=== PATIENT | male | born 1970 ===

== ENCOUNTER 2019-12-23 17:02 | Outpatient (REF) | payer MEDICARE, MEDICAID, SELFPAY | END 2019-12-23 17:03 | disposition home or self-care (01) | LOC: HO.LAB 17:02 | PROVIDERS: Visit Provider Internal Medicine | DX: Z20.828 Contact with and (suspected) exposure to other viral communicable diseases (principal) | CPT/HCPCS: 87635 ==

== ENCOUNTER 2019-12-24 10:04 | Outpatient (REF) | payer MEDICARE, MEDICAID, SELFPAY ==
[2019-12-24 12:13] LABS: Alanine Aminotransferase 45 U/L (0-40); Albumin Level 4.6 g/dL (3.5-5.0); Alkaline Phosphatase 80 U/L (39-117); Aspartate Amino Transferase 28 U/L (5-37); Bilirubin Direct 0.2 mg/dL (0.0-0.5); Bilirubin Total 0.9 mg/dL (0.0-1.0); Cholesterol 214 mg/dL; HDL Cholesterol 41 mg/dL; LDL Cholesterol Calculated 145 mg/dl; Total Protein 7.8 g/dL (6.5-8.0); Triglycerides 140 mg/dL
== END 2019-12-24 10:05 | disposition home or self-care (01) ==
LOC: HO.LAB 10:04
DX: E78.5 Hyperlipidemia, unspecified (principal)
CPT/HCPCS: 80061; 80076

== ENCOUNTER 2020-12-03 10:16 | Outpatient (REF) | payer MEDICARE, MEDICAID, SELFPAY ==
--- NOTE | 2020-12-03 13:34 | MHC.AU.HAS ---
Hearing Aid Evaluation Date of Visit: 12/03/20 Historical Information: Description of Hearing: Right ear- Normal sloping to mild to moderately severe HF SNHL. Left ear- Normal sloping to a mild to profound SNHL. Current personal amplification information, if applicable: 2009 Phonak Versata CIC - Lost Summary: Binaural amplification is recommended to help facilitate improved communication give the type and degree of the patient's hearing loss. Hearing aid style, technologies, and options were discussed. He is interested in binaural SVETA style hearing aids with regular batteries and domes. Hearing Aid Prescription: Based on the individual?s shared listening needs, communication environments, dexterity, desire for connectivity, and personal preferences, the following prescription for amplification has been made: Right ear: Surface Plate Finisher: Phonak Model: BetterYoueo P70-13T Battery Size: 13 Color: P8 - Black Pickling Solution Maker: Size 1 M Type of Dome: Open Left ear: Left ear prescription to be same as Right Hearing Aid above: Surface Plate Finisher: Phonak Model: Audeo P70-13T Battery Size: 13 Color: P8 - Black Type of Dome: Power Plan of Care: Medical Clearance to be requested from PCP/ENT. Hearing Instrument Fitting to be scheduled when materials arrive. Hearing aids will be ordered once medical clearance is received. Primary Diagnosis: H90.3 Bilateral Sensorineural Hearing Loss Signature: Provider: Thomas Garcia, RUTHIE-A
--- NOTE | 2020-12-03 13:35 | MHC.AU.AHA ---
Adult Audiological Evaluation Date of Visit: 12/03/20 Reason for Appointment: Audiological re-evaluation due to concern for decreased hearing. Patient has a known asymmetrical hearing hearing loss, with significantly worse hearing in the left ear. Previous MRI findings indicated a right sided acoustic neuroma, which seems inconsistent given his left sided hearing loss. Patient reports that recently he's been having more difficulty hearing and is struggling more day to day. He is currently in school as [employer] and find it difficult to hear and follow along in his classes. He no longer has his hearing aid and hasn't used a hearing aid in a number of years. Previous Hearing Test Results: Dr. Smith's office, 01/14/2009 - Normal hearing in the right ear sloping to a mild high-frequency hearing loss. Medical History: Medical History: Acoustic neuroma Hearing Instrument History- Left Ear: Technology Intern: Phonak - [email or web address] Model: WAKU WAKU ? SR/ART CIC Serial Number: [id number] Battery Size: 10 Warranty: 11/12/2011 Loss and Damage Warranty: 11/11/2010 Dispensed By: [facility] Date of Fittin11/02/2009 Otoscopy: Right Ear: Unremarkable Left Ear: Unremarkable Tympanometry: Tympanometry performed due to: To assess integrity of the middle ear system Right Ear: Normal Middle Ear System (Type A) Left Ear: Reduced Middle Ear Compliance (Type As) Hearing Evaluation: Transducer(s) Used: Circumaural Headphones, Bone Conduction Method: Conventional Audiometry Stimuli Used: Pure Tones Right Ear: Description of Hearing: Normal hearing from 250-2000 Hz, sloping to a mild sensorineural hearing loss from 4161-0709 Hz, and a moderately-severe hearing loss form 7674-5681 Hz. Left Ear: Description of Hearing: Normal hearing from 250-500 Hz, sloping to a mild sensorineural hearing loss at 1000 Hz, moderate sensorineural hearing loss at 1500 Hz, moderately-severe sensorineural hearing loss at 2000 Hz, and a profound hearing loss from 7733-1492 Hz. Hearing in the left ear is 30-70 dBHL worse than the right ear from 1219-8972 Hz. Speech Recognition Threshold (SRT): Method Used: Monitored Live Voice Stimuli Used: Spondee Words Right Ear: 20 dBHL Left Ear: 25 dBHL Word Discrimination: Method: Recorded Lists Word Lists Used: NU-6 Right Ear: 80% at 70 dBHL Left Ear: 64% at 85 dBHL Comparison: Compared to the most recent evaluation: Decreased hearing in the right ear. Stable hearing in the left ear. Recommendations: Audiological re-evaluation in one year. Trial with amplification is recommended. Medical clearance from a physician is required before fitting.Hearing Aid Fitting will be scheduled when all materials arrive. Hearing aid(s) will be ordered after approval is received. Referral to Ear, Nose, and Throat is recommended to monitor acoustic neuroma. Diagnosis: Primary Diagnosis: H90.3 Bilateral Sensorineural Hearing Loss Services Performed: Comprehensive Audiological Evaluation (CPT 74091) Tympanometry (CPT 29627) Signature: Provider: Thomas Garcia, CCC-A
--- NOTE | 2020-12-03 13:39 | MHC.AU.MED ---
Medical Clearance for Hearing Instrumentation Date: 12/08/20 Patient Name: Matthew Lund Date of : 1970 Primary Care Provider: Referring Provider: Stephanie Tena NP We have seen your patient on 12/03/20 and have determined that they are a candidate for amplification (See accompanying report). Specifically, they would benefit from: Hearing aid use in both ears There is a statute that addresses Medical Evaluation Requirements prior to fitting a patient with a hearing aid. According to [place] statute 265 CMR:6.03(1), (a) General. Except as provided in 265 CMR 6.03(1)(b), a hearing screen coordinator shall not sell a hearing aid unless the prospective user has presented to the hearing screen coordinator a written statement signed by a licensed physician that states that the patient's hearing loss has been medically evaluated and the patient may be considered a candidate for a hearing aid. The medical evaluation must have taken place within the preceding six months. Please note: Due to the [place] Statute referenced above, we cannot accept a signature other than that of a licensed physician. MULTIPLE CUT OFF SAW OPERATOR and PA signatures cannot be accepted. I am in agreement with the above recommendation. There is no medical contraindication for hearing instrumentation. Physician Signature Date Physician Name (Printed)
== END 2020-12-03 10:17 | disposition home or self-care (01) ==
LOC: HO.SH 10:16
PROVIDERS: Visit Provider Nurse Practitioner Family
DX: Z46.1 Encounter for fitting and adjustment of hearing aid (principal); H90.3 Sensorineural hearing loss, bilateral
CPT/HCPCS: 92557; 92567; 92591

== ENCOUNTER 2020-12-27 08:17 | Outpatient (REF) | payer MEDICARE, MEDICAID, SELFPAY | END 2020-12-27 08:18 | disposition home or self-care (01) | LOC: HO.HAP 08:17 | PROVIDERS: Visit Provider Internal Medicine | DX: Z46.1 Encounter for fitting and adjustment of hearing aid (principal); H90.3 Sensorineural hearing loss, bilateral | CPT/HCPCS: V5011; V5020; V5160; V5261; V5266 ==

== ENCOUNTER 2021-01-10 13:57 | Outpatient (REF) | payer MEDICARE, MEDICAID, SELFPAY | END 2021-01-10 13:58 | disposition home or self-care (01) | LOC: HO.HAP 13:57 | DX: Z13.89 Encounter for screening for other disorder (principal) ==

== ENCOUNTER 2021-03-24 15:05 | Outpatient (REF) | payer MEDICARE, MEDICAID, SELFPAY | END 2021-03-24 15:06 | disposition home or self-care (01) | LOC: HO.HAP 15:05 | PROVIDERS: PCP Internal Medicine; Visit Provider Internal Medicine | DX: Z13.89 Encounter for screening for other disorder (principal) ==

== ENCOUNTER 2021-03-29 12:55 | Outpatient (REF) | payer MEDICARE, MEDICAID, SELFPAY | END 2021-03-29 12:56 | disposition home or self-care (01) | LOC: HO.HAP 12:55 | PROVIDERS: Visit Provider Internal Medicine | DX: Z46.1 Encounter for fitting and adjustment of hearing aid (principal); H90.3 Sensorineural hearing loss, bilateral | CPT/HCPCS: V5266 ==

== ENCOUNTER 2021-08-24 12:44 | Outpatient (REF) | payer OTHER, SELFPAY ==
[2021-08-24 13:25] LABS: IDNOW Serial# 08D9AD1C
[2021-08-24 13:26] LABS: COVID-19 Test Negative (Negative)
== END 2021-08-24 12:45 | disposition home or self-care (01) ==
LOC: HO.LAB 12:44
PROVIDERS: Visit Provider Internal Medicine
DX: Z20.822 Contact with and (suspected) exposure to COVID-19 (principal)
CPT/HCPCS: 87635; C9803

== ENCOUNTER 2021-12-22 14:38 | Outpatient (REF) | payer OTHER, SELFPAY ==
[2021-12-22 15:41] LABS: Hematocrit 43.4 % (42.0-52.0); Hemoglobin 14.6 g/dl (14.0-18.0); Mean Corpuscular HGB Conc 33.6 g/dl (31.0-36.0); Mean Corpuscular Hemoglobin 29.9 pg (27.0-33.0); Mean Corpuscular Volume 88.9 fL (80.0-98.0); Mean Platelet Volume 9.9 fL (9.4-12.4); Platelet Count 280 X10*3/uL (160-400); Red Blood Count 4.88 X10*6/uL (4.60-5.80); Red Cell Distribution Width 12.4 % (11.0-16.0); White Blood Count 7.4 X10*3/uL (4.8-10.8)
[2021-12-22 15:47] LABS: Estimated Average Glucose 131 mg/dL; Hemoglobin A1c % 6.2 %
[2021-12-22 16:10] LABS: Alanine Aminotransferase 42 U/L (0-40); Albumin Level 4.3 g/dL (3.5-5.0); Alkaline Phosphatase 76 U/L (39-117); Anion Gap 14 (12-20); Aspartate Amino Transferase 25 U/L (5-37); Bilirubin Total 0.7 mg/dL (0.0-1.0); Blood Urea Nitrogen 13 mg/dL (9-16); Calcium 9.3 mg/dL (8.4-10.2); Carbon Dioxide 29 mmol/L (22-29); Chloride 99 mmol/L (96-108); Cholesterol 234 mg/dL; Estimated Glomerular Filt Rate > 60; Glucose Fasting 105 mg/dL (60-99); HDL Cholesterol 34 mg/dL; LDL Cholesterol Calculated 152 mg/dl; Potassium 4.2 mmol/L (3.3-5.1); Sodium 138 mmol/L (135-145); Total Protein 7.2 g/dL (6.5-8.0); Triglycerides 244 mg/dL
[2021-12-22 16:11] LABS: Creatinine Urine 91.35 mg/dL; Microalbumin Urine < 5.0 mg/L
[2021-12-22 16:31] LABS: TSH reflex Free T4 1.24 uIU/mL (0.32-4.0)
== END 2021-12-22 14:39 | disposition home or self-care (01) ==
LOC: HO.LAB 14:38
PROVIDERS: PCP Physician Assistant; Visit Provider Physician Assistant
DX: E11.65 Type 2 diabetes mellitus with hyperglycemia (principal)
CPT/HCPCS: 36415; 80053; 80061; 82043; 83036; 84443; 85027

== ENCOUNTER 2022-01-18 11:51 | Outpatient (REF) | payer OTHER, SELFPAY ==
--- NOTE | 2022-01-18 13:52 | MHC.AU.HFU ---
Hearing Instrument Follow-Up- Binaural Date of Visit: 01/18/22 Right Ear: Mira Davison P70-13T SN: [id number] Color: Velvet Black Repair Warranty: 03/15/2024 Loss and Damage Warranty: 03/15/2024 Service Plan: 12/27/2021 Battery Size: 13 Shoe Stamper: Size 0 M Type of Mold: Small open dome Type of Wax Guard: Cerushield Dispensed By: [facility] Date of Fittin12/27/2020 Left Ear: Mira Davison P70-13T SN: [id number] Color: Velvet Black Repair Warranty: 03/15/2024 Loss and Damage Warranty: 03/15/2024 Service Plan: 12/27/2021 Battery Size: 13 Shoe Stamper: Size 0 M Type of Mold: Small open dome Type of Wax Guard: Cerushield Dispensed By: [facility] Date of Fittin12/27/2020 Follow-Up Summary: Matthew dropped off his hearing aids reporting that they were not working. Battery doors and compartments covered in rust. Cleaned out battery compartments and battery doors. Cleaned hearing aids, vacuumed microphones, and replaced domes, wax guards, and retention tails. A listening check demonstrated that the hearing aids are in good working order. Data logging only about 2.5 hours/day. Recommendations: Daily and consistent use of binaural amplification. If hearing aids will not be worn for an extended period of time, remove the battery completely from the hearing aid. Diagnosis Code(s): Primary Diagnosis: H90.3 Bilateral Sensorineural Hearing Loss Signature: Provider: Jolanta Vicente, [facility]
== END 2022-01-18 11:52 | disposition home or self-care (01) ==
LOC: HO.HAP 11:51
PROVIDERS: Visit Provider Physician Assistant
DX: Z46.1 Encounter for fitting and adjustment of hearing aid (principal); H90.3 Sensorineural hearing loss, bilateral
CPT/HCPCS: 92593

== ENCOUNTER 2022-01-19 11:32 | Outpatient (REF) | payer OTHER, MEDICAID, SELFPAY | END 2022-01-19 11:33 | disposition home or self-care (01) | LOC: HO.HAP 11:32 | PROVIDERS: Visit Provider Physician Assistant | DX: Z46.1 Encounter for fitting and adjustment of hearing aid (principal); H90.3 Sensorineural hearing loss, bilateral | CPT/HCPCS: V5266 ==

== ENCOUNTER 2022-02-04 18:30 | Emergency (ER) | payer OTHER, MEDICAID, SELFPAY ==
--- NOTE | 2022-02-04 19:41 | ED_ITS ---
HPI - Back Pain/Injury General Chief Complaint: Back Pain/Injury <Kasandra Haynes CNP - Last Filed: 02/04/22 20:59> Stated Complaint: lower back pain <Kasandra Haynes CNP - Last Filed: 02/04/22 20:59> Time Seen by Provider: 02/04/22 21:35 <Kasandra Haynes CNP - Last Filed: 02/04/22 20:59> Source: patient and family (Brother, Varun) <Prabhu Olmedo MD - Last Filed: 02/04/22 22:24> Mode of arrival: ambulatory <Prabhu Olmedo MD - Last Filed: 02/04/22 22:24> Limitations: no limitations <Prabhu Olmedo MD - Last Filed: 02/04/22 22:24> History of Present Illness HPI Narrative: 51-year-old male who presents emergency department for evaluation of severe lower back pain and left hip pain. Patient has a history of peripheral spondyloarthritis (SpA-inflammatory arthritis) being treated with Humira and methotrexate who presents emergency department for evaluation of lower back pain and left hip pain x2 days. Patient states that yesterday he had some slight pain in his lower back. He states that overnight the pain became severe to the point where he is unable to move her sleep. Patient points to his lower back and left hip area when asked to localize the pain. States the pain is a constant, sharp/shooting/pressure pain. He states that he gets episodes of spasm which are severe and are greater than 10/10. The patient states that he did not take any other medications for his pain. He states that the pain is w orse with movement and with sitting any has to personal lines agent order to get relief his pain. He denies any numbness or weakness of his lower extremities. He is able to walk using his walker. He denied loss of bowel or bladder control. He denied fever, chills, rhinorrhea, sore throat, cough, chest pain, shortness of breath or dyspnea on exertion. He has had no loss of bowel or bladder control. <Prabhu Olmedo MD - Last Filed: 02/04/22 22:24> MD elicited complaint: back pain <Prabhu Olmedo MD - Last Filed: 02/04/22 22:24> Pertinent past history: prior back pain (SpA) <Prabhu Olmedo MD - Last Filed: 02/04/22 22:24> Onset (ago): day(s) (2) <Prabhu Olmedo MD - Last Filed: 02/04/22 22:24> Timing: constant <Prabhu Olmedo MD - Last Filed: 02/04/22 22:24> Severity: severe <Prabhu Olmedo MD - Last Filed: 02/04/22 22:24> Pain scale (0-10): 10 <Prabhu Olmedo MD - Last Filed: 02/04/22 22:24> Similar Symptoms Previously: Yes <Prabhu Olmedo MD - Last Filed: 02/04/22 22:24> Quality: sharp and other (Shooting, pressure pain) <Prabhu Olmedo MD - Last Filed: 02/04/22 22:24> Location: lumbar spine <Prabhu Olmedo MD - Last Filed: 02/04/22 22:24> Radiation: other (Left hip) <Prabhu Olmedo MD - Last Filed: 02/04/22 22:24> Exacerbating factors: movement, supine positioning and walking <Prabhu Olmedo MD - Last Filed: 02/04/22 22:24> Relieving factors: none <Prabhu Olmedo MD - Last Filed: 02/04/22 22:24> Context: other (Came on at rest, no injury) <Prabhu Olmedo MD - Last Filed: 02/04/22 22:24> Associated symptoms: denies other symptoms <Prabhu Olmedo MD - Last Filed: 02/04/22 22:24> Work related injury: No <Prabhu Olmedo MD - Last Filed: 02/04/22 22:24> Related Data Home Medications: Home Medications Medication Instructions Recorded Confirmed adalimumab 40 mg/0.8 mL 40 mg subcut Q2W 12/12/21 12/12/21 subcutaneous syringe kit (Humira) cholecalciferol (vitamin D3) 50 50 mcg PO DAILY 12/12/21 12/12/21 mcg (2,000 unit) capsule folic acid 1 mg tablet 1 mg PO DAILY 12/12/21 12/12/21 hydrochlorothiazide 25 mg tablet 25 mg PO DAILY 12/12/21 12/12/21 methotrexate (PF) 17.5 mg/0.35 mL 17.5 mg subcut QWEEK 12/12/21 12/12/21 subcutaneous auto-injector (Rasuvo (PF)) Previous Rx's Medication Instructions Recorded magnesium oxide 400 mg PO DAILY 30 days #30 tabs 12/12/21 cyclobenzaprine 10 mg tablet 10 mg PO TID PRN pain, muscle 02/04/22 spasm #15 tabs dexamethasone 6 mg tablet 6 mg PO DAILY 5 days #5 tabs 02/04/22 morphine 15 mg immediate release 15 mg PO Q4-6H PRN pain #14 tabs 02/04/22 tablet <Kasandra Haynes CNP - Last Filed: 02/04/22 20:59> Allergies/Adverse Reactions: Allergies Allergy/AdvReac Type Severity Reaction Status Date / Time No Known Allergies Allergy Verified 12/12/21 14:03 [No Known Allergies*] <Kasandra Haynes CNP - Last Filed: 02/04/22 20:59> Review of Systems Review of Systems: Yes all other systems are reviewed and are negative <Prabhu Olmedo MD - Last Filed: 02/04/22 22:24> [facility] Past Medical History [facility] Narrative: Past medical history: Prediabetes, peripheral spondyloarthritis(SpA). Past surgical history: left hip replaced. Social history: He denies tobacco, alcohol and drug use. <Prabhu Olmedo MD - Last Filed: 02/04/22 22:24> Social History Social History: Social History Housing: Condominium Patient Tobacco Use Status: Never used Tobacco Advance Directives: No Advance Directives Information Provided: Yes service: No Current occupational status: unemployed Cognitive needs: No Hearing needs: Yes (right ear ) Vision needs: Yes (glasses) <Kasandra Haynes CNP - Last Filed: 02/04/22 20:59> Physical Exam Vital Signs: Vital Signs: Last Vital Signs Temp 97.8 F 02/04/22 19:42 Pulse 115 H 02/04/22 19:42 Resp 20 02/04/22 19:42 BP 124/88 02/04/22 19:42 Pulse Ox 96 02/04/22 19:42 O2 Del Method 02/04/22 19:42 BMI result Body Mass Index 34.0 <Kasandra Haynes CNP - Last Filed: 02/04/22 20:59> Vital Signs: Last Vital Signs Temp 97.8 F 02/04/22 19:42 Pulse 115 H 02/04/22 19:42 Resp 20 02/04/22 19:42 BP 124/88 02/04/22 19:42 Pulse Ox 96 02/04/22 19:42 O2 Del Method 02/04/22 19:42 BMI result Body Mass Index 34.0 <Prabhu Olmedo MD - Last Filed: 02/04/22 22:24> Const: Other: Awake, alert, male patient, pleasant, cooperative, patient is standing and cannot sit secondary to his pain, he is able to walk using a walker without any difficulty, answers all questions appropriately <Prabhu Olmedo MD - Last Filed: 02/04/22 22:24> HEENT: Head: Yes normal to inspection, Yes normocephalic and Yes atraumatic <Prabhu Olmedo MD - Last Filed: 02/04/22 22:24> Ears: external ears normal <Prabhu Olmedo MD - Last Filed: 02/04/22 22:24> General nose exam: Normal external nose present <Prabhu Olmedo MD - Last Filed: 02/04/22 22:24> Face and sinus: Yes normal facial exam <Prabhu Olmedo MD - Last Filed: 02/04/22 22:24> Mouth: Normal oral and palatal mucosa present <Prabhu Olmedo MD - Last Filed: 02/04/22 22:24> Throat: Yes posterior oropharynx normal <Prabhu Olmedo MD - Last Filed: 02/04/22 22:24> Eyes: General: appearance normal, both eyes and all related structures <Prabhu Olmedo MD - Last Filed: 02/04/22 22:24> Pupils: Equal, round and reactive pupils present <Prabhu Olmedo MD - Last Filed: 02/04/22 22:24> Neck: Neck: Yes normal visual inspection, Yes no lymphadenopathy, Yes trachea midline and Yes supple <Prabhu Olmedo MD - Last Filed: 02/04/22 22:24> Chest: Chest palpation & inspection: normal inspection of the chest and normal palpation of entire chest wall <Prabhu Olmedo MD - Last Filed: 02/04/22 22:24> Resp: Effort & Inspection: normal respiratory effort and able to speak in complete sentences <Prabhu Olmedo MD - Last Filed: 02/04/22 22:24> Auscultation: clear to auscultation bilaterally <Prabhu Olmedo MD - Last Filed: 02/04/22 22:24> Cardio: Rate: regular rate <Prabhu Olmedo MD - Last Filed: 02/04/22 22:24> Rhythm: regular rhythm <Prabhu Olmedo MD - Last Filed: 02/04/22 22:24> Heart sounds: S1 normal heart sound present, S2 normal heart sound present and no murmurs <Prabhu Olmedo MD - Last Filed: 02/04/22 22:24> GI: Inspection: Yes normal to inspection <Prabhu Olmedo MD - Last Filed: 02/04/22 22:24> Palpation (GI): Soft to palpation, nontender and no guarding <Prabhu Olmedo MD - Last Filed: 02/04/22 22:24> Auscultation: normal bowel sounds <Prabhu Olmedo MD - Last Filed: 02/04/22 22:24> Back/Spine/Pelvis: Other: Tenderness palpation of the lumbar spine as well as the lumbar sacral paraspinal muscles, spasm of the paraspinal muscles noted, <MD Diana Bailey Last Filed: 02/04/22 22:24> Skin: General skin exam: no rashes or lesions noted <Prabhu Olmedo MD - Last Filed: 02/04/22 22:24> Neuro: Cranial nerves: Yes CN's II-XII intact bilaterally and Yes Equal, round and reactive pupils present <Prabhu Olmedo MD - Last Filed: 02/04/22 22:24> Cognition (Neuro): normal cognition <Prabhu Olmedo MD - Last Filed: 02/04/22 22:24> Motor exam (neuro): 5/5 motor strength present throughout <Prabhu Olmedo MD - Last Filed: 02/04/22 22:24> Extrem: General: Yes normal to inspection <Prabhu Olmedo MD - Last Filed: 02/04/22 22:24> Psych: Appearance: grossly normal <Prabhu Olmedo MD - Last Filed: 22:24> Speech and movement: Normal speech and movement present <Prabhu Olmedo MD - Last Filed: 02/04/22 22:24> Affect: normal affect <Prabhu Olmedo MD - Last Filed: 02/04/22 22:24> Attitude: cooperative <Prabhu Olmedo MD - Last Filed: 02/04/22 22:24> Thought process: Normal thought process present <Prabhu Olmedo MD - Last Filed: 02/04/22 22:24> Thought content: Normal thought content present <Prabhu Olmedo MD - Last Filed: 02/04/22 22:24> Course Course Course Narrative: RME: Patient is a 51 year old male who presents to the ED for evaluation of diffuse lower back pain. Onset was yesterday, progressively worsening throughout the day. Reports an injury 2002 that started the chronic pain. 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 history of left hip replacement. Denies fevers, chills, burning with micturition, urinary frequency, urgency, hesitancy, bladder or bowel dysfunction, numbness or tingling of the perineum or bilateral legs. Denies any recent surgical procedures, any known immune compromising conditions, personal history of cancer, or IV drug usage. PE: diffuse paraspinal muscle tenderness upon palpation, ambulatory with steady gait and use of walker, no focal neurologic deficits, no red flag symptoms to suggest cauda equina. <Kasandra Haynes CNP - Last Filed: 02/04/22 20:59> RME: Patient is a 51 year old male who presents to the ED for evaluation of diffuse lower back pain. Onset was yesterday, progressively worsening throughout the day. Reports an injury 2002 that started the chronic pain. 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 history of left hip replacement. Denies fevers, chills, burning with micturition, urinary frequency, urgency, hesitancy, bladder or bowel dysfunction, numbness or tingling of the perineum or bilateral legs. Denies any recent surgical procedures, any known immune compromising conditions, personal history of cancer, or IV drug usage. PE: diffuse paraspinal muscle tenderness upon palpation, ambulatory with steady gait and use of walker, no focal neurologic deficits, no red flag symptoms to suggest cauda equina. 2215: Course:RME reviewed. Patient's exam did reveal tenderness palpation of his lumbar sacral spine as well as the paraspinal muscles in this region with spasm of the muscles. The patient is able to stand and walk using a walker but was unable to sit secondary to increased pain. At this time I do not think that he needs x-rays of his back or his left hip. Patient most likely has a flare-up of his SpA. He states that he has had steroid injections before but cannot take prednisone. Patient was treated with dexamethasone 4 mg orally. I prescribed dexamethasone 4 mg daily for 5 days. Patient was also given morphine 15 mg orally and cyclobenzaprine 10 mg orally. Patient was prescribed morphine and cyclobenzaprine as well. He was given printed and verbal instructions and discharged home. <Prabhu Olmedo MD - Last Filed: 02/04/22 22:24> Discharge Plan Discharge Clinical Impression: Seronegative spondyloarthropathy, Lower back pain, Acute pain of left hip <Kasandra Haynes CNP - Last Filed: 02/04/22 20:59> Patient Disposition: Home, Self-Care <Kasandra Haynes CNP - Last Filed: 02/04/22 20:59> Instructions: Acute Low Back Pain (ED) <Kasandra Haynes CNP - Last Filed: 02/04/22 20:59> Additional Instructions: Back Pain Discharge Instructions: Take dexamethasone 6 mg mg pills, 1 pills once a day for 5 days. Dexamethasone is an anti-inflammatory steroid. While you are taking dexamethasone, do not take any NSAIDs (Motrin, Advil, ibuprofen, Aleve, naproxen). Take Tylenol (acetaminophen) 2 pills every 4-6 hours as needed for pain. For pain not relieved by dexamethasone or Tylenol take morphine 15 mg pills, 1 pill every 4 hours as needed for pain. This medication will make you sleepy, do not drive or work while taking this medication. Morphine is a narcotic medication and can be addicting. If you are concerned about addiction you can ask the pharmacist for less pills or do not get this prescription filled. Take Flexeril (cyclobenzaprine) 10 mg pills, 1 pill every 8 hours as needed for pain or muscle spasm. This is a prescription medication. This medication will make you sleepy, therefore do not drive or work while taking this medication. Apply ice for 15 minutes to the area that hurts. Do this 4-6 times a day to help reduce the pain in your back. Continue with normal activities as tolerated since staying in bed and not moving around will make your pain worse. Please return to the Emergency Department or see your doctor immediately if your symptoms get worse or if you develop any new symptoms that are concerning you. Follow up with your doctor in 2 day. Please read the other printed discharge instructions on back pain. <Kasandra Haynes, JOAN - Last Filed: 02/04/22 20:59> Prescriptions: New cyclobenzaprine 10 mg tablet 10 mg PO TID PRN (Reason: pain, muscle spasm) Qty: 15 0RF dexamethasone 6 mg tablet 6 mg PO DAILY 5 Days Qty: 5 0RF morphine 15 mg tablet 15 mg PO Q4-6H PRN (Reason: pain) Qty: 14 0RF Rx Instructions: Patient may request partial fill; Partial Fill upon patient request. No Action Humira 40 mg/0.8 mL syringe kit 40 mg subcut Q2W hydrochlorothiazide 25 mg tablet 25 mg PO DAILY folic acid 1 mg tablet 1 mg PO DAILY cholecalciferol (vitamin D3) 50 mcg (2,000 unit) capsule 50 mcg PO DAILY Rasuvo (PF) 17.5 mg/0.35 mL auto-injector 17.5 mg subcut QWEEK magnesium oxide 400 mg magnesium tablet 400 mg PO DAILY 30 Days Qty: 30 3RF <Kasandra Haynes, SUBSURFACE AUGMENTEE OPERATOR - Last Filed: 02/04/22 20:59>
[2022-02-04 19:42] VITALS: BP 124/88; PULSE 115; RESP 20; TEMP 36.6; O2SAT 96; BMI 34.0
[2022-02-04] MEDS: Cyclobenzaprine HCl 10 MG TABLET PO (22:23)
[2022-02-04] MEDS: dexAMETHasone 4 MG TABLET PO (22:23)
[2022-02-04] MEDS: Morphine Sulfate Immed Release 15 MG TABLET PO (22:23)
== END 2022-02-04 23:33 | disposition home or self-care (01) ==
PROVIDERS: Emergency Provider Emergency Medicine Emergency Medical Services
DX: M47.816 Spondylosis without myelopathy or radiculopathy, lumbar region (principal); M54.50 Low back pain, unspecified; M25.552 Pain in left hip; Z79.899 Other long term (current) drug therapy
CPT/HCPCS: 99283; J8540

== ENCOUNTER 2022-02-14 14:10 | Outpatient (REF) | payer OTHER, SELFPAY ==
[2022-02-14 15:43] LABS: Hematocrit 47.2 % (42.0-52.0); Hemoglobin 15.6 g/dl (14.0-18.0); Mean Corpuscular HGB Conc 33.1 g/dl (31.0-36.0); Mean Corpuscular Volume 90.8 fL (80.0-98.0); Mean Platelet Volume 9.9 fL (9.4-12.4); Platelet Count 251 X10*3/uL (160-400); Red Cell Distribution Width 12.8 % (11.0-16.0); White Blood Count 6.5 X10*3/uL (4.8-10.8)
[2022-02-14 16:10] LABS: Alanine Aminotransferase 66 U/L (0-40); Albumin Level 4.4 g/dL (3.5-5.0); Alkaline Phosphatase 79 U/L (39-117); Anion Gap 12 (12-20); Aspartate Amino Transferase 30 U/L (5-37); Bilirubin Total 0.9 mg/dL (0.0-1.0); Blood Urea Nitrogen 15 mg/dL (9-16); Calcium 9.4 mg/dL (8.4-10.2); Carbon Dioxide 30 mmol/L (22-29); Chloride 102 mmol/L (96-108); Estimated Glomerular Filt Rate > 60; Glucose Fasting 124 mg/dL (60-99); Potassium 4.7 mmol/L (3.3-5.1); Sodium 139 mmol/L (135-145); TSH reflex Free T4 1.21 uIU/mL (0.32-4.0); Total Protein 7.5 g/dL (6.5-8.0)
[2022-02-14 16:30] LABS: Creatinine Urine 139.67 mg/dL; Microalbumin Urine < 5.0 mg/L
== END 2022-02-14 14:11 | disposition home or self-care (01) ==
LOC: HO.LAB 14:10
PROVIDERS: PCP Physician Assistant; Visit Provider Physician Assistant
DX: E11.65 Type 2 diabetes mellitus with hyperglycemia (principal)
CPT/HCPCS: 36415; 80053; 82043; 84443; 85027

== ENCOUNTER → 2022-03-08 13:10 | Outpatient (BNVA) | payer OTHER, MEDICAID, SELFPAY | PROVIDERS: PCP Internal Medicine; Visit Provider Nurse Practitioner Family | DX: Z01.818 Encounter for other preprocedural examination (principal); R06.83 Snoring; K59.01 Slow transit constipation; E11.9 Type 2 diabetes mellitus without complications | CPT/HCPCS: 99202 ==

== ENCOUNTER → 2022-05-31 14:50 | Outpatient (BNVA) | payer OTHER, MEDICAID, SELFPAY | PROVIDERS: PCP Internal Medicine; Visit Provider Nurse Practitioner Family | DX: K59.01 Slow transit constipation (principal) | CPT/HCPCS: 99212 ==

== ENCOUNTER 2022-06-12 15:35 | Outpatient (AMB) | payer OTHER, MEDICAID, SELFPAY ==
--- NOTE | 2022-06-12 15:44 | MHC.PC.OV ---
Vital Signs 06/12/22 15:45 Height 5 ft 9 in Weight 230 lb BMI 34.0 BP 118/76 Blood Pressure Location Lt brachial Position Sitting Pulse 88 Pulse Source Pulse Oximeter Temp Source Skin Pulse Oximetry (%) 97 Oxygen Delivery Method Room Air Intake Visit Reasons: DMII Intake Note: Patient is here for aa follow up on his DM. Patient is requesting a sleep study. Professor In Family Studies Required: No Accompanied by: Self / Same As Patient Allergies No Known Allergies [No Known Allergies*] Allergy (Verified 03/27/23 15:53) Medication List - Last Reconciled 05/20/23 by Aniket Vega MD adalimumab (Humira) inject one - 40 mg/0.8 mL syringe every 2 weeks subcut ascorbic acid (vitamin C) 500 mg PO DAILY ashwagandha root extract 1,000 mg PO DAILY atorvastatin 10 mg PO BEDTIME 90 days azelastine 0.05% 1 drp ophthalmic (eye) BID PRN cholecalciferol (vitamin D3) 50 mcg PO DAILY 90 days folic acid 1 mg PO DAILY gabapentin 100 mg PO BID 30 days hydrochlorothiazide 25 mg PO DAILY PRN 30 days magnesium oxide 400 mg PO DAILY metformin 500 mg PO DAILY 90 days methotrexate (PF) (Rasuvo (PF)) 17.5 mg subcut QWEEK multivitamin (Daily Multi-Vitamin tablet) 1 tab PO DAILY polyethylene glycol 3350 (Miralax) 17 grams PO DAILY Tobacco use date assessed: 06/12/22 HPI DMII HPI Details Patient comes in today for his follow up visit States that he feels okay but would like to request for a referral to get a sleep study done States that he was informed recently by his family and some friends that they have noticed that he would at times seem to stop breathing for a few seconds when he is sleeping, and this would then be followed by some fits of coughing and they reports that he sometimes seem to be choking when he does this He denies any headaches or dizziness Denies any chest pains, no SOB No nausea/vomiting, no abdominal pain No change in bowel habits noted States that he is also still noticing some foaming and an odor to his urine when he uses the bathroom lately; he denies any dysuria or urinary frequency but is concerned about some potential UTI and would like to get something to treat this and help clear up his urine He was not able to get his follow up labs done yet - states that he will try to get them done [facility] Medical History (Updated 03/27/23 @ 16:12 by Aniket Vega MD) Vitamin D deficiency Hx of flexible sigmoidoscopy Pure hypercholesterolemia Obesity (BMI 30-39.9) Learning disability DMII (diabetes mellitus, type 2) Seronegative spondyloarthropathy Surgical History (Updated 03/27/23 @ 16:45 by Aniket Vega MD) History of hip replacement Social History Housing: Condominium Patient Tobacco Use Status: Never used Tobacco e-Cigarette/Vaping Use: Never Used service: No Current occupational status: unemployed Cognitive needs: No Hearing needs: Yes (right ear ) Vision needs: Yes (glasses) Questionnaire Thrive Questionnaire Date Thrive assessed: 05/12/22 ADRIANO-7 AMB Questionnaire ADRIANO-7 Date ADRIANO - 7 assessed: 03/14/22 Source: Developed by Drs. Kavin Eason, Kaylin Lam, Josep Singer and colleagues, with an educational randi from [employer]. Review of Systems Const Denies chills, Denies fatigue, Denies fever(s), Denies headache(s) and Reports stops breathing during sleep ENT Denies dysphagia, Denies dizziness, Denies otalgia, Denies headache(s), Denies odynophagia, Denies sinus pain and Denies sore throat Card Denies chest pain, Denies palpitations and Denies dyspnea Resp Denies cough and Denies dyspnea GI Denies abdominal pain, Denies constipation, Denies dysphagia, Denies heartburn, Denies diarrhea, Denies nausea, Denies odynophagia and Denies vomiting Details: still notices some foamy urine at times whenever he uses the bathroom; also relates (+) strong odor to his urine at times Denies dysuria, Denies nocturia and Denies urinary frequency Musc Denies back pain and Denies arthralgias Skin/Breast Denies rash Neuro Denies dizziness and Denies headache(s) Endo Denies fatigue and Denies palpitations Physical exam (Primary Care) Vital Signs: Last Vital Signs Pulse 88 06/12/22 15:45 BP 118/76 06/12/22 15:45 Pulse Ox 97 06/12/22 15:45 Oxygen Delivery Method Room Air 06/12/22 15:45 BMI result Body Mass Index 34.0 Tobacco/Smoking Status: Tobacco use Status Tobacco use date assessed 06/12/22 06/12/22 15:47 Patient Tobacco Use Status Never used Tobacco 06/12/22 15:47 e-Cigarette/Vaping Use Never Used 06/12/22 15:47 Thrive Assessment: Date of Thrive Assessment Date Thrive assessed 05/12/22 06/12/22 15:47 Const General: no acute distress and alert HENMT Ears: TM's normal bilaterally and EAC's normal Throat: Yes posterior oropharynx normal and Yes tonsils normal Neck Neck: Yes no lymphadenopathy and Yes supple Thyroid: Thyroid normal Resp Auscultation: clear to auscultation bilaterally, no rales and no wheezes Cardio Rate: regular rate Rhythm: regular rhythm Heart sounds: no murmurs GI Palpation (GI): Soft to palpation and nontender Auscultation: normal bowel sounds General: Yes no CVA tenderness Back/Spine/Pelvis Back: no CVA tenderness Skin Rashes: no rashes Extrem General: Yes no clubbing, cyanosis or edema Results AMB Hemoglobin A1c AMB Hemoglobin A1c 6.0 % Last Edit by Nasrin Jimenez on 06/12/22 16:06 Results Reviewed Results Reviewed: Laboratory Last Values Hgb A1c (Clinic) 6.0 % (4.0-6.0) 06/12/22 16:05 Assessment and Plan Assessment & Plan (1) Witnessed episode of apnea: Code(s): R06.81 - Apnea, not elsewhere classified Plan: Will refer him to Sleep Medicine for further evaluation and consideration for a sleep study if appropriate (2) Seronegative spondyloarthropathy: Code(s): M47.819 - Spondylosis without myelopathy or radiculopathy, site unspecified Plan: Continue Humira injections 40 mg SQ every 2 weeks Follow up with rheumatology as scheduled (3) DMII (diabetes mellitus, type 2): Code(s): E11.9 - Type 2 diabetes mellitus without complications Qualifiers: Diabetes mellitus terminal supervisor insulin use: without terminal supervisor use Diabetes mellitus complication status: with hyperglycemia Qualified Code(s): E11.65 - Type 2 diabetes mellitus with hyperglycemia Plan: In-office HgbA1c today is at 6.0% (was at 6.6% a few months ago) - goal is <7.0% Reinforced diabetic diet Continue Metformin 500 mg QD Will have patient get his follow up labs done [facility]; he would also like to have a serum testosterone level as well as a PSA level added to his current lab orders (4) Pure hypercholesterolemia: Code(s): E78.00 - Pure hypercholesterolemia, unspecified Plan: Reinforced low cholesterol diet Have cautioned patient that his cholesterol levels were elevated when they were last checked in December 2021, with his total cholesterol at 234 mg/dl and LDL cholesterol at 152 mg/dl - should try to get his follow up labs done [facility] Will recheck his labs and fasting lipids again in 3 months for follow up (5) Edema of both lower extremities: Code(s): R60.0 - Localized edema Plan: Most likely stasis/dependent edema Patient has been on HCTZ 25 mg QD for his edema for years (started on years ago by his previous PCP Dr. Solares) (6) Foamy urine: Code(s): R82.998 - Other abnormal findings in urine Plan: Urinalysis done in the office previously came out normal with no evidence of a UTI although his urine did appear concentrated - have explained to patient that this may actually be the reason his urine appears foamy Have again reminded him to continue to increase his daily oral fluid intake Per request, will agree to start him again in Cephalexin but only at 500 mg BID for a week ( empirically ) (7) Obesity (BMI 30-39.9): Code(s): E66.9 - Obesity, unspecified Plan: Reinforced diet/exercise as tolerated/lose weight Plan Follow up in 3 months Orders: Orders Testosterone, Free/Total 06/14/22 R79.89 - Other specified abnormal findings of blood chemistry Prostate Specific Antigen 06/14/22 N40.0 - Benign prostatic hyperplasia without lower urinary tract symptoms Comprehensive [place]. Panel Fast 3 Months E78.00 - Pure hypercholesterolemia, unspecified Hemoglobin A1c 3 Months E11.9 - Type 2 diabetes mellitus without complications Lipid Panel 3 Months E78.00 - Pure hypercholesterolemia, unspecified Referrals Sleep Medicine Referral R06.81 - Apnea, not elsewhere classified Medications: Changed From cephalexin 500 mg PO Q8H 7 days 21 caps 0RF To cephalexin 500 mg PO Q8H 14 caps 0RF Coding Level of Care Code Est Pt Level 4 (94405) Diagnoses Witnessed episode of apnea R06.81 Seronegative spondyloarthropathy M47.819 Type 2 diabetes mellitus with hyperglycemia, without long-term current use of insulin E11.65 Diabetes mellitus terminal supervisor insulin use: without chcf use Diabetes mellitus complication status: with hyperglycemia Pure hypercholesterolemia E78.00 Edema of both lower extremities R60.0 Foamy urine R82.998 Obesity (BMI 30-39.9) E66.9
[2022-06-12 15:45] VITALS: BP 118/76; PULSE 88; O2SAT 97; BMI 34.0
== END 2022-06-12 16:47 | disposition home or self-care (01) ==
LOC: HO.HMGH 15:35
PROVIDERS: PCP Internal Medicine; Visit Provider Internal Medicine
DX: E11.65 Type 2 diabetes mellitus with hyperglycemia (principal); R06.81 Apnea, not elsewhere classified; M47.819 Spondylosis without myelopathy or radiculopathy, site unspecified; E78.00 Pure hypercholesterolemia, unspecified; R60.0 Localized edema; R82.998 Other abnormal findings in urine; E66.9 Obesity, unspecified
CPT/HCPCS: 99499

== ENCOUNTER 2022-06-14 09:07 | Outpatient (REF) | payer OTHER, MEDICAID, SELFPAY ==
[2022-06-14 10:26] LABS: Hematocrit 44.6 % (42.0-52.0); Hemoglobin 15.1 g/dl (14.0-18.0); Mean Corpuscular HGB Conc 33.9 g/dl (31.0-36.0); Mean Corpuscular Hemoglobin 29.8 pg (27.0-33.0); Mean Platelet Volume 10.4 fL (9.4-12.4); Platelet Count 252 X10*3/uL (160-400); Red Blood Count 5.07 X10*6/uL (4.60-5.80); Red Cell Distribution Width 12.6 % (11.0-16.0); White Blood Count 7.8 X10*3/uL (4.8-10.8)
[2022-06-14 10:40] LABS: Estimated Average Glucose 128 mg/dL; Hemoglobin A1c % 6.1 %
[2022-06-14 10:59] LABS: Appearance Urine Clear; Color Urine Yellow; Glucose Urine UA Negative (Negative); Leukocyte Esterase Urine Negative (Negative); Nitrite Urine Negative (Negative); Urine Blood Negative (Negative); Urine Ketones Negative (Negative); Urine Protein Negative (Neg-Trace)
[2022-06-14 11:05] LABS: Alanine Aminotransferase 37 U/L (0-40); Albumin Level 4.3 g/dL (3.5-5.0); Alkaline Phosphatase 74 U/L (39-117); Anion Gap 14 (12-20); Aspartate Amino Transferase 22 U/L (5-37); Bilirubin Total 0.6 mg/dL (0.0-1.0); Blood Urea Nitrogen 14 mg/dL (9-16); Calcium 9.6 mg/dL (8.4-10.2); Carbon Dioxide 26 mmol/L (22-29); Chloride 103 mmol/L (96-108); Cholesterol 240 mg/dL; Estimated Glomerular Filt Rate > 60; Glucose Fasting 122 mg/dL (60-99); HDL Cholesterol 39 mg/dL; LDL Cholesterol Calculated 172 mg/dl; Potassium 4.7 mmol/L (3.3-5.1); Sodium 138 mmol/L (135-145); Total Protein 7.2 g/dL (6.5-8.0); Triglycerides 149 mg/dL
[2022-06-14 11:21] LABS: Prostate Specific Antigen 0.89 ng/mL (<0.05-4.0); TSH reflex Free T4 2.18 uIU/mL (0.32-4.0)
[2022-06-14 11:32] LABS: Creatinine Urine 189.73 mg/dL; Microalbum/Creatinine Ratio Ur 3.6 ug/mg cr
[2022-06-20 16:09] LABS: Testosterone, Free 45.9 pg/mL (35.0-155.0); Testosterone, Total 248 ng/dL (250-1100)
== END 2022-06-14 09:08 | disposition home or self-care (01) ==
LOC: HO.LAB 09:07
PROVIDERS: PCP Internal Medicine; Visit Provider Internal Medicine
DX: N40.0 Benign prostatic hyperplasia without lower urinary tract symptoms (principal); E11.65 Type 2 diabetes mellitus with hyperglycemia; R30.0 Dysuria; R79.89 Other specified abnormal findings of blood chemistry; Z12.5 Encounter for screening for malignant neoplasm of prostate
CPT/HCPCS: 36415; 80053; 80061; 81003; 82043; 83036; 84153; 84402; 84403; 84443; 85027

== ENCOUNTER → 2022-08-29 14:14 | Outpatient (BNVA) | payer OTHER, MEDICAID, SELFPAY | PROVIDERS: PCP Physician Assistant; Visit Provider Nurse Practitioner Family | DX: R40.0 Somnolence (principal); R06.83 Snoring; E66.9 Obesity, unspecified; Z68.34 Body mass index [BMI] 34.0-34.9, adult | CPT/HCPCS: 99202 ==

== ENCOUNTER → 2022-09-11 10:49 | Outpatient (BNVA) | payer OTHER, MEDICAID, SELFPAY | PROVIDERS: PCP Physician Assistant; Visit Provider Nurse Practitioner Family | DX: Z12.11 Encounter for screening for malignant neoplasm of colon (principal) | CPT/HCPCS: 99212 ==

== ENCOUNTER 2022-09-13 15:04 | Outpatient (AMB) | payer OTHER, MEDICAID, SELFPAY ==
--- NOTE | 2022-09-13 15:05 | MHC.PC.OV ---
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 Required: No Accompanied by: Self / Same As Patient Allergies No Known Allergies [No Known Allergies*] Allergy (Verified 03/27/23 15:53) Medication List - Last Reconciled 09/13/22 by Aniket Vega MD adalimumab (Humira) 40 mg subcut Q2W adalimumab (Humira) inject one - 40 mg/0.8 mL syringe every 2 weeks subcut bisacodyl (Dulcolax (bisacodyl)) 10 mg (2 x 5 mg) PO ONCE 1 day cholecalciferol (vitamin D3) 50 mcg PO DAILY folic acid 1 mg PO DAILY hydrochlorothiazide 25 mg PO DAILY magnesium oxide 400 mg PO DAILY metformin 500 mg PO DAILY 90 days methotrexate (PF) (Rasuvo (PF)) 17.5 mg subcut QWEEK polyethylene glycol 3350 (Miralax) 238 grams PO ONCE polyethylene glycol 3350 (Miralax) 17 grams PO DAILY Tobacco use date assessed: 09/13/22 Dental Screening Dental Screen Date: 09/13/22 Did you have a dental visit in the last 12 months?: No Did you have a dental problem in the last 6 months where you did not have access to dental care?: No Was dental information given to patient?: Patient has dentist HPI 3M follow up HPI Details Patient comes in today for his follow up visit States that he feels okay and has noticed that his joint pains seems to have improved a lot on Humira over the past few months He denies any headaches or dizziness Denies any chest pains, no SOB No nausea/vomiting, no abdominal pain No change in bowel habits noted Was seen by sleep medicine recently and had a home sleep study ordered for further evaluation - states that this is still currently awaiting insurance approval Is scheduled for his screening colonoscopy next month on 10/17/[address] Weeks He has not had any follow up labs done recently but recalled getting them done a couple of days after his last visit about 3 months ago [facility] Medical History (Updated 03/27/23 @ 16:12 by Aniket Vega MD) Vitamin D deficiency Hx of flexible sigmoidoscopy Pure hypercholesterolemia Obesity (BMI 30-39.9) Learning disability DMII (diabetes mellitus, type 2) Seronegative spondyloarthropathy Surgical History (Updated 03/27/23 @ 16:45 by Aniket Vega MD) History of hip replacement Social History Housing: Condominium Patient Tobacco Use Status: Never used Tobacco e-Cigarette/Vaping Use: Never Used service: No Current occupational status: unemployed Cognitive needs: No Hearing needs: Yes (right ear ) Vision needs: Yes (glasses) Questionnaire PHQ-9 Over the last 2 weeks, how often have you been bothered by any of the following problems? 1. Little interest or pleasure in doing things: not at all 2. Feeling down, depressed, or hopeless: not at all 3. Trouble falling or staying asleep, or sleeping too much: not at all 4. Feeling tired or having little energy: not at all 5. Poor appetite or overeating: not at all 6. Feeling bad about yourself - or that you are a failure or have let yourself or your family down: not at all 7. Trouble concentrating on things, such as reading the newspaper or watching television: not at all 8. Moving or speaking so slowly that other people could have noticed. Or the opposite - being so fidgety or restless that you have been moving around a lot more than usual: not at all 9. Thoughts that you would be better off or of hurting yourself in some way: not at all Total score: 0 Depression Screening Interpretation: Negative [id number] - PHQ-9 Billing: Yes Source: Developed by Drs. Kavin Eason, Kaylin Lam, Josep Singer and colleagues, with an educational randi from [employer]. Thrive Questionnaire Date Thrive assessed: 09/13/22 I am a: Patient What is your living situation today?: I have a steady place to live Within the past 12 months, did the food you bought not last and you didn't have the money to get more?: Never true Within the past 12 months, did you worry whether your food would run out before you got money to buy more?: Never true Do you have trouble paying for medicines?: No Do you have trouble getting transportation to medical appointments?: No Do you have trouble paying your heating and electricity bill?: No Do you have trouble taking care of your child, family member or friend?: No Do you have trouble with day-to-day activities such as bathing, preparing meals, shopping, managing finances, etc.?: No Are you currently unemployed and looking for a job?: No Are you interested in more education?: No Currently or been in a relationship where the following occur: no concerns reported AUDIT C Alcohol Use Questionnaire (AUDIT-C) 1. How often do you have a drink containing alcohol?: Never 3. How often do you have six or more drinks on one occasion?: Never Total Score: 0 Score Reviewed/Action Taken: Yes ADRIANO-7 AMB Questionnaire ADRIANO-7 Date ADRIANO - 7 assessed: 09/13/22 Feeling nervous, anxious, or on edge: 0 = Not at all Not being able to stop or control worryin = Not at all Worrying too much about different things: 0 = Not at all Trouble relaxin = Not at all Being so restless that it is hard to sit still: 0 = Not at all Becoming easily annoyed or irritable: 0 = Not at all Feeling afraid as if something awful might happen: 0 = Not at all Total ADRIANO-7 score (0-4 normal; 5-9 mild; 10-14 moderate; 15-21 severe): 0 Source: Developed by Drs. Kavin Eason, Kaylin Lam, Josep Singer and colleagues, with an educational randi from [employer]. Review of Systems Const Denies chills, Reports fatigue, Denies fever(s) and Denies headache(s) ENT Denies dysphagia, Denies dizziness, Denies otalgia, Denies headache(s), Denies neck pain, Denies odynophagia and Denies sore throat Card Denies chest pain, Denies palpitations and Denies dyspnea Resp Denies cough and Denies dyspnea GI Denies abdominal pain, Denies constipation, Denies dysphagia, Denies diarrhea, Denies nausea, Denies odynophagia and Denies vomiting Denies dysuria, Reports nocturia and Denies urinary frequency Musc Reports back pain, Reports arthralgias (involving multiple joints, including his left hip), Denies neck pain and Reports numbness (on and off, over the bottom of both feet) Skin/Breast Denies rash Neuro Denies dizziness, Denies headache(s) and Reports numbness (on and off, over the bottom of both feet) Endo Reports fatigue and Denies palpitations Physical exam (Primary Care) Vital Signs: Last Vital Signs Pulse 80 09/13/22 15:06 BP 122/80 09/13/22 15:06 Pulse Ox 96 09/13/22 15:06 Oxygen Delivery Method Room Air 09/13/22 15:06 BMI result Body Mass Index 33.2 Tobacco/Smoking Status: Tobacco use Status Tobacco use date assessed 09/13/22 09/13/22 15:15 Patient Tobacco Use Status Never used Tobacco 09/13/22 15:15 e-Cigarette/Vaping Use Never Used 09/13/22 15:15 PHQ-9: PHQ-9 Score PHQ-9: Total score 0 09/13/22 15:58 Depression Screening Interpretation: Negative Thrive Assessment: Date of Thrive Assessment Date Thrive assessed 09/13/22 09/13/22 15:15 Currently or been in a relationship where the following occur: no concerns reported Const General: no acute distress and alert HENMT Ears: TM's normal bilaterally and EAC's normal Throat: Yes posterior oropharynx normal and Yes tonsils normal Neck Neck: Yes no lymphadenopathy and Yes supple Resp Auscultation: clear to auscultation bilaterally, no rales and no wheezes Cardio Rate: regular rate Rhythm: regular rhythm Heart sounds: no murmurs GI Palpation (GI): Soft to palpation and nontender Auscultation: normal bowel sounds Back/Spine/Pelvis Thoracic/Lumbar Spine: lumbar spinal tenderness Skin Rashes: no rashes Extrem General: Yes no clubbing, cyanosis or edema Right lower extremity: knee Details: tenderness; no swelling Left lower extremity: hip/thigh Details: tenderness Location: of the hip (chronic) and knee Details: tenderness; no swelling Results AMB Hemoglobin A1c AMB Hemoglobin A1c 6.3 % Last Edit by Fabian Mcadams on 09/13/22 15:36 Results Reviewed Results Reviewed: Laboratory Last Values Hgb A1c (Clinic) 6.3 % (4.0-6.0) H 09/13/22 15:29 Laboratory Tests 06/14/22 09:20 Hemoglobin A1c % 6.1 Triglycerides 149 Cholesterol 240 LDL Cholesterol, Calc 172 HDL Cholesterol 39 Assessment and Plan Assessment & Plan (1) Seronegative spondyloarthropathy: Code(s): M47.819 - Spondylosis without myelopathy or radiculopathy, site unspecified Plan: Continue Humira injections 40 mg SQ every 2 weeks Follow up with rheumatology as scheduled (2) DMII (diabetes mellitus, type 2): Code(s): E11.9 - Type 2 diabetes mellitus without complications Qualifiers: Diabetes mellitus complication status: with hyperglycemia Diabetes mellitus rn long term care insulin use: without rn long term care use Qualified Code(s): E11.65 - Type 2 diabetes mellitus with hyperglycemia Plan: In-office HgbA1c is at 6.3% (was at 6.6% a few months ago) - goal is <7.0% Reinforced diabetic diet Continue Metformin 500 mg QD Will have patient recheck his labs and fasting lipids in 3 months for follow up (3) Pure hypercholesterolemia: Code(s): E78.00 - Pure hypercholesterolemia, unspecified Plan: Patient is advised that his cholesterol levels done in June 2022 were significantly elevated, with his total cholesterol at 240 mg/dl and LDL cholesterol at 172 mg/dl Would recommend that he start taking Rx for his cholesterol based on his current numbers and patient agreed to do so Will start him on Atorvastatin 10 mg QD Reinforced low cholesterol diet Will recheck his labs and fasting lipids in 3 months for follow up (4) Witnessed episode of apnea: Code(s): R06.81 - Apnea, not elsewhere classified Plan: Patient advised that we are not the ones authorizing or denying his sleep study and it is his insurance that does that Explained that what may have happened is that his insurance will not approve the in-lab sleep study and will generally want patient to get an in-home sleep study first Follow up with sleep medicine as scheduled (5) Obesity (BMI 30-39.9): Code(s): E66.9 - Obesity, unspecified Plan: Reinforced diet/exercise as tolerated/lose weight Plan Follow up in 3 months Orders: Orders AMB Hemoglobin A1c 09/13/22 E11.9 - Type 2 diabetes mellitus without complications Lipid Panel 3 Months E78.00 - Pure hypercholesterolemia, unspecified Hemoglobin A1c 3 Months E11.9 - Type 2 diabetes mellitus without complications Comprehensive [place]. Panel Fast 3 Months E78.00 - Pure hypercholesterolemia, unspecified Medications: New atorvastatin 10 mg PO BEDTIME 90 tabs 1RF 90 days E78.00 - Pure hypercholesterolemia, unspecified Coding Level of Care Code Est Pt Level 4 (17537) Diagnoses Seronegative spondyloarthropathy M47.819 Type 2 diabetes mellitus with hyperglycemia, without long-term current use of insulin E11.65 Diabetes mellitus complication status: with hyperglycemia Diabetes mellitus skilled nursing insulin use: without rn long term care use Pure hypercholesterolemia E78.00 Witnessed episode of apnea R06.81 Obesity (BMI 30-39.9) E66.9
[2022-09-13 15:06] VITALS: BP 122/80; PULSE 80; O2SAT 96; BMI 33.2
== END 2022-09-13 16:09 | disposition home or self-care (01) ==
PROVIDERS: PCP Physician Assistant; Visit Provider Internal Medicine
DX: E11.65 Type 2 diabetes mellitus with hyperglycemia (principal); E66.9 Obesity, unspecified; Z68.33 Body mass index [BMI] 33.0-33.9, adult; M47.819 Spondylosis without myelopathy or radiculopathy, site unspecified; E78.00 Pure hypercholesterolemia, unspecified; R06.81 Apnea, not elsewhere classified
CPT/HCPCS: 99214

== ENCOUNTER 2022-10-17 08:22 | Day surgery (SDC) | payer OTHER, MEDICAID, SELFPAY ==
[2022-10-12 15:18] VITALS: BMI 33.2
--- NOTE | 2022-10-16 10:20 | P.CONAN_ITS ---
Documented by User: Connie Ochoa NP 10/16/22 10:20 HPI - Anesthesia Eval Consult details Narrative: 51yo M for?Colonoscopy PMF Active Problems Active Problems: All Active Problems (Updated 10/12/22 @ 15:17 by Kendal Mcgraw RN) Obese (Acute) Colon cancer screening (Acute) Witnessed episode of apnea (Acute) Blepharitis of eyelid of left eye (Acute) Low back pain (Acute) Foamy urine (Acute) Snoring (Acute) Daytime sleepiness (Acute) Pure hypercholesterolemia (Acute) Obesity (BMI 30-39.9) (Acute) Seronegative spondyloarthropathy (Acute) Learning disability (Acute) DMII (diabetes mellitus, type 2) (Acute) Past Medical History Medical History DMII (diabetes mellitus, type 2) Hx of flexible sigmoidoscopy Learning disability Obesity (BMI 30-39.9) Pure hypercholesterolemia Seronegative spondyloarthropathy Surgical History Surgical History History of hip replacement Social History Social History Housing: Condominium Patient Tobacco Use Status: Never used Tobacco e-Cigarette/Vaping Use: Never Used Advance Directives: No Advance Directives Information Provided: Yes service: No Current occupational status: unemployed Cognitive needs: No Hearing needs: Yes (right ear ) Vision needs: Yes (glasses) Meds Allergies Allergy/AdvReac Type Severity Reaction Status Date / Time No Known Allergies Allergy Verified 09/13/22 15:57 [No Known Allergies*] Home Medications Medication Instructions Recorded Confirmed Last Taken Type cholecalciferol (vitamin D3) 50 50 mcg PO DAILY 12/12/21 10/12/22 Unknown History mcg (2,000 unit) capsule folic acid 1 mg tablet 1 mg PO DAILY 12/12/21 10/12/22 Unknown History hydrochlorothiazide 25 mg tablet 25 mg PO DAILY 12/12/21 10/12/22 Unknown History methotrexate (PF) 17.5 mg/0.35 mL 17.5 mg subcut QWEEK 12/12/21 10/12/22 Unknown History subcutaneous auto-injector (Rasuvo (PF)) magnesium oxide 400 mg (241.3 mg 400 mg PO DAILY 03/08/22 10/12/22 Unknown History magnesium) tablet adalimumab 40 mg/0.8 mL See Rx Instructions subcut .COMPLEX 05/12/22 10/12/22 Unknown History subcutaneous syringe kit (Humira) Exam Exam Date and Time: October 16, 2022 1020 Height,Weight and Vital Signs: Height 5 ft 9 in Weight 102.058 kg Pertinent Lab Results Pertinent Lab Results: Laboratory Tests 06/14/22 06/14/22 09:20 09:20 WBC 7.8 Hgb 15.1 Hct 44.6 Plt Count 252 Sodium 138 Potassium 4.7 Chloride 103 Carbon Dioxide 26 BUN 14 Creatinine 1.06 Assessment and Plan Assessment Anesthesia Assessment: Chart Reviewed Documented by User: Jackeline Duncan MD 10/17/22 10:48 [facility] Past Medical History Medical History DMII (diabetes mellitus, type 2) Hx of flexible sigmoidoscopy Learning disability Obesity (BMI 30-39.9) Pure hypercholesterolemia Seronegative spondyloarthropathy Surgical History Surgical History History of hip replacement History of Problems with Anesthesia: No Social History Social History Housing: Condominium Patient Tobacco Use Status: Never used Tobacco e-Cigarette/Vaping Use: Never Used Advance Directives: No Advance Directives Information Provided: Yes service: No Current occupational status: unemployed Cognitive needs: No Hearing needs: Yes (right ear ) Vision needs: Yes (glasses) Meds Allergies Allergy/AdvReac Type Severity Reaction Status Date / Time No Known Allergies Allergy Verified 09/13/22 15:57 [No Known Allergies*] Home Medications Medication Instructions Recorded Confirmed Last Taken Type cholecalciferol (vitamin D3) 50 50 mcg PO DAILY 12/12/21 10/12/22 Unknown History mcg (2,000 unit) capsule folic acid 1 mg tablet 1 mg PO DAILY 12/12/21 10/12/22 Unknown History hydrochlorothiazide 25 mg tablet 25 mg PO DAILY 12/12/21 10/12/22 Unknown History methotrexate (PF) 17.5 mg/0.35 mL 17.5 mg subcut QWEEK 12/12/21 10/12/22 Unknown History subcutaneous auto-injector (Rasuvo (PF)) magnesium oxide 400 mg (241.3 mg 400 mg PO DAILY 03/08/22 10/12/22 Unknown History magnesium) tablet adalimumab 40 mg/0.8 mL See Rx Instructions subcut .COMPLEX 05/12/22 10/12/22 Unknown History subcutaneous syringe kit (Humira) Exam Airway Mallampati Class: III TM Dist: >3cm Neck ROM: Full Loose/Missing/Broken Teeth: No Heart: RRR Lungs: CTA Assessment and Plan Assessment Anesthesia Assessment: Anesthesia Plan Discussed Final Anesthetic Review History of Problems with Anesthesia: No NPO: Yes ASA Class: II Final Preanesthetic Review: Meds/Allgs Chart Reviewed, Consent Obtained/Reviewed and Anes Risks/Benef Reviewed Patient Risk: Low Procedure Risk: Low Anesthetic Plan Anesthetic Plan: MAC: Disposition: Standard PACU
[2022-10-17 10:06] VITALS: BP 124/80; PULSE 74; RESP 16; TEMP 36.6; O2SAT 97
[2022-10-17 10:12] LABS: Glucose, Whole Blood 132 mg/dL (60-115)
--- NOTE | 2022-10-17 10:35 | MHC.SHP ---
Pre-Procedural Eval Section A Date of Service: 10/17/22 The patient is an INPATIENT: No Changes since office visit: Yes Patient answered all questions; No Cold of Flu in the past 2 weeks, No New Medical Problems and No Changes in Medication The History & Physical has been completed within 30 days and I have reviewed it.: Yes Section B Chief Complaint: Encounter for screening for malignant neoplasm of Allergies: Allergies Allergy/AdvReac Type Severity Reaction Status Date / Time No Known Allergies Allergy Verified 09/13/22 15:57 [No Known Allergies*] Plan I have reviewed the history and physical and performed a pertinent physical examination on my patient. No changes have occurred unless specified. Time Spent With Patient Time: Total time managing care of this patient today ____ minutes.
--- NOTE | 2022-10-17 11:04 | W.PM.OPN ---
Operative Note Operative Note Date of Service: 10/17/22 Narrative: COLONOSCOPY TILL CECUM WITH SNARE POLYPECTOMY Pre-op diagnosis: Colon cancer screening Post-op diagnosis:? Colon polyp, diverticulosis, hemorrhoids Endoscopist:? Rad Weeks MD Anesthesia:?MAC Consent: Indications for the procedure and potential complications of bleeding, perforation, reaction to medications and missed diagnosis were discussed with the patient and informed consent was obtained. Instrument: Olympus PCF H 190 L variable stiffness pediatric colonoscope Monitoring: Vital signs and clinical assessment, intermittent blood pressure monitoring, continuous EKG monitoring, Pulse oximetry and Carbon Dioxide monitoring were done throughout the procedure. Please see anesthesia flowsheet. Colon withdrawl time was 16 minutes. Procedure: The patient was placed in the left lateral decubitis position and pre-procedure medications were administered. After a digital rectal examination of the ano-rectum, the video colonoscope was inserted into the rectum and advanced through the colon to the cecum. The colonoscope was slowly withdrawn in a retrograde panoramic fashion and the colon mucosa was carefully examined including a retroflexed view of the rectum. Findings and interventions are described below. Procedure Difficulty: Without difficulty Findings: Terminal Ileum: Not evaluated Cecum: Normal Ascending Colon: A 15 to 18 mm pedunculated polyp in the mid AC at 80 cms - removed with a hot snare. Transverse Colon: Normal Descending Colon: Normal Sigmoid Colon: Moderate diverticulosis Rectum: Normal Ano-rectum: Moderate internal hemorrhoids Colon preparation: Good after copious irrigation and fair at the hepatic flexure with undigested vegetable matter which could not be suctioned Impression and Post Procedure Diagnosis: Colonoscopy Findings: One medium sized polyp removed Moderate diverticulosis seen in the sigmoid colon Moderate hemorrhoids on retroflexed exam. Plan: I will send a letter with pathology results Repeat Colonoscopy interval based on path results - in 3 years if polyp is adenomatous and 5 years if polyps is hyperplastic (due to fair prep). Needs bisacodyl 2 tablets daily starting 5 days before colonoscopy appt and adult colonoscopy for future colonoscopies. Above findings were reviewed with the patient and colon polyps and diverticulosis handouts were given in the discharge area
[2022-10-17 11:57] VITALS: BP 119/77; PULSE 83; RESP 16; TEMP 36.9; O2SAT 99
[2022-10-17 12:12] VITALS: BP 116/81; PULSE 78; RESP 16; TEMP 36.9; O2SAT 96
== END 2022-10-17 13:00 | disposition home or self-care (01) ==
PROVIDERS: PCP Internal Medicine; Visit Provider Internal Medicine Gastroenterology
PROC: 0DJD8ZZ Inspection of Lower Intestinal Tract, Via Natural or Artificial Opening Endoscopic (ICD-10-PCS; CPT 45378; principal; 2022-10-17 11:00)
DX: Z12.11 Encounter for screening for malignant neoplasm of colon (principal); D12.2 Benign neoplasm of ascending colon; K57.30 Diverticulosis of large intestine without perforation or abscess without bleeding; K64.8 Other hemorrhoids; K59.01 Slow transit constipation; E11.9 Type 2 diabetes mellitus without complications; E66.9 Obesity, unspecified; Z68.33 Body mass index [BMI] 33.0-33.9, adult
CPT/HCPCS: 45385; 82947; 88305

== ENCOUNTER → 2022-10-17 08:22 | Outpatient (BNV) | payer OTHER, MEDICAID, SELFPAY | PROVIDERS: PCP Internal Medicine; Visit Provider Internal Medicine Gastroenterology | DX: Z12.11 Encounter for screening for malignant neoplasm of colon (principal); K57.30 Diverticulosis of large intestine without perforation or abscess without bleeding; K64.8 Other hemorrhoids; D12.2 Benign neoplasm of ascending colon | CPT/HCPCS: 45385 ==

== ENCOUNTER 2022-10-20 13:45 | Outpatient (REF) | payer OTHER, MEDICAID, SELFPAY | END 2022-10-20 13:46 | disposition home or self-care (01) | LOC: HO.HAP 13:45 | PROVIDERS: Visit Provider Internal Medicine | DX: Z46.1 Encounter for fitting and adjustment of hearing aid (principal); H90.3 Sensorineural hearing loss, bilateral | CPT/HCPCS: 92593 ==

== ENCOUNTER 2022-10-25 15:44 | Outpatient (REF) | payer OTHER, MEDICAID, SELFPAY | END 2022-10-25 15:45 | disposition home or self-care (01) | LOC: HO.HAP 15:44 | PROVIDERS: Visit Provider Internal Medicine | DX: H90.3 Sensorineural hearing loss, bilateral (principal) | CPT/HCPCS: V5266 ==

== ENCOUNTER → 2022-11-02 14:06 | Outpatient (REF) | payer OTHER, MEDICAID, SELFPAY | LOC: HO.SL 14:06 | PROVIDERS: PCP Internal Medicine; Visit Provider Nurse Practitioner Family | DX: E66.9 Obesity, unspecified (principal); E11.9 Type 2 diabetes mellitus without complications; R06.83 Snoring; G47.33 Obstructive sleep apnea (adult) (pediatric) | CPT/HCPCS: 95806 ==

== ENCOUNTER → 2022-11-02 14:26 | Outpatient (BNV) | payer OTHER, MEDICAID, SELFPAY | PROVIDERS: PCP Internal Medicine; Visit Provider Psychiatry & Neurology Neurology | DX: G47.33 Obstructive sleep apnea (adult) (pediatric) (principal) | CPT/HCPCS: 95806 ==

== ENCOUNTER 2022-11-21 14:08 | Outpatient (AMB) | payer OTHER, MEDICAID, SELFPAY ==
--- NOTE | 2022-11-21 14:35 | MHC.OFFVIS ---
Intake Vital Signs 11/21/22 14:37 Height 5 ft 9 in Weight 230 lb BMI 34.0 BP 120/96 H Blood Pressure Location Rt brachial Position Sitting Pulse 93 Pulse Source Pulse Oximeter Pulse Oximetry (%) 98 Oxygen Delivery Method Room Air Intake Visit Reasons: 2 mnts f/u for sleep - Confirmed Intake Note: Patient presents for follow up. Patient states I did the sleep study im here for the results. Allergies No Known Allergies [No Known Allergies*] Allergy (Verified 11/21/22 14:39) HPI HPI Comments History of Present Illness Details 52 y/o male patient presents for follow up of sleep study. The home sleep study result was significant for severe degree of sleep apnea. The AHI was 32/hr, supine AHI was 53/hr and oxygen cherie was 73%. The total duration of O2 sat <88% was 41min. Sleep titration study ordered to find optimal CPAP pressure to treat his severe degree of sleep apnea. Pt is afraid to sleep due to gasping. He sleeps alone. He wakes up frequently, having non refreshing sleep and experiences excessive daytime sleepiness, keep dozing off. [facility] Medical History DMII (diabetes mellitus, type 2) Hx of flexible sigmoidoscopy Learning disability Obesity (BMI 30-39.9) Pure hypercholesterolemia Seronegative spondyloarthropathy Surgical History History of hip replacement Social History Housing: Condominium Patient Tobacco Use Status: Never used Tobacco e-Cigarette/Vaping Use: Never Used service: No Current occupational status: unemployed Cognitive needs: No Hearing needs: Yes (right ear ) Vision needs: Yes (glasses) Review of Systems Const All systems reviewed & are unremarkable except as noted in HPI and below Physical Exam Vital Signs: Last Vital Signs Pulse 93 11/21/22 14:37 BP 120/96 H 11/21/22 14:37 Pulse Ox 98 11/21/22 14:37 Oxygen Delivery Method Room Air 11/21/22 14:37 BMI result Body Mass Index 34.0 Const General: healthy appearing, no acute distress and well developed Nutritional Appearance: obese Orientation/consciousness: patient oriented x3 HEENT Head: Yes normal to inspection, Yes normocephalic and Yes atraumatic Face and sinus: Yes normal facial exam Mouth: Normal oral and palatal mucosa present Throat: Yes posterior oropharynx normal, Yes tonsils normal and Yes uvula midline Eyes General: appearance normal, both eyes and all related structures Neck Neck: Yes normal visual inspection, Yes full ROM and Yes trachea midline Thyroid: Thyroid normal Resp Effort & Inspection: normal respiratory effort, able to speak in complete sentences, no tracheal deviation and symmetric chest movement Auscultation: clear to auscultation bilaterally Cardio Rate: regular rate Heart sounds: S1 normal heart sound present and S2 normal heart sound present GI Inspection: Yes normal to inspection, No distended and Yes obesity Palpation (GI): Soft to palpation, not firm, nontender and No hepatosplenomegaly present Auscultation: normal bowel sounds General: Yes no CVA tenderness Back/Spine/Pelvis Back: no CVA tenderness Skin General skin exam: elasticity normal, turgor normal and dry skin Neuro General: patient oriented x3 Psych Appearance: grossly normal Mental Status: mental status grossly normal Speech and movement: Normal speech and movement present Affect: normal affect Assessment & Plan Assessment & Plan (1) ELIJAH (obstructive sleep apnea): Comment: Severe degree of sleep apnea. The AHI was 32/hr, supine AHI was 53/hr and oxygen cherie was 73%. Code(s): G47.33 - Obstructive sleep apnea (adult) (pediatric) (2) Daytime sleepiness: Code(s): R40.0 - Somnolence Plan Advised patient to undergo CPAP titration study to find optimal pressure to treat his severe degree of sleep apnea. Advised patient to try sleep on his side. Wt reduction advised. Coding Level of Care Code Est Pt Level 3 (91154) Diagnoses ELIJAH (obstructive sleep apnea) G47.33 Daytime sleepiness R40.0
[2022-11-21 14:37] VITALS: BP 120/96; PULSE 93; O2SAT 98; BMI 34.0
== END 2022-11-21 14:58 | disposition home or self-care (01) ==
LOC: HO.HSMC 14:08
PROVIDERS: PCP Internal Medicine; Visit Provider Nurse Practitioner Family
DX: G47.33 Obstructive sleep apnea (adult) (pediatric) (principal); R40.0 Somnolence
CPT/HCPCS: 99213

== ENCOUNTER → 2022-11-21 14:08 | Outpatient (BNVA) | payer OTHER, MEDICAID, SELFPAY | PROVIDERS: PCP Internal Medicine; Visit Provider Nurse Practitioner Family | DX: G47.33 Obstructive sleep apnea (adult) (pediatric) (principal); R40.0 Somnolence | CPT/HCPCS: 99212 ==

== ENCOUNTER 2022-12-04 13:07 | Outpatient (AMB) | payer OTHER, MEDICAID, SELFPAY ==
[2022-12-04 13:10] VITALS: BP 130/82; PULSE 86; O2SAT 98; BMI 33.0
--- NOTE | 2022-12-04 13:10 | MHC.PC.OV ---
Vital Signs 12/04/22 13:10 Height 5 ft 9 in Weight 223 lb 8 oz BMI 33.0 BP 130/82 Blood Pressure Location Lt brachial Position Sitting Pulse 86 Pulse Source Pulse Oximeter Pulse Oximetry (%) 98 Oxygen Delivery Method Room Air Intake Visit Reasons: experiencing unbearable aching pain in eyes Design Consultant Required: No Accompanied by: Self / Same As Patient Allergies No Known Allergies [No Known Allergies*] Allergy (Verified 12/06/22 15:27) Medication List - Last Reconciled 12/06/22 by Aniket Vega MD adalimumab (Humira) inject one - 40 mg/0.8 mL syringe every 2 weeks subcut atorvastatin 10 mg PO BEDTIME 90 days azelastine 0.05% 1 drp ophthalmic (eye) BID PRN cholecalciferol (vitamin D3) 50 mcg PO DAILY folic acid 1 mg PO DAILY hydrochlorothiazide 25 mg PO DAILY magnesium oxide 400 mg PO DAILY metformin 500 mg PO DAILY 90 days methotrexate (PF) (Rasuvo (PF)) 17.5 mg subcut QWEEK polyethylene glycol 3350 (Miralax) 17 grams PO DAILY Tobacco use date assessed: 12/04/22 Dental Screening Dental Screen Date: 12/04/22 Did you have a dental visit in the last 12 months?: Yes Did you have a dental problem in the last 6 months where you did not have access to dental care?: No Was dental information given to patient?: Patient has dentist HPI experiencing unbearable aching pain in eyes HPI Details Patient comes in today complaining of recurrent/frequent burning sensation of both eyes lately Notes that he would not be able to complete his (home)work often lately as his eyes will start aching and burning and his vision will also start to get blurry after looking at his computer screen for several hours Was reportedly told by a nurse that he talked to recently that as he is a diabetic, his eye symptoms may be due to diabetic retinopathy and he should see an eye doctor to get his eyes checked out ALBINO Has also been advised to try using a lens filter when he is using his computer and this may help cut back on his eye strain Patient admits that he has not had his eyes checked out in a while now He denies any headaches or dizziness No other acute complaints or symptoms are noted [facility] Medical History Hx of flexible sigmoidoscopy Pure hypercholesterolemia Obesity (BMI 30-39.9) Learning disability DMII (diabetes mellitus, type 2) Seronegative spondyloarthropathy Surgical History History of hip replacement Social History Housing: Condominium Patient Tobacco Use Status: Never used Tobacco e-Cigarette/Vaping Use: Never Used service: No Current occupational status: unemployed Cognitive needs: No Hearing needs: Yes (right ear ) Vision needs: Yes (glasses) Questionnaire PHQ-9 Over the last 2 weeks, how often have you been bothered by any of the following problems? 1. Little interest or pleasure in doing things: not at all 2. Feeling down, depressed, or hopeless: not at all 3. Trouble falling or staying asleep, or sleeping too much: not at all 4. Feeling tired or having little energy: not at all 5. Poor appetite or overeating: not at all 6. Feeling bad about yourself - or that you are a failure or have let yourself or your family down: not at all 7. Trouble concentrating on things, such as reading the newspaper or watching television: not at all 8. Moving or speaking so slowly that other people could have noticed. Or the opposite - being so fidgety or restless that you have been moving around a lot more than usual: not at all 9. Thoughts that you would be better off or of hurting yourself in some way: not at all Total score: 0 Depression Screening Interpretation: Negative 38797 - PHQ-9 Billing: Yes Source: Developed by Drs. Kavin Eason, Kaylin Lam, Josep Singer and colleagues, with an educational randi from [employer]. Thrive Questionnaire Date Thrive assessed: 12/04/22 I am a: Patient What is your living situation today?: I have a steady place to live Within the past 12 months, did the food you bought not last and you didn't have the money to get more?: Never true Within the past 12 months, did you worry whether your food would run out before you got money to buy more?: Never true Do you have trouble paying for medicines?: No Do you have trouble getting transportation to medical appointments?: No Do you have trouble paying your heating and electricity bill?: No Do you have trouble taking care of your child, family member or friend?: No Do you have trouble with day-to-day activities such as bathing, preparing meals, shopping, managing finances, etc.?: No Are you currently unemployed and looking for a job?: No Are you interested in more education?: No Please select the resources that you would like help with: None Currently or been in a relationship where the following occur: no concerns reported AUDIT C Alcohol Use Questionnaire (AUDIT-C) 1. How often do you have a drink containing alcohol?: Never 3. How often do you have six or more drinks on one occasion?: Never Total Score: 0 Score Reviewed/Action Taken: Yes ADRIANO-7 AMB Questionnaire ADRIANO-7 Date ADRIANO - 7 assessed: 12/04/22 Feeling nervous, anxious, or on edge: 0 = Not at all Not being able to stop or control worryin = Not at all Worrying too much about different things: 0 = Not at all Trouble relaxin = Not at all Being so restless that it is hard to sit still: 0 = Not at all Becoming easily annoyed or irritable: 0 = Not at all Feeling afraid as if something awful might happen: 0 = Not at all Total ADRIANO-7 score (0-4 normal; 5-9 mild; 10-14 moderate; 15-21 severe): 0 Source: Developed by Drs. Kaivn Eason, Kaylin Lam, Josep Singer and colleagues, with an educational randi from [employer]. Review of Systems Const Reports fatigue, Denies fever(s) and Denies headache(s) Eyes Reports blurry vision (at times), Reports irritation (more of a burning sensation), Reports eye pain (on and off), Denies seeing flashes and Denies spots in vision ENT Denies dysphagia, Denies dizziness, Denies otalgia, Denies headache(s), Denies odynophagia and Denies sore throat Card Denies chest pain, Denies palpitations and Denies dyspnea Resp Denies cough and Denies dyspnea GI Denies abdominal pain, Denies constipation, Denies dysphagia, Denies diarrhea, Denies nausea, Denies odynophagia and Denies vomiting Details: has noticed foamy urine lately whenever he uses the bathroom Denies dysuria, Denies nocturia and Denies urinary frequency Neuro Denies dizziness and Denies headache(s) Endo Reports fatigue and Denies palpitations Physical exam (Primary Care) Vital Signs: Last Vital Signs Pulse 86 12/04/22 13:10 BP 130/82 12/04/22 13:10 Pulse Ox 98 12/04/22 13:10 Oxygen Delivery Method Room Air 12/04/22 13:10 BMI result Body Mass Index 33.0 Tobacco/Smoking Status: Tobacco use Status Tobacco use date assessed 12/04/22 12/04/22 13:12 Patient Tobacco Use Status Never used Tobacco 12/04/22 13:12 e-Cigarette/Vaping Use Never Used 12/04/22 13:12 PHQ-9: PHQ-9 Score PHQ-9: Total score 0 12/04/22 14:00 Depression Screening Interpretation: Negative Thrive Assessment: Date of Thrive Assessment Date Thrive assessed 12/04/22 12/04/22 13:12 Currently or been in a relationship where the following occur: no concerns reported Const General: no acute distress and alert HENMT Throat: Yes posterior oropharynx normal and Yes tonsils normal Eyes Eyelids: Yes eyelids normal Conjunctivae: conjunctivae normal Sclerae: sclerae normal Corneas: corneas normal Pupils: Equal, round and reactive pupils present EOM: EOMs intact bilaterally Neck Neck: Yes no lymphadenopathy and Yes supple Resp Auscultation: clear to auscultation bilaterally, no rales and no wheezes Cardio Rate: regular rate Rhythm: regular rhythm Heart sounds: no murmurs GI Palpation (GI): Soft to palpation and nontender Auscultation: normal bowel sounds Neuro Cranial nerves: Yes Equal, round and reactive pupils present Extrem General: Yes no clubbing, cyanosis or edema Assessment and Plan Assessment & Plan (1) Burning sensation of eye: Code(s): H57.89 - Other specified disorders of eye and adnexa (2) Blurring of vision: Code(s): H53.8 - Other visual disturbances (3) DMII (diabetes mellitus, type 2): Code(s): E11.9 - Type 2 diabetes mellitus without complications Qualifiers: Diabetes mellitus senior care insulin use: without supervisor intermediates use Diabetes mellitus complication status: with hyperglycemia Qualified Code(s): E11.65 - Type 2 diabetes mellitus with hyperglycemia (4) Seronegative spondyloarthropathy: Code(s): M47.819 - Spondylosis without myelopathy or radiculopathy, site unspecified Plan Discussed with patient that his recent eye symptoms are more suggestive of eye strain (likely from prolonged use of electronic screens on his computer/tablets/phones) or could be due to irritation from local allergens or both but as he is a diabetic and the fact that he has not had his eye exam done in a while, he still should see an ophthalomology ALBINO for further evaluation - referral done He is also on Humira and Methotrexate for his spondyloarthropathy and Methotrexate has known associations with eye symptoms, including ocular pain, blurred vision and non-arteritic ischemic optic neuropathy so it is even more important and urgent that he be seen by ophthalmology ALBINO for further evaluation His HgbA1c was at 6.3% when last checked in September 2022, so his diabetes has been well-controlled lately He is instructed to continue on his Metformin 500 mg QD and on his diabetic diet Will start him for now on Azelastine 0.05% eye drops 1 drop to each eye BID to help with his eye symptoms until he is seen by ophthalmology Follow up as scheduled next month Orders: Referrals Ophthalmology Referral E11.9 - Type 2 diabetes mellitus without complications, H53.8 - Other visual disturbances, H57.89 - Other specified disorders of eye and adnexa, M47.819 - Spondylosis without myelopathy or radiculopathy, site unspecified Medications: New azelastine 0.05% 1 drp ophthalmic (eye) BID PRN 6 mL 0RF eye irritation Coding Level of Care Code Est Pt Level 3 (07974) Diagnoses Burning sensation of eye H57.89 Blurring of vision H53.8 Type 2 diabetes mellitus with hyperglycemia, without long-term current use of insulin E11.65 Diabetes mellitus supervisor intermediates insulin use: without senior care use Diabetes mellitus complication status: with hyperglycemia Seronegative spondyloarthropathy M47.819
== END 2022-12-04 14:01 | disposition home or self-care (01) ==
LOC: HO.HMGH 13:07
PROVIDERS: PCP Internal Medicine; Visit Provider Internal Medicine
DX: H57.89 Other specified disorders of eye and adnexa (principal); H53.8 Other visual disturbances; E11.65 Type 2 diabetes mellitus with hyperglycemia; M47.819 Spondylosis without myelopathy or radiculopathy, site unspecified
CPT/HCPCS: 99213

== ENCOUNTER 2022-12-18 11:40 | Outpatient (REF) | payer OTHER, SELFPAY ==
[2022-12-18 13:21] LABS: Alanine Aminotransferase 53 U/L (0-40); Albumin Level 4.3 g/dL (3.5-5.0); Alkaline Phosphatase 78 U/L (39-117); Anion Gap 14 (12-20); Aspartate Amino Transferase 24 U/L (5-37); Bilirubin Total 0.5 mg/dL (0.0-1.0); Blood Urea Nitrogen 12 mg/dL (9-16); Calcium 9.5 mg/dL (8.4-10.2); Carbon Dioxide 25 mmol/L (22-29); Chloride 105 mmol/L (96-108); Cholesterol 151 mg/dL (<200); Estimated Glomerular Filt Rate > 60; Glucose Fasting 118 mg/dL (60-99); HDL Cholesterol 40 mg/dL (>40); LDL Cholesterol Calculated 97 mg/dL (<100); Potassium 4.4 mmol/L (3.3-5.1); Sodium 140 mmol/L (135-145); Total Protein 7.5 g/dL (6.5-8.0); Triglycerides 70 mg/dL (<150)
== END 2022-12-18 11:41 | disposition home or self-care (01) ==
LOC: HO.LAB 11:40
PROVIDERS: PCP Internal Medicine; Visit Provider Internal Medicine
DX: E78.00 Pure hypercholesterolemia, unspecified (principal); E11.9 Type 2 diabetes mellitus without complications
CPT/HCPCS: 36415; 80053; 80061; 83036

== ENCOUNTER 2022-12-20 15:26 | Outpatient (AMB) | payer OTHER, MEDICAID, SELFPAY ==
[2022-12-20 15:36] VITALS: BP 124/88; PULSE 82; O2SAT 98; BMI 32.8
--- NOTE | 2022-12-20 15:36 | MHC.PC.OV ---
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 Accompanied by: Self / Same As Patient Allergies No Known Allergies [No Known Allergies*] Allergy (Verified 12/20/22 19:21) Medication List - Last Reconciled 12/20/22 by Aniket Vega MD adalimumab (Humira) inject one - 40 mg/0.8 mL syringe every 2 weeks subcut atorvastatin 10 mg PO BEDTIME 90 days azelastine 0.05% 1 drp ophthalmic (eye) BID PRN cholecalciferol (vitamin D3) 50 mcg PO DAILY folic acid 1 mg PO DAILY hydrochlorothiazide 25 mg PO DAILY magnesium oxide 400 mg PO DAILY metformin 500 mg PO DAILY 90 days polyethylene glycol 3350 (Miralax) 17 grams PO DAILY Tobacco use date assessed: 12/20/22 Dental Screening Dental Screen Date: 12/20/22 Did you have a dental visit in the last 12 months?: Yes Did you have a dental problem in the last 6 months where you did not have access to dental care?: No Was dental information given to patient?: Patient has dentist HPI 3 months f/u HPI Details Patient comes in today for his follow up visit States that he feels okay Still has recurrent blurring of his vision and is scheduled to be seen by ophthalmology for further evaluation in another week or so He denies any headaches or dizziness Denies any chest pains, no SOB No nausea/vomiting, no abdominal pain No change in bowel habits noted Needs his HCTZ Rx refilled - has been on this since Dr. Solares started him on this years ago for his swelling Had his follow up labs done a couple of days ago - to discuss his results [facility] Medical History Vitamin D deficiency Hx of flexible sigmoidoscopy Pure hypercholesterolemia Obesity (BMI 30-39.9) Learning disability DMII (diabetes mellitus, type 2) Seronegative spondyloarthropathy Surgical History History of hip replacement Social History Housing: Condominium Patient Tobacco Use Status: Never used Tobacco e-Cigarette/Vaping Use: Never Used service: No Current occupational status: unemployed Cognitive needs: No Hearing needs: Yes (right ear ) Vision needs: Yes (glasses) Questionnaire PHQ-9 Over the last 2 weeks, how often have you been bothered by any of the following problems? 1. Little interest or pleasure in doing things: not at all 2. Feeling down, depressed, or hopeless: not at all 3. Trouble falling or staying asleep, or sleeping too much: not at all 4. Feeling tired or having little energy: not at all 5. Poor appetite or overeating: not at all 6. Feeling bad about yourself - or that you are a failure or have let yourself or your family down: not at all 7. Trouble concentrating on things, such as reading the newspaper or watching television: not at all 8. Moving or speaking so slowly that other people could have noticed. Or the opposite - being so fidgety or restless that you have been moving around a lot more than usual: not at all 9. Thoughts that you would be better off or of hurting yourself in some way: not at all Total score: 0 Depression Screening Interpretation: Negative Depression Screening Done: Yes 85353 - PHQ-9 Billing: Yes Source: Developed by Drs. Kavin Eason, Kaylin Lam, Josep Singer and colleagues, with an educational randi from [employer]. Thrive Questionnaire Date Thrive assessed: 12/20/22 I am a: Patient What is your living situation today?: I have a steady place to live Within the past 12 months, did the food you bought not last and you didn't have the money to get more?: Never true Within the past 12 months, did you worry whether your food would run out before you got money to buy more?: Never true Do you have trouble paying for medicines?: No Do you have trouble getting transportation to medical appointments?: No Do you have trouble paying your heating and electricity bill?: No Do you have trouble taking care of your child, family member or friend?: No Do you have trouble with day-to-day activities such as bathing, preparing meals, shopping, managing finances, etc.?: No Are you currently unemployed and looking for a job?: No Are you interested in more education?: No Please select the resources that you would like help with: None Currently or been in a relationship where the following occur: no concerns reported AUDIT C Alcohol Use Questionnaire (AUDIT-C) 1. How often do you have a drink containing alcohol?: Never 3. How often do you have six or more drinks on one occasion?: Never Total Score: 0 Score Reviewed/Action Taken: Yes ADRIANO-7 AMB Questionnaire ADRIANO-7 Date ADRIANO - 7 assessed: 12/20/22 Feeling nervous, anxious, or on edge: 0 = Not at all Not being able to stop or control worryin = Not at all Worrying too much about different things: 0 = Not at all Trouble relaxin = Not at all Being so restless that it is hard to sit still: 0 = Not at all Becoming easily annoyed or irritable: 0 = Not at all Feeling afraid as if something awful might happen: 0 = Not at all Total ADRIANO-7 score (0-4 normal; 5-9 mild; 10-14 moderate; 15-21 severe): 0 Source: Developed by Drs. Kavin Eason, Kaylin Lam, Josep Singer and colleagues, with an educational randi from [employer]. Review of Systems Const Denies chills, Denies fatigue, Denies fever(s) and Denies headache(s) Eyes Reports blurry vision (at times), Reports irritation (more of a burning sensation) and Reports eye pain (on and off) ENT Denies dysphagia, Denies dizziness, Denies otalgia, Denies headache(s), Denies neck pain, Denies odynophagia and Denies sore throat Card Denies chest pain, Denies palpitations and Denies dyspnea Resp Denies cough and Denies dyspnea GI Denies abdominal pain, Denies constipation, Denies dysphagia, Denies diarrhea, Denies nausea, Denies odynophagia and Denies vomiting Denies dysuria, Denies nocturia and Denies urinary frequency Musc Denies neck pain Skin/Breast Denies rash Neuro Denies dizziness and Denies headache(s) Endo Denies fatigue and Denies palpitations Physical exam (Primary Care) Vital Signs: Last Vital Signs Pulse 82 12/20/22 15:36 BP 124/88 12/20/22 15:36 Pulse Ox 98 12/20/22 15:36 Oxygen Delivery Method Room Air 12/20/22 15:36 BMI result Body Mass Index 32.8 Tobacco/Smoking Status: Tobacco use Status Tobacco use date assessed 12/20/22 12/20/22 15:37 Patient Tobacco Use Status Never used Tobacco 12/20/22 15:37 e-Cigarette/Vaping Use Never Used 12/20/22 15:37 PHQ-9: PHQ-9 Score PHQ-9: Total score 0 12/20/22 16:43 Depression Screening Interpretation: Negative Thrive Assessment: Date of Thrive Assessment Date Thrive assessed 12/20/22 12/20/22 15:37 Currently or been in a relationship where the following occur: no concerns reported Const General: no acute distress and alert HENMT Ears: TM's normal bilaterally and EAC's normal Throat: Yes posterior oropharynx normal and Yes tonsils normal Neck Neck: Yes no lymphadenopathy and Yes supple Resp Auscultation: clear to auscultation bilaterally, no rales and no wheezes Cardio Rate: regular rate Rhythm: regular rhythm Heart sounds: no murmurs GI Palpation (GI): Soft to palpation and nontender Auscultation: normal bowel sounds Extrem General: Yes no clubbing, cyanosis or edema Results Reviewed Results Reviewed: Laboratory Tests 12/18/22 11:59 Sodium 140 Potassium 4.4 Creatinine 0.89 Estimated GFR > 60 Fasting Glucose 118 H Hemoglobin A1c % 6.0 Calcium 9.5 AST 24 ALT 53 H Triglycerides 70 Cholesterol 151 LDL Cholesterol, Calc 97 HDL Cholesterol 40 L Assessment and Plan Assessment & Plan (1) DMII (diabetes mellitus, type 2): Code(s): E11.9 - Type 2 diabetes mellitus without complications Qualifiers: Diabetes mellitus senior care insulin use: without senior care use Diabetes mellitus complication status: with hyperglycemia Qualified Code(s): E11.65 - Type 2 diabetes mellitus with hyperglycemia Plan: HgbA1c was at 6.0% on his labs done a couple of days ago (in-office HgbA1c was at 6.6% a few months ago) - goal is <7.0% Reinforced diabetic diet Continue Metformin 500 mg QD (2) Pure hypercholesterolemia: Code(s): E78.00 - Pure hypercholesterolemia, unspecified Plan: Results of his labs done a couple of days ago reviewed and discussed with patient Reinforced low cholesterol diet Continue Atorvastatin 10 mg QD Will recheck his labs and fasting lipids in 4 months for follow up (3) Seronegative spondyloarthropathy: Code(s): M47.819 - Spondylosis without myelopathy or radiculopathy, site unspecified Plan: Continue Humira injections 40 mg SQ every 2 weeks Follow up with rheumatology as scheduled (4) ELIJAH (obstructive sleep apnea): Comment: Severe degree of sleep apnea. The AHI was 32/hr, supine AHI was 53/hr and oxygen cherie was 73%. Code(s): G47.33 - Obstructive sleep apnea (adult) (pediatric) Plan: He is currently still awaiting insurance approval for an in-lab sleep study with CPAP titration Follow up with Sleep Medicine as scheduled (5) Vitamin D deficiency: Code(s): E55.9 - Vitamin D deficiency, unspecified Plan: Continue Vitamin D3 2000 units QD (6) Edema of both lower extremities: Code(s): R60.0 - Localized edema Plan: Most likely stasis/dependent edema Patient has been on HCTZ 25 mg QD for his edema for years (started on years ago by his previous PCP Dr. Solares) but he apparently has been taking this at night when his legs and feet are more swollen Have advised him that this is the main reason why he is often up all night going to the bathroom to urinate and to try switching this over to the morning and take it in early AM instead Rx refilled, per request (7) Obesity (BMI 30-39.9): Code(s): E66.9 - Obesity, unspecified Plan: Reinforced diet/exercise as tolerated/lose weight Plan Follow up in 4 months Orders: Orders Complete Blood Count Auto Diff 4 Months I10 - Essential (primary) hypertension Microalbumin, Random (w Creat) 4 Months E11.9 - Type 2 diabetes mellitus without complications Vitamin D 25-OH Total 4 Months E55.9 - Vitamin D deficiency, unspecified Comprehensive [place]. 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
== END 2022-12-20 16:56 | disposition home or self-care (01) ==
PROVIDERS: PCP Physician Assistant; Visit Provider Internal Medicine
DX: E11.65 Type 2 diabetes mellitus with hyperglycemia (principal); E78.00 Pure hypercholesterolemia, unspecified; M47.819 Spondylosis without myelopathy or radiculopathy, site unspecified; G47.33 Obstructive sleep apnea (adult) (pediatric); Z68.32 Body mass index [BMI] 32.0-32.9, adult; E66.9 Obesity, unspecified; E55.9 Vitamin D deficiency, unspecified; R60.0 Localized edema
CPT/HCPCS: 99214

== ENCOUNTER 2023-03-23 15:16 | Outpatient (REF) | payer OTHER, SELFPAY ==
[2023-03-23 15:32] LABS: MANUAL DIFF FLAG NO
[2023-03-23 15:57] LABS: Basophils Absolute Auto 0.1 X10*3/uL (0.0-0.2); Basophils Percent Auto 0.6 % (0-2); Eosinophils Absolute Auto 0.1 X10*3/uL (0.0-0.4); Eosinophils Percent Auto 1.5 % (0-4); Hematocrit 44.3 % (42.0-52.0); Imm Gran Abs Auto 0.02 X10*3/uL (0.00-0.03); Imm Gran Pct Auto 0.2 % (0.0-0.4); Lymphocytes Absolute Auto 3.3 X10*3/uL (1.2-4.9); Lymphocytes Percent Auto 40.5 % (20-40); Mean Corpuscular HGB Conc 33.9 g/dl (31.0-36.0); Mean Corpuscular Hemoglobin 30.5 pg (27.0-33.0); Monocytes Absolute Auto 0.5 X10*3/uL (0.1-1.2); Monocytes Percent Auto 6.7 % (2-11); Neutrophils Absolute Auto 4.1 x10*3/uL (2.0-8.3); Neutrophils Percent Auto 50.5 % (45-73); Platelet Count 256 X10*3/uL (160-400); Red Blood Count 4.92 X10*6/uL (4.60-5.80); Red Cell Distribution Width 13.1 % (11.0-16.0)
[2023-03-23 16:05] LABS: Estimated Average Glucose 131 mg/dL; Hemoglobin A1c % 6.2 % (<6.0)
[2023-03-23 18:09] LABS: Appearance Urine Clear; Color Urine Yellow; Glucose Urine UA Negative (Negative); Leukocyte Esterase Urine Negative (Negative); Nitrite Urine Negative (Negative); Specific Gravity - Urine 1.015 (1.005-1.025); Urine Blood Negative (Negative); Urine Ketones Negative (Negative); Urine Protein Negative (Neg-Trace)
[2023-03-23 18:23] LABS: Albumin Level 4.3 g/dL (3.5-5.0)
[2023-03-23 18:37] LABS: Alanine Aminotransferase 38 U/L (0-40); Alkaline Phosphatase 72 U/L (39-117); Anion Gap 11 (12-20); Aspartate Amino Transferase 25 U/L (5-37); Bilirubin Total 0.8 mg/dL (0.0-1.0); Blood Urea Nitrogen 10 mg/dL (9-16); Calcium 9.8 mg/dL (8.4-10.2); Carbon Dioxide 27 mmol/L (22-29); Chloride 104 mmol/L (96-108); Cholesterol 217 mg/dL (<200); Estimated Glomerular Filt Rate > 60; Glucose Fasting 112 mg/dL (60-99); HDL Cholesterol 40 mg/dL (>40); LDL Cholesterol Calculated 150 mg/dL (<100); Potassium 4.1 mmol/L (3.3-5.1); Sodium 138 mmol/L (135-145); Total Protein 7.9 g/dL (6.5-8.0); Triglycerides 137 mg/dL (<150)
[2023-03-23 18:40] LABS: TSH reflex Free T4 1.47 uIU/mL (0.32-4.0); Vitamin D 25-OH Total 20.9 ng/mL (>30)
[2023-03-23 19:49] LABS: Creatinine Urine 148.91 mg/dL
== END 2023-03-23 15:17 | disposition home or self-care (01) ==
LOC: HO.LAB 15:16
PROVIDERS: PCP Internal Medicine; Visit Provider Internal Medicine
DX: E11.9 Type 2 diabetes mellitus without complications (principal); E55.9 Vitamin D deficiency, unspecified; R30.0 Dysuria; E78.00 Pure hypercholesterolemia, unspecified; I10 Essential (primary) hypertension
CPT/HCPCS: 36415; 80053; 80061; 81003; 82043; 82306; 82570; 83036; 84443; 85025

== ENCOUNTER 2023-03-27 15:25 | Outpatient (AMB) | payer OTHER, SELFPAY ==
[2023-03-27 15:29] VITALS: BP 112/80; PULSE 107; O2SAT 97; BMI 33.2
--- NOTE | 2023-03-27 15:29 | A.OFFPC_ITS ---
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 Accompanied by: Self / Same As Patient Allergies No Known Allergies [No Known Allergies*] Allergy (Verified 03/27/23 15:53) Medication List - Last Reconciled 03/27/23 by Aniket Vega MD adalimumab (Humira) inject one - 40 mg/0.8 mL syringe every 2 weeks subcut ascorbic acid (vitamin C) 500 mg PO DAILY ashwagandha root extract 1,000 mg PO DAILY atorvastatin 10 mg PO BEDTIME 90 days azelastine 0.05% 1 drp ophthalmic (eye) BID PRN cholecalciferol (vitamin D3) 50 mcg PO DAILY folic acid 1 mg PO DAILY gabapentin 100 mg PO BID 30 days hydrochlorothiazide 25 mg PO DAILY PRN 30 days magnesium oxide 400 mg PO DAILY metformin 500 mg PO DAILY 90 days methotrexate (PF) (Rasuvo (PF)) 17.5 mg subcut QWEEK multivitamin (Daily Multi-Vitamin tablet) 1 tab PO DAILY polyethylene glycol 3350 (Miralax) 17 grams PO DAILY Tobacco use date assessed: 03/27/23 Dental Screening Dental Screen Date: 03/27/23 Did you have a dental visit in the last 12 months?: Yes Did you have a dental problem in the last 6 months where you did not have access to dental care?: No Was dental information given to patient?: Patient has dentist HPI 3 month f/u HPI Details Patient comes in today for his follow up visit States that he has been experiencing progressing and persistent numbness over the bottom, especially around the heel area, of both his feet lately Adds that he has increased burning sensation and pain in both feet, especially at night Thinks that he is having problems now with neuropathy and is wondering if there are any medications he can be prescribed to help treat his neuropathy States that he feels okay otherwise He denies any headaches or dizziness Denies any chest pains, no SOB No nausea/vomiting, no abdominal pain No change in bowel habits noted States that he has been out of his HCTZ Rx for a month or so now and needs this refilled if he is to continue taking it Recalls that this was started by Dr. Solares a few years ago to help with the swelling of his feet Had his follow up labs done a few days ago - to discuss his results [facility] Medical History (Updated 03/27/23 @ 16:12 by Aniket Vega MD) Vitamin D deficiency Hx of flexible sigmoidoscopy Pure hypercholesterolemia Obesity (BMI 30-39.9) Learning disability DMII (diabetes mellitus, type 2) Seronegative spondyloarthropathy Surgical History (Updated 03/27/23 @ 16:45 by Aniket Vega MD) History of hip replacement Social History Housing: Condominium Patient Tobacco Use Status: Never used Tobacco e-Cigarette/Vaping Use: Never Used service: No Current occupational status: unemployed Cognitive needs: No Hearing needs: Yes (right ear ) Vision needs: Yes (glasses) Questionnaire PHQ-9 Over the last 2 weeks, how often have you been bothered by any of the following problems? 1. Little interest or pleasure in doing things: not at all 2. Feeling down, depressed, or hopeless: not at all 3. Trouble falling or staying asleep, or sleeping too much: not at all 4. Feeling tired or having little energy: not at all 5. Poor appetite or overeating: not at all 6. Feeling bad about yourself - or that you are a failure or have let yourself or your family down: not at all 7. Trouble concentrating on things, such as reading the newspaper or watching television: not at all 8. Moving or speaking so slowly that other people could have noticed. Or the opposite - being so fidgety or restless that you have been moving around a lot more than usual: not at all 9. Thoughts that you would be better off or of hurting yourself in some way: not at all Total score: 0 Depression Screening Interpretation: Negative Depression Screening Done: Yes 23553 - PHQ-9 Billing: Yes Source: Developed by Drs. Kavin Eason, Kaylin Lam, Josep Singer and colleagues, with an educational randi from [employer]. Thrive Questionnaire Date Thrive assessed: 03/27/23 I am a: Patient What is your living situation today?: I have a steady place to live Within the past 12 months, did the food you bought not last and you didn't have the money to get more?: Never true Within the past 12 months, did you worry whether your food would run out before you got money to buy more?: Never true Do you have trouble paying for medicines?: No Do you have trouble getting transportation to medical appointments?: No Do you have trouble paying your heating and electricity bill?: No Do you have trouble taking care of your child, family member or friend?: No Do you have trouble with day-to-day activities such as bathing, preparing meals, shopping, managing finances, etc.?: No Are you currently unemployed and looking for a job?: No Are you interested in more education?: No Please select the resources that you would like help with: None Currently or been in a relationship where the following occur: no concerns reported AUDIT C Alcohol Use Questionnaire (AUDIT-C) 1. How often do you have a drink containing alcohol?: Never 3. How often do you have six or more drinks on one occasion?: Never Total Score: 0 Score Reviewed/Action Taken: Yes ADRIANO-7 AMB Questionnaire ADRIANO-7 Date ADRIANO - 7 assessed: 03/27/23 Feeling nervous, anxious, or on edge: 0 = Not at all Not being able to stop or control worryin = Not at all Worrying too much about different things: 0 = Not at all Trouble relaxin = Not at all Being so restless that it is hard to sit still: 0 = Not at all Becoming easily annoyed or irritable: 0 = Not at all Feeling afraid as if something awful might happen: 0 = Not at all Total ADRIANO-7 score (0-4 normal; 5-9 mild; 10-14 moderate; 15-21 severe): 0 Source: Developed by Drs. Kavin Eason, Kaylin Lam, Josep Singer and colleagues, with an educational randi from [employer]. Review of Systems Const Denies chills, Denies fatigue, Denies fever(s) and Denies headache(s) ENT Denies dysphagia, Denies dizziness, Denies otalgia, Denies headache(s), Denies neck pain, Denies odynophagia and Denies sore throat Card Denies chest pain, Denies palpitations and Denies dyspnea Resp Denies cough and Denies dyspnea GI Denies abdominal pain, Denies constipation, Denies dysphagia, Denies diarrhea, Denies nausea, Denies odynophagia and Denies vomiting Denies dysuria, Denies nocturia and Denies urinary frequency Musc Reports back pain, Reports arthralgias (involving multiple joints, including his left hip), Denies neck pain and Reports numbness (over the bottom of both feet) Skin/Breast Denies rash Neuro Details: increased burning pain in both feet, on and off, worse at night Denies dizziness, Denies headache(s) and Reports numbness (over the bottom of both feet) Endo Denies fatigue and Denies palpitations Physical exam (Primary Care) Vital Signs: Last Vital Signs Pulse 107 H 03/27/23 15:29 BP 112/80 03/27/23 15:29 Pulse Ox 97 03/27/23 15:29 Oxygen Delivery Method Room Air 03/27/23 15:29 BMI result Body Mass Index 33.2 Tobacco/Smoking Status: Tobacco use Status Tobacco use date assessed 03/27/23 03/27/23 15:38 Patient Tobacco Use Status Never used Tobacco 03/27/23 15:38 e-Cigarette/Vaping Use Never Used 03/27/23 15:38 PHQ-9: PHQ-9 Score PHQ-9: Total score 0 03/27/23 15:38 Depression Screening Interpretation: Negative Thrive Assessment: Date of Thrive Assessment Date Thrive assessed 03/27/23 03/27/23 15:38 Currently or been in a relationship where the following occur: no concerns reported Const General: no acute distress and alert HENMT Ears: TM's normal bilaterally and EAC's normal Throat: Yes posterior oropharynx normal and Yes tonsils normal Neck Neck: Yes no lymphadenopathy and Yes supple Resp Auscultation: clear to auscultation bilaterally, no rales and no wheezes Cardio Rate: regular rate Rhythm: regular rhythm Heart sounds: no murmurs GI Palpation (GI): Soft to palpation and nontender Auscultation: normal bowel sounds Extrem General: Yes no clubbing, cyanosis or edema Right lower extremity: knee Details: tenderness; no swelling Left lower extremity: hip/thigh Details: tenderness Location: of the hip (chronic) and knee Details: tenderness; no swelling Results Reviewed Results Reviewed: Laboratory Tests 12/18/22 03/23/23 03/23/23 11:59 15:31 15:31 WBC 8.0 Hgb 15.0 Hct 44.3 Plt Count 256 Sodium 140 138 Potassium 4.4 4.1 Creatinine 0.89 0.84 Estimated GFR > 60 > 60 Fasting Glucose 118 H 112 H Hemoglobin A1c % 6.0 6.2 H Calcium 9.5 9.8 AST 24 25 ALT 53 H 38 Triglycerides 70 137 Cholesterol 151 217 H LDL Cholesterol, Calc 97 150 H HDL Cholesterol 40 L 40 L 25-OH Vitamin D Total 20.9 L TSH 1.47 Urine pH Ur Specific [place] Urine Protein Urine Glucose (UA) Urine Blood Urine Nitrite Ur Leukocyte Esterase Microalb/Creat Ratio 03/23/23 03/23/23 15:52 15:52 WBC Hgb Hct Plt Count Sodium Potassium Creatinine Estimated GFR Fasting Glucose Hemoglobin A1c % Calcium AST ALT Triglycerides Cholesterol LDL Cholesterol, Calc HDL Cholesterol 25-OH Vitamin D Total TSH Urine pH 7.0 Ur Specific [place] 1.015 Urine Protein Negative Urine Glucose (UA) Negative Urine Blood Negative Urine Nitrite Negative Ur Leukocyte Esterase Negative Microalb/Creat Ratio 4.0 Assessment and Plan Assessment & Plan (1) Pure hypercholesterolemia: Code(s): E78.00 - Pure hypercholesterolemia, unspecified Plan: Results of his labs done a few days ago reviewed and discussed with patient - cautioned that his cholesterol numbers have increased significantly from previous Patient admits that he often forgets to take his cholesterol Rx, sometimes for a week or more at a time Reinforced low cholesterol diet Continue Atorvastatin 10 mg QD and have advised him to try to come up with some plan to help him remember to take his Rx more consistently Will recheck his labs and fasting lipids in 4 months for follow up (2) DMII (diabetes mellitus, type 2): Code(s): E11.9 - Type 2 diabetes mellitus without complications Qualifiers: 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: without keno terminal operator use Diabetes mellitus complication status: with hyperglycemia Qualified Code(s): E11.65 - Type 2 diabetes mellitus with hyperglycemia Plan: HgbA1c was at 6.2% on his labs done a few days ago (was at 6.0% a few months ago) - goal is <7.0% Reinforced diabetic diet Continue Metformin 500 mg QD (3) Seronegative spondyloarthropathy: Code(s): M47.819 - Spondylosis without myelopathy or radiculopathy, site unspecified Plan: Continue Humira injections 40 mg SQ every 2 weeks, Rasuvo 17.5 mg mg SQ once a week and Folic acid 1 mg QD Follow up with rheumatology as scheduled - see Dr. Horn at [facility] (4) ELIJAH (obstructive sleep apnea): Comment: Severe degree of sleep apnea. The AHI was 32/hr, supine AHI was 53/hr and oxygen cherie was 73%. Code(s): G47.33 - Obstructive sleep apnea (adult) (pediatric) Plan: He is currently still awaiting insurance approval for an in-lab sleep study with CPAP titration Follow up with Sleep Medicine as scheduled (5) Vitamin D deficiency: Code(s): E55.9 - Vitamin D deficiency, unspecified Plan: He is advised that his Vitamin D level remains very low on his recent labs He was supposed to be on Vitamin D3 2000 units QD but it appears that he does not remember this and has not taken this in a while now - will resend Rx for Vitamin D3 2000 units QD (6) Edema of both lower extremities: Code(s): R60.0 - Localized edema Plan: Most likely stasis/dependent edema Patient has been on HCTZ 25 mg QD for his edema for years (started on years ago by his previous PCP Dr. Solares) States that he has been out of this Rx for a while now and it looks like he never picked up his Rx refilled when it was sent in at his last appt - Rx refilled again and patient is reminded to just take this on a PRN basis daily in AM (7) Neuropathy: Code(s): G62.9 - Polyneuropathy, unspecified Plan: Will start him on Gabapentin 100 mg BID (8) Obesity (BMI 30-39.9): Code(s): E66.9 - Obesity, unspecified Plan: Reinforced diet/exercise as tolerated/lose weight Plan Follow up in 4 months Orders: Orders Comprehensive Spurger. Panel Fast 4 Months E78.00 - Pure hypercholesterolemia, unspecified Lipid Panel 4 Months E78.00 - Pure hypercholesterolemia, unspecified Hemoglobin A1c 4 Months E11.9 - Type 2 diabetes mellitus without complications Microalbumin, Random (w Creat) 4 Months E11.9 - Type 2 diabetes mellitus without complications TSH reflex Free T4 4 Months E78.00 - Pure hypercholesterolemia, unspecified UA CC w/rflx Micro + Cult 4 Months R30.0 - Dysuria Vitamin B12 and Folate 4 Months E53.8 - Deficiency of other specified B group vi tamins Vitamin D 25-OH Total 4 Months E55.9 - Vitamin D deficiency, unspecified Erythrocyte Sedimentation Rate 4 Months M79.7 - Fibromyalgia Complete Blood Count Auto Diff 4 Months D64.9 - Anemia, unspecified Lyme IgG/IgM w/reflex to WB 4 Months G62.9 - Polyneuropathy, unspecified Medications: New gabapentin 100 mg PO BID 60 caps 2RF 30 days G62.9 - Polyneuropathy, unspecified Changed From hydrochlorothiazide 25 mg PO DAILY To hydrochlorothiazide 25 mg PO DAILY PRN 30 tabs 1RF edema 30 days From cholecalciferol (vitamin D3) 50 mcg PO DAILY To cholecalciferol (vitamin D3) 50 mcg PO DAILY 90 caps 3RF 90 days Coding Level of Care Code Est Pt Level 4 (42652) Diagnoses Pure hypercholesterolemia E78.00 Type 2 diabetes mellitus with hyperglycemia, without long-term current use of insulin E11.65 Diabetes mellitus detention insulin use: without detention use Diabetes mellitus complication status: with hyperglycemia Seronegative spondyloarthropathy M47.819 ELIJAH (obstructive sleep apnea) G47.33 Vitamin D deficiency E55.9 Edema of both lower extremities R60.0 Neuropathy G62.9 Obesity (BMI 30-39.9) E66.9
== END 2023-03-27 16:16 | disposition home or self-care (01) ==
PROVIDERS: PCP Internal Medicine; Visit Provider Internal Medicine
DX: E11.65 Type 2 diabetes mellitus with hyperglycemia (principal); E66.9 Obesity, unspecified; Z68.33 Body mass index [BMI] 33.0-33.9, adult; E78.00 Pure hypercholesterolemia, unspecified; M47.819 Spondylosis without myelopathy or radiculopathy, site unspecified; G47.33 Obstructive sleep apnea (adult) (pediatric); E55.9 Vitamin D deficiency, unspecified; R60.0 Localized edema; G62.9 Polyneuropathy, unspecified
CPT/HCPCS: 99214

== ENCOUNTER 2023-05-24 13:10 | Outpatient (AMB) | payer OTHER, SELFPAY ==
--- NOTE | 2023-05-24 13:12 | MHC.OFFVIS ---
Intake Vital Signs 05/24/23 13:20 Height 5 ft 9 in Weight 231 lb 2 oz BMI 34.1 BP 120/70 Blood Pressure Location Lt brachial Position Sitting Pulse 87 Pulse Source Pulse Oximeter Pulse Oximetry (%) 97 Oxygen Delivery Method Room Air Intake Visit Reasons: 4 mnts f/u for sleep - LVM w/address Intake Note: Patient presents for 4 month f/u. concern that using the CPAP could cause cancer and brain damage. Very confuse about what kind of sleep study. Allergies No Known Allergies [No Known Allergies*] Allergy (Verified 05/24/23 13:20) HPI HPI Comments History of Present Illness Details 52 y/o male patient presents for follow up of sleep study. The home sleep study result was significant for a severe degree of sleep apnea. The AHI was 32/hr, supine AHI was 53/hr and oxygen cherie was 73%. Pt started APAP at [id number] about a month ago. The CPAP compliance and therapy response reviewed. The usage days 27 days and the average usage hours 5 hrs 20 min. The max pressure was 13.6 and the residual AHI was 1.2/hr. He sleeps well overall, but wakes up sometimes because his CPAP disconnected and leaks the air too much. He noticed that he is not sleepy during daytime and has more energy. [facility] Medical History (Updated 03/27/23 @ 16:12 by Aniket Vega MD) Vitamin D deficiency Hx of flexible sigmoidoscopy Pure hypercholesterolemia Obesity (BMI 30-39.9) Learning disability DMII (diabetes mellitus, type 2) Seronegative spondyloarthropathy Surgical History History of hip replacement Social History Housing: Condominium Patient Tobacco Use Status: Never used Tobacco e-Cigarette/Vaping Use: Never Used service: No Current occupational status: unemployed Cognitive needs: No Hearing needs: Yes (right ear ) Vision needs: Yes (glasses) Review of Systems Const All systems reviewed & are unremarkable except as noted in HPI and below Physical Exam Vital Signs: Last Vital Signs Pulse 87 05/24/23 13:20 BP 120/70 05/24/23 13:20 Pulse Ox 97 05/24/23 13:20 Oxygen Delivery Method Room Air 05/24/23 13:20 BMI result Body Mass Index 34.1 Const General: healthy appearing, no acute distress and well developed Nutritional Appearance: obese Orientation/consciousness: patient oriented x3 HEENT Head: Yes normal to inspection, Yes normocephalic and Yes atraumatic Face and sinus: Yes normal facial exam Mouth: Normal oral and palatal mucosa present Throat: Yes posterior oropharynx normal, Yes tonsils normal and Yes uvula midline Eyes General: appearance normal, both eyes and all related structures Neck Neck: Yes normal visual inspection, Yes full ROM and Yes trachea midline Thyroid: Thyroid normal Resp Effort & Inspection: normal respiratory effort, able to speak in complete sentences, no tracheal deviation and symmetric chest movement Auscultation: clear to auscultation bilaterally Cardio Rate: regular rate Heart sounds: S1 normal heart sound present and S2 normal heart sound present GI Inspection: Yes normal to inspection, No distended and Yes obesity Palpation (GI): Soft to palpation, not firm, nontender and No hepatosplenomegaly present Auscultation: normal bowel sounds General: Yes no CVA tenderness Back/Spine/Pelvis Back: no CVA tenderness Skin General skin exam: elasticity normal, turgor normal and dry skin Neuro General: patient oriented x3 Psych Appearance: grossly normal Mental Status: mental status grossly normal Speech and movement: Normal speech and movement present Affect: normal affect Assessment & Plan Assessment & Plan (1) ELIJAH (obstructive sleep apnea): Comment: Severe degree of sleep apnea. The AHI was 32/hr, supine AHI was 53/hr and oxygen cherie was 73%. Code(s): G47.33 - Obstructive sleep apnea (adult) (pediatric) (2) Daytime sleepiness: Code(s): R40.0 - Somnolence Plan Continue to use APAP at [id number] as patient experiences good clinical effects, breathing better, and daytime sleepiness has resolved. Advised patient to try sleep on his side. Wt reduction advised. Coding Level of Care Code Est Pt Level 3 (67597) Diagnoses ELIJAH (obstructive sleep apnea) G47.33 Daytime sleepiness R40.0
[2023-05-24 13:20] VITALS: BP 120/70; PULSE 87; O2SAT 97; BMI 34.1
== END 2023-05-24 13:51 | disposition home or self-care (01) ==
LOC: HO.HSMC 13:10
PROVIDERS: PCP Internal Medicine; Visit Provider Nurse Practitioner Family
DX: G47.33 Obstructive sleep apnea (adult) (pediatric) (principal); R40.0 Somnolence
CPT/HCPCS: 99213

== ENCOUNTER → 2023-05-24 13:10 | Outpatient (BNVA) | payer OTHER, SELFPAY | PROVIDERS: PCP Internal Medicine; Visit Provider Nurse Practitioner Family | DX: G47.33 Obstructive sleep apnea (adult) (pediatric) (principal); R40.0 Somnolence | CPT/HCPCS: 99212 ==

== ENCOUNTER 2023-07-26 13:30 | Outpatient (REF) | payer OTHER, SELFPAY ==
[2023-07-26 13:52] LABS: MANUAL DIFF FLAG NO
[2023-07-26 14:06] LABS: Appearance Urine Clear; Color Urine Yellow; Glucose Urine UA Negative (Negative); Leukocyte Esterase Urine Negative (Negative); Nitrite Urine Negative (Negative); Specific Gravity - Urine 1.015 (1.005-1.025); Urine Blood Negative (Negative); Urine Ketones Negative (Negative); Urine Protein Negative (Neg-Trace)
[2023-07-26 14:07] LABS: Basophils Percent Auto 0.5 % (0-2); Eosinophils Absolute Auto 0.1 X10*3/uL (0.0-0.4); Eosinophils Percent Auto 1.1 % (0-4); Hematocrit 44.4 % (42.0-52.0); Hemoglobin 14.9 g/dl (14.0-18.0); Imm Gran Abs Auto 0.04 X10*3/uL (0.00-0.03); Imm Gran Pct Auto 0.5 % (0.0-0.4); Lymphocytes Absolute Auto 2.1 X10*3/uL (1.2-4.9); Lymphocytes Percent Auto 25.7 % (20-40); Mean Corpuscular HGB Conc 33.6 g/dl (31.0-36.0); Mean Corpuscular Volume 89.5 fL (80.0-98.0); Mean Platelet Volume 9.3 fL (9.4-12.4); Monocytes Absolute Auto 0.5 X10*3/uL (0.1-1.2); Monocytes Percent Auto 6.8 % (2-11); Neutrophils Absolute Auto 5.2 x10*3/uL (2.0-8.3); Neutrophils Percent Auto 65.4 % (45-73); Platelet Count 263 X10*3/uL (160-400); Red Blood Count 4.96 X10*6/uL (4.60-5.80); Red Cell Distribution Width 12.6 % (11.0-16.0)
[2023-07-26 14:15] LABS: Estimated Average Glucose 128 mg/dL; Hemoglobin A1c % 6.1 % (<6.0)
[2023-07-26 14:43] LABS: Creatinine Urine 99.77 mg/dL; Microalbumin Urine < 5.0 mg/L
[2023-07-26 14:52] LABS: Alanine Aminotransferase 26 U/L (0-40); Albumin Level 4.4 g/dL (3.5-5.0); Alkaline Phosphatase 68 U/L (39-117); Anion Gap 13 (12-20); Aspartate Amino Transferase 18 U/L (5-37); Bilirubin Total 0.8 mg/dL (0.0-1.0); Blood Urea Nitrogen 13 mg/dL (9-16); Calcium 9.6 mg/dL (8.4-10.2); Carbon Dioxide 29 mmol/L (22-29); Chloride 102 mmol/L (96-108); Cholesterol 167 mg/dL (<200); Estimated Glomerular Filt Rate > 60; Glucose Fasting 117 mg/dL (60-99); HDL Cholesterol 38 mg/dL (>40); LDL Cholesterol Calculated 101 mg/dL (<100); Potassium 4.1 mmol/L (3.3-5.1); Sodium 140 mmol/L (135-145); Total Protein 7.9 g/dL (6.5-8.0); Triglycerides 142 mg/dL (<150)
[2023-07-26 14:59] LABS: TSH reflex Free T4 1.39 uIU/mL (0.32-4.0); Vitamin D 25-OH Total 29.6 ng/mL (>30)
[2023-07-26 15:11] LABS: Erythrocyte Sedimentation Rate 7 MM/HR (0-15)
[2023-07-26 15:14] LABS: Folate 14.7 ng/mL (> or = 4.0); Vitamin B12 1569 pg/mL (200-900)
[2023-07-27 12:27] LABS: Lyme Abs Screen <0.90 index
== END 2023-07-26 13:31 | disposition home or self-care (01) ==
LOC: HO.LAB 13:30
PROVIDERS: PCP Internal Medicine; Visit Provider Internal Medicine
DX: D64.9 Anemia, unspecified (principal); M79.7 Fibromyalgia; E78.00 Pure hypercholesterolemia, unspecified; E11.9 Type 2 diabetes mellitus without complications; G62.9 Polyneuropathy, unspecified; R30.0 Dysuria; E53.8 Deficiency of other specified B group vitamins; E55.9 Vitamin D deficiency, unspecified
CPT/HCPCS: 36415; 80053; 80061; 81003; 82043; 82306; 82570; 82607; 82746; 83036; 84443; 85025; 85652; 86617; 86618

== ENCOUNTER 2023-07-27 15:18 | Outpatient (AMB) | payer OTHER, SELFPAY ==
[2023-07-27 15:26] VITALS: BP 152/84; PULSE 72; O2SAT 99; BMI 32.6
--- NOTE | 2023-07-27 15:26 | MHC.PC.OV ---
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 Parole Board Member: Not Required per policy Accompanied by: Self / Same As Patient Allergies No Known Allergies [No Known Allergies*] Allergy (Verified 07/27/23 15:52) Medication List - Last Reconciled 07/27/23 by Aniket Vega MD adalimumab (Humira) inject one - 40 mg/0.8 mL syringe every 2 weeks subcut ascorbic acid (vitamin C) 500 mg PO DAILY ashwagandha root extract 1,000 mg PO DAILY atorvastatin 10 mg PO BEDTIME 90 days azelastine 0.05% 1 drp ophthalmic (eye) BID PRN cholecalciferol (vitamin D3) 50 mcg PO DAILY 90 days folic acid 1 mg PO DAILY gabapentin 100 mg PO BID 30 days hydrochlorothiazide 25 mg PO DAILY PRN 30 days magnesium oxide 400 mg PO DAILY metformin 500 mg PO DAILY 90 days methotrexate (PF) (Rasuvo (PF)) 17.5 mg subcut QWEEK multivitamin (Daily Multi-Vitamin tablet) 1 tab PO DAILY polyethylene glycol 3350 (Miralax) 17 grams PO DAILY Tobacco use date assessed: 03/27/23 Dental Screening Dental Screen Date: 03/27/23 HPI hyperlipidemia, DM, spondyloarthropathy-see commen HPI Details Patient comes in today for his follow up visit States that he feels okay He denies any headaches or dizziness Denies any chest pains, no SOB No nausea/vomiting, no abdominal pain No change in bowel habits noted Needs his Vitamin D Rx refilled Had his follow up labs done yesterday - to discuss his results He is still on Humira and Methotrexate for his spondyloarthropathy - states that his joint pains remain adequately controlled on his current Rx He is also currently taking a lot of vitamins and health supplements that he gets from his local health store or online - states that he usually does some research on his own to make sure these are safe for him to take before he gets them [facility] Medical History Vitamin D deficiency Hx of flexible sigmoidoscopy Pure hypercholesterolemia Obesity (BMI 30-39.9) Learning disability DMII (diabetes mellitus, type 2) Seronegative spondyloarthropathy Surgical History History of hip replacement Social History Housing: Condominium Patient Tobacco Use Status: Never used Tobacco e-Cigarette/Vaping Use: Never Used service: No Current occupational status: unemployed Cognitive needs: No Hearing needs: Yes (right ear ) Vision needs: Yes (glasses) Questionnaire Thrive Questionnaire Date Thrive assessed: 03/27/23 ADRIANO-7 AMB Questionnaire ADRIANO-7 Date ADRIANO - 7 assessed: 03/27/23 Source: Developed by Drs. Kavin Eason, Kaylin Lam, Josep Singer and colleagues, with an educational randi from [employer]. Review of Systems Const Denies chills, Denies fatigue, Denies fever(s) and Denies headache(s) ENT Denies dysphagia, Denies dizziness, Denies otalgia, Denies headache(s), Denies neck pain, Denies odynophagia and Denies sore throat Card Denies chest pain, Denies palpitations and Denies dyspnea Resp Denies cough and Denies dyspnea GI Denies abdominal pain, Denies constipation, Denies dysphagia, Denies diarrhea, Denies nausea, Denies odynophagia and Denies vomiting Denies dysuria, Denies nocturia and Denies urinary frequency Musc Reports back pain, Reports arthralgias (involving multiple joints, including his left hip), Denies neck pain and Reports numbness (over the bottom of both feet) Skin/Breast Denies rash Neuro Details: (+) burning pain in both feet, on and off, worse at night Denies dizziness, Denies headache(s) and Reports numbness (over the bottom of both feet) Endo Denies fatigue and Denies palpitations Physical exam (Primary Care) Vital Signs: Last Vital Signs Pulse 72 07/27/23 15:26 BP 152/84 H 07/27/23 15:26 Pulse Ox 99 07/27/23 15:26 Oxygen Delivery Method Room Air 07/27/23 15:26 BMI result Body Mass Index 32.6 Tobacco/Smoking Status: Tobacco use Status Tobacco use date assessed 03/27/23 07/27/23 15:27 Patient Tobacco Use Status Never used Tobacco 07/27/23 15:27 e-Cigarette/Vaping Use Never Used 07/27/23 15:27 Thrive Assessment: Date of Thrive Assessment Date Thrive assessed 03/27/23 07/27/23 15:27 Const General: no acute distress and alert HENMT Ears: TM's normal bilaterally and EAC's normal Throat: Yes posterior oropharynx normal and Yes tonsils normal Neck Neck: Yes no lymphadenopathy and Yes supple Thyroid: Thyroid normal Resp Auscultation: clear to auscultation bilaterally, no rales and no wheezes Cardio Rate: regular rate Rhythm: regular rhythm Heart sounds: no murmurs GI Palpation (GI): Soft to palpation and nontender Auscultation: normal bowel sounds General: Yes no CVA tenderness Back/Spine/Pelvis Back: no CVA tenderness Skin Rashes: no rashes Extrem General: Yes no clubbing, cyanosis or edema Right lower extremity: knee Details: tenderness; no swelling Left lower extremity: hip/thigh Details: tenderness Location: of the hip (chronic) and knee Details: tenderness; no swelling Results Reviewed Results Reviewed: Laboratory Tests 07/26/23 07/26/23 13:34 13:51 WBC 8.0 Hgb 14.9 Hct 44.4 Plt Count 263 ESR 7 Sodium 140 Potassium 4.1 Creatinine 0.89 Estimated GFR > 60 Fasting Glucose 117 H Hemoglobin A1c % 6.1 H Calcium 9.6 AST 18 ALT 26 Triglycerides 142 Cholesterol 167 LDL Cholesterol, Calc 101 H HDL Cholesterol 38 L Vitamin B12 1569 H 25-OH Vitamin D Total 29.6 L TSH 1.39 Ur Specific [place] 1.015 Urine Protein Negative Urine Glucose (UA) Negative Urine Blood Negative Urine Nitrite Negative Ur Leukocyte Esterase Negative Lyme Screen IgG & IgM <0.90 Assessment and Plan Assessment & Plan (1) Pure hypercholesterolemia: Code(s): E78.00 - Pure hypercholesterolemia, unspecified Plan: Results of his labs done yesterday reviewed and discussed with patient - advised that his cholesterol numbers have improved significantly from previous Reinforced low cholesterol diet Continue Atorvastatin 10 mg QD Will recheck his labs and fasting lipids in 4 months for follow up (2) DMII (diabetes mellitus, type 2): Code(s): E11.9 - Type 2 diabetes mellitus without complications Qualifiers: Diabetes mellitus complication status: with hyperglycemia Diabetes mellitus fpc insulin use: without terminologist use Qualified Code(s): E11.65 - Type 2 diabetes mellitus with hyperglycemia Plan: His HgbA1c was at 6.1% on his labs done yesterday (was at 6.2% a few months ago) - goal is <7.0% Reinforced diabetic diet Continue Metformin 500 mg QD (3) Seronegative spondyloarthropathy: Code(s): M47.819 - Spondylosis without myelopathy or radiculopathy, site unspecified Plan: Continue Humira injections 40 mg SQ every 2 weeks, Rasuvo 17.5 mg mg SQ once a week and Folic acid 1 mg QD Follow up with rheumatology as scheduled - see Dr. [facility] at [facility] (4) ELIJAH (obstructive sleep apnea): Comment: Severe degree of sleep apnea. The AHI was 32/hr, supine AHI was 53/hr and oxygen cherie was 73%. Code(s): G47.33 - Obstructive sleep apnea (adult) (pediatric) Plan: Continue using his CPAP device when sleeping at night - states that he has experienced significant improvement of his symptoms with CPAP therapy Home sleep study done back in October 2022 revealed (+) severe ELIJAH Follow up with Sleep Medicine as scheduled (5) Vitamin D deficiency: Code(s): E55.9 - Vitamin D deficiency, unspecified Plan: Improving Continue Vitamin D3 2000 units QD (6) Edema of both lower extremities: Code(s): R60.0 - Localized edema Plan: Most likely stasis/dependent edema Continue HCTZ 25 mg QD PRN for edema - has been on this for years (Rx was started years ago by his previous, PCP Dr. Solares) (7) Neuropathy: Code(s): G62.9 - Polyneuropathy, unspecified Plan: Continue Gabapentin 100 mg BID (8) Obesity (BMI 30-39.9): Code(s): E66.9 - Obesity, unspecified Plan: Reinforced diet/exercise as tolerated/lose weight Plan Follow up in 4 months Orders: Orders Hemoglobin A1c 4 Months E11.9 - Type 2 diabetes mellitus without complications Lipid Panel 4 Months E78.00 - Pure hypercholesterolemia, unspecified Microalbumin, Random (w Creat) 4 Months E11.9 - Type 2 diabetes mellitus without complications TSH reflex Free T4 4 Months E78.00 - Pure hypercholesterolemia, unspecified Complete Blood Count Auto Diff 4 Months D64.9 - Anemia, unspecified Comprehensive [place]. Panel Fast 4 Months E78.00 - Pure hypercholesterolemia, unspecified UA CC w/rflx Micro + Cult 4 Months R30.0 - Dysuria Vitamin D 25-OH Total 4 Months E55.9 - Vitamin D deficiency, unspecified Vitamin B12 and Folate 4 Months E53.8 - Deficiency of other specified B group vitamins Medications: Refilled cholecalciferol (vitamin D3) 50 mcg PO DAILY 90 days 90 caps 3RF Coding Level of Care Code Est Pt Level 4 (82069) Diagnoses Pure hypercholesterolemia E78.00 Type 2 diabetes mellitus with hyperglycemia, without long-term current use of insulin E11.65 Diabetes mellitus complication status: with hyperglycemia Diabetes mellitus fpc insulin use: without fpc use Seronegative spondyloarthropathy M47.819 ELIJAH (obstructive sleep apnea) G47.33 Vitamin D deficiency E55.9 Edema of both lower extremities R60.0 Neuropathy G62.9 Obesity (BMI 30-39.9) E66.9
== END 2023-07-27 16:07 | disposition home or self-care (01) ==
PROVIDERS: PCP Internal Medicine; Visit Provider Internal Medicine
DX: E11.65 Type 2 diabetes mellitus with hyperglycemia (principal); Z68.32 Body mass index [BMI] 32.0-32.9, adult; E78.00 Pure hypercholesterolemia, unspecified; E66.9 Obesity, unspecified; M47.819 Spondylosis without myelopathy or radiculopathy, site unspecified; G47.33 Obstructive sleep apnea (adult) (pediatric); E55.9 Vitamin D deficiency, unspecified; R60.0 Localized edema; G62.9 Polyneuropathy, unspecified
CPT/HCPCS: 99214

== ENCOUNTER 2023-11-16 13:48 | Outpatient (AMB) | payer OTHER, SELFPAY ==
--- NOTE | 2023-11-16 14:10 | MHC.OFFVIS ---
Vital Signs 11/16/23 14:11 Height 5 ft 9 in Weight 225 lb 6 oz BMI 33.3 BP 122/80 Blood Pressure Location Rt brachial Position Sitting Respiration 16 Pulse 80 Pulse Source Pulse Oximeter Pulse Oximetry (%) 97 Oxygen Delivery Method Room Air Intake Visit Reasons: 4 mnts f/u for sleep Intake Note: Pt presents for a 6 month follow up for ELIJAH. 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 The home sleep study result was significant for a severe degree of sleep apnea. The AHI was 32/hr, supine AHI was 53/hr and oxygen cherie was 73%. Pt started APAP at [id number] about a month ago. The CPAP compliance and therapy response reviewed. The usage days 100% 90 days and the average usage hours 5 hrs 55 min. The max pressure was 12.6 and the residual AHI was 1.8/hr. He noticed that he is not sleepy during daytime and has more energy. [facility] Medical History Vitamin D deficiency Hx of flexible sigmoidoscopy Pure hypercholesterolemia Obesity (BMI 30-39.9) Learning disability DMII (diabetes mellitus, type 2) Seronegative spondyloarthropathy Surgical History History of hip replacement Social History Housing: Condominium Patient Tobacco Use Status: Never used Tobacco e-Cigarette/Vaping Use: Never Used service: No Current occupational status: unemployed Cognitive needs: No Hearing needs: Yes (right ear ) Vision needs: Yes (glasses) Physical Exam Vital Signs: Last Vital Signs Pulse 80 11/16/23 14:11 Resp 16 11/16/23 14:11 BP 122/80 11/16/23 14:11 Pulse Ox 97 11/16/23 14:11 Oxygen Delivery Method Room Air 11/16/23 14:11 BMI result Body Mass Index 33.3 Const General: cooperative and comfortable Nutritional Appearance: obese Orientation/consciousness: patient oriented x3 Neck Neck: Yes no meningeal signs Neuro General: patient oriented x3, tone normal, moves all extremities and no meningeal signs Cranial nerves: Yes Facial sensation intact/muscles of mastication intact, Yes Nystagmus not present and Yes Normal facial strength present Cognition (Neuro): normal cognition Gait exam (Neuro): Normal gait present Assessment & Plan Assessment & Plan (1) ELIJAH (obstructive sleep apnea): Comment: Severe degree of sleep apnea. The AHI was 32/hr, supine AHI was 53/hr and oxygen cherie was 73%. Code(s): G47.33 - Obstructive sleep apnea (adult) (pediatric) Category: Medical (2) Daytime sleepiness: Code(s): R40.0 - Somnolence Category: Medical Plan Continue to use APAP at [id number] as patient experiences good clinical effects, breathing better, and daytime sleepiness has resolved. Compliance stressed Discussed weight management Coding Level of Care Code Est Pt Level 4 (58246) Diagnoses ELIJAH (obstructive sleep apnea) G47.33 Daytime sleepiness R40.0
[2023-11-16 14:11] VITALS: BP 122/80; PULSE 80; RESP 16; O2SAT 97; BMI 33.3
== END 2023-11-16 14:26 | disposition home or self-care (01) ==
PROVIDERS: PCP Internal Medicine; Visit Provider Psychiatry & Neurology Neurology
DX: G47.33 Obstructive sleep apnea (adult) (pediatric) (principal); R40.0 Somnolence
CPT/HCPCS: 99214

== ENCOUNTER → 2023-11-16 13:48 | Outpatient (BNVA) | payer OTHER, SELFPAY | PROVIDERS: PCP Internal Medicine; Visit Provider Psychiatry & Neurology Neurology | DX: G47.33 Obstructive sleep apnea (adult) (pediatric) (principal); R40.0 Somnolence | CPT/HCPCS: 99212 ==

== ENCOUNTER 2023-12-07 14:14 | Outpatient (REF) | payer OTHER, SELFPAY ==
[2023-12-07 14:43] LABS: MANUAL DIFF FLAG NO
[2023-12-07 15:32] LABS: Basophils Percent Auto 0.5 % (0-2); Eosinophils Absolute Auto 0.1 X10*3/uL (0.0-0.4); Eosinophils Percent Auto 1.1 % (0-4); Hematocrit 42.9 % (42.0-52.0); Hemoglobin 14.9 g/dl (14.0-18.0); Imm Gran Abs Auto 0.02 X10*3/uL (0.00-0.03); Imm Gran Pct Auto 0.3 % (0.0-0.4); Lymphocytes Absolute Auto 1.9 X10*3/uL (1.2-4.9); Lymphocytes Percent Auto 29.6 % (20-40); Mean Corpuscular HGB Conc 34.7 g/dl (31.0-36.0); Mean Corpuscular Hemoglobin 31.1 pg (27.0-33.0); Mean Corpuscular Volume 89.6 fL (80.0-98.0); Mean Platelet Volume 9.8 fL (9.4-12.4); Monocytes Absolute Auto 0.5 X10*3/uL (0.1-1.2); Monocytes Percent Auto 7.5 % (2-11); Neutrophils Absolute Auto 3.8 x10*3/uL (2.0-8.3); Platelet Count 228 X10*3/uL (160-400); Red Blood Count 4.79 X10*6/uL (4.60-5.80); Red Cell Distribution Width 12.5 % (11.0-16.0); White Blood Count 6.3 X10*3/uL (4.8-10.8)
[2023-12-07 15:33] LABS: Appearance Urine Clear; Color Urine Yellow; Glucose Urine UA Negative (Negative); Leukocyte Esterase Urine Negative (Negative); Nitrite Urine Negative (Negative); Specific Gravity - Urine 1.015 (1.005-1.025); Urine Blood Negative (Negative); Urine Ketones Negative (Negative); Urine Protein Negative (Neg-Trace)
[2023-12-07 15:44] LABS: Estimated Average Glucose 128 mg/dL; Hemoglobin A1c % 6.1 % (<6.0)
[2023-12-07 16:09] LABS: Alanine Aminotransferase 51 U/L (0-40); Albumin Level 4.3 g/dL (3.5-5.0); Alkaline Phosphatase 72 U/L (39-117); Anion Gap 11 (12-20); Aspartate Amino Transferase 27 U/L (5-37); Bilirubin Total 0.6 mg/dL (0.0-1.0); Blood Urea Nitrogen 9 mg/dL (9-16); Calcium 9.5 mg/dL (8.4-10.2); Carbon Dioxide 27 mmol/L (22-29); Chloride 106 mmol/L (96-108); Cholesterol 185 mg/dL (<200); Estimated Glomerular Filt Rate > 60; Glucose Fasting 127 mg/dL (60-99); HDL Cholesterol 43 mg/dL (>40); LDL Cholesterol Calculated 113 mg/dL (<100); Potassium 4.1 mmol/L (3.3-5.1); Sodium 140 mmol/L (135-145); Total Protein 7.5 g/dL (6.5-8.0); Triglycerides 146 mg/dL (<150)
[2023-12-07 16:24] LABS: TSH reflex Free T4 1.14 uIU/mL (0.32-4.0); Vitamin D 25-OH Total 31.1 ng/mL (>30)
[2023-12-07 16:24] LABS: Microalbum/Creatinine Ratio Ur 4.1 ug/mg cr (<30)
[2023-12-07 16:39] LABS: Folate 12.6 ng/mL (> or = 4.0); Vitamin B12 1403 pg/mL (200-900)
== END 2023-12-07 14:15 | disposition home or self-care (01) ==
LOC: HO.LAB 14:14
PROVIDERS: PCP Internal Medicine; Visit Provider Internal Medicine
DX: D64.9 Anemia, unspecified (principal); E11.9 Type 2 diabetes mellitus without complications; E78.00 Pure hypercholesterolemia, unspecified; R30.0 Dysuria; E55.9 Vitamin D deficiency, unspecified; E53.8 Deficiency of other specified B group vitamins
CPT/HCPCS: 36415; 80053; 80061; 81003; 82043; 82306; 82570; 82607; 82746; 83036; 84443; 85025

== ENCOUNTER 2023-12-10 16:18 | Outpatient (AMB) | payer OTHER, SELFPAY ==
[2023-12-10 16:44] VITALS: BP 122/86; PULSE 84; O2SAT 98; BMI 33.0
--- NOTE | 2023-12-10 16:44 | MHC.PC.OV ---
Vital Signs 12/10/23 16:44 Height 5 ft 9 in Weight 223 lb 8 oz BMI 33.0 BP 122/86 Blood Pressure Location Lt brachial Position Sitting Pulse 84 Pulse Source Pulse Oximeter Pulse Oximetry (%) 98 Oxygen Delivery Method Room Air Intake Visit Reasons: 3mof\u Heliotherapist Required: No Accompanied by: Self / Same As Patient Allergies No Known Allergies [No Known Allergies*] Allergy (Verified 12/11/23 04:39) Medication List - Last Reconciled 12/11/23 by Aniket Vega MD adalimumab (Humira) inject one - 40 mg/0.8 mL syringe every 2 weeks subcut ascorbic acid (vitamin C) 500 mg PO DAILY ashwagandha root extract 1,000 mg PO DAILY atorvastatin 10 mg PO BEDTIME 90 days azelastine 0.05% 1 drp ophthalmic (eye) BID PRN cholecalciferol (vitamin D3) 50 mcg PO DAILY 90 days folic acid 1 mg PO DAILY gabapentin 100 mg PO BID 30 days hydrochlorothiazide 25 mg PO DAILY PRN 30 days magnesium oxide 400 mg PO DAILY metformin 500 mg PO DAILY 90 days methotrexate (PF) (Rasuvo (PF)) 17.5 mg subcut QWEEK multivitamin (Daily Multi-Vitamin tablet) 1 tab PO DAILY polyethylene glycol 3350 (Miralax) 17 grams PO DAILY Tobacco use date assessed: 12/10/23 Dental Screening Dental Screen Date: 12/10/23 Did you have a dental visit in the last 12 months?: No Did you have a dental problem in the last 6 months where you did not have access to dental care?: No Was dental information given to patient?: No HPI 3mof\u HPI Details Patient comes in today for his follow up visit States that he feels okay except for increased pain in his right hip lately He denies any recent injury or trauma to his right hip He denies any headaches or dizziness Denies any chest pains, no SOB No nausea/vomiting, no abdominal pain No change in bowel habits noted He had his follow up labs done a few days ago - to discuss his results He is presently still on Humira and Methotrexate for his spondyloarthropathy - states that his joint pains remain adequately controlled on his current Rx pain in R hip sometimes lately PFS Medical History (Updated 12/11/23 @ 04:48 by Aniket Vega MD) Diabetes mellitus Vitamin D deficiency Hx of flexible sigmoidoscopy Pure hypercholesterolemia Obesity (BMI 30-39.9) Learning disability DMII (diabetes mellitus, type 2) Seronegative spondyloarthropathy Surgical History History of hip replacement Social History Housing: Condominium Patient Tobacco Use Status: Never used Tobacco e-Cigarette/Vaping Use: Never Used service: No Current occupational status: unemployed Cognitive needs: No Hearing needs: Yes (right ear ) Vision needs: Yes (glasses) Questionnaire PHQ-9 Over the last 2 weeks, how often have you been bothered by any of the following problems? 1. Little interest or pleasure in doing things: not at all 2. Feeling down, depressed, or hopeless: not at all 3. Trouble falling or staying asleep, or sleeping too much: not at all 4. Feeling tired or having little energy: not at all 5. Poor appetite or overeating: not at all 6. Feeling bad about yourself - or that you are a failure or have let yourself or your family down: not at all 7. Trouble concentrating on things, such as reading the newspaper or watching television: not at all 8. Moving or speaking so slowly that other people could have noticed. Or the opposite - being so fidgety or restless that you have been moving around a lot more than usual: not at all 9. Thoughts that you would be better off or of hurting yourself in some way: not at all Total score: 0 Depression Screening Interpretation: Negative Depression Screening Done: Yes 07929 - PHQ-9 Billing: Yes Source: Developed by Drs. Kavin Eason, Kaylin Lam, Jospe Singer and colleagues, with an educational randi from [employer]. Thrive Questionnaire Date Thrive assessed: 12/10/23 I am a: Patient What is your living situation today?: I have a steady place to live Within the past 12 months, did the food you bought not last and you didn't have the money to get more?: Never true Within the past 12 months, did you worry whether your food would run out before you got money to buy more?: Never true Do you have trouble paying for medicines?: No Do you have trouble getting transportation to medical appointments?: No Do you have trouble paying your heating and electricity bill?: No Do you have trouble taking care of your child, family member or friend?: No Do you have trouble with day-to-day activities such as bathing, preparing meals, shopping, managing finances, etc.?: No Are you currently unemployed and looking for a job?: I choose not to answer this question Are you interested in more education?: No Please select the resources that you would like help with: None Currently or been in a relationship where the following occur: No concerns reported THRIVE Score: 0 AUDIT C Alcohol Use Questionnaire (AUDIT-C) 1. How often do you have a drink containing alcohol?: Never 3. How often do you have six or more drinks on one occasion?: Never Total Score: 0 Score Reviewed/Action Taken: Yes ADRIANO-7 AMB Questionnaire ADRIANO-7 Date ADRIANO - 7 assessed: 12/10/23 Feeling nervous, anxious, or on edge: 0 = Not at all Not being able to stop or control worryin = Not at all Worrying too much about different things: 0 = Not at all Trouble relaxin = Not at all Being so restless that it is hard to sit still: 0 = Not at all Becoming easily annoyed or irritable: 0 = Not at all Feeling afraid as if something awful might happen: 0 = Not at all Total ADRIANO-7 score (0-4 normal; 5-9 mild; 10-14 moderate; 15-21 severe): 0 Source: Developed by Drs. Kavin Eason, Kaylin Lam, Josep Singer and colleagues, with an educational randi from [employer]. Review of Systems Const Denies chills, Denies fatigue, Denies fever(s) and Denies headache(s) ENT Denies dysphagia, Denies dizziness, Denies otalgia, Denies headache(s), Denies neck pain, Denies odynophagia and Denies sore throat Card Denies chest pain, Denies palpitations and Denies dyspnea Resp Denies chest congestion, Denies cough and Denies dyspnea GI Denies abdominal pain, Denies constipation, Denies dysphagia, Denies diarrhea, Denies nausea, Denies odynophagia and Denies vomiting Denies difficulty urinating, Denies dysuria, Denies nocturia and Denies urinary frequency Musc Reports back pain, Reports arthralgias (involving multiple joints; increased pain in his right hip lately), Denies neck pain and Reports numbness (over the bottom of both feet, on and off) Skin/Breast Denies rash Neuro Details: (+) burning pain in both feet, on and off, worse at night Denies dizziness, Denies headache(s) and Reports numbness (over the bottom of both feet, on and off) Endo Denies fatigue and Denies palpitations Physical exam (Primary Care) Vital Signs: Last Vital Signs Pulse 84 12/10/23 16:44 BP 122/86 12/10/23 16:44 Pulse Ox 98 12/10/23 16:44 Oxygen Delivery Method Room Air 12/10/23 16:44 BMI result Body Mass Index 33.0 Tobacco/Smoking Status: Tobacco use Status Tobacco use date assessed 12/10/23 12/10/23 16:50 Patient Tobacco Use Status Never used Tobacco 12/10/23 16:50 e-Cigarette/Vaping Use Never Used 12/10/23 16:50 PHQ-9: PHQ-9 Score PHQ-9: Total score 0 12/10/23 17:17 Depression Screening Interpretation: Negative Thrive Assessment: Date of Thrive Assessment Date Thrive assessed 12/10/23 12/10/23 16:50 Currently or been in a relationship where the following occur: No concerns reported Const General: no acute distress and alert HENMT Ears: TM's normal bilaterally and EAC's normal Throat: Yes posterior oropharynx normal and Yes tonsils normal Neck Neck: Yes no lymphadenopathy and Yes supple Thyroid: Thyroid normal Resp Auscultation: clear to auscultation bilaterally, no rales and no wheezes Cardio Rate: regular rate Rhythm: regular rhythm Heart sounds: no murmurs GI Palpation (GI): Soft to palpation and nontender Auscultation: normal bowel sounds General: Yes no CVA tenderness Back/Spine/Pelvis Back: no CVA tenderness Thoracic/Lumbar Spine: No lumbar spinal tenderness Skin Rashes: no rashes Extrem General: Yes no clubbing, cyanosis or edema Right lower extremity: hip/thigh Details: tenderness Location: of the hip and knee Details: tenderness; no swelling Left lower extremity: hip/thigh Details: tenderness Location: of the hip (chronic) and knee Details: tenderness; no swelling Results Reviewed Results Reviewed: Laboratory Tests 12/07/23 12/07/23 14:36 14:41 WBC 6.3 Hgb 14.9 Hct 42.9 Plt Count 228 Sodium 140 Potassium 4.1 Creatinine 0.89 Estimated GFR > 60 Fasting Glucose 127 H Hemoglobin A1c % 6.1 H AST 27 ALT 51 H Triglycerides 146 Cholesterol 185 LDL Cholesterol, Calc 113 H HDL Cholesterol 43 Vitamin B12 1403 H 25-OH Vitamin D Total 31.1 TSH 1.14 Ur Specific [place] 1.015 Urine Protein Negative Urine Glucose (UA) Negative Urine Blood Negative Urine Nitrite Negative Ur Leukocyte Esterase Negative Microalb/Creat Ratio 4.1 Assessment and Plan Assessment & Plan (1) Pure hypercholesterolemia: Code(s): E78.00 - Pure hypercholesterolemia, unspecified Plan: Results of his labs done a few days ago reviewed and discussed with patient - he is advised that his cholesterol numbers have increased slightly from previous Reinforced low cholesterol diet Continue Atorvastatin 10 mg QD Will recheck his labs and fasting lipids in 4 months for follow up (2) Diabetes mellitus: Code(s): E11.9 - Type 2 diabetes mellitus without complications Qualifiers: Diabetes mellitus type: type 2 Diabetes mellitus termination clerk insulin use: without termination clerk use Diabetes mellitus complication status: without complication Qualified Code(s): E11.9 - Type 2 diabetes mellitus without complications Plan: His HgbA1c was unchanged from previous at 6.1% on his labs done a few days ago - goal is <7.0% Reinforced diabetic diet Continue Metformin 500 mg QD (3) Seronegative spondyloarthropathy: Code(s): M47.819 - Spondylosis without myelopathy or radiculopathy, site unspecified Plan: Continue Humira injections 40 mg SQ every 2 weeks, Rasuvo 17.5 mg mg SQ once a week and Folic acid 1 mg QD Follow up with rheumatology as scheduled - he sees Dr. Horn at [facility] (4) Right hip pain: Code(s): M25.551 - Pain in right hip Plan: Will send patient for x-rays of his right hip for further evaluation (5) ELIJAH (obstructive sleep apnea): Comment: Severe degree of sleep apnea. The AHI was 32/hr, supine AHI was 53/hr and oxygen cherie was 73%. Code(s): G47.33 - Obstructive sleep apnea (adult) (pediatric) Plan: Continue using his CPAP device when sleeping at night - states that he has experienced significant improvement of his symptoms with CPAP therapy Home sleep study done back in October 2022 revealed (+) severe ELIJAH Follow up with Sleep Medicine as scheduled (6) Vitamin D deficiency: Code(s): E55.9 - Vitamin D deficiency, unspecified Plan: Continue Vitamin D3 2000 units QD (7) Edema of both lower extremities: Code(s): R60.0 - Localized edema Plan: Most likely stasis/dependent edema Continue HCTZ 25 mg QD PRN for edema - he has been on this for years (Rx was started years ago by his previous, PCP Dr. Solares) (8) Neuropathy: Code(s): G62.9 - Polyneuropathy, unspecified Plan: Continue Gabapentin 100 mg BID (9) Obesity (BMI 30-39.9): Code(s): E66.9 - Obesity, unspecified Plan: Reinforced diet/exercise as tolerated/lose weight Plan Follow up in 4 months Orders: Orders Hemoglobin A1c 4 Months E11.9 - Type 2 diabetes mellitus without complications UA CC w/rflx Micro + Cult 4 Months R30.0 - Dysuria TSH reflex Free T4 4 Months E78.00 - Pure hypercholesterolemia, unspecified Vitamin D 25-OH Total 4 Months E55.9 - Vitamin D deficiency, unspecified XR hip RT min 2V 0930/24 M25.551 - Pain in right hip Complete Blood Count Auto Diff 4 Months D64.9 - Anemia, unspecified Comprehensive [place]. Panel Fast 4 Months E78.00 - Pure hypercholesterolemia, unspecified Lipid Panel 4 Months E78.00 - Pure hypercholesterolemia, unspecified Microalbumin, Random (w Creat) 4 Months E11.9 - Type 2 diabetes mellitus without complications Coding Level of Care Code Est Pt Level 4 (41630) Diagnoses Pure hypercholesterolemia E78.00 Type 2 diabetes mellitus without complication, without long-term current use of insulin E11.9 Diabetes mellitus type: type 2 Diabetes mellitus termination clerk insulin use: without termination clerk use Diabetes mellitus complication status: without complication Seronegative spondyloarthropathy M47.819 Right hip pain M25.551 ELIJAH (obstructive sleep apnea) G47.33 Vitamin D deficiency E55.9 Edema of both lower extremities R60.0 Neuropathy G62.9 Obesity (BMI 30-39.9) E66.9
== END 2023-12-10 17:29 | disposition home or self-care (01) ==
PROVIDERS: PCP Internal Medicine; Visit Provider Internal Medicine
DX: E78.00 Pure hypercholesterolemia, unspecified (principal); E11.9 Type 2 diabetes mellitus without complications; E66.9 Obesity, unspecified; Z68.33 Body mass index [BMI] 33.0-33.9, adult; M47.819 Spondylosis without myelopathy or radiculopathy, site unspecified; M25.551 Pain in right hip; G47.33 Obstructive sleep apnea (adult) (pediatric); E55.9 Vitamin D deficiency, unspecified; R60.0 Localized edema; G62.9 Polyneuropathy, unspecified

== ENCOUNTER → 2023-12-10 16:18 | Outpatient (BNVA) | payer OTHER, SELFPAY | PROVIDERS: PCP Internal Medicine; Visit Provider Internal Medicine | DX: E78.00 Pure hypercholesterolemia, unspecified (principal); E11.9 Type 2 diabetes mellitus without complications; M47.819 Spondylosis without myelopathy or radiculopathy, site unspecified; M25.551 Pain in right hip; E55.9 Vitamin D deficiency, unspecified; R60.0 Localized edema; G62.9 Polyneuropathy, unspecified; E66.9 Obesity, unspecified; G47.33 Obstructive sleep apnea (adult) (pediatric) | CPT/HCPCS: 96127; 99212 ==

== ENCOUNTER 2023-12-20 11:49 | Outpatient (REF) | payer OTHER, SELFPAY ==
--- NOTE | ~2023-12-20 | XR_ITS ---
EXAMINATION: XR RIGHT HIP 2 VIEWS CLINICAL INFORMATION: Pain in right hip M25.551. COMPARISON: None available. TECHNIQUE: Two views of the right hip. FINDINGS: Visualized portion of the proximal right femur demonstrate no fracture. Right femoral head is well-seated within the acetabulum. There is moderate narrowing of the right femoral acetabular joint space. There is a prominent osteophyte along the superior aspect of the right femoral head/neck and a small osteophyte along the superolateral aspect of the right acetabulum. XR/XR hip RT min 2V IMPRESSION: Moderate degenerative changes of the right hip without fracture or dislocation. Electronically signed by: Dwaine Howard MD 02/26/2024 12:37 PM EST
== END 2023-12-20 11:50 | disposition home or self-care (01) ==
LOC: HO.XRAY 11:49
PROVIDERS: PCP Internal Medicine; Visit Provider Internal Medicine
DX: M25.551 Pain in right hip (principal)
CPT/HCPCS: 73502

== ENCOUNTER 2024-04-07 15:14 | Outpatient (REF) | payer MEDICARE, MEDICAID, SELFPAY ==
[2024-04-07 15:34] LABS: MANUAL DIFF FLAG NO
[2024-04-07 16:01] LABS: Basophils Absolute Auto 0.1 X10*3/uL (0.0-0.2); Basophils Percent Auto 0.6 % (0-2); Eosinophils Absolute Auto 0.1 X10*3/uL (0.0-0.4); Eosinophils Percent Auto 0.9 % (0-4); Hematocrit 42.2 % (42.0-52.0); Hemoglobin 14.5 g/dl (14.0-18.0); Imm Gran Abs Auto 0.03 X10*3/uL (0.00-0.03); Imm Gran Pct Auto 0.4 % (0.0-0.4); Lymphocytes Percent Auto 25.6 % (20-40); Mean Corpuscular HGB Conc 34.4 g/dl (31.0-36.0); Mean Corpuscular Volume 90.4 fL (80.0-98.0); Mean Platelet Volume 9.7 fL (9.4-12.4); Monocytes Absolute Auto 0.5 X10*3/uL (0.1-1.2); Monocytes Percent Auto 6.9 % (2-11); Neutrophils Absolute Auto 5.2 x10*3/uL (2.0-8.3); Neutrophils Percent Auto 65.6 % (45-73); Platelet Count 261 X10*3/uL (160-400); Red Blood Count 4.67 X10*6/uL (4.60-5.80); Red Cell Distribution Width 12.2 % (11.0-16.0); White Blood Count 7.9 X10*3/uL (4.8-10.8)
[2024-04-07 16:02] LABS: Appearance Urine Clear; Color Urine Yellow; Glucose Urine UA Negative (Negative); Leukocyte Esterase Urine Negative (Negative); Nitrite Urine Negative (Negative); PH 7.5 (5.0-9.0); Specific Gravity - Urine 1.015 (1.005-1.025); Urine Blood Negative (Negative); Urine Ketones Negative (Negative); Urine Protein Negative (Neg-Trace)
[2024-04-07 16:06] LABS: Estimated Average Glucose 137 mg/dL; Hemoglobin A1C 172.3146 umol/L; Hemoglobin A1c % 6.4 % (<6.0); Total Hemoglobin (HGBA1C) 3704.1698 umol/L
[2024-04-07 16:30] LABS: Creatinine Urine 97.52 mg/dL; Microalbumin Urine < 5.0 mg/L
[2024-04-07 16:34] LABS: Alanine Aminotransferase 47 U/L (0-40); Albumin Level 4.4 g/dL (3.5-5.0); Alkaline Phosphatase 81 U/L (39-117); Anion Gap 9 (12-20); Aspartate Amino Transferase 28 U/L (5-37); Bilirubin Total 0.6 mg/dL (0.0-1.0); Blood Urea Nitrogen 12 mg/dL (9-16); Calcium 9.3 mg/dL (8.4-10.2); Carbon Dioxide 29 mmol/L (22-29); Chloride 105 mmol/L (96-108); Cholesterol 183 mg/dL (<200); Estimated Glomerular Filt Rate > 60; Glucose Fasting 115 mg/dL (60-99); HDL Cholesterol 41 mg/dL (>40); LDL Cholesterol Calculated 101 mg/dL (<100); Potassium 4.6 mmol/L (3.3-5.1); Sodium 138 mmol/L (135-145); Triglycerides 209 mg/dL (<150)
[2024-04-07 16:49] LABS: TSH reflex Free T4 1.54 uIU/mL (0.32-4.0); Vitamin D 25-OH Total 27.5 ng/mL (>30)
--- OUTSIDE RECORDS SUMMARY | 2024-04-07 19:21 | XMS_ITS | Data Portability ---
Author Organization [place] [facility] [address] [place] Address [address] [place] [address] Care Team Providers Care Master Control Supervisor Name Role Phone HAYES CHIKA Stove Mounter Unavailable Assessment Encounter Date Assessment Date Assessment LastModified by Organization Details LastModified Time 01/29/2024 01/29/2024 HPI : ? Patient is here for about 20-year follow-up from left total hip replacement at [facility] following a work injury in 2002. The surgery was in 2005. He is here for routine follow-up. He states he has baseline pain regarding the left hip, but it has not changed over the last few years. He has a limited work capacity due to his injuries and comorbidities. Again, there has not been significant changes in the left hip, but he did want to get it checked out. Overall he does think he is improved compared to his preoperative condition. He is ambulating without an assistive device. Physical Exam : Patient is well nourished, well-developed, in no acute distress, with appropriate mood and affect. The patient is oriented to time, place, and person. Respirations are even and unlabored. There is no inguinal adenopathy. Examination of the contralateral hip shows normal range of motion, strength, no tenderness, and intact skin. The operative limb is well-perfused, with well healed skin incision. The patient demonstrates good hip motion, stability, and strength. There is no pain with ROM Muscle strength is normal. Pedal pulses are palpable. Assessment/Plan : Patient is 20 years from left total hip replacement. He has a fair result, without any significant change in his symptoms. Upon review of exam and imaging, I do not see any need for revision surgery. Patient is relieved and in agreement with this. Continue hip conditioning program. Ultimate failure may occur due to mechanical wear, loosening or breakage. Follow-up is recommended to assess for the possibility of failure. He can follow-up with me in 2 years with repeat x-rays of the left hip at that time. He did bring up his right hip at the end of the visit. I can evaluate him separately for this right hip if he desires. He will call for follow-up for that hip. Not available 01/29/2024 13:57:06 Plan of Treatment Reminders Order Date Submit Date Provider Last Modified By Organization Details Last Modified Time Details Appointments None record ed. Lab None record ed. Referral None record ed. Procedures None record ed. Surgeries None record ed. Imaging XR, hip, unilat eral, 2 or 3 view 024 01/29/20 24 [email or web address] [facility], [address], [address], [place], [address], 4 16:16:43 Medication Orders None record ed. Patient TargetsNo targets recorded. Patient Instructions Encounter Date Encounter Id Patient Instructions Last Modified By Organization Details Last Modified Time 01/29/2024 [id number] AP pelvis, AP an d lateral radiographs of the left hip taken today demonstrate a left total hip replacement with components in appropriate position without any signs of hardware related complication. No signs of loosening, or significant polyethylene wear. Not available 01/29/2024 13:57:28 Reason for Referral None Reported. Medical Equipment None Reported. Medications Name Sig Start Date Stop Date Status Note LastModified by Organization Details LastModified Time metformin 500 mg tablet TAKE ONE TABLET BY MOUTH EVERY DAY active Not Available Not Available No t Available clindamycin HCl 300 mg capsule TAKE 2 CAPSULES BY MOUTH 1 HOUR BEFORE PROCEDURE . active Not Available Not Available No t Available atorvastatin 10 mg tablet TAKE 1 TABLET BY MOUTH AT BEDTIME. active Not Available Not Available No t Available folic acid 1 mg tablet TAKE 1 TABLET 1 MG TOTAL) BY MOUTH DAILY. active Not Available Not Available No t Available hydrochlorothi azide 25 mg tablet TAKE 1 TABLET BY MOUTH DAILY NEEDED FOR EDEMA. active Not Available Not Available No t Available gabapentin 100 mg capsule TAKE ONE CAPSULE BY MOUTH TWICE A DAY active Not Available Not Available No t Available Humira 40 mg/0.8 mL subcutaneous syringe kit INJECT 0.8ML 40MG TOTAL) UNDER THE SKIN EVERY 14 DAYS active Not Available Not Available No t Available Vitamin D3 50 mcg (2,000 unit) capsule TAKE ONE CAPSULE BY MOUTH EVERY DAY active Not Available Not Available No t Available Rasuvo (PF) 17.5 mg/0.35 mL subcutaneous auto-injector INJECT 17.5 MG UNDER THE SKIN WEEKLY active Not Available Not Available No t Available Vitals Date Recorded Body height Body mass index (BMI) Body weight Provider Name and Address Organization Details Last Updated DateTime 01/29/2024 175.26 cm 32.6 kg/m2 652875.[address] [place] [facility] 01/29/2024 13:22:06 Social History None recorded. Functional Status None recorded. Mental Status None recorded. Family History Nothing Reported. Medical History No medical history recorded. Past Encounters Encounter ID Performer Location Encounter Start Date Encounter Closed Date Diagnosis/Indication Diagnosis SNOMED-CT Code Diagnosis ICD10 Code Diagnosis Note [id number] Doug Oreilly MD [address] [place] [phone] 01/29/2024 13:07:46 01/29/2024 14:30:52 History of repair of hip joint [id number] Z96.642 Surgical follow-up [id number] Z47.1 Z96.642 Health Concerns Section Related Observation LastModified by Organization Detai ls LastModified Time None Recorded Concern Status LastModified by Organization Details LastModified Time None Recorded Advance Directives Directive None Recorded Payers Encounter Date Sequence Insurance Name Policy Number Policy Selby Covered Member ID Selby Member ID Guarantor Name 01/29/2024 [facility] Matthew Lund
--- OUTSIDE RECORDS SUMMARY | 2024-04-07 19:21 | XMS_ITS ---
Author Name [facility] Organization Unknown History of Medication Use Medication Directions Dispensed Refills Start Date End Date Stat hydrochlorothiazide 25 mg tablet TAKE 1 TABLET BY MOUTH DAILY NEEDED FOR EDEMA. active Humira 40 mg/0.8 mL subcutaneous syringe kit INJECT 0.8ML 40MG TOTAL) UNDER THE SKIN EVERY 14 DAYS active folic acid 1 mg tablet TAKE 1 TABLET 1 MG TOTAL) BY MOUTH DAILY. active
--- OUTSIDE RECORDS SUMMARY | 2024-04-07 19:21 | XMS_ITS | Encounter Summary ---
Author Organization [facility] Address [address] [place] [address] Care Team Providers Care Emblem Cutter Name Role Phone Unavailable Primary Care Provider Unavailabl e Encounter Details Date Type Department Care Team (Late st Contact Info) Description 01/14/2019 Abstract [facility] PM Rheumatology [place] [address] [facility] [id number] [place] [address] Re Blake MD [address] [facility] [address] [place] [address] Social History Tobacco Use Types Packs/Day Years Used Date Smoking Tobacco: Never Smokeless Tobacco: Never Sex and Gender Information Value Date Recorded Sex Assigned at Not on file Legal Sex Male 11:05 AM EST Gender Identity Not on file Sexual Orientation Not on file documented as of this encounter Plan of Treatment Not on file documented as of this encounter Visit Diagnoses Not on filedocumented in this encounter
--- OUTSIDE RECORDS SUMMARY | 2024-04-07 19:21 | XMS_ITS | Encounter Summary ---
Author Organization [facility] Address [address] [place] [address] Care Team Providers Care Pathology Supervisor Name Role Phone Unavailable Primary Care Provider Unavailabl e Encounter Details Date Type Department Care Team (Late st Contact Info) Description 07/21/2019 Scanned Document [facility] PM Rheumatology [place] [address] [facility] [id number] [place] [address] Re Blake MD [address] [facility] [address] [place] [address] Social History Tobacco Use Types [...]
--- OUTSIDE RECORDS SUMMARY | 2024-04-07 19:21 | XMS_ITS | Clinical Summary ---
Author Organization [facility] Address [address] [place] [id number] Care Team Providers Care Swimming Pool Serviceperson Name Role Phone Unavailable Primary Care Provider Unavailabl e Social History Tobacco Use Types Packs/Day Years Used Date Smoking Tobacco: Never Assessed Sex and Gender Information Value Date Recorded Sex Assigned at Not on file Legal Sex Male 9:22 AM EST Gender Identity Not on file Sexual Orientation Not on file Plan of Treatment Not on file
--- OUTSIDE RECORDS SUMMARY | 2024-04-07 19:21 | XMS_ITS | Clinical Summary ---
Author Organization [address] Address [address] [place] [id number] Care Team Providers Care Lpn Instructor Name Role Phone Unavailable Primary Care Provider Unavailabl e Allergies No known active allergies Medications etanercept (ENBREL SURECLICK) 50 mg/mL (1 mL) injector penIndications: Rheumatoid arthritis of multiple sites with negative rheumatoid factor (HC Code) (HC CODE) (HC Code) Inject 50 mg under the skin every 7 days. Active methotrexate 2.5 mg tabletIndicatio ns:Rheumatoid arthritis of multiple sites with negative rheumatoid factor (HC Code) (HC CODE) (HC Code) TAKE 4 TABLETS (10MG TOTAL) BY MOUTH ONCE A WEEK 11 12/23/2018 Active folic acid (FOLVITE) 1 mg tabletIndicatio ns:Rheumatoid arthritis of multiple sites with negative rheumatoid factor (HC Code) (HC CODE) (HC Code) Take 1 mg by mouth daily. Active Active Problems No known active problems Social History Tobacco Use Types Packs/Day Years Used Date Smoking Tobacco: Never Smokeless Tobacco: Never Sex and Gender Information Value Date Recorded Sex Assigned at Not on file Legal Sex Male 11:05 AM EST Gender Identity Not on file Sexual Orientation Not on file Last Filed Vital Signs Vital Sign Reading Time Taken Comments Blood Pressure 120/62 01/14/2019 12:11 PM EST Pulse - - Temperature - - Respiratory Rate - - Oxygen Saturation - - Inhaled Oxygen Concentration - - Weight 106.6 kg (235 lb) 01/14/2019 12:11 PM EST Height 172.7 cm (5' 8 ) 01/14/2019 12:11 PM EST Body Mass Index 35.73 01/14/2019 12:11 PM EST Plan of Treatment Health Maintenance Due Date Last Done Comments HIV screening 1981 Hepatitis C screening 1986 Tetanus adult (Td q 10,TDAP once) 1988 Lipid disorder screening 2008 Colon cancer screening, Colonoscopy 2013 Diabetes screening 2013 Shingles vaccine (Shingrix) (1 of 2 - Shingrix (RZV) 2 Dose Standard Series) 2018 Influenza vaccine 10/11/2023 12/24/2019, 12/07/2017 Covid-19 vaccine series (2023- season) 2023 RSV Discussion (1 - 1-dose 7 5+ series) 10/30/2043 Meningococcal Vaccine Aged Out No zia maria esther eligible based on patient's age to complete this topic Pneumococcal Vaccine Aged Out No long er eligible based on patient's age to complete this topic
== END 2024-04-07 15:15 | disposition home or self-care (01) ==
LOC: HO.LAB 15:14
PROVIDERS: PCP Internal Medicine; Visit Provider Internal Medicine
DX: D64.9 Anemia, unspecified (principal); E78.00 Pure hypercholesterolemia, unspecified; E55.9 Vitamin D deficiency, unspecified; E11.9 Type 2 diabetes mellitus without complications; R30.0 Dysuria
CPT/HCPCS: 36415; 80053; 80061; 81003; 82043; 82306; 82570; 83036; 84443; 85025

== ENCOUNTER 2024-04-09 13:29 | Outpatient (AMB) | payer MEDICARE, MEDICAID, SELFPAY ==
[2024-04-09 13:45] VITALS: BP 120/80; PULSE 94; O2SAT 98; BMI 33.4
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
--- OUTSIDE RECORDS SUMMARY | 2024-04-09 15:43 | XMS_ITS | Encounter Summary ---
Author Organization [facility] Address [address] [place] [address] Care Team Providers Care Multiple Knife Edge Trimmer Operator Name Role Phone Unavailable Primary Care Provider Unavailabl e Encounter Details Date Type Department Care Team (Late st Contact Info) Description 01/14/2019 Abstract [facility] PM Rheumatology [place] [address] [facility] [id number] [place] [address] Re Blake MD [address] [facility] [address] [place] [address] Social History Tobacco Use Types [...]
--- OUTSIDE RECORDS SUMMARY | 2024-04-09 15:43 | XMS_ITS | Data Portability ---
Author Organization [place] [facility] [place] Address [address] [place] [address] Care Team Providers Care Replanter Name Role Phone HAYES CHIKA Glaze Handler Unavailable Assessment Encounter Date Assessment Date Assessment LastModified by Organization Details LastModified Time 01/29/2024 01/29/2024 HPI : ? Patient is here for about 20-year follow-up from left total hip replacement at [facility] following a work injury in 2002. The [...] view 024 01/29/20 24 [email or web address] [facility], [address], [address], [place], [address], 4 16:16:43 Medication Orders None record ed. Patient TargetsNo targets recorded. Patient Instructions Encounter Date Encounter Id Patient Instructions Last Modified By Organization Details Last Modified Time 01/29/2024 [id number] AP pelvis, AP an d lateral radiographs [...] Updated DateTime 01/29/2024 175.26 cm 32.6 kg/m2 784408.[address] [place] [facility] 01/29/2024 13:22:06 Social History None recorded. Functional Status None recorded. Mental Status None recorded. Family History Nothing Reported. Medical History No medical history recorded. Past Encounters Encounter ID Performer Location Encounter Start Date Encounter Closed Date Diagnosis/Indication Diagnosis SNOMED-CT Code Diagnosis ICD10 Code Diagnosis Note [id number] Doug Oreilly MD [address] [place] [id number] 01/29/2024 13:07:46 01/29/2024 14:30:52 History of repair of hip joint [id number] Z96.642 Surgical follow-up [id number] 4000 Z47.1 Z96.642 Health Concerns Section Related Observation LastModified by Organization Detai ls LastModified Time None Recorded Concern Status LastModified by Organization Details LastModified Time None Recorded Advance Directives Directive None Recorded Payers Encounter Date Sequence Insurance Name Policy Number Policy Selby Covered Member ID Selby Member ID Guarantor Name 01/29/2024 [facility] Matthew Lund
--- OUTSIDE RECORDS SUMMARY | 2024-04-09 15:43 | XMS_ITS | Clinical Summary ---
Author Organization [address] Address [address] [place] [id number] Care Team Providers Care Cop Name Role Phone Unavailable Primary Care Provider [...]
--- OUTSIDE RECORDS SUMMARY | 2024-04-09 15:43 | XMS_ITS | Encounter Summary ---
Author Organization [facility] Address [address] [place] [address] Care Team Providers Care Bi Manager Name Role Phone Unavailable Primary Care Provider Unavailabl e Encounter Details Date Type Department Care Team (Late st Contact Info) Description 07/21/2019 Scanned Document [facility] PM Rheumatology [place] [address] [facility] [address] [place] [address] Re Blake MD [address] [facility] [address] [place] [address] Social History Tobacco Use Types [...]
--- OUTSIDE RECORDS SUMMARY | 2024-04-09 15:43 | XMS_ITS | Clinical Summary ---
Author Organization [facility] Address [address] [place] [id number] Care Team Providers Care Aircraft Servicer Name Role Phone Unavailable Primary Care Provider [...]
== END 2024-04-09 14:56 | disposition home or self-care (01) ==
PROVIDERS: PCP Internal Medicine; Visit Provider Internal Medicine
DX: Z00.00 Encounter for general adult medical examination without abnormal findings (principal); E11.42 Type 2 diabetes mellitus with diabetic polyneuropathy; E78.00 Pure hypercholesterolemia, unspecified; M47.819 Spondylosis without myelopathy or radiculopathy, site unspecified; M54.50 Low back pain, unspecified; M16.0 Bilateral primary osteoarthritis of hip; G47.33 Obstructive sleep apnea (adult) (pediatric); E55.9 Vitamin D deficiency, unspecified; R60.0 Localized edema; G62.9 Polyneuropathy, unspecified; E66.9 Obesity, unspecified

== ENCOUNTER → 2024-04-09 13:29 | Outpatient (BNVA) | payer MEDICARE, MEDICAID, SELFPAY | PROVIDERS: PCP Internal Medicine; Visit Provider Internal Medicine | DX: Z00.00 Encounter for general adult medical examination without abnormal findings (principal); E78.00 Pure hypercholesterolemia, unspecified; E11.9 Type 2 diabetes mellitus without complications; M47.819 Spondylosis without myelopathy or radiculopathy, site unspecified; M54.50 Low back pain, unspecified; M16.0 Bilateral primary osteoarthritis of hip; G47.33 Obstructive sleep apnea (adult) (pediatric); E55.9 Vitamin D deficiency, unspecified; R60.0 Localized edema; E66.9 Obesity, unspecified; Z68.33 Body mass index [BMI] 33.0-33.9, adult; G62.9 Polyneuropathy, unspecified; Z71.3 Dietary counseling and surveillance | CPT/HCPCS: 96127; 99396 ==

== ENCOUNTER → 2024-04-11 15:15 | Outpatient (BNV) | payer MEDICARE, MEDICAID, SELFPAY | PROVIDERS: PCP Internal Medicine; Visit Provider Radiology Diagnostic Radiology | DX: M54.50 Low back pain, unspecified (principal) | CPT/HCPCS: 72100 ==

== ENCOUNTER 2024-05-15 12:42 | Outpatient (REF) | payer MEDICARE, MEDICAID, SELFPAY ==
--- NOTE | ~2024-05-15 | XR_ITS ---
CLINICAL HISTORY: M17.11 - Unilateral primary osteoarthritis, right knee AP bilateral knees. Additional lateral and patellar view of the right knee. A 4th image is nondiagnostic. Comparison: None Findings: Bones are intact. No acute fracture. Old patellar fracture versus bipartite patella. Medial joint space loss with osteophyte formation and subchondral sclerosis. No joint effusion. No acute fracture or malalignment. IMPRESSION: 1. Medial compartment osteoarthropathy. 2. 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 This document has been electronically signed by: Kelsie Fraire MD on 05/17/2024 08:54:26
--- NOTE | ~2024-05-15 | XR_ITS ---
CLINICAL HISTORY: M25.559 - Pain in unspecified hip 1 view pelvis Comparison: None Findings: Joint space loss of the right hip. Left hip arthroplasty without findings of complication or failure. Pelvic rings appear intact. IMPRESSION: 1. Left hip arthroplasty without evidence of complication. Moderate to severe right hip degenerative change. This document has been electronically signed by: Kelsie Fraire MD on 05/17/2024 08:52:57
--- OUTSIDE RECORDS SUMMARY | 2024-05-15 15:18 | XMS_ITS | Clinical Summary ---
Author Organization [facility] Address [address] [place] [address] Care Team Providers Care Wire Preparation Worker Name Role Phone Unavailable Primary Care Provider [...]
--- OUTSIDE RECORDS SUMMARY | 2024-05-15 15:18 | XMS_ITS | Data Portability ---
Author Organization [place] [facility] [place] Address [address] [place] [address] Care Team Providers Care Fish Worm Grower Name Role Phone HAYES CHIKA Telegraph Messenger Unavailable Assessment Encounter Date Assessment Date Assessment [...] view 024 01/29/20 24 [email or web address] [facility], [address], [place], [address], 4 16:16:43 Medication Orders None record ed. Patient TargetsNo targets recorded. Patient Instructions Encounter Date Encounter Id Patient Instructions Last Modified By Organization Details Last Modified Time 01/29/2024 [id number] AP pelvis, AP an d lateral radiographs [...] Updated DateTime 01/29/2024 175.26 cm 32.6 kg/m2 215398.[address] [place] [facility] [place] 01/29/2024 13:22:06 Social History None recorded. Functional Status None recorded. Mental Status None recorded. Family History Nothing Reported. Medical History No medical history recorded. Past Encounters Encounter ID Performer Location Encounter Start Date Encounter Closed Date Diagnosis/Indication Diagnosis SNOMED-CT Code Diagnosis ICD10 Code Diagnosis Note [id number] Doug Oreilly MD [address] [place] [id number] 01/29/2024 13:07:46 01/29/2024 14:30:52 History of repair of hip joint 864527874 Z96.642 Surgical follow-up 05098 4000 Z47.1 Z96.642 Health Concerns Section Related Observation LastModified by Organization Detai ls LastModified Time None Recorded Concern Status LastModified by Organization Details LastModified Time None Recorded Advance Directives Directive None Recorded Payers Encounter Date Sequence Insurance Name Policy Number Policy Selby Covered Member ID Selby Member ID Guarantor Name 01/29/2024 [facility] Matthew Lund
--- OUTSIDE RECORDS SUMMARY | 2024-05-15 15:18 | XMS_ITS | Encounter Summary ---
Author Organization [facility] Address [address] [place] [address] Care Team Providers Care Treatment Plant Mechanic Name Role Phone Unavailable Primary Care Provider Unavailabl e Encounter Details Date Type Department Care Team (Late st Contact Info) Description 01/14/2019 Abstract NEMG PM Rheumatology [place] [address] [facility] [address] [place] [address] Re Blake MD [address] [facility] [address] [place] [address] Social History Tobacco Use Types [...]
--- OUTSIDE RECORDS SUMMARY | 2024-05-15 15:19 | XMS_ITS | Clinical Summary ---
Author Organization [address] Address [address] [place] [phone] Care Team Providers Care Black Ash Burner Operator Name Role Phone Unavailable Primary Care [...] vaccine 10/11/2023 12/24/2019, 12/07/2017 Covid-19 vaccine series ( - 2023-25 season) 2023 Pneumococcal Vaccine (50+ years) (1 of 1 - PCV) 2033 RSV Discussion (1 - 1-dose 7 5+ series) 10/30/2043 Meningococcal Vaccine Aged Out No zia maria esther eligible based on patient's age to complete this topic Pneumococcal Vaccine (2 - 49 years) Aged Out No longer eligible b ased on patient's age to complete this topic
--- OUTSIDE RECORDS SUMMARY | 2024-05-15 15:19 | XMS_ITS | Encounter Summary ---
Author Organization [facility] Address [address] [place] [address] Care Team Providers Care Controlled Area Checker Name Role Phone Unavailable Primary Care Provider Unavailabl e Encounter Details Date Type Department Care Team (Late st Contact Info) Description 07/21/2019 Scanned Document NEMG PM Rheumatology [place] [address] [facility] [address] [place] [address] Re Blake MD [address] [facility] [address] [place] [address] Social History Tobacco Use Types [...]
== END 2024-05-15 12:43 | disposition home or self-care (01) ==
LOC: HO.HOSX 12:42
PROVIDERS: Visit Provider Physician Assistant
DX: M16.11 Unilateral primary osteoarthritis, right hip (principal); M17.11 Unilateral primary osteoarthritis, right knee; M25.551 Pain in right hip
CPT/HCPCS: 72170; 73562; 99202

== ENCOUNTER 2024-05-15 14:01 | Outpatient (AMB) | payer MEDICARE, MEDICAID, SELFPAY ==
[2024-05-15 14:11] VITALS: BMI 33.4
--- NOTE | 2024-05-15 14:11 | MHC.OFFVIS ---
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 Patient reports having an injury to his left hip in 2002 s/p a work injury. He had surgery at States that he injured his spine and was in a wheel chair. He feels his right hip pain is related to his past injury. Currently he has constant pain that radiates from his hip down to his knee. Numbness in both of his feet. Allergies No Known Allergies [No Known Allergies*] Allergy (Verified 05/15/24 14:21) Medication List - Last Reconciled 05/15/24 by Marjan Rojas PA-C adalimumab (Humira) inject one - 40 mg/0.8 mL syringe every 2 weeks subcut ascorbic acid (vitamin C) 500 mg PO DAILY ashwagandha root extract 1,000 mg PO DAILY atorvastatin 10 mg PO BEDTIME 90 days azelastine 0.05% 1 drp ophthalmic (eye) BID PRN cholecalciferol (vitamin D3) 50 mcg PO DAILY 90 days folic acid 1 mg PO DAILY gabapentin 100 mg PO BID 30 days hydrochlorothiazide 25 mg PO DAILY PRN 30 days magnesium oxide 400 mg PO DAILY metformin 500 mg PO DAILY 90 days methotrexate (PF) (Rasuvo (PF)) 17.5 mg subcut QWEEK multivitamin (Daily Multi-Vitamin tablet) 1 tab PO DAILY polyethylene glycol 3350 (Miralax) 17 grams PO DAILY HPI 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 He states in 2002 he had a work injury which resulted in seronegative spondyloarthritis and needing to have a left hip arthroplasty. Over time he has developed pain in his right hip which limits his ability to perform daily activities. [facility] Medical History (Updated 05/15/24 @ 14:43 by Marjan Rojas PA-C) Osteoarthritis of both hips Osteoarthritis of right hip Diabetes mellitus Vitamin D deficiency Hx of flexible sigmoidoscopy Pure hypercholesterolemia Obesity (BMI 30-39.9) Learning disability DMII (diabetes mellitus, type 2) Seronegative spondyloarthropathy Surgical History Hx of colonoscopy History of hip replacement Social History Housing: Condominium Patient Tobacco Use Status: Never used Tobacco e-Cigarette/Vaping Use: Never Used service: No Current occupational status: unemployed Current occupational exposures/hazards: No Cognitive needs: No Hearing needs: Yes (right ear ) Vision needs: Yes (glasses) Review of Systems Const All systems reviewed & are unremarkable except as noted in HPI and below Physical Exam Vital Signs: BMI result Body Mass Index 33.4 Const General: cooperative and no acute distress Orientation/consciousness: patient oriented x3 Resp Effort & Inspection: normal respiratory effort and able to speak in complete sentences Cardio Peripheral pulses: Peripheral pulses 2+ throughout Neuro General: patient oriented x3 Extrem Other: Right hip normal to inspection. He has limited range of motion of the hip with discomfort. He can perform hip flexion however there is limited strength. Results Reviewed Results Reviewed: X-rays of the right hip obtained in the office today and reviewed by me show stable left hip arthroplasty with right hip osteoarthritis. X-rays of the right knee obtained in the office and reviewed by me today show bipartite patella Assessment & Plan Assessment & Plan (1) Primary osteoarthritis of right hip: Code(s): M16.11 - Unilateral primary osteoarthritis, right hip Category: Medical Plan: Given the patient's limitations with daily activities and clinical findings we discussed options which include surgical versus nonsurgical intervention. I did explain steroid injection and physical therapy to work on strengthening exercises which she would like to hold off on at this time. He feels as though with a significant limitations in daily activity he would like to pursue surgical intervention. 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 He will make an appointment to see Dr. Reid to discuss the next step in his treatment. Orders: Orders XR pelvis 1-2V Today M25.559 - Pain in unspecified hip XR knee LT 1V Today M25.562 - Pain in left knee XR knee RT 3V Today M17.11 - Unilateral primary osteoarthritis, right knee Coding Level of Care Code New Pt Level 3 (65857) Complex EM visit Add On G2211 Diagnoses Primary osteoarthritis of right hip M16.11
--- OUTSIDE RECORDS SUMMARY | 2024-05-15 17:09 | XMS_ITS | Encounter Summary ---
Author Organization [facility] Address [address] [place] [address] Care Team Providers Care Airplane Pilot Commercial Name Role Phone Unavailable Primary Care Provider Unavailabl e Encounter Details Date Type Department Care Team (Late st Contact Info) Description 07/21/2019 Scanned Document NEMG PM Rheumatology [place] [address] [facility] [address] [place] [address] Re Blake MD [address] [facility] [address] [place] [address] Social History Tobacco Use Types [...]
--- OUTSIDE RECORDS SUMMARY | 2024-05-15 17:09 | XMS_ITS | Encounter Summary ---
Author Organization [facility] Address [address] [place] [address] Care Team Providers Care Breading Machine Tender Name Role Phone Unavailable Primary Care Provider Unavailabl e Encounter Details Date Type Department Care Team (Late st Contact Info) Description 01/14/2019 Abstract NEMG PM Rheumatology [place] [address] [facility] [address] [place] [address] Re Blake MD [address] [facility] [place] [facility] [address] [place] [address] Social History Tobacco Use Types [...]
--- OUTSIDE RECORDS SUMMARY | 2024-05-15 17:09 | XMS_ITS | Clinical Summary ---
Author Organization [address] Address [address] [place] [phone] Care Team Providers Care Radio Aerial Installer Name Role Phone Unavailable Primary Care Provider [...]
--- OUTSIDE RECORDS SUMMARY | 2024-05-15 17:09 | XMS_ITS | Clinical Summary ---
Author Organization [facility] Address [address] [place] [address] Care Team Providers Care Sanitation Lead Name Role Phone Unavailable Primary Care Provider [...]
== END 2024-05-15 14:43 | disposition home or self-care (01) ==
PROVIDERS: PCP Internal Medicine; Visit Provider Physician Assistant
DX: M16.11 Unilateral primary osteoarthritis, right hip (principal)
CPT/HCPCS: 99203; G2211

== ENCOUNTER → 2024-05-15 14:04 | Outpatient (BNV) | payer MEDICARE, MEDICAID, SELFPAY | PROVIDERS: Visit Provider Radiology Diagnostic Radiology | DX: M16.11 Unilateral primary osteoarthritis, right hip (principal); M17.11 Unilateral primary osteoarthritis, right knee | CPT/HCPCS: 72170; 73562 ==

== ENCOUNTER 2024-07-10 14:35 | Outpatient (AMB) | payer MEDICARE, MEDICAID, SELFPAY ==
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
--- OUTSIDE RECORDS SUMMARY | 2024-07-10 16:38 | XMS_ITS | Data Portability ---
Author Organization [place] [facility] [place] Address [address] [place] [address] Care Team Providers Care Internal Communications Specialist Name Role Phone HAYES CHIKA Piano Tuner Unavailable Assessment Encounter Date Assessment Date Assessment LastModified by Organization Details LastModified Time 01/29/2024 01/29/2024 HPI : ? Patient is here for about 20-year follow-up from left total hip replacement at [facility] following a work injury in [...] view 024 01/29/20 24 [email or web address] [facility], [address], [place], [address], 4 16:16:43 Medication Orders None record ed. Patient TargetsNo targets recorded. Patient Instructions Encounter Date Encounter Id Patient Instructions Last Modified By Organization Details Last Modified Time 01/29/2024 [id number] AP pelvis, AP an d lateral radiographs [...] Updated DateTime 01/29/2024 175.26 cm 32.6 kg/m2 399326.[address] [place] [facility] [place] 01/29/2024 13:22:06 Social History None recorded. Functional Status None recorded. Mental Status None recorded. Family History Nothing Reported. Medical History No medical history recorded. Past Encounters Encounter ID Performer Location Encounter Start Date Encounter Closed Date Diagnosis/Indication Diagnosis SNOMED-CT Code Diagnosis ICD10 Code Diagnosis Note [id number] Doug Oreilly MD [address] [address] 01/29/2024 13:07:46 01/29/2024 14:30:52 History of repair of hip joint 173451996 Z96.642 Surgical follow-up 76140 4000 Z47.1 Z96.642 Health Concerns Section Related Observation LastModified by Organization Detai ls LastModified Time None Recorded Concern Status LastModified by Organization Details LastModified Time None Recorded Advance Directives Directive None Recorded Payers Encounter Date Sequence Insurance Name Policy Number Policy Selby Covered Member ID Selby Member ID Guarantor Name 01/29/2024 [facility] Matthew Lund
--- OUTSIDE RECORDS SUMMARY | 2024-07-10 16:38 | XMS_ITS | Clinical Summary ---
Author Organization [facility] Address [address] [place] [address] Care Team Providers Care Burn Table Operator Name Role Phone Unavailable Primary Care [...]
--- OUTSIDE RECORDS SUMMARY | 2024-07-10 16:38 | XMS_ITS | Encounter Summary ---
Author Organization [facility] Address [address] [place] [address] Care Team Providers Care Geodetic Surveyor Technologist Name Role Phone Unavailable Primary Care Provider Unavailabl e Encounter Details Date Type Department Care Team (Late st Contact Info) Description 01/14/2019 Abstract NEMG PM Rheumatology [place] [address] [place] [address] [address] [place] [address] Re Blake MD [address] [facility] [address] [place] [address] Social History Tobacco Use [...]
--- OUTSIDE RECORDS SUMMARY | 2024-07-10 16:38 | XMS_ITS | Encounter Summary ---
Author Organization [facility] Address [address] [place] [address] Care Team Providers Care Buncher Operator Name Role Phone Unavailable Primary Care Provider Unavailabl e Encounter Details Date Type Department Care Team (Late st Contact Info) Description 07/21/2019 Scanned Document NEMG PM Rheumatology [place] [address] [facility] [address] [place] [address] Re Blake MD [address] [facility] [address] [place] [address] Social History Tobacco Use Types [...]
--- OUTSIDE RECORDS SUMMARY | 2024-07-10 16:38 | XMS_ITS | Clinical Summary ---
Author Organization [address] Address [address] [place] [address] Care Team Providers Care Occupational Medicine Physician Name Role Phone Unavailable Primary Care Provider Unavailabl e Allergies No known active allergies Medications etanercept (ENBREL SURECLICK) 50 mg/mL (1 mL) injector penIndications: Rheumatoid arthritis of multiple sites with negative rheumatoid factor (HC Code) Inject 50 mg under the skin every 7 days. Active methotrexate 2.5 mg tabletIndicatio ns:Rheumatoid arthritis of multiple sites with negative rheumatoid factor (HC Code) TAKE 4 TABLETS (10MG TOTAL) BY MOUTH ONCE A WEEK 11 12/23/2018 Active folic acid (FOLVITE) 1 mg tabletIndicatio ns:Rheumatoid arthritis of multiple sites with negative rheumatoid factor (HC Code) Take 1 mg by mouth [...] cancer screening, Colonoscopy 2013 Diabetes screening 2013 Pneumococcal Vaccine (50+ years) (1 of 1 - PCV) 2018 Shingles vaccine (Shingrix) (1 of 2 - Shingrix (RZV) 2 Dose Standard Series) 2018 Covid-19 vaccine series ( - 2023- season) 2023 Influenza vaccine 11/10/2024 12/24/2019, 12/07/2017 RSV Immunization (1 - 1-dose 75+ series) 10/30/2043 Meningococcal Vaccine Aged Out No zia maria esther eligible based on patient's age to complete this topic Pneumococcal Vaccine (2 - 49 years) Aged Out No longer eligible b ased on patient's age to complete this topic
== END 2024-07-10 15:25 | disposition home or self-care (01) ==
LOC: HO.HOS 14:36
PROVIDERS: PCP Internal Medicine; Visit Provider Orthopaedic Surgery
DX: M16.11 Unilateral primary osteoarthritis, right hip (principal)
CPT/HCPCS: 99214

== ENCOUNTER → 2024-07-10 14:35 | Outpatient (BNVA) | payer MEDICARE, MEDICAID, SELFPAY | PROVIDERS: PCP Internal Medicine; Visit Provider Orthopaedic Surgery | DX: M16.11 Unilateral primary osteoarthritis, right hip (principal) | CPT/HCPCS: 99212 ==

== ENCOUNTER 2024-08-07 13:16 | Outpatient (REF) | payer MEDICARE, MEDICAID, SELFPAY ==
--- OUTSIDE RECORDS SUMMARY | 2024-08-07 13:20 | XMS_ITS | Encounter Summary ---
Author Organization [facility] Address [address] [place] [address] Care Team Providers Care Hospital Admissions Officer Name Role Phone Unavailable Primary Care Provider Unavailabl e Encounter Details Date Type Department Care Team (Late st Contact Info) Description 01/14/2019 Abstract NEMG PM Rheumatology [place] [address] [place] [address] [address] [place] [address] Re Blake MD [address] [facility] [address] [place] [address] Social History Tobacco Use Types [...]
[2024-08-07 13:33] LABS: MANUAL DIFF FLAG NO
[2024-08-07 13:56] LABS: Basophils Percent Auto 0.5 % (0-2); Eosinophils Absolute Auto 0.1 X10*3/uL (0.0-0.4); Eosinophils Percent Auto 1.7 % (0-4); Hematocrit 41.1 % (42.0-52.0); Hemoglobin 14.1 g/dl (14.0-18.0); Imm Gran Abs Auto 0.03 X10*3/uL (0.00-0.03); Imm Gran Pct Auto 0.5 % (0.0-0.4); Lymphocytes Absolute Auto 2.2 X10*3/uL (1.2-4.9); Lymphocytes Percent Auto 35.1 % (20-40); Mean Corpuscular HGB Conc 34.3 g/dl (31.0-36.0); Mean Corpuscular Hemoglobin 30.5 pg (27.0-33.0); Mean Corpuscular Volume 88.8 fL (80.0-98.0); Mean Platelet Volume 9.8 fL (9.4-12.4); Monocytes Absolute Auto 0.6 X10*3/uL (0.1-1.2); Monocytes Percent Auto 9.1 % (2-11); Neutrophils Absolute Auto 3.4 x10*3/uL (2.0-8.3); Neutrophils Percent Auto 53.1 % (45-73); Platelet Count 231 X10*3/uL (160-400); Red Blood Count 4.63 X10*6/uL (4.60-5.80); Red Cell Distribution Width 12.7 % (11.0-16.0); White Blood Count 6.4 X10*3/uL (4.8-10.8)
[2024-08-07 14:07] LABS: Appearance Urine Clear; Color Urine Yellow; Glucose Urine UA Negative (Negative); Leukocyte Esterase Urine Negative (Negative); Nitrite Urine Negative (Negative); PH 6.5 (5.0-9.0); Urine Blood Negative (Negative); Urine Ketones Negative (Negative); Urine Protein Negative (Neg-Trace)
[2024-08-07 14:08] LABS: Estimated Average Glucose 151 mg/dL; Hemoglobin A1c % 6.9 % (<6.0)
[2024-08-07 14:37] LABS: Creatinine Urine 162.69 mg/dL; Microalbum/Creatinine Ratio Ur 3.6 ug/mg cr (<30)
[2024-08-07 14:52] LABS: Alanine Aminotransferase 53 U/L (0-40); Albumin Level 4.1 g/dL (3.5-5.0); Alkaline Phosphatase 71 U/L (39-117); Anion Gap 9 (12-20); Aspartate Amino Transferase 31 U/L (5-37); Bilirubin Total 0.8 mg/dL (0.0-1.0); Blood Urea Nitrogen 13 mg/dL (9-16); Calcium 8.9 mg/dL (8.4-10.2); Carbon Dioxide 28 mmol/L (22-29); Chloride 105 mmol/L (96-108); Cholesterol 208 mg/dL (<200); Estimated Glomerular Filt Rate > 60; Glucose Fasting 141 mg/dL (60-99); HDL Cholesterol 35 mg/dL (>40); LDL Cholesterol Calculated 113 mg/dL (<100); Potassium 4.2 mmol/L (3.3-5.1); Sodium 138 mmol/L (135-145); Triglycerides 303 mg/dL (<150)
[2024-08-07 15:00] LABS: TSH reflex Free T4 1.69 uIU/mL (0.32-4.0); Vitamin D 25-OH Total 26.2 ng/mL (>30)
[2024-08-07 15:11] LABS: Folate 13.9 ng/mL (> or = 4.0); Vitamin B12 996 pg/mL (200-900)
== END 2024-08-07 13:17 | disposition home or self-care (01) ==
LOC: HO.LAB 13:16
PROVIDERS: PCP Internal Medicine; Visit Provider Internal Medicine
DX: E78.00 Pure hypercholesterolemia, unspecified (principal); R30.0 Dysuria; E11.9 Type 2 diabetes mellitus without complications; E53.8 Deficiency of other specified B group vitamins; D64.9 Anemia, unspecified; E55.9 Vitamin D deficiency, unspecified
CPT/HCPCS: 36415; 80053; 80061; 81003; 82043; 82306; 82570; 82607; 82746; 83036; 84443; 85025

== ENCOUNTER 2024-08-08 13:34 | Outpatient (AMB) | payer MEDICARE, MEDICAID, SELFPAY ==
--- OUTSIDE RECORDS SUMMARY | 2024-08-08 13:47 | XMS_ITS | Encounter Summary ---
Author Organization [facility] Address [address] [place] [address] Care Team Providers Care Chief Of Vital Statistics Name Role Phone Unavailable Primary Care Provider Unavailabl e Encounter Details Date Type Department Care Team (Late st Contact Info) Description 01/14/2019 Abstract NEMG PM Rheumatology [place] [address] [place] [address] [address] [place] [address] Re Blake MD [address] [facility] [address] [place] [address] Social History Tobacco Use Types [...]
[2024-08-08 13:49] VITALS: BP 114/86; PULSE 91; O2SAT 95; BMI 34.3
--- NOTE | 2024-08-08 13:49 | MHC.PC.OV ---
Vital Signs 08/08/24 13:49 Height 5 ft 9 in Weight 232 lb 2 oz BMI 34.3 BP 114/86 Blood Pressure Location Lt brachial Position Sitting Pulse 91 Pulse Source Pulse Oximeter Pulse Oximetry (%) 95 Oxygen Delivery Method Room Air Intake Visit Reasons: 4mth f/u - see comments Market Research Interviewer Required: No Accompanied by: Self / Same As Patient Allergies No Known Allergies [No Known Allergies*] Allergy (Verified 08/10/24 08:39) Medication List - Last Reconciled 08/10/24 by Aniket Vega MD adalimumab (Humira) inject one - 40 mg/0.8 mL syringe every 2 weeks subcut ascorbic acid (vitamin C) 500 mg PO DAILY ashwagandha root extract 1,000 mg PO DAILY atorvastatin 10 mg PO BEDTIME 90 days azelastine 0.05% 1 drp ophthalmic (eye) BID PRN cholecalciferol (vitamin D3) 50 mcg PO DAILY 90 days folic acid 1 mg PO DAILY gabapentin 100 mg PO BID 30 days hydrochlorothiazide 25 mg PO DAILY PRN 30 days magnesium oxide 400 mg PO DAILY metformin 500 mg PO DAILY 90 days methotrexate (PF) (Rasuvo (PF)) 17.5 mg subcut QWEEK multivitamin (Daily Multi-Vitamin tablet) 1 tab PO DAILY polyethylene glycol 3350 (Miralax) 17 grams PO DAILY Tobacco use date assessed: 08/08/24 Dental Screening Dental Screen Date: 08/08/24 Did you have a dental visit in the last 12 months?: Yes Did you have a dental problem in the last 6 months where you did not have access to dental care?: No Was dental information given to patient?: Patient has dentist HPI 4mt f/u - see comments HPI Details Patient comes in today for his follow up visit States that he continues to experience increased pain in his right hip and right knee He is now seeing orthopedics for his joint pains and has been advised that he has severe arthritis in his right hip and right knee. based on x-rays done a couple of months ago States that his hip and knee pains make it impossible for him to lose weight and he is now requesting for a referral to weight management States that if he has to go for gastric bypass surgery, then he is open to it States that he feels okay otherwise He denies any headaches or dizziness Denies any chest pains, no increased shortness of breath No nausea/vomiting, no abdominal pain No change in bowel habits noted Adds that he has been feeling depressed and lonely for several months now and he would now like to start seeing a psychiatrist for further management and is requesting for a referral He had his follow-up labs done yesterday - to discuss his results [facility] Medical History (Updated 08/10/24 @ 14:01 by Aniket Vega MD) Depression Osteoarthritis of both hips Osteoarthritis of right hip Diabetes mellitus Vitamin D deficiency Hx of flexible sigmoidoscopy Pure hypercholesterolemia Obesity (BMI 30-39.9) Learning disability DMII (diabetes mellitus, type 2) Seronegative spondyloarthropathy Surgical History Hx of colonoscopy History of hip replacement Social [facility] Tobacco Use Status: Never used Tobacco e-Cigarette/Vaping Use: Never Used service: No Current occupational status: unemployed Current occupational exposures/hazards: No Cognitive needs: No Hearing needs: Yes (right ear ) Vision needs: Yes (glasses) Questionnaire PHQ-9 Over the last 2 weeks, how often have you been bothered by any of the following problems? 1. Little interest or pleasure in doing things: not at all 2. Feeling down, depressed, or hopeless: several days 3. Trouble falling or staying asleep, or sleeping too much: several days 4. Feeling tired or having little energy: several days 5. Poor appetite or overeating: not at all 6. Feeling bad about yourself - or that you are a failure or have let yourself or your family down: not at all 7. Trouble concentrating on things, such as reading the newspaper or watching television: not at all 8. Moving or speaking so slowly that other people could have noticed. Or the opposite - being so fidgety or restless that you have been moving around a lot more than usual: not at all 9. Thoughts that you would be better off or of hurting yourself in some way: not at all Total score: 3 Depression Screening Interpretation: Positive Depression Screening Follow-up: Community Mental Health Worker F/U Depression Screening Done: Yes 48032 - PHQ-9 Billing: Yes Source: Developed by Drs. Kavin Eason, Kaylin Lam, Josep Singer and colleagues, with an educational randi from [employer]. Thrive Questionnaire Date Thrive assessed: 08/08/24 I am a: Patient What is your living situation today?: I have a steady place to live Within the past 12 months, did the food you bought not last and you didn't have the money to get more?: I choose not to answer this question Within the past 12 months, did you worry whether your food would run out before you got money to buy more?: I choose not to answer this question Do you have trouble paying for medicines?: I choose not to answer this question Do you have trouble getting transportation to medical appointments?: No Do you have trouble paying your heating and electricity bill?: I choose not to answer this question Do you have trouble taking care of your child, family member or friend?: I choose not to answer this question Do you have trouble with day-to-day activities such as bathing, preparing meals, shopping, managing finances, etc.?: Yes Are you currently unemployed and looking for a job?: I choose not to answer this question Are you interested in more education?: I choose not to answer this question Please select the resources that you would like help with: None Currently or been in a relationship where the following occur: I choose not to answer THRIVE Score: 0 AUDIT C Alcohol Use Questionnaire (AUDIT-C) 1. How often do you have a drink containing alcohol?: Never 3. How often do you have six or more drinks on one occasion?: Never Total Score: 0 Score Reviewed/Action Taken: Yes ADRIANO-7 AMB Questionnaire ADRIANO-7 Date ADRIANO - 7 assessed: 08/08/24 Feeling nervous, anxious, or on edge: 0 = Not at all Not being able to stop or control worryin = Not at all Worrying too much about different things: 0 = Not at all Trouble relaxin = Not at all Being so restless that it is hard to sit still: 0 = Not at all Becoming easily annoyed or irritable: 0 = Not at all Feeling afraid as if something awful might happen: 0 = Not at all Total ADRIANO-7 score (0-4 normal; 5-9 mild; 10-14 moderate; 15-21 severe): 0 Source: Developed by Drs. Kavin Eason, Kaylin Lam, Josep Singer and colleagues, with an educational randi from [employer]. Review of Systems Const Denies chills, Denies fatigue, Denies fever(s) and Denies headache(s) ENT Denies dysphagia, Denies dizziness, Denies otalgia, Denies headache(s), Denies neck pain, Denies odynophagia and Denies sore throat Card Denies chest pain, Denies irregular heart rhythm, Denies palpitations and Denies dyspnea Resp Denies chest congestion, Denies cough and Denies dyspnea GI Denies abdominal pain, Denies constipation, Denies dysphagia, Denies heartburn, Denies diarrhea, Denies nausea, Denies odynophagia and Denies vomiting Denies difficulty urinating, Denies dysuria, Denies nocturia and Denies urinary frequency Musc Reports back pain (over the lower back - chronic; increased lately), Reports arthralgias (over multiple joints, including both hips) and Denies neck pain Skin/Breast Denies rash Neuro Denies dizziness, Denies headache(s) and Denies paresthesias Psych Reports depression Endo Denies fatigue and Denies palpitations Physical exam (Primary Care) Vital Signs: Last Vital Signs Pulse 91 08/08/24 13:49 BP 114/86 08/08/24 13:49 Pulse Ox 95 08/08/24 13:49 Oxygen Delivery Method Room Air 08/08/24 13:49 BMI result Body Mass Index 34.3 Tobacco/Smoking Status: Tobacco use Status Tobacco use date assessed 08/08/24 08/08/24 13:55 Patient Tobacco Use Status Never used Tobacco 08/08/24 13:55 e-Cigarette/Vaping Use Never Used 08/08/24 13:55 PHQ-9: PHQ-9 Score PHQ-9: Total score 3 08/10/24 07:32 Depression Screening Interpretation: Positive Depression Screening Follow-up: Community Mental Health Worker F/U Thrive Assessment: Date of Thrive Assessment Date Thrive assessed 08/08/24 08/08/24 13:55 Currently or been in a relationship where the following occur: I choose not to answer Const General: no acute distress and alert HENMT Ears: TM's normal bilaterally and EAC's normal Throat: Yes posterior oropharynx normal and Yes tonsils normal (no TP congestion) Neck Neck: Yes supple and No lymphadenopathy Thyroid: Thyroid normal Resp Auscultation: clear to auscultation bilaterally, no rales and no wheezes Cardio Rate: regular rate Rhythm: regular rhythm Heart sounds: no murmurs GI Palpation (GI): Soft to palpation and nontender Auscultation: normal bowel sounds General: Yes no CVA tenderness Back/Spine/Pelvis Back: no CVA tenderness Thoracic/Lumbar Spine: lumbar spinal tenderness Skin Rashes: no rashes Extrem General: Yes no clubbing, cyanosis or edema Right lower extremity: hip/thigh Details: tenderness Location: of the hip and knee Details: tenderness; no swelling Left lower extremity: hip/thigh Details: tenderness Location: of the hip (chronic) and knee Details: tenderness; no swelling Results Reviewed Results Reviewed: Laboratory Tests 08/07/24 08/07/24 13:26 13:31 WBC 6.4 Hgb 14.1 Hct 41.1 L Plt Count 231 Sodium 138 Potassium 4.2 Creatinine 0.76 Estimated GFR > 60 Fasting Glucose 141 H Hemoglobin A1c % 6.9 H Calcium 8.9 AST 31 ALT 53 H Triglycerides 303 H Cholesterol 208 H LDL Cholesterol, Calc 113 H HDL Cholesterol 35 L Vitamin B12 996 H 25-OH Vitamin D Total 26.2 L TSH 1.69 Ur Specific [place] 1.020 Urine Protein Negative Urine Glucose (UA) Negative Urine Blood Negative Urine Nitrite Negative Ur Leukocyte Esterase Negative Microalb/Creat Ratio 3.6 Coding Level of Care Code Est Pt Level 4 (71821) Complex EM visit Add On G2211 Diagnoses Pure hypercholesterolemia E78.00 Type 2 diabetes mellitus without complication, without long-term current use of insulin E11.9 Diabetes mellitus complication status: without complication Diabetes mellitus skilled nursing insulin use: without skilled nursing use Diabetes mellitus type: type 2 Seronegative spondyloarthropathy M47.819 Bilateral low back pain without sciatica, unspecified chronicity M54.50 Back pain laterality: bilateral Chronicity: unspecified Sciatica presence: without sciatica Osteoarthritis of both hips, unspecified osteoarthritis type M16.0 Osteoarthritis type: unspecified ELIJAH (obstructive sleep apnea) G47.33 Vitamin D deficiency E55.9 Edema of both lower extremities R60.0 Neuropathy G62.9 Episode of recurrent major depressive disorder, unspecified depression episode severity F33.9 Depression Type: major depressive disorder Major depression recurrence: recurrent Active/Remission status: currently active Major depression episode severity: unspecified Obesity (BMI 30-39.9) E66.9 Additional Codes PHQ-9 - 58537 - PHQ-9 Billing: Yes ([id number]) Assessment & Plan Assessment & Plan (1) Pure hypercholesterolemia: Code(s): E78.00 - Pure hypercholesterolemia, unspecified Category: Medical Plan: Results of his labs done yesterday reviewed and discussed with the patient - he is cautioned that his cholesterol levels are higher than they should be and have increased from previous; his serum triglyceride has gone up significantly and is now at 303 mg/dL Reinforced low cholesterol diet - patient admits to poor compliance with his diet and states that he does not really know what foods he should avoid and what foods he can eat; states that he eats a lot of steaks, almost on a daily basis Continue Atorvastatin 10 mg QD for now and patient is instructed to try to improve on his diet first; low cholesterol diet info provided to patient in the office today Will recheck his labs and fasting lipids in 4 months for follow up (2) Diabetes mellitus: Code(s): E11.9 - Type 2 diabetes mellitus without complications Category: Medical Qualifiers: Diabetes mellitus complication status: without complication Diabetes mellitus skilled nursing insulin use: without rat exterminator use Diabetes mellitus type: type 2 Qualified Code(s): E11.9 - Type 2 diabetes mellitus without complications Plan: His HgbA1c has increased to 6.9% on his recent labs (was previously at 6.4% a few months ago) - goal is at least <7.0% but ideally <6.5% Reinforced diabetic diet Continue Metformin 500 mg QD (3) Seronegative spondyloarthropathy: Code(s): M47.819 - Spondylosis without myelopathy or radiculopathy, site unspecified Category: Medical Plan: Continue Humira injections 40 mg SQ every 2 weeks, Methotrexate (Rasuvo) 17.5 mg mg SQ once a week and Folic acid 1 mg QD Follow up with rheumatology as scheduled - he sees Dr. Horn at [facility] (4) Low back pain: Code(s): M54.50 - Low back pain, unspecified Category: Medical Qualifiers: Back pain laterality: bilateral Chronicity: unspecified Sciatica presence: without sciatica Qualified Code(s): M54.50 - Low back pain, unspecified Plan: X-rays of the lumbar spine done a few months ago revealed (+) mild multileveldegenerative changes with no acute findings Reinforced activity and weight-lifting restrictions to avoid aggravating his low back pain (5) Osteoarthritis of both hips: Code(s): M16.0 - Bilateral primary osteoarthritis of hip Category: Medical Qualifiers: Osteoarthritis type: unspecified Qualified Code(s): M16.0 - Bilateral primary osteoarthritis of hip Plan: Patient had left hip surgery with insertion of metal alexandre into his hip back in 2002 and he's had some posttraumatic ostoearthritic changes in his left hip since over the years His recent right hip x-rays done back in December 2023 revealed (+) moderate degenerative changes of the right hip without fracture or dislocation He is currently following up with rheumatology at [facility] We referred patient to orthopedics at his last visit and he is now seeing Dr. Reid for his knee and hip pains (6) ELIJAH (obstructive sleep apnea): Comment: Severe degree of sleep apnea. The AHI was 32/hr, supine AHI was 53/hr and oxygen cherie was 73%. Code(s): G47.33 - Obstructive sleep apnea (adult) (pediatric) Category: Medical Plan: Home sleep study done back in October 2022 revealed (+) severe ELIJAH Continue using his CPAP device when sleeping at night - states that he has experienced significant improvement of his symptoms with CPAP therapy Follow up with Sleep Medicine as scheduled (7) Vitamin D deficiency: Code(s): E55.9 - Vitamin D deficiency, unspecified Category: Medical Plan: Continue Vitamin D3 2000 units QD (8) Edema of both lower extremities: Code(s): R60.0 - Localized edema Category: Medical Plan: Most likely stasis/dependent edema Continue HCTZ 25 mg QD PRN for edema - he has been on this for years (Rx was started years ago by his previous, PCP Dr. Solares) (9) Neuropathy: Code(s): G62.9 - Polyneuropathy, unspecified Category: Medical Plan: Continue Gabapentin 100 mg BID (10) Depression: Code(s): F32.A - Depression, unspecified Category: Medical Qualifiers: Depression Type: major depressive disorder Major depression recurrence: recurrent Active/Remission status: currently active Major depression episode severity: unspecified Qualified Code(s): F33.9 - Major depressive disorder, recurrent, unspecified Plan: Patient admits to feeling depressed and lonely for a while now and he is now requesting to see psychiatry - referral to psychiatry placed (11) Obesity (BMI 30-39.9): Code(s): E66.9 - Obesity, unspecified Category: Medical Plan: Reinforced diet/exercise as tolerated/lose weight although patient states that he is very limited in what exercises that he can do due to his disabilities Per request, will refer him to weight management Plan Follow up in 4 months Orders: Orders Complete Blood Count Auto Diff 4 Months D64.9 - Anemia, unspecified Lipid Panel 4 Months E78.00 - Pure hypercholesterolemia, unspecified Comprehensive Foreman. Panel Fast 4 Months E78.00 - Pure hypercholesterolemia, unspecified Hemoglobin A1c 4 Months E11.9 - Type 2 diabetes mellitus without complications Microalbumin, Random (w Creat) 4 Months E11.9 - Type 2 diabetes mellitus without complications TSH reflex Free T4 4 Months E78.00 - Pure hypercholesterolemia, unspecified UA CC w/rflx Micro + Cult 4 Months R30.0 - Dysuria Vitamin B12 and Folate 4 Months E53.8 - Deficiency of other specified B group vitamins Vitamin D 25-OH Total 4 Months E55.9 - Vitamin D deficiency, unspecified Referrals Medical Weight Management Referral E66.9 - Obesity, unspecified Psychiatry Referral F32.A - Depression, unspecified
== END 2024-08-08 14:44 | disposition home or self-care (01) ==
LOC: HO.HMCH 13:34
PROVIDERS: PCP Internal Medicine; Visit Provider Internal Medicine
DX: E78.00 Pure hypercholesterolemia, unspecified (principal); E11.42 Type 2 diabetes mellitus with diabetic polyneuropathy; M47.819 Spondylosis without myelopathy or radiculopathy, site unspecified; M54.50 Low back pain, unspecified; M16.0 Bilateral primary osteoarthritis of hip; G47.33 Obstructive sleep apnea (adult) (pediatric); E55.9 Vitamin D deficiency, unspecified; R60.0 Localized edema; G62.9 Polyneuropathy, unspecified; F33.9 Major depressive disorder, recurrent, unspecified; E66.9 Obesity, unspecified

== ENCOUNTER → 2024-08-08 13:34 | Outpatient (BNVA) | payer MEDICARE, MEDICAID, SELFPAY | PROVIDERS: PCP Internal Medicine; Visit Provider Internal Medicine | DX: E78.00 Pure hypercholesterolemia, unspecified (principal); E11.9 Type 2 diabetes mellitus without complications; M47.819 Spondylosis without myelopathy or radiculopathy, site unspecified; M54.50 Low back pain, unspecified; M16.0 Bilateral primary osteoarthritis of hip; E55.9 Vitamin D deficiency, unspecified; G47.33 Obstructive sleep apnea (adult) (pediatric); R60.0 Localized edema; G62.9 Polyneuropathy, unspecified; F33.9 Major depressive disorder, recurrent, unspecified; E66.9 Obesity, unspecified; Z68.34 Body mass index [BMI] 34.0-34.9, adult; Z71.3 Dietary counseling and surveillance | CPT/HCPCS: 96127; 99212 ==

== ENCOUNTER 2024-10-15 08:23 | Outpatient (AMB) | payer MEDICARE, MEDICAID, SELFPAY ==
--- OUTSIDE RECORDS SUMMARY | 2024-10-15 08:27 | XMS_ITS | Clinical Summary ---
Author Organization Formerly [facility] Address [address] [facility] [address] [place] [id number] Phone Care Team Providers Care Rn Admission Name Role Phone Aniket Vega MD Primary Care Provider [phone] Allergies No known active allergies Medications ascorbic acid, vitamin C, (VITAMIN C) 500 mg Chew Take 500 mg by mouth daily. Active therapeutic multivitamin tablet Take 1 tablet by mouth daily. Active hydroCHLOROthiazide (HYDRODIURIL) 25 MG tablet Take 25 mg by mouth daily. Active metFORMIN (GLUCOPHAGE) 500 MG tablet Take 500 mg by mouth 2 (two) times a day with meals. Active cholecalciferol (VITAMIN D3) 25 MCG (1,000 unit) tablet Take 2,000 Units by mouth daily. Active ASHWAGANDHA ROOT EXTRACT ORAL Take 2 capsules by mouth daily. Active COLLAGEN MISCIndications:Collag en super food powder for joints by Miscellaneous route. Indications: Collagen super food powder for joints Active atorvastatin (LIPITOR) 10 MG tablet Take 10 mg by mouth nightly at bedtime. 023 Active lactobacillus rhamnosus GG-inulin (CULTURELLE PROBIOTIC) 10 billion cell -200 mg CpSP Take 159 mg by mouth daily. Active folic acid (FOLVITE) 1 MG tabletIndications:Sero negative spondyloarthropathy,Me thotrexate, parts counterman, current use TAKE 1 TABLET (1 MG TOTAL) BY MOUTH DAILY. 90 tablet 3 025 Active adalimumab (HUMIRA) 40 mg/0.8 mL syringe kitIndications:Seroneg ative spondyloarthropathy Inject 0.8 mL (40 mg total) under the skin every 14 (fourteen) days. 0.8 mL 11 025 Active methotrexate, PF, (RASUVO, PF,) 17.5 mg/0.35 mL AtInIndications:Serone gative spondyloarthropathy Inject 17.5 mg under the skin every 7 days. 4 mL 11 025 Active methotrexate, PF, (RASUVO, PF,) 17.5 mg/0.35 mL AtInIndications:Serone gative spondyloarthropathy Inject 17.5 mg under the skin every 7 days. 4 mL 11 024 2024 Disconti nued(Reo rder) Active Problems Problem Noted Date Diagnosed Date Moderate episode of recurrent major depressive d isorder 06/19/2024 Assessment & Plan (09/21/2024 9:57 PM EDT): I have encouraged him to reach his PCP and request personal psychotherapist to help deal with ongoing depression. Assessment & Plan (06/19/2024 5:28 PM EDT): I have encouraged him to reach his PCP and request personal psychotherapist to help deal with ongoing depression. Other insomnia 06/19/2024 Obstructive sleep apnea on CPAP 06/19/2024 Assessment & Plan (09/21/2024 9:57 PM EDT): Continue nightly CPAP and follow closely as prescribed with treating web user experience strategist/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 team Assessment & Plan (06/19/2024 5:32 PM EDT): Continue nightly CPAP and follow closely as prescribed with treating web user experience strategist/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 team Class 2 severe obesity due t o excess calories with serious comorbidity and body mass index (BMI) of 35.0 to 35.9 in adult 11/21/2021 Assessment & Plan (09/21/2024 9:57 PM EDT): Continue diligent portion control especially in view of gaining 2 pounds from 233 on 06/19/2024 up to 253 today. Limit concentrated sugars, saturated fats and calories in the diet. Keep well-hydrated. If unable to achieve expected goal consider formal dietary/nutritional support. He is scheduled to meet with weight management program team on 09/23/2024. Assessment & Plan (06/19/2024 5:24 PM EDT): Continue diligent portion control especially in view of gaining 5 pounds from 228 on 02/18/2024 up to 233 today. Limit concentrated sugars, saturated fats and calories in the diet. Keep well-hydrated. If unable to achieve expected goal consider formal dietary/nutritional support. Assessment & Plan (03/19/2022 12:02 PM EST): Congrats on 2 pounds weight loss since November 2021-keep it off. Continue diligent portion control. Limit concentrated sugars, saturated fats and calories in the diet. Keep well-hydrated. If unable to achieve expected goal consider formal dietary/nutritional support. Assessment & Plan (12/17/2021 4:50 PM EDT): Congratulations on losing 4 pounds since last visit and keep it off. Continue diligent portion control. Limit concentrated sugars, saturated fats and calories in the diet. Keep well-hydrated. If unable to achieve expected goal consider formal dietary/nutritional support. Muscle cramps 08/19/2021 Assessment & Plan (06/14/2023 3:23 PM EDT): Proper hydration encouraged. Continue carefully magnesium nightly along with gentle stretching, massage and ROM exercises. Assessment & Plan (10/26/2022 4:51 PM EDT): Proper hydration encouraged. Continue carefully magnesium nightly along with gentle stretching, massage and ROM exercises. Assessment & Plan (07/24/2022 4:38 PM EDT): Proper hydration encouraged. Continue carefully magnesium nightly along with gentle stretching, massage and ROM exercises. Assessment & Plan (09/04/2021 10:45 PM EDT): Proper hydration encouraged. Continue carefully magnesium nightly along with gentle stretching, massage and ROM exercises. Adalimumab (Humira) long-term use 05/18/2021 Assessment & Plan (09/21/2024 9:56 PM EDT): Continue subcutaneous injections every 14 days as prescribed. Hold injection in case of fever, feeling sick or taking antibiotics. Complete entire course of antibiotics and wait at least 48 hours after the last antibiotic dose to make sure that symptoms do not recur before restarting Humira on its usual weekly day. Make sure to inform any new KRISS REYEZ NP about chronic immunosuppression with Humira and methotrexate especially in emergency situations. Monitor for injection site reactions or other signs of infection locally or systemically. Assessment & Plan (06/19/2024 4:31 PM EDT): Continue subcutaneous injections every 14 days as prescribed. Hold injection in case of fever, feeling sick or taking antibiotics. Complete entire course of antibiotics and wait at least 48 hours after the last antibiotic dose to make sure that symptoms do not recur before restarting Humira on its usual weekly day. Make sure to inform any new KRISS REYEZ NP about chronic immunosuppression with Humira and methotrexate especially in emergency situations. Monitor for injection site reactions or other signs of infection locally or systemically. Assessment & Plan (02/18/2024 4:40 PM EST): Continue subcutaneous injections every 14 days as prescribed. Hold injection in case of fever, feeling sick or taking antibiotics. Complete entire course of antibiotics and wait at least 48 hours after the last antibiotic dose to make sure that symptoms do not recur before restarting Humira on its usual weekly day. Make sure to inform any new KRISS REYEZ NP about chronic immunosuppression with Humira and methotrexate especially in emergency situations. Monitor for injection site reactions or other signs of infection locally or systemically. Assessment & Plan (10/18/2023 4:32 PM EDT): Continue subcutaneous injections every 14 days as prescribed. Hold injection in case of fever, feeling sick or taking antibiotics. Complete entire course of antibiotics and wait at least 48 hours after the last antibiotic dose to make sure that symptoms do not recur before restarting Humira on its usual weekly day. Make sure to inform any new KRISS REYEZ NP about chronic immunosuppression with Humira and methotrexate especially in emergency situations. Monitor for injection site reactions or other signs of infection locally or systemically. Assessment & Plan (06/14/2023 3:23 PM EDT): Continue subcutaneous injections every 14 days as prescribed. Hold injection in case of fever, feeling sick or taking antibiotics. Complete entire course of antibiotics and wait at least 48 hours after the last antibiotic dose to make sure that symptoms do not recur before restarting Humira on its usual weekly day. Make sure to inform any new KRISS REYEZ NP about chronic immunosuppression with Humira and methotrexate especially in emergency situations. Monitor for injection site reactions or other signs of infection locally or systemically. Assessment & Plan (10/26/2022 4:49 PM EDT): Continue subcutaneous injections every 14 days as prescribed. Hold injection in case of fever, feeling sick or taking antibiotics. Complete entire course of antibiotics and wait at least 48 hours after the last antibiotic dose to make sure that symptoms do not recur before restarting Humira on its usual weekly day. Make sure to inform any new KRISS REYEZ NP about chronic immunosuppression with Humira and methotrexate especially in emergency situations. Monitor for injection site reactions or other signs of infection locally or systemically. Assessment & Plan (07/24/2022 4:37 PM EDT): Continue subcutaneous injections every 14 days as prescribed. Hold injection in case of fever, feeling sick or taking antibiotics. Complete entire course of antibiotics and wait at least 48 hours after the last antibiotic dose to make sure that symptoms do not recur before restarting Humira on its usual weekly day. Make sure to inform any new KRISS REYEZ NP about chronic immunosuppression with Humira and methotrexate especially in emergency situations. Monitor for injection site reactions or other signs of infection locally or systemically. Assessment & Plan (03/16/2022 4:34 PM EST): Continue subcutaneous injections every 14 days as prescribed. Hold injection in case of fever, feeling sick or taking antibiotics. Complete entire course of antibiotics and wait at least 48 hours after the last antibiotic dose to make sure that symptoms do not recur before restarting Humira on its usual weekly day. Make sure to inform any new KRISS REYEZ CAGE FIGHTER about chronic immunosuppression with Humira and methotrexate especially in emergency situations. Monitor for injection site reactions or other signs of infection locally or systemically. Assessment & Plan (11/21/2021 3:47 PM EDT): Continue subcutaneous injections every 14 days as prescribed. Hold injection in case of fever, feeling sick or taking antibiotics. Complete entire course of antibiotics and wait at least 48 hours after the last antibiotic dose to make sure that symptoms do not recur before restarting Humira on its usual weekly day. Make sure to inform any new KRISS REYEZ CAGE FIGHTER about chronic immunosuppression with Humira and methotrexate especially in emergency situations. Monitor for injection site reactions or other signs of infection locally or systemically. Assessment & Plan (09/04/2021 10:46 PM EDT): Continue subcutaneous injections every 14 days as prescribed. Hold injection in case of fever, feeling sick or taking antibiotics. Complete entire course of antibiotics and wait at least 48 hours after the last antibiotic dose to make sure that symptoms do not recur before restarting Humira on its usual weekly day. Make sure to inform any new KRISS REYEZ CAGE FIGHTER about chronic immunosuppression with Humira and methotrexate especially in emergency situations. Monitor for injection site reactions or other signs of infection locally or systemically. Assessment & Plan (05/24/2021 11:59 AM EDT): Continue subcutaneous injections every 14 days as prescribed. Hold injection in case of fever, feeling sick or taking antibiotics. Complete entire course of antibiotics and wait at least 48 hours after the last antibiotic dose to make sure that symptoms do not recur before restarting Humira on its usual weekly day. Make sure to inform any new KRISS REYEZ CAGE FIGHTER about chronic immunosuppression with Humira and methotrexate especially in emergency situations. Monitor for injection site reactions or other signs of infection locally or systemically. Need for influenza vaccination 11/21/2020 Flu vaccine need 11/17/2020 On statin therapy 09/29/2020 Assessment & Plan (06/19/2024 5:23 PM EDT): Monitor for muscle tenderness, swelling and weakness Assessment & Plan (11/17/2020 3:27 PM EDT): Monitor for muscle tenderness, swelling and weakness Assessment & Plan (09/29/2020 2:57 PM EDT): Monitor for muscle tenderness, swelling and weakness Hyperglycemia 03/03/2020 Assessment & Plan (05/24/2021 11:55 AM EDT): I reviewed with him need for limiting/avoiding concentrated sugars in his diet particularly drinking soda that is Assessment & Plan (03/08/2020 8:55 PM EST): Educated to avoid concentrated sugars in his diet particularly drinking soda that is loaded with it. LFT elevation 01/08/2019 Assessment & Plan (09/29/2020 2:52 PM EDT): Keep food diary and monitor closely. Work on reducing body weight as close as possible toward ideal body weight Assessment & Plan (09/08/2020 3:13 PM EDT): Keep food diary and monitor closely. Work on reducing body weight as close as possible toward ideal body weight Assessment & Plan (05/16/2020 5:43 PM EST): Keep food diary and monitor closely. Work on reducing body weight as close as possible toward ideal body weight Assessment & Plan (01/08/2019 2:43 PM EDT): Monitor closely. Work on reducing body weight as close as possible toward ideal body weight Status post left hip replacement 03/20/2017 Assessment & Plan (11/21/2020 10:15 PM EDT): Avoid falls, injuries. Periodic checkup with orthopedic surgeon as scheduled. Keep body weight in ideal range for his height. Assessment & Plan (09/29/2019 4:16 PM EDT): Avoid falls, injuries. Periodic checkup with orthopedic surgeon as scheduled. Keep body weight in ideal range for his height. Assessment & Plan (07/29/2019 10:15 AM EDT): Avoid falls, injuries. Periodic checkup with orthopedic surgeon as scheduled. Keep body weight in ideal range for his height. Assessment & Plan (05/12/2019 4:32 PM EST): Avoid falls, injuries. Periodic checkup with orthopedic surgeon as scheduled. Keep body weight in ideal range for his height. Assessment & Plan (03/13/2019 3:23 PM EST): Avoid falls, injuries. Periodic checkup with orthopedic surgeon as scheduled. Keep body weight in ideal range for his height. Assessment & Plan (01/08/2019 2:35 PM EDT): Avoid falls, injuries. Periodic checkup with orthopedic surgeon as scheduled. Keep body weight in ideal range for his height. Assessment & Plan (07/06/2018 12:01 PM EDT): Avoid falls, injuries. Periodic checkup with orthopedic surgeon as scheduled. Keep body weight in ideal range for his height. Take preventive antibiotics prior to dental, GI or procedures as instructed by orthopedic surgeon. Assessment & Plan (04/28/2018 11:22 AM EST): Avoid falls, injuries. Periodic checkup with orthopedic surgeon as scheduled. Keep body weight in ideal range for his height. Seronegative spondyloarthropathy 03/16/2017 Assessment & Plan (09/21/2024 9:55 PM EDT): Clinically and laboratory ponce as of appears stable. Carefully continue weekly subcutaneous methotrexate 17.5 mg every Sunday, daily folic acid 1 mg and subcutaneous Humira biosimilar Amjevita every 14 days on Sunday. I have explained to him the Humira biosimilar is equally effective as original Humira. Avoid sick contacts. Keep well-hydrated especially on the day of weekly methotrexate dose. Remain alcohol free while taking methotrexate. Gentle, regular exercise routine as tolerated. He is really stressed out about the risk of losing insurance coverage for his life-saving Humira and methotrexate . Get monitoring labs prior to next visit in 4 months-standing orders in [facility]. Call if questions or problems. Assessment & Plan (06/19/2024 5:28 PM EDT): Clinically and laboratory ponce as of appears stable. Carefully continue weekly subcutaneous methotrexate 17.5 mg every Wednesday, daily folic acid 1 mg and subcutaneous Humira biosimilar Amjevita every 14 days on Sunday. I have explained to him the Humira biosimilar is equally effective as original Humira. Avoid sick contacts. Keep well-hydrated especially on the day of weekly methotrexate dose. Remain alcohol free while taking methotrexate. Gentle, regular exercise routine as tolerated. He is really stressed out about the risk of losing insurance coverage for his life-saving Humira and methotrexate . Get monitoring labs prior to next visit in 3 months-standing orders in [facility]. Call if questions or problems. Assessment & Plan (02/19/2024 11:46 AM EST): Get labs monitoring safety of therapy prior to next visit in 4 months - standing orders in [facility] Carefully continue weekly subcutaneous methotrexate 17.5 mg every Wednes, daily folic acid 1 mg and subcutaneous Humira every 14 days on Sunday. Avoid sick contacts. Keep well-hydrated especially on the day of weekly methotrexate dose. Remain alcohol free while taking methotrexate. Gentle, regular exercise routine as tolerated. He previously requested a letter of support to continue his biologic disease modifying antirheumatic drug = Humira that in combination with subcutaneous methotrexate makes him able to function. See details in communication section of [facility]. He is really stressed out about the risk of losing insurance coverage for his life-saving Humira and methotrexate . He is aware and worried about upcoming appointment/conference with his public school teacher and insurance regarding coverage on 03/21/2024. Call if questions or problems. Assessment & Plan (10/21/2023 9:59 PM EDT): Get labs monitoring safety of therapy prior to next visit in 4 months - standing orders in [facility] Carefully continue weekly subcutaneous methotrexate 17.5 mg every Wednes, daily folic acid 1 mg and subcutaneous Humira every 14 days on Sunday. Avoid sick contacts. Keep well-hydrated especially on the day of weekly methotrexate dose. Remain alcohol free while taking methotrexate. Get yearly influenza and newest COVID-19 vaccine booster preferably by mid to late December 2023 and hold methotrexate 2 weekly doses after vaccination. Gentle, regular exercise routine as tolerated. He is requesting a letter of support to continue his biologic disease modifying antirheumatic drug = Humira that in combination with subcutaneous methotrexate makes him able to function. See details in communication section of [facility]. Call if questions or problems. Assessment & Plan (06/14/2023 3:08 PM EDT): Get labs monitoring safety of therapy prior to next visit in 4 months - standing orders in [facility] Carefully continue weekly subcutaneous methotrexate 17.5 mg every Wednesday, daily folic acid 1 mg and subcutaneous Humira every 14 days on Sunday. Avoid sick contacts. Keep well-hydrated especially on the day of weekly methotrexate dose. Remain alcohol free while taking methotrexate. Gentle, regular exercise routine as tolerated. Call if questions or problems. Assessment & Plan (10/26/2022 4:46 PM EDT): Get labs monitoring safety of therapy prior to next visit in 4 months - standing orders in [facility] Carefully continue weekly subcutaneous methotrexate 17.5 mg every Wednes, daily folic acid 1 mg and subcutaneous Humira every 14 days on Sunday. Avoid sick contacts. Keep well-hydrated especially on the day of weekly methotrexate dose. Remain alcohol free while taking methotrexate. Gentle, regular exercise routine as tolerated. Call if questions or problems. Assessment & Plan (07/24/2022 4:37 PM EDT): Get labs monitoring safety of therapy prior to next visit in 4 months - standing orders in [facility] Carefully continue weekly subcutaneous methotrexate 17.5 mg every Wednes, daily folic acid 1 mg and subcutaneous Humira every 14 days on Sunday. Avoid sick contacts. Keep well-hydrated especially on the day of weekly methotrexate dose. Remain alcohol free while taking methotrexate. Gentle, regular exercise routine as tolerated. Call if questions or problems. Assessment & Plan (03/19/2022 12:03 PM EST): Get labs monitoring safety of therapy prior to next visit in 4 months - standing orders in [facility] Carefully continue weekly subcutaneous methotrexate 17.5 mg every Wednesday, daily folic acid 1 mg and subcutaneous Humira every 14 days on Sunday. Avoid sick contacts. Keep well-hydrated especially on the day of weekly methotrexate dose. Remain alcohol free while taking methotrexate. Gentle, regular exercise routine as tolerated. Call if questions or problems. Assessment & Plan (12/17/2021 4:51 PM EDT): Get labs monitoring safety of therapy prior to next visit in 3 months - standing orders in [facility] Carefully continue weekly oral methotrexate to 17.5 mg = 7 tablets every Wed and continue subcutaneous Humira every 14 days on Sunday. Avoid sick contacts. Keep well-hydrated especially on the day of weekly methotrexate dose. Remain alcohol free while taking methotrexate. Gentle, regular exercise routine as tolerated. Get yearly influenza and bivalent COVID-19 vaccine preferably by mid December and hold methotrexate for 2 weekly doses afterwards. Call if questions or problems. Assessment & Plan (09/04/2021 10:44 PM EDT): Get labs monitoring safety of therapy prior to next visit in 3 months Carefully increase weekly oral methotrexate to 17.5 mg = 7 tablets every Wed and continue subcutaneous Humira every 14 days on Sunday. Avoid sick contacts. Keep well-hydrated especially on the day of weekly methotrexate dose. Remain alcohol free while taking methotrexate. Return for monitoring labs at least every 3 months. Gentle, regular exercise routine as tolerated. Call if questions or problems. Assessment & Plan (05/18/2021 5:08 PM EST): Get labs monitoring safety of therapy prior to next visit in 3 months Carefully increase weekly oral methotrexate to 17.5 mg = 7 tablets every Wed and continue subcutaneous Humira every 14 days on Sunday. Avoid sick contacts. Keep well-hydrated especially on the day of weekly methotrexate dose. Remain alcohol free while taking methotrexate. Return for monitoring labs at least every 3 months. Gentle, regular exercise routine as tolerated. Call if questions or problems. Assessment & Plan (02/16/2021 4:46 PM EST): Get labs monitoring safety of therapy prior to next visit in 3 months Carefully increase weekly oral methotrexate to 17.5 mg = 7 tablets every Sunday and continue subcutaneous Enbrel every Sunday. Due to increased disease activity and difficulty managing I agreed to consider switching Enbrel to every 14 days Humira that may work more effectively than weekly Enbrel though I explained to him that there is no guarantee. He just got month supply of Enbrel so I have asked him to carefully continue on it with increased weekly dose of methotrexate while applying to his insurance for Humira prior authorization. I plan for him to start Humira on Sunday 7 days after last Enbrel dose . Avoid sick contacts. Keep well-hydrated especially on the day of weekly methotrexate dose. Remain alcohol free while taking methotrexate. Return for monitoring labs at least every 3 months. Gentle, regular exercise routine as tolerated. Call if questions or problems. Assessment & Plan (11/21/2020 10:13 PM EDT): Get labs monitoring safety of therapy prior to next visit in 2 months Carefully continue weekly oral methotrexate to 15 mg = 6 tablets every Sunday and continue subcutaneous Enbrel every Sunday. Due to increased disease activity and difficulty managing I agreed to consider switching Enbrel to every 14 days Humira that may work more effectively than weekly Enbrel though I explained to him that there is no guarantee. He just got month supply of Enbrel so I have asked him to carefully continue on it with increased weekly dose of methotrexate while applying to his insurance for Humira prior authorization. I plan for him to start Humira on Sunday 7 days after last Enbrel dose . Avoid sick contacts. Keep well-hydrated especially on the day of weekly methotrexate dose. Remain alcohol free while taking methotrexate. Return for monitoring labs at least every 3 months. Gentle, regular exercise routine as tolerated. Call if questions or problems. Assessment & Plan (10/03/2020 10:56 PM EDT): Get labs monitoring safety of therapy prior to next visit in 2 months Carefully increase weekly oral methotrexate to 15 mg = 6 tablets every Sunday and continue subcutaneous Enbrel every Sunday. Due to increased disease activity and difficulty managing I agreed to consider switching Enbrel to every 14 days Humira that may work more effectively than weekly Enbrel though I explained to him that there is no guarantee. He just got month supply of Enbrel so I have asked him to carefully continue on it with increased weekly dose of methotrexate while applying to his insurance for Humira prior authorization. I plan for him to start Humira on Sunday 7 days after last Enbrel dose . Avoid sick contacts. Keep well-hydrated especially on the day of weekly methotrexate dose. Remain alcohol free while taking methotrexate. Return for monitoring labs at least every 3 months. Gentle, regular exercise routine as tolerated. Call if questions or problems. Assessment & Plan (09/08/2020 3:15 PM EDT): Get labs monitoring safety of therapy prior to next visit in 2 months Carefully continue weekly oral methotrexate at 12.5 mg = 5 tablets every Sunday and continue subcutaneous Enbrel every Sunday. Avoid sick contacts. Keep well-hydrated especially on the day of weekly methotrexate dose. Remain alcohol free while taking methotrexate. Return for monitoring labs at least every 3 months. Gentle, regular exercise routine as tolerated. Call if questions or problems. Assessment & Plan (05/12/2020 4:30 PM EST): Get labs monitoring safety of therapy prior to next visit in 2 months Carefully continue weekly oral methotrexate at 12.5 mg = 5 tablets every Sunday and continue subcutaneous Enbrel every Sunday. Avoid sick contacts. Keep well-hydrated especially on the day of weekly methotrexate dose. Remain alcohol free while taking methotrexate. Return for monitoring labs at least every 3 months. Gentle, regular exercise routine as tolerated. Call if questions or problems. Assessment & Plan (03/03/2020 9:08 AM EST): Get labs monitoring safety of therapy prior to next visit in 2 months Carefully continue weekly oral methotrexate at 12.5 mg = 5 tablets every Sunday and continue subcutaneous Enbrel every Sunday. Avoid sick contacts. Keep well-hydrated especially on the day of weekly methotrexate dose. Remain alcohol free while taking methotrexate. Return for monitoring labs at least every 3 months. Gentle, regular exercise routine as tolerated. Call if questions or problems. Assessment & Plan (12/27/2019 11:26 PM EDT): Get labs monitoring safety of therapy prior to next visit in 2 months Carefully continue weekly oral methotrexate at 12.5 mg = 5 tablets every Sunday and continue subcutaneous Enbrel every Sunday. Avoid sick contacts. Keep well-hydrated especially on the day of weekly methotrexate dose. Remain alcohol free while taking methotrexate. Get yearly influenza vaccine today. Return for monitoring labs at least every 3 months. Gentle, regular exercise routine as tolerated. Call if questions or problems. Assessment & Plan (09/30/2019 9:33 PM EDT): Get labs monitoring safety of therapy tomorrow Carefully continue weekly oral methotrexate at 12.5 mg = 5 tablets every Wednesday and continue subcutaneous Enbrel every Sunday. Avoid sick contacts. Keep well-hydrated especially on the day of weekly methotrexate dose. Remain alcohol free while taking methotrexate. Get yearly influenza vaccine by December 2019. Return for monitoring labs at least every 3 months. Gentle, regular exercise routine as tolerated. Call if questions or problems. Assessment & Plan (07/29/2019 10:12 AM EDT): Carefully continue weekly oral methotrexate at 12.5 mg = 5 tablets every Wednesday and continue subcutaneous Enbrel every Sunday. Avoid sick contacts. Keep well-hydrated especially on the day of weekly methotrexate dose. Remain alcohol free while taking methotrexate. Gentle, regular exercise routine as tolerated. Call if questions or problems. Assessment & Plan (05/13/2019 10:37 AM EST): Get the labs monitoring safety and efficacy of therapy today. Carefully increase weekly oral methotrexate from 10 mg = 4 tablets to 12.5 mg = 5 tablets every Wed and continue subcutaneous Enbrel every Sunday. Avoid sick contacts. Keep well-hydrated especially on the day of weekly methotrexate dose. Remain alcohol free while taking methotrexate. Gentle, regular exercise routine as tolerated. Due to his complaints about abdominal pain with crunches I suggested him to consider warm pool therapy at [facility]. Call if questions or problems. Assessment & Plan (03/13/2019 3:19 PM EST): Get the labs monitoring safety and efficacy of therapy today. Carefully continue weekly oral methotrexate every Wednesday and subcutaneous Enbrel every Sunday. Avoid sick contacts. Keep well-hydrated especially on the day of weekly methotrexate dose. Remain alcohol free while taking methotrexate. Gentle, regular exercise routine. Call if questions or problems. Assessment & Plan (01/08/2019 2:33 PM EDT): Get the labs monitoring safety and efficacy of therapy today. Carefully continue weekly oral methotrexate every Wednesday and subcutaneous Enbrel every Sunday. Avoid sick contacts. Keep well-hydrated especially on the day of weekly methotrexate dose. Remain alcohol free while taking methotrexate. Gentle, regular exercise routine. Call if questions or problems. Assessment & Plan (07/06/2018 11:57 AM EDT): Get the labs monitoring safety and efficacy of therapy today. Carefully continue weekly oral methotrexate every Sunday and subcutaneous Enbrel every Sunday. Avoid sick contacts. Keep well-hydrated especially on the day of weekly methotrexate dose. Remain alcohol free while taking methotrexate. Gentle, regular exercise routine. Call if questions or problems. Assessment & Plan (04/28/2018 11:19 AM EST): Get the labs monitoring safety and efficacy of therapy today. Carefully continue weekly oral methotrexate every Sunday and subcutaneous Enbrel every Sunday. Line avoid sick contacts. Keep well-hydrated especially on the day of weekly methotrexate dose. Remain alcohol free while taking methotrexate. Gentle, regular exercise routine. Call if questions or problems. Severe episode of recurrent major depressive disorder, without psychotic features 03/16/2017 Assessment & Plan (03/03/2020 9:08 AM EST): Today for the first time in over a year he feels less depressed and focused on getting better by regular exercising and watching his diet for concentrated sugars and high fat containing products. Keep engaged in regular hobbies/favorite activities. Positive imagery, regular relaxation and meditation sessions. Assessment & Plan (12/24/2019 2:40 PM EDT): Today for the first time in over a year he feels less depressed and focused on getting better by regular exercising and watching his diet for concentrated sugars and high fat containing products. Keep engaged in regular hobbies/favorite activities. Positive imagery, regular relaxation and meditation sessions. Assessment & Plan (09/30/2019 9:20 PM EDT): Today for the first time in over a year he feels less depressed and focused on getting better by regular exercising and watching his diet for concentrated sugars and high fat containing products. Keep engaged in regular hobbies/favorite activities. Positive imagery, regular relaxation and meditation sessions. Assessment & Plan (07/29/2019 10:13 AM EDT): Strongly encouraged to follow closely with PCP and psychotherapist versus psychiatrist to help dealing with ongoing depression. Keep engaged in regular hobbies/favorite activities. Positive imagery, regular relaxation and meditation sessions. Assessment & Plan (05/12/2019 4:31 PM EST): Strongly encouraged to follow closely with PCP and psychotherapist versus psychiatrist to help dealing with ongoing depression. Keep engaged in regular hobbies/favorite activities. Positive imagery, regular relaxation and meditation sessions. Assessment & Plan (03/13/2019 3:23 PM EST): Strongly encouraged to follow closely with PCP and psychotherapist versus psychiatrist to help dealing with ongoing depression. Keep engaged in regular hobbies/favorite activities. Positive imagery, regular relaxation and meditation sessions. Assessment & Plan (01/08/2019 2:34 PM EDT): Strongly encouraged to follow closely with PCP and psychotherapist versus psychiatrist to help dealing with ongoing depression. Keep engaged in regular hobbies/favorite activities. Positive imagery, regular relaxation and meditation sessions. Assessment & Plan (07/06/2018 12:00 PM EDT): Strongly encouraged to follow closely with PCP and psychotherapist versus psychiatrist to help dealing with ongoing depression. Keep engaged in regular hobbies/favorite activities. Positive imagery, regular relaxation and meditation sessions. Assessment & Plan (04/28/2018 11:21 AM EST): Strongly encouraged to follow closely with PCP and psychotherapist versus psychiatrist to help dealing with ongoing depression. Keep engaged in regular hobbies/favorite activities. Positive imagery, regular relaxation and meditation sessions. Learning disability 03/16/2017 Assessment & Plan (09/21/2024 9:55 PM EDT): He just restarted on- line study to complete his associate degree in [employer]. He is interested in getting retraining for suitable job. 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 He is interested in getting retraining for suitable job. 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 He is interested in getting retraining for suitable job. 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 He is interested in getting retraining for suitable job. 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 He is interested in getting retraining for suitable job. 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 He is interested in getting retraining for suitable job. 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 He is interested in getting retraining for suitable job. 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 He is interested in getting retraining for suitable job. 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 He is interested in getting retraining for suitable job. 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 He is interested in getting retraining for suitable job. 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 He is interested in getting retraining for suitable job. 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 He is interested in getting retraining for suitable job. 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 He is interested in getting retraining for suitable job. Assessment & Plan (09/29/2020 2:52 PM EDT): Due to COVID-19 pandemia he understands any efforts are suspended . He is interested in getting retraining for suitable job. Assessment & Plan (09/08/2020 3:13 PM EDT): Due to COVID-19 pandemia he understands any efforts are suspended . He is interested in getting retraining for suitable job. Assessment & Plan (05/12/2020 4:32 PM EST): Due to COVID-19 pandemia he understands any efforts are suspended . He is interested in getting retraining for suitable job. Assessment & Plan (03/03/2020 9:08 AM EST): Due to COVID-19 pandemia he understands any efforts are suspended . He is interested in getting retraining for suitable job. Assessment & Plan (12/24/2019 2:38 PM EDT): Due to COVID-19 pandemia he understands any efforts are suspended . He is interested in getting retraining for suitable job. Assessment & Plan (09/29/2019 4:15 PM EDT): Due to COVID-19 pandemia he understands any efforts are suspended . He is interested in getting retraining for suitable job. Assessment & Plan (07/29/2019 10:14 AM EDT): Due to COVID-19 pandemia he understands any efforts are suspended . He is interested in getting retraining for suitable job. Assessment & Plan (05/13/2019 10:37 AM EST): Consider vocational skills assessment and appropriate training. He is interested in getting retraining for suitable job. Assessment & Plan (03/13/2019 3:22 PM EST): Consider vocational skills assessment and appropriate training. Assessment & Plan (01/08/2019 2:34 PM EDT): Seek vocational skills assessment and appropriate training. Assessment & Plan (07/06/2018 12:00 PM EDT): Seek vocational skills assessment and appropriate training. Assessment & Plan (04/28/2018 11:21 AM EST): Seek vocational skills assessment and appropriate training. Hearing loss of left ear 03/16/2017 Assessment & Plan (09/21/2024 9:55 PM EDT): If hearing continues to deteriorate arrange for formal hearing test and consideration for a hearing aid. Assessment & Plan (06/19/2024 4:31 PM EDT): If hearing continues to deteriorate arrange for formal hearing test and consideration for a hearing aid. Assessment & Plan (02/18/2024 4:39 PM EST): If hearing continues to deteriorate arrange for formal hearing test and consideration for a hearing aid. Assessment & Plan (10/18/2023 4:32 PM EDT): If hearing continues to deteriorate arrange for formal hearing test and consideration for a hearing aid. Assessment & Plan (06/14/2023 3:22 PM EDT): If hearing continues to deteriorate arrange for formal hearing test and consideration for a hearing aid. Assessment & Plan (10/26/2022 4:50 PM EDT): If hearing continues to deteriorate arrange for formal hearing test and consideration for a hearing aid. Assessment & Plan (03/16/2022 4:37 PM EST): If hearing continues to deteriorate arrange for formal hearing test and consideration for a hearing aid. Assessment & Plan (11/21/2021 3:50 PM EDT): If hearing continues to deteriorate arrange for formal hearing test and consideration for a hearing aid. Assessment & Plan (09/04/2021 10:44 PM EDT): If hearing continues to deteriorate arrange for formal hearing test and consideration for a hearing aid. Assessment & Plan (11/17/2020 3:27 PM EDT): Consider formal audiology evaluation due to his complaints of decreasing hearing acuity to consider hearing aid if needed. Assessment & Plan (09/29/2020 2:53 PM EDT): Consider formal audiology evaluation due to his complaints of decreasing hearing acuity to consider hearing aid if needed. Assessment & Plan (09/08/2020 3:13 PM EDT): Consider formal audiology evaluation due to his complaints of decreasing hearing acuity to consider hearing aid if needed. Assessment & Plan (05/12/2020 4:32 PM EST): Consider formal audiology evaluation due to his complaints of decreasing hearing acuity to consider hearing aid if needed. Assessment & Plan (12/24/2019 2:38 PM EDT): Consider formal audiology evaluation due to his complaints of decreasing hearing acuity to consider hearing aid if needed. Assessment & Plan (09/29/2019 4:15 PM EDT): Consider formal audiology evaluation due to his complaints of decreasing hearing acuity to consider hearing aid if needed. Assessment & Plan (07/29/2019 10:13 AM EDT): Consider formal audiology evaluation due to his complaints of decreasing hearing acuity to consider hearing aid if needed. Assessment & Plan (07/06/2018 11:58 AM EDT): Consider formal assessment for degree of loss and appropriate aids as necessary. Assessment & Plan (04/28/2018 11:23 AM EST): Consider formal assessment for degree of loss and appropriate aids as necessary. Methotrexate, residential, current use 03/16/2017 Assessment & Plan (09/21/2024 9:56 PM EDT): Keep well-hydrated. Take exactly as prescribed. Remain alcohol free while on methotrexate. Hold methotrexate if sick, running fever or taking antibiotics. Seek immediate medical attention if running fevers, experiencing shortness of breath and cough. If seeing a new MD [employer] [place] make sure to notify them of chronic immunosuppression with methotrexate and Humira particularly in emergency situations or if clinical status worsens Assessment & Plan (06/19/2024 4:31 PM EDT): Keep well-hydrated. Take exactly as prescribed. Remain alcohol free while on methotrexate. Hold methotrexate if sick, running fever or taking antibiotics. Seek immediate medical attention if running fevers, experiencing shortness of breath and cough. If seeing a new MD [employer] [place] make sure to notify them of chronic immunosuppression with methotrexate and Humira particularly in emergency situations or if clinical status worsens Assessment & Plan (02/18/2024 4:39 PM EST): Keep well-hydrated. Take exactly as prescribed. Remain alcohol free while on methotrexate. Hold methotrexate if sick, running fever or taking antibiotics. Seek immediate medical attention if running fevers, experiencing shortness of breath and cough. If seeing a new MD [employer] [place] make sure to notify them of chronic immunosuppression with methotrexate and Humira particularly in emergency situations or if clinical status worsens Assessment & Plan (10/18/2023 4:32 PM EDT): Keep well-hydrated. Take exactly as prescribed. Remain alcohol free while on methotrexate. Hold methotrexate if sick, running fever or taking antibiotics. Seek immediate medical attention if running fevers, experiencing shortness of breath and cough. If seeing a new MD [employer] make sure to notify them of chronic immunosuppression with methotrexate and Humira particularly in emergency situations or if clinical status worsens Assessment & Plan (06/14/2023 3:23 PM EDT): Keep well-hydrated. Take exactly as prescribed. Remain alcohol free while on methotrexate. Hold methotrexate if sick, running fever or taking antibiotics. Seek immediate medical attention if running fevers, experiencing shortness of breath and cough. If seeing a new [employer] [place] make sure to notify them of chronic immunosuppression with methotrexate and Humira particularly in emergency situations or if clinical status worsens Assessment & Plan (10/26/2022 4:50 PM EDT): Keep well-hydrated. Take exactly as prescribed. Remain alcohol free while on methotrexate. Hold methotrexate if sick, running fever or taking antibiotics. Seek immediate medical attention if running fevers, experiencing shortness of breath and cough. If seeing a new [employer] [place] make sure to notify them of chronic immunosuppression with methotrexate and Humira particularly in emergency situations or if clinical status worsens Assessment & Plan (07/24/2022 4:38 PM EDT): Keep well-hydrated. Take exactly as prescribed. Remain alcohol free while on methotrexate. Hold methotrexate if sick, running fever or taking antibiotics. Seek immediate medical attention if running fevers, experiencing shortness of breath and cough. If seeing a new [employer] [place] make sure to notify them of chronic immunosuppression with methotrexate and Humira particularly in emergency situations or if clinical status worsens Assessment & Plan (03/16/2022 4:37 PM EST): Keep well-hydrated. Take exactly as prescribed. Remain alcohol free while on methotrexate. Hold methotrexate if sick, running fever or taking antibiotics. Seek immediate medical attention if running fevers, experiencing shortness of breath and cough. If seeing a new [employer] [place] make sure to notify them of chronic immunosuppression with methotrexate and Humira particularly in emergency situations or if clinical status worsens Assessment & Plan (11/21/2021 3:48 PM EDT): Keep well-hydrated. Take exactly as prescribed. Remain alcohol free while on methotrexate. Hold methotrexate if sick, running fever or taking antibiotics. Seek immediate medical attention if running fevers, experiencing shortness of breath and cough. If seeing a new [employer] [place] make sure to notify them of chronic immunosuppression with methotrexate and Humira particularly in emergency situations or if clinical status worsens Assessment & Plan (09/04/2021 10:45 PM EDT): Keep well-hydrated. Take exactly as prescribed. Remain alcohol free while on methotrexate. Hold methotrexate if sick, running fever or taking antibiotics. Seek immediate medical attention if running fevers, experiencing shortness of breath and cough. If seeing a new [employer] [place] make sure to notify them of chronic immunosuppression with methotrexate and Humira particularly in emergency situations or if clinical status worsens Assessment & Plan (05/24/2021 11:56 AM EDT): Keep well-hydrated. Take exactly as prescribed. Remain alcohol free while on methotrexate. Hold methotrexate if sick, running fever or taking antibiotics. Seek immediate medical attention if running fevers, experiencing shortness of breath and cough. If seeing a new [employer] [place] make sure to notify them of chronic immunosuppression with methotrexate and Humira particularly in emergency situations or if clinical status worsens Assessment & Plan (02/16/2021 4:34 PM EST): Keep well-hydrated. Take exactly as prescribed. Remain alcohol free while on methotrexate. Hold methotrexate if sick, running fever or taking antibiotics. Seek immediate medical attention if running fevers, experiencing shortness of breath and cough. If seeing a new [employer] [place] make sure to notify them of chronic immunosuppression with methotrexate and Enbrel particularly in emergency situations or if clinical status worsens Assessment & Plan (11/17/2020 3:27 PM EDT): Keep well-hydrated. Take exactly as prescribed. Remain alcohol free while on methotrexate. Hold methotrexate if sick, running fever or taking antibiotics. Seek immediate medical attention if running fevers, experiencing shortness of breath and cough. If seeing a new [employer] [place] make sure to notify them of chronic immunosuppression with methotrexate and Enbrel particularly in emergency situations or if clinical status worsens Assessment & Plan (09/29/2020 2:52 PM EDT): Keep well-hydrated. Take exactly as prescribed. Remain alcohol free while on methotrexate. Hold methotrexate if sick, running fever or taking antibiotics. Seek immediate medical attention if running fevers, experiencing shortness of breath and cough. If seeing a new [employer] [place] make sure to notify them of chronic immunosuppression with methotrexate and Enbrel particularly in emergency situations or if clinical status worsens Assessment & Plan (09/08/2020 3:13 PM EDT): Keep well-hydrated. Take exactly as prescribed. Remain alcohol free while on methotrexate. Hold methotrexate if sick, running fever or taking antibiotics. Seek immediate medical attention if running fevers, experiencing shortness of breath and cough. If seeing a new [employer] make sure to notify them of chronic immunosuppression with methotrexate and Enbrel particularly in emergency situations or if clinical status worsens Assessment & Plan (05/12/2020 4:31 PM EST): Keep well-hydrated. Take exactly as prescribed. Remain alcohol free while on methotrexate. Hold methotrexate if sick, running fever or taking antibiotics. Seek immediate medical attention if running fevers, experiencing shortness of breath and cough. If seeing a new [employer] [place] make sure to notify them of chronic immunosuppression with methotrexate and Enbrel particularly in emergency situations or if clinical status worsens Assessment & Plan (03/03/2020 9:09 AM EST): Keep well-hydrated. Take exactly as prescribed. Remain alcohol free while on methotrexate. Hold methotrexate if sick, running fever or taking antibiotics. Seek immediate medical attention if running fevers, experiencing shortness of breath and cough. If seeing a new [employer] [place] make sure to notify them of chronic immunosuppression with methotrexate and Enbrel particularly in emergency situations or if clinical status worsens Assessment & Plan (12/24/2019 2:38 PM EDT): Keep well-hydrated. Take exactly as prescribed. Remain alcohol free while on methotrexate. Hold methotrexate if sick, running fever or taking antibiotics. Seek immediate medical attention if running fevers, experiencing shortness of breath and cough. If seeing a new MD CAGE FIGHTER PA make sure to notify them of chronic immunosuppression with methotrexate and Enbrel particularly in emergency situations or if clinical status worsens Assessment & Plan (09/29/2019 4:15 PM EDT): Keep well-hydrated. Take exactly as prescribed. Remain alcohol free while on methotrexate. Hold methotrexate if sick, running fever or taking antibiotics. Seek immediate medical attention if running fevers, experiencing shortness of breath and cough. If seeing a new MDKRYSTAL PA make sure to notify them of chronic immunosuppression with methotrexate and Enbrel particularly in emergency situations or if clinical status worsens Assessment & Plan (07/29/2019 10:15 AM EDT): Keep well-hydrated. Take exactly as prescribed. Remain alcohol free while on methotrexate. Hold methotrexate if sick, running fever or taking antibiotics. Seek immediate medical attention if running fevers, experiencing shortness of breath and cough. If seeing a new MD CAGE FIGHTER PA make sure to notify them of chronic immunosuppression with methotrexate and Enbrel particularly in emergency situations or if clinical status worsens Assessment & Plan (05/13/2019 10:39 AM EST): Keep well-hydrated. Take exactly as prescribed. Remain alcohol free while on methotrexate. Hold methotrexate if sick, running fever or taking antibiotics. Seek immediate medical attention if running fevers, experiencing shortness of breath and cough. If seeing a new KRYSTAL REYEZ PA make sure to notify them of chronic immunosuppression with methotrexate and Enbrel particularly in emergency situations or if clinical status worsens Assessment & Plan (03/13/2019 3:22 PM EST): Keep well-hydrated. Take exactly as prescribed. Remain alcohol free while on methotrexate. Hold methotrexate if sick, running fever or taking antibiotics. Assessment & Plan (01/08/2019 2:34 PM EDT): Keep well-hydrated. Take exactly as prescribed. Remain alcohol free while on methotrexate. Hold methotrexate if sick, running fever or taking antibiotics. Assessment & Plan (07/06/2018 12:02 PM EDT): Keep well-hydrated. Take exactly as prescribed. Remain alcohol free while on methotrexate. Hold methotrexate if sick, running fever or taking antibiotics. Assessment & Plan (04/28/2018 11:20 AM EST): Keep well-hydrated. Take exactly as prescribed. Remain alcohol free while on methotrexate. Hold methotrexate if sick, running fever or taking antibiotics. Resolved Problems Problem Noted Date Diagnosed Date Resolved Date Class 1 obesity due to exces s calories with serious comorbidity and body mass index (BMI) of 33.0 to 33.9 in adult 06/14/2023 02/18/2024 Assessment & Plan (10/21/2023 10:00 PM EDT): Congratulations on 2 pounds weight loss from 223 on 10/26/2022 down to 221 today-keep it off. Continue diligent portion control. Limit concentrated sugars, saturated fats and calories in the diet. Keep well-hydrated. If unable to achieve expected goal consider formal dietary/nutritional support. Assessment & Plan (06/14/2023 3:35 PM EDT): Congratulations on 4 pounds weight loss from 227 on 10/26/2022 down to 223 today-keep it off. Continue diligent portion control. Limit concentrated sugars, saturated fats and calories in the diet. Keep well-hydrated. If unable to achieve expected goal consider formal dietary/nutritional support. Class 1 obesity due to exces s calories with serious comorbidity and body mass index (BMI) of 34.0 to 34.9 in adult 07/24/2022 06/19/2024 Assessment & Plan (02/19/2024 11:47 AM EST): Continue diligent portion control particularly in view of gaining 7 pounds from 221 on 10/18/2023 up to 228 today. Limit concentrated sugars, saturated fats and calories in the diet. Keep well-hydrated. If unable to achieve expected goal consider formal dietary/nutritional support. Assessment & Plan (10/26/2022 4:50 PM EDT): Continue diligent portion control. Limit concentrated sugars, saturated fats and calories in the diet. Keep well-hydrated. If unable to achieve expected goal consider formal dietary/nutritional support. Assessment & Plan (08/07/2022 10:59 AM EDT): Congratulations on 6 pounds weight loss from 231 lbs down to 225 lbs -keep it off. Continue diligent portion control. Limit concentrated sugars, saturated fats and calories in the diet. Keep well-hydrated. If unable to achieve expected goal consider formal dietary/nutritional support. Class 2 severe obesity due t o excess calories with serious comorbidity and body mass index (BMI) of 36.0 to 36.9 in adult 08/19/2021 Assessment & Plan (09/04/2021 10:43 PM EDT): Continue diligent portion control. Limit concentrated sugars, saturated fats and calories in the diet. Keep well-hydrated. If unable to achieve expected goal consider formal dietary/nutritional support. Obesity due to excess calori es with serious comorbidity 09/08/2020 06/19/2024 Assessment & Plan (05/24/2021 11:55 AM EDT): Continue portion control. Limit concentrated sugars, saturated fats and calories in the diet. Keep well-hydrated. If unable to achieve expected goal consider formal dietary/nutritional support. Assessment & Plan (11/17/2020 3:28 PM EDT): Portion control. Limit concentrated sugars, saturated fats and calories in the diet. Keep well-hydrated. If unable to achieve expected goal consider formal dietary/nutritional support. Assessment & Plan (10/03/2020 10:51 PM EDT): Congrats on 7 lbs weight loss and keep it off. Continue portion control. Limit concentrated sugars, saturated fats and calories in the diet. Keep well-hydrated. If unable to achieve expected goal consider formal dietary/nutritional support. Assessment & Plan (09/08/2020 3:13 PM EDT): Portion control. Limit concentrated sugars, saturated fats and calories in the diet. Keep well-hydrated. If unable to achieve expected goal consider formal dietary/nutritional support. Class 1 obesity due to exces s calories with serious comorbidity and body mass index (BMI) of 31.0 to 31.9 in adult 02/20/2018 09/08/2020 Assessment & Plan (05/12/2020 4:32 PM EST): Portion control. Limit concentrated sugars, saturated fats and calories in the diet. Keep well-hydrated. If unable to achieve expected goal consider formal dietary/nutritional support. Assessment & Plan (03/03/2020 9:07 AM EST): Portion control. Limit concentrated sugars, saturated fats and calories in the diet. Keep well-hydrated. If unable to achieve expected goal consider formal dietary/nutritional support. Assessment & Plan (12/24/2019 2:37 PM EDT): Portion control. Limit concentrated sugars, saturated fats and calories in the diet. Keep well-hydrated. If unable to achieve expected goal consider formal dietary/nutritional support. Assessment & Plan (05/12/2019 4:30 PM EST): Portion control. Limit concentrated sugars, saturated fats and calories in the diet. Keep well-hydrated. If unable to achieve expected goal consider formal dietary/nutritional support. Assessment & Plan (03/13/2019 3:21 PM EST): Portion control. Limit concentrated sugars, saturated fats and calories in the diet. Keep well-hydrated. If unable to achieve expected goal consider formal dietary/nutritional support. 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 Limit concentrated sugars, saturated fats and calories in the diet. Keep well-hydrated. If unable to achieve expected goal consider formal dietary/nutritional support. Assessment & Plan (07/06/2018 11:54 AM EDT): Portion control. Limit concentrated sugars, saturated fats and calories in the diet. Keep well-hydrated. If unable to achieve expected goal consider formal dietary/nutritional support. Assessment & Plan (04/28/2018 11:23 AM EST): Portion control. Limit concentrated sugars, saturated fats and calories in the diet. Keep well-hydrated. If unable to achieve expected goal consider formal dietary/nutritional support. On etanercept therapy 03/16/20172021 Assessment & Plan (02/16/2021 4:34 PM EST): Avoid sick contacts. Hold Enbrel whenever running fever, feeling sick or taking antibiotics. Complete the entire course of antibiotic and wait at least 48 hours after the last dose to make sure that symptoms do not return before restarting methotrexate and Enbrel on their respective weekly schedule days. Call if problems or questions. Make sure to inform any new physician/CAGE FIGHTER/PA about chronic immunosuppressive therapy with methotrexate and Enbrel particularly if his health status worsens Assessment & Plan (11/17/2020 3:27 PM EDT): Avoid sick contacts. Hold Enbrel whenever running fever, feeling sick or taking antibiotics. Complete the entire course of antibiotic and wait at least 48 hours after the last dose to make sure that symptoms do not return before restarting methotrexate and Enbrel on their respective weekly schedule days. Call if problems or questions. Make sure to inform any new physician/CAGE FIGHTER/PA about chronic immunosuppressive therapy with methotrexate and Enbrel particularly if his health status worsens Assessment & Plan (09/29/2020 2:52 PM EDT): Avoid sick contacts. Hold Enbrel whenever running fever, feeling sick or taking antibiotics. Complete the entire course of antibiotic and wait at least 48 hours after the last dose to make sure that symptoms do not return before restarting methotrexate and Enbrel on their respective weekly schedule days. Call if problems or questions. Make sure to inform any new physician/CAGE FIGHTER/PA about chronic immunosuppressive therapy with methotrexate and Enbrel particularly if his health status worsens Assessment & Plan (09/08/2020 3:14 PM EDT): Avoid sick contacts. Hold Enbrel whenever running fever, feeling sick or taking antibiotics. Complete the entire course of antibiotic and wait at least 48 hours after the last dose to make sure that symptoms do not return before restarting methotrexate and Enbrel on their respective weekly schedule days. Call if problems or questions. Make sure to inform any new physician/CAGE FIGHTER/PA about chronic immunosuppressive therapy with methotrexate and Enbrel particularly if his health status worsens Assessment & Plan (05/12/2020 4:30 PM EST): Avoid sick contacts. Hold Enbrel whenever running fever, feeling sick or taking antibiotics. Complete the entire course of antibiotic and wait at least 48 hours after the last dose to make sure that symptoms do not return before restarting methotrexate and Enbrel on their respective weekly schedule days. Call if problems or questions. Make sure to inform any new physician/CAGE FIGHTER/PA about chronic immunosuppressive therapy with methotrexate and Enbrel particularly if his health status worsens Assessment & Plan (03/03/2020 9:09 AM EST): Avoid sick contacts. Hold Enbrel whenever running fever, feeling sick or taking antibiotics. Complete the entire course of antibiotic and wait at least 48 hours after the last dose to make sure that symptoms do not return before restarting methotrexate and Enbrel on their respective weekly schedule days. Call if problems or questions. Make sure to inform any new physician/CAGE FIGHTER/PA about chronic immunosuppressive therapy with methotrexate and Enbrel particularly if his health status worsens Assessment & Plan (12/24/2019 2:39 PM EDT): Avoid sick contacts. Hold Enbrel whenever running fever, feeling sick or taking antibiotics. Complete the entire course of antibiotic and wait at least 48 hours after the last dose to make sure that symptoms do not return before restarting methotrexate and Enbrel on their respective weekly schedule days. Call if problems or questions. Make sure to inform any new physician/CAGE FIGHTER/PA about chronic immunosuppressive therapy with methotrexate and Enbrel particularly if his health status worsens Assessment & Plan (09/30/2019 9:22 PM EDT): Avoid sick contacts. Hold Enbrel whenever running fever, feeling sick or taking antibiotics. Complete the entire course of antibiotic and wait at least 48 hours after the last dose to make sure that symptoms do not return before restarting methotrexate and Enbrel on their respective weekly schedule days. Call if problems or questions. Make sure to inform any new physician/CAGE FIGHTER/PA about chronic immunosuppressive therapy with methotrexate and Enbrel particularly if his health status worsens Assessment & Plan (07/29/2019 10:15 AM EDT): Avoid sick contacts. Hold Enbrel whenever running fever, feeling sick or taking antibiotics. Make sure to inform any new physician/CAGE FIGHTER/PA about chronic immunosuppressive therapy with methotrexate and Enbrel particularly if his health status worsens Assessment & Plan (05/12/2019 4:31 PM EST): Avoid sick contacts. Hold Enbrel whenever running fever, feeling sick or taking antibiotics. Make sure to inform any new physician/CAGE FIGHTER/PA about chronic immunosuppressive therapy with methotrexate and Enbrel particularly if his health status worsens Assessment & Plan (03/13/2019 3:22 PM EST): Avoid sick contacts. Hold Enbrel whenever running fever, feeling sick or taking antibiotics. Make sure to inform any new physician/CAGE FIGHTER/PA about chronic immunosuppressive therapy with methotrexate and Enbrel particularly if his health status worsens Assessment & Plan (01/08/2019 2:34 PM EDT): Avoid sick contacts. Hold Enbrel whenever running fever, feeling sick or taking antibiotics. Make sure to inform any new physician/CAGE FIGHTER/PA about chronic immunosuppressive therapy with methotrexate and Enbrel particularly if his health status worsens Assessment & Plan (07/06/2018 12:03 PM EDT): Avoid sick contacts. Hold Enbrel whenever running fever, feeling sick or taking antibiotics. Make sure to inform any new physician/CAGE FIGHTER/PA about chronic immunosuppressive therapy with methotrexate and Enbrel particularly if his health status worsens Assessment & Plan (04/28/2018 11:20 AM EST): Avoid sick contacts. Hold Enbrel whenever running fever, feeling sick or taking antibiotics. Make sure to inform any new physician/CAGE FIGHTER/PA about chronic immunosuppressive therapy with methotrexate and Enbrel particularly if his health status worsens Encounters Date Type Department Care Team Description 09/19/2024 Telephone [facility] Rheumatology [address] [place] [address] Cristel Bagley MD Rasu[place] 09/18/2024 4:00 PM EDT Office Visit [facility] Rheumatology [address] [place] [address] Cristel Bagley MD Seronegative spondyloarthropathy (Primary Dx); Methotrexate, residential, current use; Adalimumab (Humira) long-term use; Learning disability; Hearing loss of left ear, unspecified hearing loss type; Moderate episode of recurrent major depressive disorder; Obstructive sleep apnea on CPAP; Class 2 severe obesity due to excess calories with serious comorbidity and body mass index (BMI) of 35.0 to 35.9 in adult 09/17/2024 2:27 PM EDT - 09/17/2024 11:59 PM EDT Hospital Encounter [facility] [address] [place] [address] Cristel Bagley MD Discharge Disposition: Home or Self Care from Last 3 Months Immunizations Immunization Administration Dates Next Due COVID-19 (Pre-01/01) Moderna Vaccine, mRNA, PF 0 07/28/2020,06/23/2020 Influenza Quadrivalent Preservative Free IM 10/2020,12/24/2019 Influenza Quadrivalent w/ Preservative IM 2017 Social History Tobacco Use Types Packs/Day Years Used Date Smoking Tobacco: Never Smokeless Tobacco: Never Tobacco Cessation:Counseling Given: Not Answered Alcohol Use Standard Drinks/Week Comments No 0 (1 standard drink = 0.6 oz pur e alcohol) Education Answer Date Recorded Are you interested in more education? Not on efrem e 07/10/2022 Are you concerned about learning? Not on file 07/10/2022 No 07/10/2022 No 07/10/2022 Digital Access Answer Date Recorded No 08/06/2022 No 08/06/2022 Reliable internet access at home? Not on file 08/06/2022 Device with a working camera? Not on file Sex and Gender Information Value Date Recorded Sex Assigned at Not on file Legal Sex Male 6:21 PM EST Gender Identity Not on file Sexual Orientation Not on file Last Filed Vital Signs Vital Sign Reading Time Taken Comments Blood Pressure 114/70 09/18/2024 3:49 PM EDT Pulse 85 09/18/2024 3:49 PM EDT Temperature 36.6 C (97.9 F) 09/29/2020 2:17 PM EDT Respiratory Rate 16 07/24/2022 4:07 PM EDT Oxygen Saturation 95% 09/18/2024 3:49 PM EDT Inhaled Oxygen Concentration - - Weight 106.6 kg (235 lb) 09/18/2024 3:49 PM EDT Height 172.7 cm (5' 7.99 ) 09/18/2024 3:49 PM ED T Body Mass Index 35.74 09/18/2024 3:49 PM EDT Plan of Treatment Upcoming Encounters Date Type Department Care Team (Late st Contact Info) Description 01/19/2025 4:00 PM EST Office Visit [facility] Rheumatology [address] [place] [address] Cristel Bagley MD [address] [facility], [address] [place] [address] [email or web address] Health Maintenance Due Date Last Done Comments LIPID PANEL 1968 DEPRESSION SCREENING 1980 HEPATITIS C SCREENING 1986 HIV ONE-TIME SCREENING (18-65 YEARS) 1986 PNEUMOCOCCAL VACCINES (50+ years) (1 of 2 - PCV) 10/30/1987 ZOSTER VACCINES (1 of 2) 10/30/1987 COLOGUARD 2013 COLONOSCOPY 2013 COLORECTAL CANCER SCREENING 2013 FIT TEST 2013 FOBT 2013 SIGMOIDOSCOPY 2013 VIRTUAL COLONOSCOPY 2013 COVID-19 VACCINE (3 - Moderna risk series) 08/25/2020 07/28/2020, 06/23/2020 CREATININE LEVEL 09/17/2025 09/17/2024, 11/2024, 02/15/2024, Additional history exists POTASSIUM LEVEL 09/17/2025 09/17/2024, 04/0 11/2024, 02/15/2024, Additional history exists SCREENING FOR DIABETES 06/10/2026 06/11/2023 Adult Td,Tdap Booster 10/05/2030 10/05/2020 SMOKING STATUS SCREENING (Once After 26 Yrs) Completed 09/18/2024 HEPATITIS A VACCINES Aged Out No long er eligible based on patient's age to complete this topic HIB VACCINES Aged Out No longer eligi ble based on patient's age to complete this topic MENINGOCOCCAL VACCINES (ACWY) Aged Out No longer eligible based on patient's age to complete this topic MENINGOCOCCAL VACCINES (B) Aged Out N o longer eligible based on patient's age to complete this topic Medical Devices Not on file Procedures Procedure Name Priority Date/Time Associated Diagnosis Comments COMPREHENSIVE METABOLIC PANEL Routine 09/17/2024 2:33 PM EDT Seronegative spondyloarthropath y Adalimumab (Humira) long-term use Methotrexate, residential, current use C-REACTIVE PROTEIN Routine 09/17/2024 2: 33 PM EDT Seronegative spondyloarthropath y Adalimumab (Humira) long-term use Methotrexate, parts counterman, current use SEDIMENTATION RATE (ESR) Routine 09/17/2024 2:33 PM EDT Seronegative spondyloarthropath y Adalimumab (Humira) long-term use Methotrexate, parts counterman, current use CBC AND DIFFERENTIAL Routine 09/17/2024 2:33 PM EDT Seronegative spondyloarthropath y Adalimumab (Humira) long-term use Methotrexate, residential, current use from Last 3 Months Results * (ABNORMAL) Comprehensive metabolic panel (09/17/2024 2:33 PM EDT) SODIUM 138 133 - 146 mmol/L [facility] POTASSIUM 4.4 3.3 - 5.1 mmol/L [facility] CHLORIDE 100 96 - 108 mmol/L [facility] CO2 27 21 - 35 mmol/L [facility] BUN 16 6 - 19 mg/dL [facility] CREATININE 0.90 0.5 - 1.5 mg/dL [facility] GLUCOSE 147(H) 70 - 99 mg/dL [facility] ALBUMIN 4.3 3.9 - 4.8 g/dL [facility] TOTAL PROTEIN 7.7 6.5 - 8.0 g/dL [facility] CALCIUM 9.8 8.4 - 10.3 mg/dL [facility] ALKALINE PHOSPHATASE 84 39 - 117 U/L [facility] TOTAL BILIRUBIN 0.4 0.0 - 1.2 mg/dL [facility] AST 26 0 - 37 U/L [facility] ALT 32 0 - 40 U/L [facility] GLOBULIN 3.4 1 - 4.8 g/dL [facility] EGFR 101 >59 mL/min/1.7 3m2 [facility] Comment:Estimated glomerular filtration rate calculated using the CKD-EPI refit equation. ANION GAP 15 10 - 20 mmol/L [facility] Blood 09/17/2024 2:33 PM EDT 09/17/2024 2:34 PM EDT us Cristel Bagley MD LAB BLOOD ORDERABLES Fin al Result [address] [address] * Sedimentation rate (ESR) (09/17/2024 2:33 PM EDT) ESR 10 0 - 20 mm/h [facility] Blood 09/17/2024 2:33 PM EDT 09/17/2024 2:34 PM EDT us Cristel Bagley MD LAB BLOOD ORDERABLES Fin al Result Performing Organization Address City/[facility]/ZIP Co de Phone Number [address] [address] * CBC and differential (09/17/2024 2:33 PM EDT) WBC 7.62 4.00 - 11.00 K/uL [facility] RBC 4.85 4.50 - 5.90 M/uL [facility] HGB 14.8 13.5 - 17.5 g/dL [facility] HCT 44.3 41.0 - 53.0 % [facility] PLT 236 150 - 450 K/uL [facility] MCV 91.3 80.0 - 100.0 fL [facility] MCH 30.5 27.0 - 31.0 pg [facility] MCHC 33.4 32.0 - 36.0 g/dL [facility] RDW 12.5 11.5 - 14.5 % [facility] MPV 10.7 8.4 - 12.0 fL [facility] NRBC 0.00 0.00 /100 WBCs [facility] ABSOLUTE NRBC 0.00 0.00 K/uL [facility] DIFF METHOD Auto [facility] NEUTS 57.5 48.0 - 76.0 % [facility] LYMPHS 33.5 18.0 - 41.0 % [facility] MONOS 7.2 4.0 - 11.0 % [facility] EOS 0.8 0.0 - 5.0 % [facility] BASOS 0.5 0.0 - 1.5 % [facility] Granulocytes, immature (%) 0.5 0.0 - 0.9 % [facility] ABSOLUTE NEUTS 4.38 1.92 - 7.60 K/uL [facility] ABSOLUTE LYMPHS 2.55 0.72 - 4.10 K/uL [facility] ABSOLUTE MONOS 0.55 0.16 - 1.10 K/uL [facility] ABSOLUTE EOS 0.06 0.00 - 0.50 K/uL [facility] ABSOLUTE BASOS 0.04 0.00 - 0.15 K/uL [facility] Granulocytes, immature 0.04 0.00 - 0.09 K/uL [facility] Blood 09/17/2024 2:33 PM EDT 09/17/2024 2:34 PM EDT us Cristel Bagley MD LAB BLOOD ORDERABLES Fin al Result [facility] [address] [place] [address] * C-Reactive Protein (09/17/2024 2:33 PM EDT) C REACTIVE PROTEIN <3.0 0.0 - 4.0 mg/L [facility] Blood 09/17/2024 2:33 PM EDT 09/17/2024 2:34 PM EDT us Cristel Bagley MD LAB BLOOD ORDERABLES Fin al Result [address] [address] from Last 3 Months Insurance [facility] MED[facility] PART [facility] & B [facility] REPLAC[facility] MED[facility] & [facility] [place] MED[facility] PART [facility] & [facility] [place] [facility] & [facility] MED[facility] & [facility]PL[facility] MEDIC[facility] & [facility] [place] [facility] & [facility]PLAC[facility] MEDIC[facility] PART [facility] & [facility] MEDIC[facility] REPLACEMENT [employer] Care Teams Rn Admission Relationship Specialty Start Date End Date Aniket Vega MD [address] [place] [address] Dr Ammon [address] [place] [id number] PCP - General Internal Medicine 03/16/22 Additional Source Comments The information contained in this document represents components of the legal health record. It is not the complete legal health record.Formerly [facility]
--- OUTSIDE RECORDS SUMMARY | 2024-10-15 08:27 | XMS_ITS | Patient Health Record ---
Author Organization [facility] Address [address] [place] [address] Care Team Providers Care Facility Service Manager Name Role Phone PavonKavin Unavailable [phone] Reason For Referral No Information Plan Of Treatment No Information
--- OUTSIDE RECORDS SUMMARY | 2024-10-15 08:27 | XMS_ITS | Clinical Summary ---
Author Organization [facility] Address [address] [place] [address] Care Team Providers Care Operation Agent Name Role Phone Unavailable Primary Care Provider [...]
--- OUTSIDE RECORDS SUMMARY | 2024-10-15 08:27 | XMS_ITS | Encounter Summary ---
Author Organization [facility] Address [address] [place] [address] Care Team Providers Care Asset Protection Greeter Name Role Phone Unavailable Primary Care Provider Unavailabl e Encounter Details Date Type Department Care Team (Late st Contact Info) Description 01/14/2019 Abstract [facility] PM Rheumatology [place] [address] [place] [address] [id number] [place] [address] Re Blake MD [address] [facility] [address] [place] [address] Social History Tobacco Use Types [...]
--- OUTSIDE RECORDS SUMMARY | 2024-10-15 08:28 | XMS_ITS ---
Author Name [facility] Organization Unknown History of Medication Use Medication Directions Dispensed Refills Start Date End Date Stat folic acid 1 mg tablet TAKE 1 TABLET 1 MG TOTAL) BY MOUTH DAILY. active Humira 40 mg/0.8 mL subcutaneous syringe kit INJECT 0.8ML 40MG TOTAL) UNDER THE SKIN EVERY 14 DAYS active hydrochlorothiazide 25 mg tablet TAKE 1 TABLET BY MOUTH DAILY NEEDED FOR EDEMA. active Encounters Encounter Type Encounter Reason Primary Diagnosis Location Date Ambulatory [facility] 01/30/2024 Ambulatory [facility] 01/29/2024 Ambulatory [facility] 01/29/2024 Ambulatory [facility] 01/25/2024 Ambulatory [facility] 12/18/2023
--- NOTE | 2024-10-15 12:12 | A.OFFVIS_ITS ---
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 BMI 35.2 Allergies No Known Allergies (No Known Allergies*) Allergy (Verified 10/15/24 12:15) Medication List - Last Reconciled 10/15/24 by Victor Hugo Khalil MD adalimumab (Humira) inject one - 40 mg/0.8 mL syringe every 2 weeks subcut ashwagandha root extract 1,000 mg PO DAILY atorvastatin 10 mg PO BEDTIME 90 days cholecalciferol (vitamin D3) 50 mcg PO DAILY 90 days folic acid 1 mg PO DAILY gabapentin 100 mg PO BID 30 days hydrochlorothiazide 25 mg PO DAILY PRN 30 days magnesium oxide 400 mg PO DAILY metformin 500 mg PO DAILY 90 days methotrexate (PF) (Rasuvo (PF)) 17.5 mg subcut QWEEK multivitamin (Daily Multi-Vitamin tablet) 1 tab PO DAILY HPI HPI 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 BMI 35.2: Details: Start time: 12.11pm, End time: 12.41pm ?I spent 25 minutes speaking with the patient on the phone plus an additional 5 minutes reviewing and updating records for a total of 30 minutes HPI Comments Details: Previous weight efforts: self diets and exercise Wakes up: 11am, Sleeps: 2am Breakfast: none Lunch: 11am (chicken, steak, fish) Dinner: 10pm (same) Snacks: 3pm (chocolate, fruits: oranges, peach), another fruit after dinner Exercise: none at home, goes to Gym Beverages: Coffee (4-7 cups/d with honey and collagen), Tea: 1-2/month, Soda: none, Juice: 1-3/wk, ETOH: none PFSH Medical History (Updated 10/15/24 @ 12:20 by Victor Hugo Khalil MD) Lower extremity edema Hyperlipidemia Hypertension Obstructive sleep apnea on CPAP BMI 35.0-35.9,adult Depression Osteoarthritis of both hips Osteoarthritis of right hip Diabetes mellitus Vitamin D deficiency Hx of flexible sigmoidoscopy Pure hypercholesterolemia Obesity (BMI 30-39.9) Learning disability DMII (diabetes mellitus, type 2) Seronegative spondyloarthropathy Surgical History Hx of colonoscopy History of hip replacement Family History (Updated 09/23/24 @ 08:36 by Doug Isidro, RN) Mother No problems noted. Social History (Updated 09/23/24 @ 08:35 by Doug Isidro, RN) Housing: Condominium Alcohol intake: current Comment: occasional one drink Patient Tobacco Use Status: Never used Tobacco e-Cigarette/Vaping Use: Never Used service: No Current occupational status: unemployed Current occupational exposures/hazards: No Cognitive needs: No Hearing needs: Yes (right ear ) Vision needs: Yes (glasses) Telehealth Telehealth Telehealth Platform: Telephone Location of provider rendering services: practice address Location of patient: address on file Patient Identification confirmed using: Name, : Yes Telehealth method: voice only Patient verbally consented to treatment: Yes Patient verbally consented to billing insurance company: Yes Patient informed of any privacy concerns related to visit: Yes Minutes spent on Phone/Video with Pt.: 30 Assessment & Plan Assessment & Plan (1) Obesity (BMI 30-39.9): Code(s): E66.9 - Obesity, unspecified Category: Medical Plan: 1) an appt with our therapist will be made to get her opinion if he is a candidate for surgery 2) Our nurse will bring him at the office to explain to him in person what body composition scale he needs to buy and how to use it to send me measurements. 3) The patient will bring the Collagen product he adds into his 7 daily coffees to see what?it is Patient is in agreement with the plan Orders: Referrals Behavioral Health Referral E11.65 - Type 2 diabetes mellitus with hyperglycemia, E66.9 - Obesity, unspecified
[2024-10-15 12:38] VITALS: BMI 35.1
== END 2024-10-15 12:42 | disposition home or self-care (01) ==
LOC: HO.HBS 08:23
PROVIDERS: PCP Internal Medicine; Visit Provider Surgery
DX: E66.9 Obesity, unspecified (principal)
CPT/HCPCS: 99203

== ENCOUNTER 2024-11-18 11:19 | Outpatient (AMB) | payer MEDICARE, MEDICAID, SELFPAY ==
--- NOTE | 2024-11-18 11:34 | A.OFFPC_ITS ---
Vital Signs 11/18/24 11:35 Height 5 ft 8.5 in Weight 226 lb 6 oz BMI 33.9 BP 150/80 H Blood Pressure Location Rt brachial Position Standing Pulse 103 H Pulse Source Pulse Oximeter Temp 97.3 F Temp Source Temporal Artery Scan Pulse Oximetry (%) 97 Oxygen Delivery Method Room Air Intake Visit Reasons: lower back right pain Intake Note: Patient is here to follow up on Lower back pain. 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 Tender: Not Required per policy Accompanied by: Self / Same As Patient Allergies No Known Allergies (No Known Allergies*) Allergy (Verified 11/18/24 11:35) Medication List - Last Reconciled 11/18/24 by Hussain Randolph MD adalimumab (Humira) inject one - 40 mg/0.8 mL syringe every 2 weeks subcut ashwagandha root extract 1,000 mg PO DAILY atorvastatin 10 mg PO BEDTIME 90 days [bovine colostrum PO] cholecalciferol (vitamin D3) 50 mcg PO DAILY 90 days [collagen peptide PO] [creatine PO] cyclobenzaprine 10 mg PO TID 20 days folic acid 1 mg PO DAILY gabapentin 100 mg PO BID 30 days hydrochlorothiazide 25 mg PO DAILY PRN 30 days lidocaine 5% 1 patch topical DAILY 15 days magnesium oxide 400 mg PO DAILY metformin 500 mg PO DAILY 90 days methotrexate (PF) (Rasuvo (PF)) 17.5 mg subcut QWEEK multivitamin (Daily Multi-Vitamin tablet) 1 tab PO DAILY naproxen 250 mg PO BID PRN 20 days Tobacco use date assessed: 11/18/24 Dental Screening Dental Screen Date: 08/08/24 HPI HPI Comments History of Present Illness Details The patient is a 54-year-old male presenting with muscle spasm and back pain. The patient reports experiencing muscle spasms that began two years ago, initially managed with cyclobenzaprine and morphine, which provided relief at that time. The current episode of pain started on a Sunday, with worsening symptoms by Sunday, making it difficult for him to move or sit comfortably. He has a history of spondyloarthropathy, for which he uses medications such as Humira and MTX. The patient adheres to a bi-weekly regimen of Humira injections. In 2021, he experienced a similar episode of pain, which was effectively managed with cyclobenzaprine and morphine, but the medications are now . He has not tried ibuprofen or Tylenol for the current episode, and the pain persists despite attempts to manage it with medications. [facility] Medical History (Updated 11/18/24 @ 12:45 by Hussain Randolph MD) Low back pain Lower extremity edema Hyperlipidemia Hypertension Obstructive sleep apnea on CPAP BMI 35.0-35.9,adult Depression Osteoarthritis of both hips Osteoarthritis of right hip Diabetes mellitus Vitamin D deficiency Hx of flexible sigmoidoscopy Pure hypercholesterolemia Obesity (BMI 30-39.9) Learning disability DMII (diabetes mellitus, type 2) Seronegative spondyloarthropathy Surgical History Hx of colonoscopy History of hip replacement Family History (Updated 11/18/24 @ 11:34 by FIONA Lira) Mother No problems noted. Social History Housing: Condominium Alcohol intake: current Comment: occasional one drink Patient Tobacco Use Status: Never used Tobacco e-Cigarette/Vaping Use: Never Used Second Hand Smoke Exposure: No service: No Current occupational status: unemployed Current occupational exposures/hazards: No Cognitive needs: No Hearing needs: Yes (right ear ) Vision needs: Yes (glasses) Questionnaire Thrive Questionnaire Date Thrive assessed: 04/09/24 I am a: Patient What is your living situation today?: I have a steady place to live Within the past 12 months, did the food you bought not last and you didn't have the money to get more?: I choose not to answer this question Within the past 12 months, did you worry whether your food would run out before you got money to buy more?: I choose not to answer this question Do you have trouble paying for medicines?: I choose not to answer this question Do you have trouble getting transportation to medical appointments?: No Do you have trouble paying your heating and electricity bill?: I choose not to answer this question Do you have trouble taking care of your child, family member or friend?: I choose not to answer this question Do you have trouble with day-to-day activities such as bathing, preparing meals, shopping, managing finances, etc.?: Yes Are you currently unemployed and looking for a job?: I choose not to answer this question Are you interested in more education?: I choose not to answer this question Please select the resources that you would like help with: None Currently or been in a relationship where the following occur: I choose not to answer THRIVE Score: 0 ADRIANO-7 AMB Questionnaire ADRIANO-7 Date ADRIANO - 7 assessed: 08/08/24 Source: Developed by Drs. Kavin Eason, Kaylin Lam, Josep Singer and colleagues, with an educational randi from [employer]. Review of Systems Const Details: Positives are in BOLD Constitutional: No Weight Change, No Fever, No Chills, No Night Sweats, No Fatigue, No Malaise ENT/Mouth: No Hearing Changes, No Ear Pain, No Nasal Congestion, No Sinus Pain, No Hoarseness, No sore throat, No Rhinorrhea, No Swallowing Difficulty Eyes: No Eye Pain, No Swelling, No Redness, No Foreign Body, No Discharge, No Vision Changes Cardiovascular: No Chest Pain, No SOB, No PND, No Dyspnea on Exertion, No Orthopnea, No Claudication, No Edema, No Palpitations Respiratory: No Cough, No Sputum, No Wheezing, No Smoke Exposure, No Dyspnea Gastrointestinal: No Nausea, No Vomiting, No Diarrhea, No Constipation, No Pain, No Heartburn, No Anorexia, No Dysphagia, No Hematochezia, No Melena, No Flatulence, No Jaundice Genitourinary: No Dysmenorrhea, No DUB, No Dyspareunia, No Dysuria, No Urinary Frequency, No Hematuria, No Urinary Incontinence, No Urgency, No Flank Pain, No Urinary Flow Changes, No Hesitancy Musculoskeletal: No Arthralgias, No Myalgias, No Joint Swelling, No Joint Stiffness, No Back Pain, No Neck Pain, No Injury History Skin: No Skin Lesions, No Pruritis, No Hair Changes, No Breast/Skin Changes, No Nipple Discharge Neuro: No Weakness, No Numbness, No Paresthesias, No Loss of Consciousness, No Syncope, No Dizziness, No Headache, No Coordination Changes, No Recent Falls Psych: No Anxiety/Panic, No Depression, No Insomnia, No Personality Changes, No Delusions, No Rumination, No SI/HI/AH/VH, No Social Issues, No Memory Changes, No Violence/Abuse Hx., No Eating Concerns Heme/Lymph: No Bruising, No Bleeding, No Transfusions History, No Lymphadenopathy Endocrine: No Polyuria, No Polydipsia, No Temperature Intolerance Physical exam (Primary Care) Vital Signs: Last Vital Signs Temp 97.3 F 11/18/24 11:35 Pulse 103 H 11/18/24 11:35 BP 150/80 H 11/18/24 11:35 Pulse Ox 97 11/18/24 11:35 Oxygen Delivery Method Room Air 11/18/24 11:35 BMI result Body Mass Index 33.9 Tobacco/Smoking Status: Tobacco use Status Tobacco use date assessed 11/18/24 11/18/24 11:43 Patient Tobacco Use Status Never used Tobacco 11/18/24 11:43 e-Cigarette/Vaping Use Never Used 11/18/24 11:43 Thrive Assessment: Date of Thrive Assessment Date Thrive assessed 04/09/24 11/18/24 11:43 Currently or been in a relationship where the following occur: I choose not to answer Const Other: Pertinent findings are in BOLD GENERAL APPEARANCE NAD, activity normal for age, well developed/ well nourished, no cyanosis, pallor, or diaphoresis. EYES lids/conjunctiva normal. EARS/NOSE/THROAT Mucous membranes moist, nares normal, lips/teeth normal uvula midline without oral pharyngeal erythema, exudate or swelling TMs normal bilaterally. No lymphangitis/lymphedema. HEAD/NECK normocephalic atraumatic, no facial trauma, neck is supple. RESPIRATORY respiratory effort normal, speaks in full sentences, no tripod position, no accessory muscle use. Lungs clear to auscultation without rhonchi, wheezes, rales CARDIAC Regular rate and rhythm, no edema. ABDOMINAL Soft, ND/NT. No evidence of fluid wave. No pulsatile masses on exam, rebound tenderness, Iglesias sign or pain over Mcburney's point. MUSCLES/EXTREMITIES Limited ROM of the hip due to pain. Para spinal tenderness with palpated muscle spasm. SKIN Warm, pink and dry. No rashes, dermatoses, petechiae or lesions. NEUROLOGICAL Speech is clear and appropriate. Normal level of consciousness. Gait and coordination are normal. 5/5 strength in all extremities. PSYCH Normal mood and affect. Judgement/competence is appropriate Coding Level of Care Code Est Pt Level 1 (01958) Diagnoses Bilateral low back pain without sciatica, unspecified chronicity M54.50 Back pain laterality: bilateral Chronicity: unspecified Sciatica presence: without sciatica Assessment & Plan Assessment & Plan (1) Low back pain: Code(s): M54.50 - Low back pain, unspecified Category: Medical Qualifiers: Back pain laterality: bilateral Chronicity: unspecified Sciatica presence: without sciatica Qualified Code(s): M54.50 - Low back pain, unspecified Plan: - Naproxen, Cyclobenzaprin, Lidocaine patch. - Reffered patient to PT. Plan I discussed with the patient the management of his muscle spasms and back pain, emphasizing the use of cyclobenzaprine and ibuprofen as first-line treatments. We also talked about the importance of continuing his Humira regimen for spondyloarthropathy and the potential benefits of physical therapy. I advised against the immediate use of morphine due to its strength and potential side effects, suggesting it only if other treatments fail. Orders: Orders PT Evaluation and Treatment Today M54.50 - Low back pain, unspecified Medications: New cyclobenzaprine 10 mg PO TID 60 tabs 0RF 20 days naproxen 250 mg PO BID PRN 40 tabs 0RF pain 20 days lidocaine 5% leave on most painful area for up to 12 hrs 1 patch topical DAILY 15 ea 0RF 15 days
[2024-11-18 11:35] VITALS: BP 150/80; PULSE 103; TEMP 36.3; O2SAT 97; BMI 33.9
--- OUTSIDE RECORDS SUMMARY | 2024-11-18 13:43 | XMS_ITS | Encounter Summary ---
Author Organization [facility] Address [address] [place] [address] Care Team Providers Care Die Presser Name Role Phone Unavailable Primary Care Provider Unavailabl e Encounter Details Date Type Department Care Team (Late st Contact Info) Description 01/14/2019 Abstract [facility] PM Rheumatology [place] [address] [facility] [address] [place], [place] [id number] Re Blake MD [address] [facility] [place] [address] Social History Tobacco Use Types [...]
--- OUTSIDE RECORDS SUMMARY | 2024-11-18 13:43 | XMS_ITS | Clinical Summary ---
Author Organization [address] Address [address] [place] [id number] Care Team Providers Care Medical Practice Assistant Name Role Phone Unavailable Primary Care Provider [...] Dose Standard Series) 2018 Covid-19 vaccine series (1 - 2023- season) 2024 Influenza vaccine 11/10/2024 12/24/2019, 12/07/2017 RSV Immunization (1 - 1-dose 75+ series) 10/30/2043 Meningococcal B Vaccine Aged Out No l onger eligible based on patient's age to complete this topic Meningococcal Vaccine Aged Out No zia maria esther eligible based on patient's age to complete this topic
--- OUTSIDE RECORDS SUMMARY | 2024-11-18 13:43 | XMS_ITS | Clinical Summary ---
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
--- OUTSIDE RECORDS SUMMARY | 2024-11-18 13:43 | XMS_ITS | Patient Health Record ---
Author Organization [facility] Address [address] [place] [address] Care Team Providers Care Dining Room Host/Hostess Name Role Phone Kavin Pavon Unavailable [phone] Reason For Referral No Information Plan Of Treatment No Information
--- OUTSIDE RECORDS SUMMARY | 2024-11-18 13:43 | XMS_ITS | Encounter Summary ---
Author Organization [facility] Address [address] [place] [address] Care Team Providers Care Levee Superintendent Name Role Phone Unavailable Primary Care Provider Unavailabl e Encounter Details Date Type Department Care Team (Late st Contact Info) Description 07/21/2019 Scanned Document [facility] PM Rheumatology [place] [address] [facility] [address] [place] [address] Re Blake MD [address] [facility] [place] [address] Social History Tobacco Use Types [...]
== END 2024-11-18 12:05 | disposition home or self-care (01) ==
PROVIDERS: PCP Internal Medicine; Visit Provider Internal Medicine
DX: M54.50 Low back pain, unspecified (principal)

== ENCOUNTER → 2024-11-18 11:19 | Outpatient (BNVA) | payer MEDICARE, MEDICAID, SELFPAY | PROVIDERS: PCP Internal Medicine; Visit Provider Internal Medicine | DX: R25.2 Cramp and spasm (principal); M54.50 Low back pain, unspecified | CPT/HCPCS: 99211 ==

== ENCOUNTER 2024-11-21 11:20 | Outpatient (AMB) | payer OTHER, SELFPAY ==
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
== END 2024-11-21 13:05 | disposition home or self-care (01) ==
LOC: HO.HBST 11:20
PROVIDERS: PCP Internal Medicine; Visit Provider Counselor Mental Health
DX: F32.A Depression, unspecified (principal); Z71.89 Other specified counseling
CPT/HCPCS: 90791

== ENCOUNTER 2024-12-09 14:40 | Outpatient (AMB) | payer MEDICARE, MEDICAID, SELFPAY ==
[2024-12-09 14:56] VITALS: BP 110/70; PULSE 84; O2SAT 96; BMI 34.3
--- NOTE | 2024-12-09 14:56 | A.OFFPC_ITS ---
Vital Signs 12/09/24 14:56 Height 5 ft 8.5 in Weight 229 lb BMI 34.3 BP 110/70 Blood Pressure Location Lt brachial Position Sitting Pulse 84 Pulse Source Pulse Oximeter Pulse Oximetry (%) 96 Oxygen Delivery Method Room Air Intake Visit Reasons: 4 month Surgical Asst Required: No Accompanied by: Self / Same As Patient Allergies No Known Allergies (No Known Allergies*) Allergy (Verified 12/09/24 15:45) Medication List - Last Reconciled 12/09/24 by Aniket Vega MD adalimumab (Humira) inject one - 40 mg/0.8 mL syringe every 2 weeks subcut ashwagandha root extract 1,000 mg PO DAILY atorvastatin 10 mg PO BEDTIME 90 days [bovine colostrum PO] cholecalciferol (vitamin D3) 50 mcg PO DAILY 90 days [collagen peptide PO] [creatine PO] cyclobenzaprine 10 mg PO TID 20 days folic acid 1 mg PO DAILY gabapentin 100 mg PO BID 30 days hydrochlorothiazide 25 mg PO DAILY PRN 30 days lidocaine 5% 1 patch topical DAILY 15 days magnesium oxide 400 mg PO DAILY metformin 500 mg PO DAILY 90 days methotrexate (PF) (Rasuvo (PF)) 17.5 mg subcut QWEEK multivitamin (Daily Multi-Vitamin tablet) 1 tab PO DAILY naproxen 250 mg PO BID PRN 20 days Tobacco use date assessed: 12/09/24 Dental Screening Dental Screen Date: 12/09/24 Did you have a dental visit in the last 12 months?: No Did you have a dental problem in the last 6 months where you did not have access to dental care?: No Was dental information given to patient?: No HPI 4 month HPI Details Patient comes in today for his follow up visit States that the right lower back pain that he was experiencing about 3 weeks ago has completely resolved and he currently no longer has any recurrence of the above symptoms Reports that he recently noticed a small raised skin tag/lesion on the left side of the middle of his back and is wondering whether this came up as a result of a spider bite that he reportedly had a while back States that the lesion does not itch or hurt and has not been draining at all Patient states that he feels okay otherwise He denies any headaches or dizziness Denies any chest pains, no shortness of breath No nausea/vomiting, no abdominal pain No change in bowel habits noted He was not able to get his follow-up labs done prior to his appointment today States that he is scheduled to see weight management here at [facility] tomorrow afternoon He recently read something online about a weight loss product called BPC 157 and states that he can get this easily on [employer] and would like to know if this is something we can recommend for him PENDING SALE TO [facility] Medical History Low back pain Lower extremity edema Hyperlipidemia Hypertension Obstructive sleep apnea on CPAP BMI 35.0-35.9,adult Depression Osteoarthritis of both hips Osteoarthritis of right hip Diabetes mellitus Vitamin D deficiency Hx of flexible sigmoidoscopy Pure hypercholesterolemia Obesity (BMI 30-39.9) Learning disability DMII (diabetes mellitus, type 2) Seronegative spondyloarthropathy Surgical History Hx of colonoscopy History of hip replacement Family History Mother No problems noted. Social History Housing: Condominium Alcohol intake: current Comment: occasional one drink Patient Tobacco Use Status: Never used Tobacco e-Cigarette/Vaping Use: Never Used Second Hand Smoke Exposure: No service: No Current occupational status: unemployed Current occupational exposures/hazards: No Cognitive needs: No Hearing needs: Yes (right ear ) Vision needs: Yes (glasses) Questionnaire Thrive Questionnaire Date Thrive assessed: 04/09/24 I am a: Patient What is your living situation today?: I have a steady place to live Within the past 12 months, did the food you bought not last and you didn't have the money to get more?: I choose not to answer this question Within the past 12 months, did you worry whether your food would run out before you got money to buy more?: I choose not to answer this question Do you have trouble paying for medicines?: I choose not to answer this question Do you have trouble getting transportation to medical appointments?: No Do you have trouble paying your heating and electricity bill?: I choose not to answer this question Do you have trouble taking care of your child, family member or friend?: I choose not to answer this question Do you have trouble with day-to-day activities such as bathing, preparing meals, shopping, managing finances, etc.?: Yes Are you currently unemployed and looking for a job?: I choose not to answer this question Are you interested in more education?: I choose not to answer this question Please select the resources that you would like help with: None Currently or been in a relationship where the following occur: I choose not to answer THRIVE Score: 0 AUDIT C Alcohol Use Questionnaire (AUDIT-C) 1. How often do you have a drink containing alcohol?: Never 3. How often do you have six or more drinks on one occasion?: Never Total Score: 0 Score Reviewed/Action Taken: Yes ADRIANO-7 AMB Questionnaire ADRIANO-7 Date ADRIANO - 7 assessed: 08/08/24 Source: Developed by Drs. Kavin Eason, Kaylin Lam, Josep Singer and colleagues, with an educational randi from [employer]. Review of Systems Const Denies chills, Denies fatigue, Denies fever(s) and Denies headache(s) ENT Denies dysphagia, Denies dizziness, Denies otalgia, Denies headache(s), Denies neck pain, Denies odynophagia and Denies sore throat Card Denies chest pain, Denies irregular heart rhythm, Denies palpitations and Denies dyspnea Resp Denies chest congestion, Denies cough and Denies dyspnea GI Denies abdominal pain, Denies constipation, Denies dysphagia, Denies heartburn, Denies diarrhea, Denies nausea, Denies odynophagia and Denies vomiting Denies difficulty urinating, Denies dysuria, Denies nocturia and Denies urinary frequency Musc Reports back pain (over the lower back - chronic), Reports arthralgias (over multiple joints, including both hips, on and off) and Denies neck pain Skin/Breast Details: (+) small raised skin lesion (skin tag) over the left side of the middle of his back Denies rash Neuro Denies dizziness, Denies headache(s) and Denies paresthesias Psych Reports depression Endo Denies fatigue and Denies palpitations Physical exam (Primary Care) Vital Signs: Last Vital Signs Pulse 84 12/09/24 14:56 BP 110/70 12/09/24 14:56 Pulse Ox 96 12/09/24 14:56 Oxygen Delivery Method Room Air 12/09/24 14:56 BMI result Body Mass Index 34.3 Tobacco/Smoking Status: Tobacco use Status Tobacco use date assessed 12/09/24 12/09/24 14:59 Patient Tobacco Use Status Never used Tobacco 12/09/24 14:59 e-Cigarette/Vaping Use Never Used 12/09/24 14:59 Thrive Assessment: Date of Thrive Assessment Date Thrive assessed 04/09/24 12/09/24 14:59 Currently or been in a relationship where the following occur: I choose not to answer Const General: no acute distress and alert HENMT Ears: TM's normal bilaterally and EAC's normal Throat: Yes posterior oropharynx normal and Yes tonsils normal (no TP congestion) Neck Neck: Yes supple and No lymphadenopathy Thyroid: Thyroid normal Resp Auscultation: clear to auscultation bilaterally, no rales and no wheezes Cardio Rate: regular rate Rhythm: regular rhythm Heart sounds: no murmurs GI Palpation (GI): Soft to palpation and nontender Auscultation: normal bowel sounds General: Yes no CVA tenderness Back/Spine/Pelvis Back: no CVA tenderness Thoracic/Lumbar Spine: lumbar spinal tenderness Skin Other: (+) small raised skin lesion on the left side of the mid to lower back - lesion is non-tender on palpation and there are no other skin lesions or ulcerations noted Rashes: no rashes Extrem General: Yes no clubbing, cyanosis or edema Right lower extremity: hip/thigh Details: tenderness Location: of the hip and knee Details: tenderness; no swelling Left lower extremity: hip/thigh Details: tenderness Location: of the hip (chronic) and knee Details: tenderness; no swelling Coding Level of Care Code Est Pt Level 4 (39067) Diagnoses Skin lesion of back L98.9 Pure hypercholesterolemia E78.00 Type 2 diabetes mellitus without complication, without long-term current use of insulin E11.9 Diabetes mellitus type: type 2 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 insulin use: without penitentiary use Diabetes mellitus complication status: without complication Seronegative spondyloarthropathy M47.819 Bilateral low back pain without sciatica, unspecified chronicity M54.50 Chronicity: unspecified Back pain laterality: bilateral Sciatica presence: without sciatica Osteoarthritis of both hips, unspecified osteoarthritis type M16.0 Osteoarthritis type: unspecified ELIJAH (obstructive sleep apnea) G47.33 Vitamin D deficiency E55.9 Edema of both lower extremities R60.0 Neuropathy G62.9 Depression F32.A Depression Type: major depressive disorder Major depression recurrence: recurrent Major depression episode severity: unspecified Obesity (BMI 30-39.9) E66.9 Assessment & Plan Assessment & Plan (1) Skin lesion of back: Code(s): L98.9 - Disorder of the skin and subcutaneous tissue, unspecified Category: Medical Plan: Will refer patient to surgery for consideration for excision the the lesion on his back Have reassured patient that the lesion on his back appears to be consistent with a skin tag, which is a benign lesion, and has nothing to do with his recent spider bite (2) Pure hypercholesterolemia: Code(s): E78.00 - Pure hypercholesterolemia, unspecified Category: Medical Plan: He was not able to get his previously ordered follow up labs done prior to coming in for his appointment today He is reminded/cautioned that his cholesterol levels are still higher than they should be when they were last checked a few months ago - his serum triglyceride level has gone up significantly and was at 303 mg/dL when last checked a few months ago Reinforced low cholesterol diet Continue Atorvastatin 10 mg QD Follow up with etcher apprentice at weight management as scheduled Will recheck his labs and fasting lipids in 4 months for follow up - will just have patient use his current orders (updated) for his next lab draw (3) Diabetes mellitus: Code(s): E11.9 - Type 2 diabetes mellitus without complications Category: Medical Qualifiers: Diabetes mellitus type: type 2 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 operator insulin use: without nitrocellulose operator use Diabetes mellitus complication status: without complication Qualified Code(s): E11.9 - Type 2 diabetes mellitus without complications Plan: His HgbA1c was at 6.9% when last checked a few months ago (was previously at 6.4%) - goal is at least <7.0% but ideally <6.5% Reinforced diabetic diet Continue Metformin 500 mg QD (4) Seronegative spondyloarthropathy: Code(s): M47.819 - Spondylosis without myelopathy or radiculopathy, site unspecified Category: Medical Plan: Continue Humira injections 40 mg SQ every 2 weeks, Methotrexate (Rasuvo) 17.5 mg mg SQ once a week and Folic acid 1 mg QD Follow up with rheumatology as scheduled - he sees Dr. Horn at [facility] (5) Low back pain: Code(s): M54.50 - Low back pain, unspecified Category: Medical Qualifiers: Chronicity: unspecified Back pain laterality: bilateral Sciatica presence: without sciatica Qualified Code(s): M54.50 - Low back pain, unspecified Plan: X-rays of the lumbar spine done a few months ago revealed (+) mild multileveldegenerative changes with no acute findings Reinforced activity and weight-lifting restrictions to avoid aggravating his low back pain Patient states that the right lower back pain that he was experiencing about 3-4 weeks ago completely his own and his lower back pain is now back to his baseline (6) Osteoarthritis of both hips: Code(s): M16.0 - Bilateral primary osteoarthritis of hip Category: Medical Qualifiers: Osteoarthritis type: unspecified Qualified Code(s): M16.0 - Bilateral primary osteoarthritis of hip Plan: Patient had left hip surgery with insertion of metal alexandre into his hip back in 2002 and he's had some posttraumatic ostoearthritic changes in his left hip since over the years His recent right hip x-rays done back in December 2023 revealed (+) moderate degenerative changes of the right hip without fracture or dislocation He is currently following up with rheumatology at [facility] We referred patient to orthopedics at his last visit and he is now seeing Dr. Reid for his knee and hip pains (7) ELIJAH (obstructive sleep apnea): Comment: Severe degree of sleep apnea. The AHI was 32/hr, supine AHI was 53/hr and oxygen cherie was 73%. Code(s): G47.33 - Obstructive sleep apnea (adult) (pediatric) Category: Medical Plan: Home sleep study done back in October 2022 revealed (+) severe ELIJAH Continue using his CPAP device when sleeping at night - states that he has experienced significant improvement of his symptoms with CPAP therapy Follow up with Sleep Medicine as scheduled (8) Vitamin D deficiency: Code(s): E55.9 - Vitamin D deficiency, unspecified Category: Medical Plan: Continue Vitamin D3 2000 units QD (9) Edema of both lower extremities: Code(s): R60.0 - Localized edema Category: Medical Plan: Most likely stasis/dependent edema Continue HCTZ 25 mg QD PRN for edema - he has been on this for years (Rx was started years ago by his previous, PCP Dr. Solares) (10) Neuropathy: Code(s): G62.9 - Polyneuropathy, unspecified Category: Medical Plan: Continue Gabapentin 100 mg BID (11) Depression: Code(s): F32.A - Depression, unspecified Category: Medical Qualifiers: Depression Type: major depressive disorder Major depression recurrence: recurrent Major depression episode severity: unspecified Plan: Patient admits to feeling depressed and lonely for a while now and he is now requesting to see psychiatry - referral to psychiatry placed (12) Obesity (BMI 30-39.9): Code(s): E66.9 - Obesity, unspecified Category: Medical Plan: Reinforced diet/exercise as tolerated/lose weight although patient states that he is very limited in what exercises that he can do due to his disabilities Follow up with weight management as scheduled Plan To return as scheduled in April 2025 for his next annual physical examination Patient is reminded to get his follow-up labs done prior to come in for his annual PE next April 2024 - previous lab orders are all updtaed for his next lab draw Orders: Referrals General Surgery Referral L98.9 - Disorder of the skin and subcutaneous tissue, unspecified
--- OUTSIDE RECORDS SUMMARY | 2024-12-09 16:05 | XMS_ITS | Encounter Summary ---
Author Organization [facility] Address [address] [place] [address] Care Team Providers Care Manager Stylist Name Role Phone Unavailable Primary Care Provider Unavailabl e Encounter Details Date Type Department Care Team (Late st Contact Info) Description 01/14/2019 Abstract [facility] PM Rheumatology [place] [address] [facility] [address] [place], [place] [id number] Re Blake MD [address] [facility] [place] [address] Social History Tobacco Use Types [...]
--- OUTSIDE RECORDS SUMMARY | 2024-12-09 16:05 | XMS_ITS | Clinical Summary ---
Author Organization [facility] Address [address] [facility] [address] [place] [address] Phone Care Team Providers Care Zoo Veterinarian Name Role Phone Aniket Vega MD Primary Care Provider [phone] Allergies No known active allergies Medications ascorbic [...] 2 capsules by mouth daily. Active COLLAGEN MISCIndications:Colla gen super food powder for joints by Miscellaneous route. Indications: Collagen super food powder for joints Active atorvastatin (LIPITOR) 10 MG tablet Take 10 mg by mouth nightly at bedtime. 2022 Active lactobacillus rhamnosus GG-inulin (CULTURELLE PROBIOTIC) 10 billion cell -200 mg CpSP Take 159 mg by mouth daily. Active folic acid (FOLVITE) 1 MG tabletIndications:Ser onegative spondyloarthropathy,M ethotrexate, long lines operator, current use TAKE 1 TABLET (1 MG TOTAL) BY MOUTH DAILY. 90 tablet 3 2024 Active methotrexate, PF, (RASUVO, PF,) 17.5 mg/0.35 mL AtInIndications:Seron egative spondyloarthropathy Inject 17.5 mg under the skin every 7 days. 4 mL 11 2024 Active HUMIRA 40 mg/0.8 mL syringe kitIndications:Serone gative spondyloarthropathy INJECT 0.8 ML UNDER THE SKIN EVERY 14 DAYS 2 each 11 2024 Active adalimumab (HUMIRA) 40 mg/0.8 mL syringe kitIndications:Serone gative spondyloarthropathy Inject 0.8 mL (40 mg total) under the skin every 14 (fourteen) days. 0.8 mL 11 11/26 Discontinued Active Problems Problem Noted Date Diagnosed Date [...] and follow closely as prescribed with treating change control coordinator/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 team Assessment & Plan (06/19/2024 5:32 PM EDT): Continue nightly CPAP and follow closely as prescribed with treating change control coordinator/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 team Class 2 severe obesity due [...] sure to inform any new KRISS REYEZ HEDDLER TIER about chronic immunosuppression with Humira and methotrexate [...] sure to inform any new KRISS REYEZ HEDDLER TIER about chronic immunosuppression with Humira and methotrexate [...] sure to inform any new KRISS REYEZ HEDDLER TIER about chronic immunosuppression with Humira and methotrexate [...] next visit in 4 months-standing orders in [facility]. Call if questions or problems. Assessment & [...] next visit in 3 months-standing orders in [facility]. Call if questions or problems. Assessment & Plan (02/19/2024 11:46 AM EST): Get labs monitoring safety of therapy prior to next visit in 4 months - standing orders in [facility] Carefully continue weekly subcutaneous methotrexate 17.5 [...] function. See details in communication section of [facility]. He is really stressed out about the risk of losing insurance coverage for his life-saving Humira and methotrexate . He is aware and worried about upcoming appointment/conference with his utility bill complaints investigator and insurance regarding coverage on 03/21/2024. Call if questions or problems. Assessment & Plan (10/21/2023 9:59 PM EDT): Get labs monitoring safety of therapy prior to next visit in 4 months - standing orders in [facility] Carefully continue weekly subcutaneous methotrexate 17.5 [...] function. See details in communication section of [facility]. Call if questions or problems. Assessment & Plan (06/14/2023 3:08 PM EDT): Get labs monitoring safety of therapy prior to next visit in 4 months - standing orders in [facility] Carefully continue weekly subcutaneous methotrexate 17.5 [...] in 4 months - standing orders in [facility] Carefully continue weekly subcutaneous methotrexate 17.5 mg every Sunnes, daily folic acid 1 mg and subcutaneous [...] in 4 months - standing orders in [facility] Carefully continue weekly subcutaneous methotrexate 17.5 [...] in 4 months - standing orders in [facility] Carefully continue weekly subcutaneous methotrexate 17.5 [...] in 3 months - standing orders in [facility] Carefully continue weekly oral methotrexate to 17.5 mg = 7 tablets every Sunday and continue subcutaneous Humira every 14 days [...] 7 tablets every Sunday and continue subcutaneous Humira every 14 days [...] 7 tablets every Sunday and continue subcutaneous Humira every 14 days [...] at 12.5 mg = 5 tablets every Wednes and continue subcutaneous Enbrel every Sunday. Avoid [...] at 12.5 mg = 5 tablets every Wednes and continue subcutaneous Enbrel every Sunday. Avoid [...] him to consider warm pool therapy at [facility]. Call if questions or problems. Assessment [...] loss and appropriate aids as necessary. Methotrexate, long lines operator, current use 03/16/2017 Assessment & Plan (09/21/2024 9:56 PM EDT): Keep well-hydrated. Take exactly as prescribed. Remain alcohol free while on methotrexate. Hold methotrexate if sick, running fever or taking antibiotics. Seek immediate medical attention if running fevers, experiencing shortness of breath and cough. If seeing a new MD HEDDLER TIER, PA make sure to notify them of [...] and cough. If seeing a new MD HEDDLER TIER, PA make sure to notify them of [...] and cough. If seeing a new MD HEDDLER TIER, PA make sure to notify them of [...] and cough. If seeing a new MD HEDDLER TIER PA make sure to notify them of [...] and cough. If seeing a new MD HEDDLER TIER PA make sure to notify them of [...] and cough. If seeing a new MD HEDDLER TIER PA make sure to notify them of [...] and cough. If seeing a new MD HEDDLER TIER PA make sure to notify them of [...] and cough. If seeing a new MD HEDDLER TIER PA make sure to notify them of [...] and cough. If seeing a new MD HEDDLER TIER PA make sure to notify them of [...] and cough. If seeing a new MD HEDDLER TIER PA make sure to notify them of [...] and cough. If seeing a new MD HEDDLER TIER PA make sure to notify them of [...] dietary/nutritional support. He would benefit from formal Risk Manager/ linux vmware administrator counselling Assessment & Plan (01/08/2019 2:33 PM [...] questions. Make sure to inform any new physician/HEDDLER TIER/PA about chronic immunosuppressive therapy with methotrexate and [...] questions. Make sure to inform any new physician/HEDDLER TIER/PA about chronic immunosuppressive therapy with methotrexate and [...] questions. Make sure to inform any new physician/HEDDLER TIER/PA about chronic immunosuppressive therapy with methotrexate and [...] questions. Make sure to inform any new physician/HEDDLER TIER/PA about chronic immunosuppressive therapy with methotrexate and [...] questions. Make sure to inform any new physician/HEDDLER TIER/PA about chronic immunosuppressive therapy with methotrexate and [...] questions. Make sure to inform any new physician/HEDDLER TIER/PA about chronic immunosuppressive therapy with methotrexate and [...] questions. Make sure to inform any new physician/HEDDLER TIER/PA about chronic immunosuppressive therapy with methotrexate and [...] questions. Make sure to inform any new physician/HEDDLER TIER/PA about chronic immunosuppressive therapy with methotrexate and Enbrel particularly if his health status worsens Assessment & Plan (07/29/2019 10:15 AM EDT): Avoid sick contacts. Hold Enbrel whenever running fever, feeling sick or taking antibiotics. Make sure to inform any new physician/HEDDLER TIER/PA about chronic immunosuppressive therapy with methotrexate and Enbrel particularly if his health status worsens Assessment & Plan (05/12/2019 4:31 PM EST): Avoid sick contacts. Hold Enbrel whenever running fever, feeling sick or taking antibiotics. Make sure to inform any new physician/HEDDLER TIER/PA about chronic immunosuppressive therapy with methotrexate and Enbrel particularly if his health status worsens Assessment & Plan (03/13/2019 3:22 PM EST): Avoid sick contacts. Hold Enbrel whenever running fever, feeling sick or taking antibiotics. Make sure to inform any new physician/HEDDLER TIER/PA about chronic immunosuppressive therapy with methotrexate and Enbrel particularly if his health status worsens Assessment & Plan (01/08/2019 2:34 PM EDT): Avoid sick contacts. Hold Enbrel whenever running fever, feeling sick or taking antibiotics. Make sure to inform any new physician/HEDDLER TIER/PA about chronic immunosuppressive therapy with methotrexate and Enbrel particularly if his health status worsens Assessment & Plan (07/06/2018 12:03 PM EDT): Avoid sick contacts. Hold Enbrel whenever running fever, feeling sick or taking antibiotics. Make sure to inform any new physician/HEDDLER TIER/PA about chronic immunosuppressive therapy with methotrexate and Enbrel particularly if his health status worsens Assessment & Plan (04/28/2018 11:20 AM EST): Avoid sick contacts. Hold Enbrel whenever running fever, feeling sick or taking antibiotics. Make sure to inform any new physician/HEDDLER TIER/PA about chronic immunosuppressive therapy with methotrexate and Enbrel particularly if his health status worsens Encounters Date Type Department Care Team Description 11/25/2024 Refill [facility] Rheumatology [address] [place] [address] Cristel Bagley MD Medication Refill 09/19/2024 Telephone [facility] Rheumatology [address] [place] [address] Cristel Bagley MD Rasuvo 09/18/2024 4:00 PM EDT Office Visit [facility] Rheumatology [address] [place] [address] Cristel Bagley MD Seronegative spondyloarthropathy (Primary Dx); Methotrexate, shelter, current use; Adalimumab (Humira) long-term use; Learning [...] PM EDT Hospital Encounter [facility] [address] [place] [address] Cristel Bagley MD Discharge Disposition: Home or [...] Description 01/19/2025 4:00 PM EST Office Visit [facility] Rheumatology [address] [place] [address] Cristel Bagley MD [address] [facility] [address] [facility], [address] [place] [address] Health Maintenance Due Date Last Done Comments [...] - Moderna risk series) 08/25/2020 07/28/2020, 06/23/2020 INFLUENZA VACCINE (#1) 2024 , 12/24/2019, 10/30/2019, Additional history exists CREATININE LEVEL 09/17/2025 09/17/2024, 11/2024, 02/15/2024, Additional [...] spondyloarthropath y Adalimumab (Humira) long-term use Methotrexate, long lines operator, current use C-REACTIVE PROTEIN Routine 09/17/2024 2: 33 PM EDT Seronegative spondyloarthropath y Adalimumab (Humira) long-term use Methotrexate, shelter, current use SEDIMENTATION RATE (ESR) Routine 09/17/2024 2:33 PM EDT Seronegative spondyloarthropath y Adalimumab (Humira) long-term use Methotrexate, shelter, current use CBC AND DIFFERENTIAL Routine 09/17/2024 2:33 PM EDT Seronegative spondyloarthropath y Adalimumab (Humira) long-term use Methotrexate, long lines operator, current use from Last 3 Months Results * (ABNORMAL) Comprehensive metabolic panel (09/17/2024 2:33 PM EDT) SODIUM 138 133 - 146 mmol/L [facility] POTASSIUM 4.4 3.3 - 5.1 mmol/L [facility] CHLORIDE 100 96 - 108 mmol/L [facility] CO2 27 21 - 35 mmol/L [facility] BUN 16 6 - 19 mg/dL [facility] CREATININE 0.90 0.5 - 1.5 mg/dL [facility] GLUCOSE 147(H) 70 - 99 mg/dL [facility] ALBUMIN 4.3 3.9 - 4.8 g/dL [facility] TOTAL PROTEIN 7.7 6.5 - 8.0 g/dL [facility] CALCIUM 9.8 8.4 - 10.3 mg/dL [facility] ALKALINE PHOSPHATASE 84 39 - 117 U/L [facility] TOTAL BILIRUBIN 0.4 0.0 - 1.2 mg/dL [facility] AST 26 0 - 37 U/L [facility] ALT 32 0 - 40 U/L [facility] GLOBULIN 3.4 1 - 4.8 g/dL [facility] EGFR 101 >59 mL/min/1.7 3m2 [facility] Comment:Estimated glomerular filtration rate calculated using the CKD-EPI refit equation. ANION GAP 15 10 - 20 mmol/L [facility] Blood 09/17/2024 2:33 PM EDT 09/17/2024 2:34 PM EDT us Crsitel Bagley MD LAB BLOOD ORDERABLES Fin al Result Performing Organization Address City/[facility] Co de Phone Number [address] [address] * Sedimentation rate (ESR) (09/17/2024 2:33 PM EDT) ESR 10 0 - 20 mm/h [facility] Blood 09/17/2024 2:33 PM EDT 09/17/2024 2:34 PM EDT us Cristel Bagley MD LAB BLOOD ORDERABLES Fin al Result [facility] [address] [place] [address] * CBC and differential (09/17/2024 2:33 PM EDT) WBC 7.62 4.00 - 11.00 K/uL [facility] RBC 4.85 4.50 - 5.90 M/uL [facility] HGB 14.8 13.5 - 17.5 g/dL [facility] HCT 44.3 41.0 - 53.0 % [facility] PLT 236 150 - 450 K/uL [facility] MCV 91.3 80.0 - 100.0 fL [facility] MCH 30.5 27.0 - 31.0 pg [facility] MCHC 33.4 32.0 - 36.0 g/dL [facility] RDW 12.5 11.5 - 14.5 % [facility] MPV 10.7 8.4 - 12.0 fL [facility] NRBC 0.00 0.00 /100 WBCs [facility] ABSOLUTE NRBC 0.00 0.00 K/uL [facility] DIFF METHOD Auto [facility] NEUTS 57.5 48.0 - 76.0 % [facility] LYMPHS 33.5 18.0 - 41.0 % [facility] MONOS 7.2 4.0 - 11.0 % [facility] EOS 0.8 0.0 - 5.0 % [facility] BASOS 0.5 0.0 - 1.5 % [facility] Granulocytes, immature (%) 0.5 0.0 - 0.9 % [facility] ABSOLUTE NEUTS 4.38 1.92 - 7.60 K/uL [facility] ABSOLUTE LYMPHS 2.55 0.72 - 4.10 K/uL [facility] ABSOLUTE MONOS 0.55 0.16 - 1.10 K/uL [facility] ABSOLUTE EOS 0.06 0.00 - 0.50 K/uL [facility] ABSOLUTE BASOS 0.04 0.00 - 0.15 K/uL [facility] Granulocytes, immature 0.04 0.00 - 0.09 K/uL [facility] Blood 09/17/2024 2:33 PM EDT 09/17/2024 2:34 PM EDT us Cristel Bagley MD LAB BLOOD ORDERABLES Fin al Result [address] [address] * C-Reactive Protein (09/17/2024 2:33 PM EDT) C REACTIVE PROTEIN <3.0 0.0 - 4.0 mg/L [facility] Blood 09/17/2024 2:33 PM EDT 09/17/2024 2:34 PM EDT us Cristel Bagley MD LAB BLOOD ORDERABLES Fin al Result Performing Organization Address City/[facility]/ZIP Co de Phone Number [address] [address] from Last 3 Months [facility] & B [facility] MEDICARE REPLACEMENT [facility] MEDICARE PART A & B [facility] MEDICARE [facility]PLACEMENT [place] MEDICARE PART A & B [facility] MEDICARE REPLACEMENT [place] MEDICARE PART A & B [facility] MEDICARE [facility]PLACEMENT [facility] MEDICARE PART A & B [facility] MEDICARE REPLACEMENT [facility] MEDICARE PART A & B [facility] MEDICARE [facility]PLACEMENT [facility] MEDICARE PART A & B [facility] MEDICARE REPLACEMENT [place] MEDICARE PART A & B [facility] MEDICARE REPLACEMENT [place] MEDICARE PART A & B [facility] MEDICARE REPLACEMENT [place] [employer] COMPENSATION Care Teams Zoo Veterinarian Relationship Specialty Start Date End Date Aniket Vega MD [address] [place] [address] Dr [place] [address] [place] [id number] PCP - General Internal Medicine 03/16/22 Additional Source Comments The information contained in this document represents components of the legal health record. It is not the complete legal health record.[facility]
--- OUTSIDE RECORDS SUMMARY | 2024-12-09 16:05 | XMS_ITS | Encounter Summary ---
Author Organization [facility] Address [address] [place] [address] Care Team Providers Care Can Closing Machine Tender Name Role Phone Unavailable Primary Care Provider Unavailabl e Encounter Details Date Type Department Care Team (Late st Contact Info) Description 07/21/2019 Scanned Document [facility] Rheumatology [place] [address] [facility] [address] [place] [address] Re Blake MD [address] [facility] [place] [address] Social History Tobacco Use Types [...]
--- OUTSIDE RECORDS SUMMARY | 2024-12-09 16:05 | XMS_ITS | Clinical Summary ---
Author Organization [facility] Address [address] [place] [address] Care Team Providers Care Heel Slugger Name Role Phone Unavailable Primary Care Provider [...]
--- OUTSIDE RECORDS SUMMARY | 2024-12-09 16:05 | XMS_ITS | Clinical Summary ---
Author Organization [address] Address [address] [place] [phone] Care Team Providers Care Consulting Intern Name Role Phone Unavailable Primary Care Provider Unavailabl e Allergies No known active allergies Medications etanercept (ENBREL SURECLICK) 50 mg/mL (1 mL) injector penIndications: Rheumatoid arthritis of multiple sites with negative rheumatoid factor (HC Code) (HC CODE) Inject 50 mg under the skin every 7 days. Active methotrexate 2.5 mg tabletIndicatio ns:Rheumatoid arthritis of multiple sites with negative rheumatoid factor (HC Code) (HC CODE) TAKE 4 TABLETS (10MG TOTAL) BY MOUTH ONCE A WEEK 11 12/23/2018 Active folic acid (FOLVITE) 1 mg tabletIndicatio ns:Rheumatoid arthritis of multiple sites with negative rheumatoid factor (HC Code) (HC CODE) Take 1 mg by mouth daily. Active [...] 2 Dose Standard Series) 2018 Influenza vaccine 10/10/2024 12/24/2019, 12/07/2017 Covid-19 vaccine series ( - season) 2024 RSV Immunization (1 - 1-dose 75+ series) 10/30/2043 Meningococcal B Vaccine Aged Out No l onger eligible based on patient's age to complete this topic Meningococcal Vaccine Aged Out No zia maria esther eligible based on patient's age to complete this topic
--- OUTSIDE RECORDS SUMMARY | 2024-12-09 16:05 | XMS_ITS | Patient Health Record ---
Author Organization [facility] Address [address] [place] [address] Care Team Providers Care Animal Pathologist Name Role Phone Kavin Pavon Unavailable [phone] Reason For Referral No Information Plan Of Treatment No Information
== END 2024-12-09 15:58 | disposition home or self-care (01) ==
LOC: HO.HMCH 14:41
PROVIDERS: PCP Internal Medicine; Visit Provider Internal Medicine
DX: E11.42 Type 2 diabetes mellitus with diabetic polyneuropathy (principal); E66.9 Obesity, unspecified; Z68.34 Body mass index [BMI] 34.0-34.9, adult; L98.9 Disorder of the skin and subcutaneous tissue, unspecified; E78.00 Pure hypercholesterolemia, unspecified; M47.819 Spondylosis without myelopathy or radiculopathy, site unspecified; M54.50 Low back pain, unspecified; M16.0 Bilateral primary osteoarthritis of hip; G47.33 Obstructive sleep apnea (adult) (pediatric); E55.9 Vitamin D deficiency, unspecified; R60.0 Localized edema; G62.9 Polyneuropathy, unspecified

== ENCOUNTER → 2024-12-09 14:40 | Outpatient (BNVA) | payer MEDICARE, MEDICAID, SELFPAY | PROVIDERS: PCP Internal Medicine; Visit Provider Internal Medicine | DX: E11.42 Type 2 diabetes mellitus with diabetic polyneuropathy (principal); L91.8 Other hypertrophic disorders of the skin; E78.00 Pure hypercholesterolemia, unspecified; M47.819 Spondylosis without myelopathy or radiculopathy, site unspecified; M54.50 Low back pain, unspecified; M16.0 Bilateral primary osteoarthritis of hip; G47.33 Obstructive sleep apnea (adult) (pediatric); E55.9 Vitamin D deficiency, unspecified; R60.0 Localized edema; F32.A Depression, unspecified; E66.9 Obesity, unspecified; Z68.34 Body mass index [BMI] 34.0-34.9, adult | CPT/HCPCS: 99212 ==

== ENCOUNTER 2024-12-10 13:42 | Outpatient (AMB) | payer OTHER, SELFPAY ==
--- NOTE | 2024-12-10 13:50 | A.OFFWM_ITS ---
Intake Intake Visit Reasons: OV BH Intake Part 2 Allergies No Known Allergies (No Known Allergies*) Allergy (Verified 12/09/24 15:45) PFSH Medical History Low back pain Lower extremity edema Hyperlipidemia Hypertension Obstructive sleep apnea on CPAP BMI 35.0-35.9,adult Depression Osteoarthritis of both hips Osteoarthritis of right hip Diabetes mellitus Vitamin D deficiency Hx of flexible sigmoidoscopy Pure hypercholesterolemia Obesity (BMI 30-39.9) Learning disability DMII (diabetes mellitus, type 2) Seronegative spondyloarthropathy Surgical History Hx of colonoscopy History of hip replacement Family History Mother No problems noted. Social History Housing: Condominium Alcohol intake: current Comment: occasional one drink Patient Tobacco Use Status: Never used Tobacco e-Cigarette/Vaping Use: Never Used Second Hand Smoke Exposure: No service: No Current occupational status: unemployed Current occupational exposures/hazards: No Cognitive needs: No Hearing needs: Yes (right ear ) Vision needs: Yes (glasses) Behavioral Health Assessment Weight Management Therapy Therapy Notes Details The patient is a 54-year-old male presenting for an initial behavioral health assessment as part of the preoperative evaluation for a surgical weight loss program. He reports that his primary care provider referred him to the weight management program because his excess weight is exacerbating existing pain-related conditions. sleeps about 7.5 hr from 3am until 10:30am, Pt needs to imporve sleep hygene, support with habit building. Presenting Concerns Referral Source WMP-Provider Reason for referral Completion of behavioral health assessment as part of process for weight-loss surgery. Precipitating Event Obesity. Living Situation Current Living Situation Rent At risk of losing current housing? No Satisfied with current living situation? Yes Comments Pt lives alone. Food/Weight/Diet Expectations of change Recent weight: 225Lbs Target weight: 180Lbs. . Exercise plan: gym membership 30 min. Scale: yes Communication with provider: History/Relationship with food PT relies on food pantry which at times provide him with canned goods, carbs like pasta and rice, some fruits, season veggies and juice. He also uses multiple OTC supplements including collagen, calostrum, creatinina, some supplements are 1 serving per day and total calories of each product varies from 90-150cal. Which can be an average of 500cal extra at day. Example of meals before starting the program: Breakfast: 10:30am, 2-3 HB eggs, a piece of bread and coffee w/ 1 scoop of collagen. Lunch: 1 cofee Dinner: 8pm. salad, beans and fish. Snacks: Fruit, cofee Drinks/Liquids: Cofee: 8 cups at day. Soda: 1 can at week, Poppi brand 30 jesus per can. Juice: 1 cup x week. History/Relationship with weight Pt reports always been at a healthy weight up until he got , dealt with depression and got injured. In the last 10 years, the patient's Lowest weight was 180Lbs (2013) and highest 250Lbs History/Relationship with dieting Exercise, self-diet, eating less. Binge Eating Do you frequently eat large amounts of food in short periods of time, not feeling physically hungry? No Do you feel out of control when you eat a large amount of food in a short period of time? Yes Do you eat large amounts of food rapidly and typically alone? No Night Eating Do you wake up at least once during the night to eat? No If you wake up in the night, do you find that it is necessary to eat something in order to fall back asleep? No Do you have little or no appetite in the morning and feel very hungry in the evening, often overeating between dinner and when you go to bed? Yes Social History Family history and relationship PT is . He was for about 19 years, they had 1 son, who is 25 years old. PT is currently not in contact with his son. PT was raised by maternal grandparents who . His mother is alive but they don't talk. He never meet his father Parental/Familial game producer obligations None. 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 after that he has been dealing with a serious of physical issues and also have had MH treatment. Social support A close friend. Community support Providers. Restorationism/Spirituality Evangelic/ Temple. He visits the alevism regularly 1-2 x month. Cultural/Ethnic information PT was born in [place] and moved to [place] at age 13 Legal Involvement and History Current or historical involvement with the legal system? None reported. Education Highest grade completed 12th and 1 year college. Preferred learning style Visual Currently enrolled in educational program? No Interested in further educational program? 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 Employment Employment Status Other (Disabled since 2002.) Wants help to find employment? No Meaningful activities Tik tok, podcasts. Financial Situation Describe current financial situation Occasional struggle Financial assistance? Food [place] and SSI Service Service? No Mental Health and Addiction Treatment Current/Past substance abuse? No Comments Alcohol: on Holidays/ 1 beer at year. Cigarettes/Tobacco: None Cannabis/Edibles: none. Coffe: 2-3 cups 12oz each at day. Current/Past addictive behavior concerns? No Pain Screening Current pain? Yes Pain in the last few months? Yes Comments Low back pain. Chrinoc pain after accident. He has flareups. Medications Does the patient have Crenshaw Guardian in place? Not applicable Assessment & Plan Assessment & Plan (1) Depression: Code(s): F32.A - Depression, unspecified Qualifiers: Depression Type: major depressive disorder Major depression recurrence: recurrent Major depression episode severity: unspecified (2) Pre-bariatric surgery psychological evaluation: Code(s): Z71.89 - Other specified counseling Plan The patient has expressed a preference for weight loss medication along with a meal and exercise plan, rather than pursuing surgery. At this time, he is not considered an appropriate candidate for weight-loss surgery due to a pattern of following internet advice and trends over medical recommendations, and because he has not yet started the prescribed meal and exercise plan, making adherence uncertain. He is not cleared for surgery at this time. We will continue to work together to support his readiness and plan to reassess in 1?2 months. The patient will return in approximately 3 weeks. Next bienvenido: 12/31/2024 Coding Level of Care Code Established Pt Psytx >53 mins (84730) Patient Type Established Diagnoses Depression F32.A Depression Type: major depressive disorder Major depression recurrence: recurrent Major depression episode severity: unspecified Pre-bariatric surgery psychological evaluation Z71.89 Time Spent (min) 60
--- OUTSIDE RECORDS SUMMARY | 2024-12-10 14:58 | XMS_ITS | Clinical Summary ---
Author Organization [facility] Address [address] [place] [address] Care Team Providers Care Pecan Picker Name Role Phone Unavailable Primary Care Provider [...]
--- OUTSIDE RECORDS SUMMARY | 2024-12-10 14:58 | XMS_ITS | Clinical Summary ---
Author Organization [address] Address [address] [place] [id number] Care Team Providers Care Bowling Pin Setters Installer Name Role Phone Unavailable Primary Care [...]
--- OUTSIDE RECORDS SUMMARY | 2024-12-10 14:58 | XMS_ITS | Encounter Summary ---
Author Organization [facility] Address [address] [place] [address] Care Team Providers Care Speech Pathologist Assistant Name Role Phone Unavailable Primary Care Provider Unavailabl e Encounter Details Date Type Department Care Team (Late st Contact Info) Description 01/14/2019 Abstract [facility] PM Rheumatology [place] [address] [facility] [address] [place], [place] [id number] Re Blake MD [address] [facility] [place] [address] Social History Tobacco Use Types [...]
--- OUTSIDE RECORDS SUMMARY | 2024-12-10 14:58 | XMS_ITS | Encounter Summary ---
Author Organization [facility] Address [address] [place] [address] Care Team Providers Care Wildlife Biologist Name Role Phone Unavailable Primary Care Provider Unavailabl e Encounter Details Date Type Department Care Team (Late st Contact Info) Description 07/21/2019 Scanned Document [facility] PM Rheumatology [place] [address] [facility] [address] [place] [address] Re Blake MD [address] [facility] [place] [address] Social History Tobacco Use Types [...]
--- OUTSIDE RECORDS SUMMARY | 2024-12-10 14:58 | XMS_ITS | Clinical Summary ---
Author Organization [facility] Address [address] [facility] [address] [place] [address] Phone Care Team Providers Care Insurance Business Analyst Name Role Phone Aniket Vega MD Primary Care Provider [phone] Allergies No known active allergies Medications ascorbic [...] (FOLVITE) 1 MG tabletIndications:Ser onegative spondyloarthropathy,M [place]otrexate, [facility], current use TAKE 1 TABLET (1 MG [...] and follow closely as prescribed with treating liberal arts teacher/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 team Assessment & Plan (06/19/2024 5:32 PM EDT): Continue nightly CPAP and follow closely as prescribed with treating liberal arts teacher/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 team Class 2 severe obesity due [...] sure to inform any new KRISS REYEZ PIN INSERTER about chronic immunosuppression with Humira and methotrexate [...] sure to inform any new KRISS REYEZ PIN INSERTER about chronic immunosuppression with Humira and methotrexate [...] sure to inform any new KRISS REYEZ PIN INSERTER about chronic immunosuppression with Humira and methotrexate [...] next visit in 4 months-standing orders in [facility]. Call if questions or problems. Assessment & [...] next visit in 3 months-standing orders in [facility]. Call if questions or problems. Assessment & Plan (02/19/2024 11:46 AM EST): Get labs monitoring safety of therapy prior to next visit in 4 months - standing orders in [facility] Carefully continue weekly subcutaneous methotrexate [...] function. See details in communication section of [facility]. He is really stressed out about the risk of losing insurance coverage for his life-saving Humira and methotrexate . He is aware and worried about upcoming appointment/conference with his wet end supervisor and insurance regarding coverage on 03/21/2024. Call if questions or problems. Assessment & Plan (10/21/2023 9:59 PM EDT): Get labs monitoring safety of therapy prior to next visit in 4 months - standing orders in [facility] Carefully continue weekly subcutaneous methotrexate [...] function. See details in communication section of [facility]. Call if questions or problems. Assessment & Plan (06/14/2023 3:08 PM EDT): Get labs monitoring safety of therapy prior to next visit in 4 months - standing orders in [facility] Carefully continue weekly subcutaneous methotrexate [...] in 4 months - standing orders in [facility] Carefully continue weekly subcutaneous methotrexate [...] in 4 months - standing orders in [facility] Carefully continue weekly subcutaneous methotrexate [...] in 4 months - standing orders in [facility] Carefully continue weekly subcutaneous methotrexate [...] in 3 months - standing orders in [facility] Carefully continue weekly oral methotrexate [...] him to consider warm pool therapy at [facility]. Call if questions or problems. Assessment [...] loss and appropriate aids as necessary. [facility]ate[facility], current use 03/16/2017 Assessment & Plan (09/21/2024 9:56 PM EDT): Keep well-hydrated. Take exactly as prescribed. Remain alcohol free while on methotrexate. Hold methotrexate if sick, running fever or taking antibiotics. Seek immediate medical attention if running fevers, experiencing shortness of breath and cough. If seeing a new MD PIN INSERTER, PA make sure to notify them of [...] and cough. If seeing a new MD PIN INSERTER, PA make sure to notify them of [...] and cough. If seeing a new MD PIN INSERTER, PA make sure to notify them of [...] and cough. If seeing a new MD PIN INSERTER PA make sure to notify them of [...] and cough. If seeing a new MD PIN INSERTER PA make sure to notify them of [...] and cough. If seeing a new MD PIN INSERTER PA make sure to notify them of [...] and cough. If seeing a new MD PIN INSERTER PA make sure to notify them of [...] breath and cough. If seeing a new KRSYTAL REYEZ PA make sure to notify them [...] and cough. If seeing a new KRYSTAL REEYZ PA make sure to notify them of [...] and cough. If seeing a new MD PIN INSERTER PA make sure to notify them of [...] and cough. If seeing a new MD PIN INSERTER PA make sure to notify them of [...] and cough. If seeing a new MD PIN INSERTER PA make sure to notify them of [...] and cough. If seeing a new MD PIN INSERTER PA make sure to notify them of [...] dietary/nutritional support. He would benefit from formal Nurse Manager/ education director counselling Assessment & Plan (01/08/2019 2:33 PM [...] questions. Make sure to inform any new physician/PIN INSERTER/PA about chronic immunosuppressive therapy with methotrexate and [...] questions. Make sure to inform any new physician/PIN INSERTER/PA about chronic immunosuppressive therapy with methotrexate and [...] questions. Make sure to inform any new physician/PIN INSERTER/PA about chronic immunosuppressive therapy with methotrexate and [...] questions. Make sure to inform any new physician/PIN INSERTER/PA about chronic immunosuppressive therapy with methotrexate and [...] questions. Make sure to inform any new physician/PIN INSERTER/PA about chronic immunosuppressive therapy with methotrexate and [...] questions. Make sure to inform any new physician/PIN INSERTER/PA about chronic immunosuppressive therapy with methotrexate and [...] questions. Make sure to inform any new physician/PIN INSERTER/PA about chronic immunosuppressive therapy with methotrexate and [...] questions. Make sure to inform any new physician/PIN INSERTER/PA about chronic immunosuppressive therapy with methotrexate and Enbrel particularly if his health status worsens Assessment & Plan (07/29/2019 10:15 AM EDT): Avoid sick contacts. Hold Enbrel whenever running fever, feeling sick or taking antibiotics. Make sure to inform any new physician/PIN INSERTER/PA about chronic immunosuppressive therapy with methotrexate and Enbrel particularly if his health status worsens Assessment & Plan (05/12/2019 4:31 PM EST): Avoid sick contacts. Hold Enbrel whenever running fever, feeling sick or taking antibiotics. Make sure to inform any new physician/PIN INSERTER/PA about chronic immunosuppressive therapy with methotrexate and Enbrel particularly if his health status worsens Assessment & Plan (03/13/2019 3:22 PM EST): Avoid sick contacts. Hold Enbrel whenever running fever, feeling sick or taking antibiotics. Make sure to inform any new physician/PIN INSERTER/PA about chronic immunosuppressive therapy with methotrexate and Enbrel particularly if his health status worsens Assessment & Plan (01/08/2019 2:34 PM EDT): Avoid sick contacts. Hold Enbrel whenever running fever, feeling sick or taking antibiotics. Make sure to inform any new physician/PIN INSERTER/PA about chronic immunosuppressive therapy with methotrexate and Enbrel particularly if his health status worsens Assessment & Plan (07/06/2018 12:03 PM EDT): Avoid sick contacts. Hold Enbrel whenever running fever, feeling sick or taking antibiotics. Make sure to inform any new physician/PIN INSERTER/PA about chronic immunosuppressive therapy with methotrexate and Enbrel particularly if his health status worsens Assessment & Plan (04/28/2018 11:20 AM EST): Avoid sick contacts. Hold Enbrel whenever running fever, feeling sick or taking antibiotics. Make sure to inform any new physician/PIN INSERTER/PA about chronic immunosuppressive therapy with methotrexate and Enbrel particularly if his health status worsens Encounters Date Type Department Care Team Description 11/25/2024 Refill [facility] Rheumatology [address] [place] [address] Cristel Bagley MD Medication Refill 09/19/2024 Telephone [facility] Rheumatology [address] [place] [address] Cristel Bagley MD Rasuvo 09/18/2024 4:00 PM EDT Office Visit [facility] Rheumatology [address] [place] [address] Cristel Bagley MD Seronegative spondyloarthropathy (Primary Dx); [facility], [facility] use; Adalimumab (Humira) long-term use; Learning [...] PM EDT Hospital Encounter [facility] [address] [place] [address] Cristel Bagley MD Discharge Disposition: Home or [...] Description 01/19/2025 4:00 PM EST Office Visit [facility] Rheumatology [address] [place] [address] Cristel Bagley MD [address] [facility], [address] [place] [address] Health Maintenance Due Date Last Done Comments [...] spondyloarthropath y Adalimumab (Humira) long-term use Methot[facility]ate, [facility], current use C-REACTIVE PROTEIN Routine 09/17/2024 2: 33 PM EDT Seronegative spondyloarthropath y Adalimumab (Humira) long-term use Methotrexate, [facility], current use SEDIMENTATION RATE (ESR) Routine 09/17/2024 2:33 PM EDT Seronegative spondyloarthropath y Adalimumab (Humira) long-term use Methotrexate, [facility], current use CBC AND DIFFERENTIAL Routine 09/17/2024 2:33 PM EDT Seronegative spondyloarthropath y Adalimumab (Humira) long-term use Methotrexate, [facility], current use from Last 3 Months Results * (ABNORMAL) Comprehensive metabolic panel (09/17/2024 2:33 PM EDT) SODIUM 138 133 - 146 mmol/L [facility] POTASSIUM 4.4 3.3 - 5.1 mmol/L [facility] CHLORIDE 100 96 - 108 mmol/L [facility] CO2 27 21 - 35 mmol/L [facility] BUN 16 6 - 19 mg/dL [facility] CREATININE 0.90 0.5 - 1.5 mg/dL [facility] GLUCOSE 147(H) 70 - 99 mg/dL [facility] ALBUMIN 4.3 3.9 - 4.8 g/dL [facility] TOTAL PROTEIN 7.7 6.5 - 8.0 g/dL [facility] CALCIUM 9.8 8.4 - 10.3 mg/dL [facility] ALKALINE PHOSPHATASE 84 39 - 117 U/L [facility] TOTAL BILIRUBIN 0.4 0.0 - 1.2 mg/dL [facility] AST 26 0 - 37 U/L [facility] ALT 32 0 - 40 U/L [facility] GLOBULIN 3.4 1 - 4.8 g/dL [facility] EGFR 101 >59 mL/min/1.7 3m2 [facility] Comment:Estimated glomerular filtration rate calculated using the CKD-EPI refit equation. ANION GAP 15 10 - 20 mmol/L [facility] Blood 09/17/2024 2:33 PM EDT 09/17/2024 2:34 PM EDT us Cristel Bagley MD LAB BLOOD ORDERABLES Fin al Result Performing Organization Address City/[facility] Co de Phone Number [address] [address] * Sedimentation rate (ESR) (09/17/2024 2:33 PM EDT) ESR 10 0 - 20 mm/h [facility] Blood 09/17/2024 2:33 PM EDT 09/17/2024 2:34 PM EDT us Cristel Bagley MD LAB BLOOD ORDERABLES Fin al Result [facility] [address] [place] [address] * CBC and differential (09/17/2024 2:33 PM EDT) WBC 7.62 4.00 - 11.00 K/uL [facility] RBC 4.85 4.50 - 5.90 M/uL [facility] HGB 14.8 13.5 - 17.5 g/dL [facility] HCT 44.3 41.0 - 53.0 % [facility] PLT 236 150 - 450 K/uL [facility] MCV 91.3 80.0 - 100.0 fL [facility] MCH 30.5 27.0 - 31.0 pg [facility] MCHC 33.4 32.0 - 36.0 g/dL [facility] RDW 12.5 11.5 - 14.5 % [facility] MPV 10.7 8.4 - 12.0 fL [facility] NRBC 0.00 0.00 /100 WBCs [facility] ABSOLUTE NRBC 0.00 0.00 K/uL [facility] DIFF METHOD Auto [facility] NEUTS 57.5 48.0 - 76.0 % [facility] LYMPHS 33.5 18.0 - 41.0 % [facility] MONOS 7.2 4.0 - 11.0 % [facility] EOS 0.8 0.0 - 5.0 % [facility] BASOS 0.5 0.0 - 1.5 % [facility] Granulocytes, immature (%) 0.5 0.0 - 0.9 % [facility] ABSOLUTE NEUTS 4.38 1.92 - 7.60 K/uL [facility] ABSOLUTE LYMPHS 2.55 0.72 - 4.10 K/uL [facility] ABSOLUTE MONOS 0.55 0.16 - 1.10 K/uL [facility] ABSOLUTE EOS 0.06 0.00 - 0.50 K/uL [facility] ABSOLUTE BASOS 0.04 0.00 - 0.15 K/uL [facility] Granulocytes, immature 0.04 0.00 - 0.09 K/uL [facility] Blood 09/17/2024 2:33 PM EDT 09/17/2024 2:34 PM EDT us Cristel Bagley MD LAB BLOOD ORDERABLES Fin al Result [address] [address] * C-Reactive Protein (09/17/2024 2:33 PM EDT) C REACTIVE PROTEIN <3.0 0.0 - 4.0 mg/L [facility] Blood 09/17/2024 2:33 PM EDT 09/17/2024 2:34 PM EDT us Cristel Bagley MD LAB BLOOD ORDERABLES Fin al Result Performing Organization Address City/[facility]/ZIP Co de Phone Number [address] [address] from Last 3 Months [facility] MEDICARE REPLACEMENT [facility] MEDICARE PART A & B [facility] MEDICARE REPLACEMENT [place] MEDICARE PART A & B Member Subscriber Plan / Payer (Ef fective 2005-Present) Name:AlejotalonphyllisMatthew Member ID:[id number] Relation to Subscriber:Self Name:Alejojean-pierreMatthew Subscriber ID:[id number] Payer ID:[id number] Group ID:Not on file Type:Medicare Address: [facility] [employer] [facility] [employer] [facility] [address] [place] [phone] [facility] MEDICARE REPLACEMENT [place] MEDICARE PART A & B [facility] MEDICARE REPLACEMENT [facility] MEDICARE PART A & B [facility] MEDICARE REPLACEMENT [facility] MEDICARE PART A & B [facility] MEDICARE REPLACEMENT [facility] MEDICARE PART A & B [facility] MEDICARE REPLACEMENT [place] MEDICARE PART A & B [facility] MEDICARE [facility]PLACEMENT [place] MEDICARE PART A & B [facility] MEDICARE REPLACEMENT [employer]ENSATION Care Teams Insurance Business Analyst Relationship Specialty Start Date End Date Aniket Vega MD [address] [place] [address] Dr [place] [address] [place] [id number] PCP - General Internal Medicine 03/16/22 Additional Source Comments The information contained in this document represents components of the legal health record. It is not the complete legal health record.[facility]
--- OUTSIDE RECORDS SUMMARY | 2024-12-10 14:58 | XMS_ITS | Patient Health Record ---
Author Organization [facility] Address [address] [place] [address] Care Team Providers Care Fisheries Biologist Name Role Phone Kavin Pavon Unavailable [phone] Reason For Referral No Information Plan Of Treatment No Information
== END 2024-12-10 14:49 | disposition home or self-care (01) ==
LOC: HO.HBST 13:43
PROVIDERS: PCP Internal Medicine; Visit Provider Counselor Mental Health
DX: F32.A Depression, unspecified (principal); Z71.89 Other specified counseling
CPT/HCPCS: 90837

== ENCOUNTER 2024-12-31 15:13 | Outpatient (AMB) | payer OTHER, SELFPAY ==
--- NOTE | 2024-12-31 15:15 | A.OFFWM_ITS ---
Intake Intake Visit Reasons: VIDEO BH F/U Allergies No Known Allergies (No Known Allergies*) Allergy (Verified 12/09/24 15:45) PFS Medical History Low back pain Lower extremity edema Hyperlipidemia Hypertension Obstructive sleep apnea on CPAP BMI 35.0-35.9,adult Depression Osteoarthritis of both hips Osteoarthritis of right hip Diabetes mellitus Vitamin D deficiency Hx of flexible sigmoidoscopy Pure hypercholesterolemia Obesity (BMI 30-39.9) Learning disability DMII (diabetes mellitus, type 2) Seronegative spondyloarthropathy Surgical History Hx of colonoscopy History of hip replacement Family History Mother No problems noted. Social History Housing: Condominium Alcohol intake: current Comment: occasional one drink Patient Tobacco Use Status: Never used Tobacco e-Cigarette/Vaping Use: Never Used Second Hand Smoke Exposure: No service: No Current occupational status: unemployed Current occupational exposures/hazards: No Cognitive needs: No Hearing needs: Yes (right ear ) Vision needs: Yes (glasses) Behavioral Health Assessment Weight Management Therapy Therapy Notes Details Subjective: The patient reports he has not started the prescribed meal plan, stating it feels too restrictive. He also expresses concern about being addicted to coffee. He describes ongoing sleep difficulties, which he attributes to late- night use of electronics and social media, resulting in going to bed and waking up late. The stated his current meal pattern consists of: * 2 shakes (1 scoop in 8 oz milk, at 12?2 pm and 8?10 pm) * 2 bars (at 3?5 pm and 11 pm?1 am) * 1 meal at 6 pm Objective: Patient presents for a follow-up visit via telehealth. He appeared visibly anxious during the session. Discussed current functioning and challenges with adherence to the program. Psychoeducation provided on behavioral modification and challenging biased thinking, particularly regarding the meal and exercise plan. Patient asked several questions about weight loss information seen on social media that conflicts with the program?s recommendations. Developed a plan for the patient to follow the prescribed meal and exercise plan for at least two weeks. Provided sleep hygiene tips to address sleep issues. Assessment/Response: * Mental status: Alert and oriented x3, anxious mood, logical and goal-directed thought process, no evidence of psychosis. * Risk reported/identified: Denies suicidal or homicidal ideation, no current safety concerns identified. Assessment & Plan Assessment & Plan (1) Depression: Code(s): F32.A - Depression, unspecified Qualifiers: Depression Type: major depressive disorder Major depression recurrence: recurrent Major depression episode severity: unspecified (2) Pre-bariatric surgery psychological evaluation: Code(s): Z71.89 - Other specified counseling Plan Patient to follow the prescribed meal and exercise plan for at least two weeks. We will continue to address adherence and challenge misinformation from non- medical sources. Pt to implement sleep hygiene strategies. * Follow-up appointment scheduled for 01/20/2025 at 1:00 pm (office visit). Telehealth Telehealth Telehealth Platform: S3Bubble Location of provider rendering services: other (Home office. [place], [place]) Location of patient: address on file Patient Identification confirmed using: Name, : Yes Telehealth method: video Patient verbally consented to treatment: Yes Patient verbally consented to billing insurance company: Yes Patient informed of any privacy concerns related to visit: Yes Minutes spent on Phone/Video with Pt.: 45 Coding Level of Care Code Established Pt Tele Psytx 45 mins ([id number]) Patient Type Established Diagnoses Depression F32.A Depression Type: major depressive disorder Major depression recurrence: recurrent Major depression episode severity: unspecified Pre-bariatric surgery psychological evaluation Z71.89 Time Spent (min) 45
--- OUTSIDE RECORDS SUMMARY | 2024-12-31 21:28 | XMS_ITS | Clinical Summary ---
Author Organization [facility] Address [address] [place] [id number] Care Team Providers Care Anesthesiology Physician Assistant Name Role Phone Unavailable Primary Care [...]
--- OUTSIDE RECORDS SUMMARY | 2024-12-31 21:28 | XMS_ITS | Data Portability ---
Author Organization [place] [facility] [place] Address [address] [place] [address] Care Team Providers Care Supervisor Dry Cleaning Name Role Phone CHIKA KOO Clarifier Unavailable Assessment Encounter Date Assessment Date Assessment LastModified by Organization Details LastModified Time 01/29/2024 01/29/2024 HPI : Patient is here for about 20-year follow-up from left total hip replacement at [facility] following a work injury in 2002. [...] view 024 01/29/20 24 [email or web address] [facility], [address], [place], [address], 4 16:16:43 Medication Orders None record ed. Patient TargetsNo targets recorded. Patient Instructions Encounter Date Encounter Id Patient Instructions Last Modified By Organization Details Last Modified Time 01/29/2024 [id number] AP pelvis, AP an d lateral radiographs [...] Updated DateTime 01/29/2024 175.26 cm 32.6 kg/m2 338425.[address] [facility], 01/29/2024 13:22:06 Social History None recorded. Functional Status None recorded. Mental Status None recorded. Family History Nothing Reported. Medical History No medical history recorded. Past Encounters Encounter ID Performer Location Encounter Start Date Encounter Closed Date Diagnosis/Indication Diagnosis SNOMED-CT Code Diagnosis ICD10 Code Diagnosis IMO Codes Diagnosis Note [id number] Doug Oreilly MD [address] [place] [phone] 01/29/2024 13:07:46 01/29/2024 14:30:52 History of repair of hip joint [id number] Z96.642 [id number] Surgical follow-up 76907 4000 Z47.1 Z96.642 [id number] Health Concerns Section Related Observation LastModified by Organization Detai ls LastModified Time None Recorded Concern Status LastModified by Organization Details LastModified Time None Recorded Advance Directives Directive None Recorded Payers Insurance Date Sequence Insurance Name Policy Number Policy Selby Covered Member ID Selby Member ID Guarantor Name 01/30/2024 [facility] Matthew Lund
--- OUTSIDE RECORDS SUMMARY | 2024-12-31 21:28 | XMS_ITS | Clinical Summary ---
Author Organization [facility] Address [address] [place] [phone] Phone Care Team Providers Care Grade Tamper Name Role Phone Aniket Vega MD Primary Care Provider [phone] Allergies No known active allergies Medications ascorbic [...] (FOLVITE) 1 MG tabletIndications:Sero negative spondyloarthropathy,Me thotrexate, intermediate manager, current use TAKE 1 TABLET (1 MG TOTAL) BY MOUTH DAILY. 90 tablet 3 025 Active methotrexate, PF, (RASUVO, PF,) 17.5 mg/0.35 mL AtInIndications:Serone gative spondyloarthropathy Inject 17.5 mg under the skin every 7 days. 4 mL 11 025 Active HUMIRA 40 mg/0.8 mL syringe kitIndications:Seroneg ative spondyloarthropathy INJECT 0.8 ML UNDER THE SKIN EVERY 14 DAYS 2 each 025 Active Active Problems Problem Noted Date Diagnosed Date [...] and follow closely as prescribed with treating data capture specialist/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 team Assessment & Plan (06/19/2024 5:32 PM EDT): Continue nightly CPAP and follow closely as prescribed with treating data capture specialist/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 team Class 2 severe obesity due [...] day. Make sure to inform any new MD, PA, TELECOMMUNICATIONS PROJECT MANAGER about chronic immunosuppression with Humira and methotrexate [...] sure to inform any new KRISS REYEZ TELECOMMUNICATIONS PROJECT MANAGER about chronic immunosuppression with Humira and methotrexate [...] sure to inform any new KRISS REYEZ TELECOMMUNICATIONS PROJECT MANAGER about chronic immunosuppression with Humira and methotrexate [...] Make sure to inform any new KRISS REYEZ, TELECOMMUNICATIONS PROJECT MANAGER about chronic immunosuppression with Humira and methotrexate [...] day. Make sure to inform any new MD, PA, TELECOMMUNICATIONS PROJECT MANAGER about chronic immunosuppression with Humira and methotrexate [...] sure to inform any new KRISS REYEZ TELECOMMUNICATIONS PROJECT MANAGER about chronic immunosuppression with Humira and methotrexate [...] sure to inform any new KRISS REYEZ TELECOMMUNICATIONS PROJECT MANAGER about chronic immunosuppression with Humira and methotrexate [...] sure to inform any new KRISS REYEZ TELECOMMUNICATIONS PROJECT MANAGER about chronic immunosuppression with Humira and methotrexate [...] sure to inform any new KRISS REYEZ TELECOMMUNICATIONS PROJECT MANAGER about chronic immunosuppression with Humira and methotrexate [...] Make sure to inform any new KRISS REYEZ, TELECOMMUNICATIONS PROJECT MANAGER about chronic immunosuppression with Humira and methotrexate [...] Make sure to inform any new KRISS REYEZ, TELECOMMUNICATIONS PROJECT MANAGER about chronic immunosuppression with Humira and methotrexate [...] next visit in 4 months-standing orders in [facility]. Call if questions or problems. Assessment [...] next visit in 3 months-standing orders in [facility]. Call if questions or problems. Assessment & Plan (02/19/2024 11:46 AM EST): Get labs monitoring safety of therapy prior to next visit in 4 months - standing orders in [facility] Carefully continue weekly subcutaneous methotrexate 17.5 [...] function. See details in communication section of [facility]. He is really stressed out about the risk of losing insurance coverage for his life-saving Humira and methotrexate . He is aware and worried about upcoming appointment/conference with his ground support equipment assembler and insurance regarding coverage on 03/21/2024. Call if questions or problems. Assessment & Plan (10/21/2023 9:59 PM EDT): Get labs monitoring safety of therapy prior to next visit in 4 months - standing orders in [facility] Carefully continue weekly subcutaneous methotrexate 17.5 [...] function. See details in communication section of [facility]. Call if questions or problems. Assessment & Plan (06/14/2023 3:08 PM EDT): Get labs monitoring safety of therapy prior to next visit in 4 months - standing orders in [facility] Carefully continue weekly subcutaneous methotrexate 17.5 [...] in 4 months - standing orders in [facility] Carefully continue weekly subcutaneous methotrexate 17.5 [...] in 4 months - standing orders in [facility] Carefully continue weekly subcutaneous methotrexate 17.5 [...] in 4 months - standing orders in [facility] Carefully continue weekly subcutaneous methotrexate 17.5 [...] in 3 months - standing orders in [facility] Carefully continue weekly oral methotrexate to [...] at 12.5 mg = 5 tablets every Wed [...] at 12.5 mg = 5 tablets every Wed [...] at 12.5 mg = 5 tablets every Wed [...] at 12.5 mg = 5 tablets every Wed [...] to 12.5 mg = 5 tablets every Sunday and continue subcutaneous Enbrel every Sunday. Avoid sick contacts. Keep well-hydrated especially on the day of weekly methotrexate dose. Remain alcohol free while taking methotrexate. Gentle, regular exercise routine as tolerated. Due to his complaints about abdominal pain with crunches I suggested him to consider warm pool therapy at [facility]. Call if questions or problems. Assessment & Plan (03/13/2019 3:19 PM EST): Get the labs monitoring safety and efficacy of therapy today. Carefully continue weekly oral methotrexate every Wednes and subcutaneous Enbrel every Sunday. Avoid sick [...] loss and appropriate aids as necessary. Methotrexate, skilled nursing, current use 03/16/2017 Assessment & Plan (09/21/2024 9:56 PM EDT): Keep well-hydrated. Take exactly as prescribed. Remain alcohol free while on methotrexate. Hold methotrexate if sick, running fever or taking antibiotics. Seek immediate medical attention if running fevers, experiencing shortness of breath and cough. If seeing a new MD TELECOMMUNICATIONS PROJECT MANAGER PA make sure to notify them of [...] and cough. If seeing a new MD TELECOMMUNICATIONS PROJECT MANAGER, PA make sure to notify them of [...] and cough. If seeing a new MD TELECOMMUNICATIONS PROJECT MANAGER, PA make sure to notify them of [...] and cough. If seeing a new MD TELECOMMUNICATIONS PROJECT MANAGER PA make sure to notify them of [...] and cough. If seeing a new MD TELECOMMUNICATIONS PROJECT MANAGER, PA make sure to notify them of [...] and cough. If seeing a new MD TELECOMMUNICATIONS PROJECT MANAGER PA make sure to notify them of [...] and cough. If seeing a new MD TELECOMMUNICATIONS PROJECT MANAGER PA make sure to notify them of [...] dietary/nutritional support. He would benefit from formal New Car Make Ready Mechanic/ board hammer operator counselling Assessment & Plan (01/08/2019 2:33 PM [...] questions. Make sure to inform any new physician/TELECOMMUNICATIONS PROJECT MANAGER/PA about chronic immunosuppressive therapy with methotrexate and [...] questions. Make sure to inform any new physician/TELECOMMUNICATIONS PROJECT MANAGER/PA about chronic immunosuppressive therapy with methotrexate and [...] questions. Make sure to inform any new physician/TELECOMMUNICATIONS PROJECT MANAGER/PA about chronic immunosuppressive therapy with methotrexate and [...] questions. Make sure to inform any new physician/TELECOMMUNICATIONS PROJECT MANAGER/PA about chronic immunosuppressive therapy with methotrexate and [...] questions. Make sure to inform any new physician/TELECOMMUNICATIONS PROJECT MANAGER/PA about chronic immunosuppressive therapy with methotrexate and [...] questions. Make sure to inform any new physician/TELECOMMUNICATIONS PROJECT MANAGER/PA about chronic immunosuppressive therapy with methotrexate and [...] questions. Make sure to inform any new physician/TELECOMMUNICATIONS PROJECT MANAGER/PA about chronic immunosuppressive therapy with methotrexate and [...] questions. Make sure to inform any new physician/TELECOMMUNICATIONS PROJECT MANAGER/PA about chronic immunosuppressive therapy with methotrexate and Enbrel particularly if his health status worsens Assessment & Plan (07/29/2019 10:15 AM EDT): Avoid sick contacts. Hold Enbrel whenever running fever, feeling sick or taking antibiotics. Make sure to inform any new physician/TELECOMMUNICATIONS PROJECT MANAGER/PA about chronic immunosuppressive therapy with methotrexate and Enbrel particularly if his health status worsens Assessment & Plan (05/12/2019 4:31 PM EST): Avoid sick contacts. Hold Enbrel whenever running fever, feeling sick or taking antibiotics. Make sure to inform any new physician/TELECOMMUNICATIONS PROJECT MANAGER/PA about chronic immunosuppressive therapy with methotrexate and Enbrel particularly if his health status worsens Assessment & Plan (03/13/2019 3:22 PM EST): Avoid sick contacts. Hold Enbrel whenever running fever, feeling sick or taking antibiotics. Make sure to inform any new physician/TELECOMMUNICATIONS PROJECT MANAGER/PA about chronic immunosuppressive therapy with methotrexate and Enbrel particularly if his health status worsens Assessment & Plan (01/08/2019 2:34 PM EDT): Avoid sick contacts. Hold Enbrel whenever running fever, feeling sick or taking antibiotics. Make sure to inform any new physician/TELECOMMUNICATIONS PROJECT MANAGER/PA about chronic immunosuppressive therapy with methotrexate and Enbrel particularly if his health status worsens Assessment & Plan (07/06/2018 12:03 PM EDT): Avoid sick contacts. Hold Enbrel whenever running fever, feeling sick or taking antibiotics. Make sure to inform any new physician/TELECOMMUNICATIONS PROJECT MANAGER/PA about chronic immunosuppressive therapy with methotrexate and Enbrel particularly if his health status worsens Assessment & Plan (04/28/2018 11:20 AM EST): Avoid sick contacts. Hold Enbrel whenever running fever, feeling sick or taking antibiotics. Make sure to inform any new physician/TELECOMMUNICATIONS PROJECT MANAGER/PA about chronic immunosuppressive therapy with methotrexate and Enbrel particularly if his health status worsens Encounters Date Type Department Care Team Description [facility] [address] [place] [address] Cristel Bagley MD Medication Refill from Last 3 Months Immunizations Immunization Administration [...] Description 01/19/2025 4:00 PM EST Office Visit [facility] Rheumatology [address] [place] [address] KlCristel Agarwal MD [address] [place] [address], [address] [place] [address] Health Maintenance Due Date Last Done Comments LIPID PANEL 1968 DEPRESSION SCREENING 1980 HEPATITIS C SCREENING 1986 HIV ONE-TIME SCREENING (18-65 YEARS) 1986 PNEUMOCOCCAL VACCINES (50+ years) (1 of 2 - PCV) 10/30/1987 ZOSTER VACCINES (1 of 2) 10/30/1987 COLOGUARD 2013 COLONOSCOPY 2013 COLORECTAL CANCER SCREENING 2013 FIT TEST 2013 FOBT 2013 SIGMOIDOSCOPY 2013 VIRTUAL COLONOSCOPY 2013 RSV VACCINE (1 - Risk 50-74 years 1-dose series) 2018 COVID-19 VACCINE (3 - Moderna risk series) [...] spondyloarthropath y Adalimumab (Humira) long-term use Methotrexate, skilled nursing, current use from Last 3 Months or Most Recently Relevant to Health Maintenance Results * (ABNORMAL) Comprehensive metabolic panel (09/17/2024 2:33 PM EDT) SODIUM 138 133 - 146 mmol/L [facility] POTASSIUM 4.4 3.3 - 5.1 mmol/L [facility] CHLORIDE 100 96 - 108 mmol/L [facility] CO2 27 21 - 35 mmol/L [facility] BUN 16 6 - 19 mg/dL [facility] CREATININE 0.90 0.5 - 1.5 mg/dL [facility] GLUCOSE 147(H) 70 - 99 mg/dL [facility] ALBUMIN 4.3 3.9 - 4.8 g/dL [facility] TOTAL PROTEIN 7.7 6.5 - 8.0 g/dL [facility] CALCIUM 9.8 8.4 - 10.3 mg/dL [facility] ALKALINE PHOSPHATASE 84 39 - 117 U/L [facility] TOTAL BILIRUBIN 0.4 0.0 - 1.2 mg/dL [facility] AST 26 0 - 37 U/L [facility] ALT 32 0 - 40 U/L [facility] GLOBULIN 3.4 1 - 4.8 g/dL [facility] EGFR 101 >59 mL/min/1.7 3m2 [facility] Comment:Estimated glomerular filtration rate calculated using the CKD-EPI refit equation. ANION GAP 15 10 - 20 mmol/L [facility] Blood 09/17/2024 2:33 PM EDT 09/17/2024 2:34 PM EDT us Cristel Bagley MD LAB BLOOD ORDERABLES Fin al Result [facility] [address] [place] [address] from Last 3 Months or Most Recently Relevant to Health Maintenance Insurance [place] B [facility] MEDICARE REPLACEMENT [place] B Member Subscriber Plan / Payer (Ef fective 2005-Present) Name:Carrie Burrell Member ID:[id number] Relation to Subscriber:Self Name:Carrie Burrell Subscriber ID:[id number] Payer ID:[id number] Group ID:Not on file Type:Medicare Address: [employer] [address] [place] [id number] [place] [address] MEDICARE REPLACEMENT MEDICARE PART A & B [facility] MEDICARE [facility]PLACEMENT [facility] MEDICARE PART A & B [facility] MEDICARE [facility]PLACEMENT [place] B [facility] REPLACEMENT [facility] MEDICARE PART A & B [facility] MEDICARE REPLACEMENT [facility] MEDICARE PART A & B [facility] MEDICARE REPLACEMENT [facility] MEDICARE PART A & B [facility] MEDICARE REPLACEMENT [employer] COMPENSATION Care Teams Grade Tamper Relationship Specialty Start Date End Date Aniket Vega MD [address] [place] [address] [place] [address] PCP - General Internal Medicine 03/16/22 Additional Source Comments The information contained in this document represents components of the legal health record. It is not the complete legal health record.[facility]
--- OUTSIDE RECORDS SUMMARY | 2024-12-31 21:28 | XMS_ITS | Patient Health Record ---
Author Organization [facility] Address [address] [place] [address] Care Team Providers Care Cashier And Waiter/Waitress Name Role Phone Kavin Pavon Unavailable [phone] Reason For Referral No Information Plan Of Treatment No Information
== END 2024-12-31 15:54 | disposition home or self-care (01) ==
LOC: HO.HBST 15:13
PROVIDERS: PCP Internal Medicine; Visit Provider Counselor Mental Health
DX: F32.A Depression, unspecified (principal); Z71.89 Other specified counseling
CPT/HCPCS: 90834

== ENCOUNTER 2025-01-20 12:34 | Outpatient (AMB) | payer OTHER, SELFPAY ==
--- NOTE | 2025-01-20 13:05 | A.OFFWM_ITS ---
Intake Intake Visit Reasons: OV BH F/U Allergies No Known Allergies (No Known Allergies*) Allergy (Verified 12/09/24 15:45) PFSH Medical History Low back pain Lower extremity edema Hyperlipidemia Hypertension Obstructive sleep apnea on CPAP BMI 35.0-35.9,adult Depression Osteoarthritis of both hips Osteoarthritis of right hip Diabetes mellitus Vitamin D deficiency Hx of flexible sigmoidoscopy Pure hypercholesterolemia Obesity (BMI 30-39.9) Learning disability DMII (diabetes mellitus, type 2) Seronegative spondyloarthropathy Surgical History Hx of colonoscopy History of hip replacement Family History Mother No problems noted. Social History Housing: Condominium Alcohol intake: current Comment: occasional one drink Patient Tobacco Use Status: Never used Tobacco e-Cigarette/Vaping Use: Never Used Second Hand Smoke Exposure: No service: No Current occupational status: unemployed Current occupational exposures/hazards: No Cognitive needs: No Hearing needs: Yes (right ear ) Vision needs: Yes (glasses) Behavioral Health Assessment Weight Management Therapy Therapy Notes Details Subjective: The patient reports recent illness, during which he was unable to follow his meal and exercise plan. His current weight is 227 lbs, reflecting a 2 lb gain. He expresses confusion about whether to continue his meal plan while sick. The patient asked multiple questions regarding health and weight-loss tendencies seen on social media, challenged current practices, and required repetition and detailed explanations. He also reports disrupted sleep and acknowledges excessive phone use, particularly related to searching for health information online. Objective: The patient attended a behavioral health follow-up session in person. The provider reviewed and printed his meal plan for clarity. CBT-based interventions were used to address cognitive distortions and misinformation from social media, including psychoeducation on evidence-based health practices and the risks of following unverified online trends. The session focused on building insight into the impact of phone overuse and disrupted sleep on mood, motivation, and habit formation. Strategies for habit building, such as setting realistic goals, using reminders, and establishing a consistent routine, were discussed. The patient was encouraged to limit exposure to unreliable health information online and to use trusted sources for guidance. Sleep hygiene techniques and digital boundaries were introduced to support improved sleep and reduce phone overuse. Assessment/Response: * Mental status: Alert and oriented ?4. Appearance appropriate. Mood mildly anxious and frustrated, affect congruent. Thought process logical but at times tangential due to preoccupation with online health information. No evidence of psychosis. Insight and judgment fair. * Risk reported/identified: No suicidal or homicidal ideation, self-harm, or other acute safety concerns identified. Assessment & Plan Assessment & Plan (1) Depression: Code(s): F32.A - Depression, unspecified Qualifiers: Depression Type: major depressive disorder Major depression recurrence: recurrent Major depression episode severity: unspecified Plan Patient is not considered stable for weight-loss surgery at this time. Will continue to provide support for habit building, program compliance, and matias gement of sleep and technology use. Next appointment scheduled for 03/25/2025 at 2:00 PM. Coding [place] [address] Psytx >53 mins Patient Type Established Diagnoses Depression F32.A Depression Type: major depressive disorder Major depression recurrence: recurrent Major depression episode severity: unspecified Time Spent (min) 55
--- OUTSIDE RECORDS SUMMARY | 2025-01-20 14:22 | XMS_ITS | Encounter Summary ---
Author Organization [facility] Address [address] [place] [address] Care Team Providers Care Aoc Aadc Operations Staff Officer Name Role Phone Unavailable Primary Care Provider Unavailabl e Encounter Details Date Type Department Care Team (Late st Contact Info) Description 01/14/2019 Abstract [facility] Rheumatology [place] [address] [facility] [address] [place], [place] [id number] Re Blake MD [address] [facility] [place] [address] Social History Tobacco Use Types [...]
--- OUTSIDE RECORDS SUMMARY | 2025-01-20 14:22 | XMS_ITS | Encounter Summary ---
Author Organization [facility] Address [address] [facility] [address] [place] [address] Phone Care Team Providers Care Private Duty Rn Name Role Phone Aniket Vega MD Primary Care Provider [phone] Reason for Visit * Reason Onset Date Comments Appointment 01/19/2025 Encounter Details Date Type Department Care Team (Late st Contact Info) Description 01/19/2025 Telephone [facility] Rheumatology [address] [place] [address] Cristel Bagley MD [address] [facility], [address] [place] [address] [email or web address] Appointment Social History Tobacco Use Types Packs/Day Years Used Date Smoking Tobacco: Never Smokeless Tobacco: Never Alcohol Use Standard Drinks/Week Comments No 0 [...] on file documented as of this encounter Progress Notes * Argenis Aiken RN - 01/19/2025 12:04 PM EST Due for humira today but is sick- Fever, cold s/s, runny nose Wondering if should take todays humira? Advised to HOLD until feeling better and ok to restart usual weekly day once s/s have resolved for at least 48 hours. FUV rescheduled. * Nga Tuttle - 01/19/2025 11:02 AM EST Pt had an injection tomasz for today, but had to cancel due to a very bad cold/flu. Not sure what to do about scheduling/rescheduling, he asked for call from doctor ольга because he's not sure what to doabout his medication/shot. documented in this encounter Plan of Treatment Upcoming Encounters Date Type Department Care Team (Late st Contact Info) Description 02/26/2025 4:30 PM EST Office Visit [facility] Rheumatology [address] [place] [address] Cristel Bagley MD [address] [facility], [address] [place] [address] [email or web address] documented as of this encounter Visit Diagnoses Not on filedocumented in this encounter Care Teams Private Duty Rn Relationship Specialty Start Date End Date Aniket Vega MD [address] [place] [address] [address] PCP - General Internal Medicine 03/16/22 documented as of this encounter Additional Source Comments The information contained in this document represents components of the legal health record. It is not the complete legal health record.[facility]
--- OUTSIDE RECORDS SUMMARY | 2025-01-20 14:22 | XMS_ITS | Clinical Summary ---
Author Organization [address] Address [address] [place] [id number] Care Team Providers Care Java Flex Developer Name Role Phone Unavailable Primary Care Provider [...]
--- OUTSIDE RECORDS SUMMARY | 2025-01-20 14:22 | XMS_ITS | Data Portability ---
Author Organization [place] [facility] Address [address] [place] [address] Care Team Providers Care Police Lieutenant Patrol Name Role Phone CHIKA KOO Medical Planner Unavailable Assessment Encounter Date Assessment Date Assessment LastModified by Organization Details LastModified Time 01/29/2024 01/29/2024 HPI : Patient is here for about 20-year follow-up from left total hip replacement at [facility] following a work injury in 2002. [...] view 024 01/29/20 24 [email or web address] [facility], [address], [place], [address], 4 16:16:43 Medication Orders None record ed. Patient TargetsNo targets recorded. Patient Instructions Encounter Date Encounter Id Patient Instructions Last Modified By Organization Details Last Modified Time 01/29/2024 [id number] AP pelvis, AP an d lateral radiographs [...] Updated DateTime 01/29/2024 175.26 cm 32.6 kg/m2 613206.[address] [facility] [place], 01/29/2024 13:22:06 Social History None recorded. Functional Status None recorded. Mental Status None recorded. Family History Nothing Reported. Medical History No medical history recorded. Past Encounters Encounter ID Performer Location Encounter Start Date Encounter Closed Date Diagnosis/Indication Diagnosis SNOMED-CT Code Diagnosis ICD10 Code Diagnosis IMO Codes Diagnosis Note [id number] Doug Oreilly MD [address] [place] [id number] 01/29/2024 13:07:46 01/29/2024 14:30:52 History of repair of hip joint 643676134 Z96.642 [id number] Surgical follow-up [address] 4000 Z47.1 Z96.642 [id number] Health Concerns Section Related Observation LastModified by Organization Detai ls LastModified Time None Recorded Concern Status LastModified by Organization Details LastModified Time None Recorded Advance Directives Directive None Recorded Payers Insurance Date Sequence Insurance Name Policy Number Policy Selby Covered Member ID Selby Member ID Guarantor Name 01/30/2024 [facility] Matthew Lund
--- OUTSIDE RECORDS SUMMARY | 2025-01-20 14:22 | XMS_ITS | Encounter Summary ---
Author Organization [facility] Address [address] [place] [address] Care Team Providers Care Data Entry Processor Name Role Phone Unavailable Primary Care Provider Unavailabl e Encounter Details Date Type Department Care Team (Late st Contact Info) Description 07/21/2019 Scanned Document [facility] PM Rheumatology [place] [address] [facility] [address] [place] [address] Re Blake MD [address] [facility] [place] [address] Social History Tobacco Use Types [...]
--- OUTSIDE RECORDS SUMMARY | 2025-01-20 14:23 | XMS_ITS | Clinical Summary ---
Author Organization [facility] Address [address] [place] [address] Care Team Providers Care Building Services Supervisor Name Role Phone Unavailable Primary Care [...]
--- OUTSIDE RECORDS SUMMARY | 2025-01-20 14:23 | XMS_ITS | Clinical Summary ---
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 Assessment & Plan (06/19/2024 5:32 PM EDT): Continue nightly CPAP and follow closely as prescribed with treating 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/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 team Class 2 severe obesity due [...] sure to inform any new MD, PA, WINDOW SHADE CUTTER about chronic immunosuppression with Humira and methotrexate [...] sure to inform any new KRISS REYEZ WINDOW SHADE CUTTER about chronic immunosuppression with Humira and methotrexate [...] sure to inform any new KRISS REYEZ WINDOW SHADE CUTTER about chronic immunosuppression with Humira and methotrexate [...] sure to inform any new KRISS REYEZ, WINDOW SHADE CUTTER about chronic immunosuppression with Humira and methotrexate [...] sure to inform any new MD, PA, WINDOW SHADE CUTTER about chronic immunosuppression with Humira and methotrexate [...] sure to inform any new KRISS REYEZ WINDOW SHADE CUTTER about chronic immunosuppression with Humira and methotrexate [...] sure to inform any new KRISS REYEZ WINDOW SHADE CUTTER about chronic immunosuppression with Humira and methotrexate [...] sure to inform any new KRISS REYEZ WINDOW SHADE CUTTER about chronic immunosuppression with Humira and methotrexate [...] sure to inform any new KRISS REYEZ WINDOW SHADE CUTTER about chronic immunosuppression with Humira and methotrexate [...] sure to inform any new KRISS REYEZ, WINDOW SHADE CUTTER about chronic immunosuppression with Humira and methotrexate [...] sure to inform any new KRISS REYEZ, WINDOW SHADE CUTTER about chronic immunosuppression with Humira and methotrexate [...] next visit in 4 months-standing orders in [facility]. Call if questions or problems. Assessment [...] next visit in 3 months-standing orders in [facility]. Call if questions or problems. Assessment & Plan (02/19/2024 11:46 AM EST): Get labs monitoring safety of therapy prior to next visit in 4 months - standing orders in [facility] Carefully continue weekly subcutaneous methotrexate 17.5 [...] function. See details in communication section of [facility]. He is really stressed out about the risk of losing insurance coverage for his life-saving Humira and methotrexate . He is aware and worried about upcoming appointment/conference with his optician manager and insurance regarding coverage on 03/21/2024. Call if questions or problems. Assessment & Plan (10/21/2023 9:59 PM EDT): Get labs monitoring safety of therapy prior to next visit in 4 months - standing orders in [facility] Carefully continue weekly subcutaneous methotrexate 17.5 [...] function. See details in communication section of [facility]. Call if questions or problems. Assessment & Plan (06/14/2023 3:08 PM EDT): Get labs monitoring safety of therapy prior to next visit in 4 months - standing orders in [facility] Carefully continue weekly subcutaneous methotrexate 17.5 [...] in 4 months - standing orders in [facility] Carefully continue weekly subcutaneous methotrexate 17.5 [...] in 4 months - standing orders in [facility] Carefully continue weekly subcutaneous methotrexate 17.5 [...] in 4 months - standing orders in [facility] Carefully continue weekly subcutaneous methotrexate 17.5 [...] in 3 months - standing orders in [facility] Carefully continue weekly oral methotrexate to [...] him to consider warm pool therapy at [facility]. Call if questions or problems. Assessment [...] loss and appropriate aids as necessary. Methotrexate, bed bug exterminator, current use 03/16/2017 Assessment & Plan (09/21/2024 9:56 PM EDT): Keep well-hydrated. Take exactly as prescribed. Remain alcohol free while on methotrexate. Hold methotrexate if sick, running fever or taking antibiotics. Seek immediate medical attention if running fevers, experiencing shortness of breath and cough. If seeing a new MD WINDOW SHADE CUTTER PA make sure to notify them of [...] breath and cough. If seeing a new KRYTSAL REYEZ PA make sure to notify them [...] and cough. If seeing a new MD WINDOW SHADE CUTTER, PA make sure to notify them of [...] and cough. If seeing a new MD WINDOW SHADE CUTTER, PA make sure to notify them of [...] and cough. If seeing a new MD WINDOW SHADE CUTTER PA make sure to notify them of [...] and cough. If seeing a new MD WINDOW SHADE CUTTER, PA make sure to notify them of [...] and cough. If seeing a new MD WINDOW SHADE CUTTER PA make sure to notify them of [...] and cough. If seeing a new MD WINDOW SHADE CUTTER PA make sure to notify them of [...] dietary/nutritional support. 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 Make sure to inform any new physician/WINDOW SHADE CUTTER/PA about chronic immunosuppressive therapy with methotrexate and [...] questions. Make sure to inform any new physician/WINDOW SHADE CUTTER/PA about chronic immunosuppressive therapy with methotrexate and [...] questions. Make sure to inform any new physician/WINDOW SHADE CUTTER/PA about chronic immunosuppressive therapy with methotrexate and [...] questions. Make sure to inform any new physician/WINDOW SHADE CUTTER/PA about chronic immunosuppressive therapy with methotrexate and [...] questions. Make sure to inform any new physician/WINDOW SHADE CUTTER/PA about chronic immunosuppressive therapy with methotrexate and [...] questions. Make sure to inform any new physician/WINDOW SHADE CUTTER/PA about chronic immunosuppressive therapy with methotrexate and [...] questions. Make sure to inform any new physician/WINDOW SHADE CUTTER/PA about chronic immunosuppressive therapy with methotrexate and [...] questions. Make sure to inform any new physician/WINDOW SHADE CUTTER/PA about chronic immunosuppressive therapy with methotrexate and Enbrel particularly if his health status worsens Assessment & Plan (07/29/2019 10:15 AM EDT): Avoid sick contacts. Hold Enbrel whenever running fever, feeling sick or taking antibiotics. Make sure to inform any new physician/WINDOW SHADE CUTTER/PA about chronic immunosuppressive therapy with methotrexate and Enbrel particularly if his health status worsens Assessment & Plan (05/12/2019 4:31 PM EST): Avoid sick contacts. Hold Enbrel whenever running fever, feeling sick or taking antibiotics. Make sure to inform any new physician/WINDOW SHADE CUTTER/PA about chronic immunosuppressive therapy with methotrexate and Enbrel particularly if his health status worsens Assessment & Plan (03/13/2019 3:22 PM EST): Avoid sick contacts. Hold Enbrel whenever running fever, feeling sick or taking antibiotics. Make sure to inform any new physician/WINDOW SHADE CUTTER/PA about chronic immunosuppressive therapy with methotrexate and Enbrel particularly if his health status worsens Assessment & Plan (01/08/2019 2:34 PM EDT): Avoid sick contacts. Hold Enbrel whenever running fever, feeling sick or taking antibiotics. Make sure to inform any new physician/WINDOW SHADE CUTTER/PA about chronic immunosuppressive therapy with methotrexate and Enbrel particularly if his health status worsens Assessment & Plan (07/06/2018 12:03 PM EDT): Avoid sick contacts. Hold Enbrel whenever running fever, feeling sick or taking antibiotics. Make sure to inform any new physician/WINDOW SHADE CUTTER/PA about chronic immunosuppressive therapy with methotrexate and Enbrel particularly if his health status worsens Assessment & Plan (04/28/2018 11:20 AM EST): Avoid sick contacts. Hold Enbrel whenever running fever, feeling sick or taking antibiotics. Make sure to inform any new physician/WINDOW SHADE CUTTER/PA about chronic immunosuppressive therapy with methotrexate and Enbrel particularly if his health status worsens Encounters Date Type Department Care Team Description 01/19/2025 Telephone [facility] Rheumatology [address] [place], [place] [address] KlCristel Agarwal MD Appointment 11/25/2024 Refill [facility] Rheumatology [address] [place] [address] Cristel Bagley MD Medication Refill from Last [...] Description 02/26/2025 4:30 PM EST Office Visit [facility] Rheumatology [address] [place] [address] Cristel Bagley MD [address] [facility], [address] [place] [address] [email or web address] Maintenance Due Date Last Done Comments [...] on patient's age to complete this topic IPV VACCINES Aged Out No longer eligi ble [...] Date/Time Associated Diagnosis Comments COMPREHENSIVE METABOLIC PANEL (CMP) Routine 09/17/2024 2:33 PM EDT Seronegative spondyloarthropath y Adalimumab (Humira) long-term use Methotrexate, bed bug exterminator, current use from Last 3 Months or Most Recently Relevant to Health Maintenance Results * (ABNORMAL) Comprehensive metabolic panel (09/17/2024 2:33 PM EDT) SODIUM 138 133 - 146 mmol/L [facility] POTASSIUM 4.4 3.3 - 5.1 mmol/L [facility] CHLORIDE 100 96 - 108 mmol/L [facility] CO2 27 21 - 35 mmol/L [facility] BUN 16 6 - 19 mg/dL [facility] CREATININE 0.90 0.5 - 1.5 mg/dL [facility] GLUCOSE 147(H) 70 - 99 mg/dL [facility] ALBUMIN 4.3 3.9 - 4.8 g/dL [facility] TOTAL PROTEIN 7.7 6.5 - 8.0 g/dL [facility] CALCIUM 9.8 8.4 - 10.3 mg/dL [facility] ALKALINE PHOSPHATASE 84 39 - 117 U/L [facility] TOTAL BILIRUBIN 0.4 0.0 - 1.2 mg/dL [facility] AST 26 0 - 37 U/L [facility] ALT 32 0 - 40 U/L [facility] GLOBULIN 3.4 1 - 4.8 g/dL [facility] EGFR 101 >59 mL/min/1.7 3m2 [facility] Comment:Estimated glomerular filtration rate calculated using the CKD-EPI refit equation. ANION GAP 15 10 - 20 mmol/L [facility] Blood 09/17/2024 2:33 PM EDT 09/17/2024 2:34 PM EDT us Cristel Bagley MD LAB BLOOD BKR ORDERABLES Final Result [facility] [address] [place], [place] [id number] from Last 3 Months or Most Recently Relevant to Health Maintenance Insurance [place] B [facility] [employer] REPLACEMENT [place] [facility] MED[employer] REPLACEMENT [facility] MEDIC[facility] PART A & B [facility] REPLACEMENT [facility] MEDICARE PART A & B [facility]PLACEMENT [facility] MEDICARE PART A & B [facility]PLACEMENT [place] B [facility] MED[facility]PLACEMENT [place] B [facility] REPLACEMENT [facility] MEDICARE PART A & B [facility] MEDIC[facility] REPLACEMENT [facility] MEDICARE PART A & B [facility] MEDICARE REPLACEMENT [employer] COMPENSATION Care Teams Mill Attendant Relationship Specialty Start Date End Date Aniket Vega MD [address] [place] [address] [place] [address] PCP - General Internal Medicine 03/16/22 Additional Source Comments The information contained in this document represents components of the legal health record. It is not the complete legal health record.[facility]
--- OUTSIDE RECORDS SUMMARY | 2025-01-20 14:23 | XMS_ITS | Patient Health Record ---
Author Organization [facility] Address [address] [place] [address] Care Team Providers Care Egg Candler Name Role Phone Kavin Pavon Unavailable [phone] Reason For Referral No Information Plan Of Treatment No Information
== END 2025-01-20 14:03 | disposition home or self-care (01) ==
LOC: HO.HBST 12:35
PROVIDERS: PCP Internal Medicine; Visit Provider Counselor Mental Health
DX: F32.A Depression, unspecified (principal)
CPT/HCPCS: 90837